=== PATIENT | male | born 1955 | race Caucasian/White ===

== ENCOUNTER 2016-10-30 15:02 | Inpatient (IN) | payer OTHER ==
[~2016-10-30] VITALS: Ht 177.8 cm; Wt 62.4 kg
[~2016-10-30 15:02] MED LIST: ASPI81TA82 PO; EC-N500T7 PO; MEDR4PAK3 PO
[2016-10-30 15:05] VITALS: BP 141/73; PULSE 111; RESP 18; TEMP 98.4; O2SAT 97
--- NOTE | 2016-10-30 15:08 | PD ---
Physical Exam Date Seen by Provider: Oct 30, 2016 Time Seen by Provider: 15:07 Narrative 61 yo male here for wound to his skin. Going on for 3-4 weeks. Oozing. Was told by [facility] who told him might be cancer. Has not seen anybody else for this. Vitals are stable in triage. Awaiting Bed placement. Data Data Last Documented VS Vital Signs Date Time Temp Pulse Resp B/P Pulse Ox O2 Delivery O2 Flow Rate FiO2 10/30/16 15:05 98.4 111 18 141/73 97 Room Air [facility] Medical Record Reviewed: Yes Supervised Visit with JOSE: No Nimesh Graves Oct 30, 2016 15:08
--- NOTE | 2016-10-30 16:15 | PD ---
HPI Chief Complaint: Skin Problem Time Seen by Provider: 16:15 Travel History International Travel<30 days: No Contact w/Intl Traveler<30days: No Traveled to known affect area: No History of Present Illness HPI 61 YO M presents to the ED for evaluation of three-month history of open wound of the left forehead. Patient states that he had a "wart" in the area for the last 5+ years. He endorses 20-30 pound weight loss in the last 3 months, occasional night sweats, occasional left-sided headaches. Complains of localized wound pain on presentation. He denies dizziness, vision changes, neuro deficits, chest pain, palpitations, shortness of breath, abdominal pain, nausea, vomiting, melena, hematochezia, dysuria, back pain, weakness of the extremities. He was seen at [facility] 8 days ago and sent to an outpatient kick press setter. Drier Operator Head told him that this was too extensive to be treated in the office. He's been a 2 pack-a-day smoker for 45 years. [facility] Social History Alcohol Use: No Tobacco Use: Yes Substance Use: No Allergies-Medications (Allergen,Severity, Reaction): Coded Allergies: No Known Allergies (Verified , 02/20/14) Reported Meds & Prescriptions Reported Meds & Active Scripts Active Reported Aspirin 81 Mg Chew 81 Mg CHEW DAILY Review of Systems Except as stated in HPI: all other systems reviewed are Neg Physical Exam Narrative GENERAL: Well-nourished, well-developed thin white male in no acute distress. SKIN: Focused skin assessment warm/dry. There is a 5 x 5 cm open, foul-smelling , purulent wound on the left forehead, lateral to the left eye. HEAD: Normocephalic. EYES: No scleral icterus. No injection or drainage. PERRLA. EOMI. NECK: Supple, trachea midline. No JVD or lymphadenopathy. CARDIOVASCULAR: Regular rate and rhythm without murmurs, gallops, or rubs. RESPIRATORY: Breath sounds and equal bilaterally. No accessory muscle use. GASTROINTESTINAL: Abdomen soft, non-tender, nondistended. Active bowel sounds. MUSCULOSKELETAL: No cyanosis, or edema. NEUROLOGICAL: Awake and alert. Cranial nerves II through XII intact. Motor and sensory grossly within normal limits. 5/5 muscle strength in all muscle groups. Normal speech. BACK: Nontender without obvious deformity. No CVA tenderness. Data Data Last Documented VS Vital Signs Date Time Temp Pulse Resp B/P Pulse Ox O2 Delivery O2 Flow Rate FiO2 10/30/16 18:39 89 121/63 97 10/30/16 17:08 17 Room Air 10/30/16 15:05 98.4 Orders Complete Blood Count With Diff (10/30/16 16:05) Comprehensive Metabolic Panel (10/30/16 16:05) Lactic Acid Sepsis Protocol (10/30/16 16:05) Blood Culture (10/30/16 16:05) Ecg Monitoring (10/30/16 16:05) Iv Access Insert/Monitor (10/30/16 16:05) Oximetry (10/30/16 16:05) Prothrombin Time / Inr (Pt) (10/30/16 16:10) Act Partial Throm Time (Ptt) (10/30/16 16:10) Wound Culture And Gram Stain (10/30/16 16:10) Ct Soft Tiss Neck W Iv Cont (10/30/16 ) Iohexol 350 Inj (Omnipaque 350 Inj) (10/30/16 18:18) Acetamin-Hydrocod 325-5 Mg ([place] 5-325 (10/30/16 18:45) Vancomycin Inj (Vancomycin Inj) (10/30/16 18:45) Clindamycin Inj (Cleocin Inj) (10/30/16 18:45) Admit Order (Ed Use Only) (10/30/16 19:57) Place In Observation (10/30/16 ) Vital Signs (Adult) Q4H (10/30/16 19:59) Activity Oob Ad Madelin (10/30/16 19:59) Chrome Plater / Telemetry .CONTINUOUS (10/30/16 19:59) Diet Heart Healthy (10/31/16 Breakfast) Sodium Chloride 0.9% Flush (Ns Flush) (10/30/16 20:00) Sodium Chloride 0.9% Flush (Ns Flush) (10/30/16 21:00) Basic Metabolic Panel (Bmp) (10/31/16 06:00) Complete Blood Count With Diff (10/31/16 06:00) Case Management Consult (10/30/16 19:59) Naloxone Inj (Narcan Inj) (10/30/16 20:00) Labs Laboratory Tests Test 10/30/16 16:18 White Blood Count 19.1 TH/MM3 Red Blood Count 3.99 MIL/MM3 Hemoglobin 11.6 GM/DL Hematocrit 34.1 % Mean Corpuscular Volume 85.5 FL Mean Corpuscular Hemoglobin 29.2 PG Mean Corpuscular Hemoglobin 34.1 % Concent Red Cell Distribution Width 14.5 % Platelet Count 394 TH/MM3 Mean Platelet Volume 7.6 FL Neutrophils (%) (Auto) 79.7 % Lymphocytes (%) (Auto) 13.2 % Monocytes (%) (Auto) 5.9 % Eosinophils (%) (Auto) 0.5 % Basophils (%) (Auto) 0.7 % Neutrophils # (Auto) 15.2 TH/MM3 Lymphocytes # (Auto) 2.5 TH/MM3 Monocytes # (Auto) 1.1 TH/MM3 Eosinophils # (Auto) 0.1 TH/MM3 Basophils # (Auto) 0.1 TH/MM3 CBC Comment DIFF FINAL Differential Comment Sodium Level 136 MEQ/L Potassium Level 4.1 MEQ/L Chloride Level 100 MEQ/L Carbon Dioxide Level 30.4 MEQ/L Anion Gap 6 MEQ/L Blood Urea Nitrogen 13 MG/DL Creatinine 0.86 MG/DL Estimat Glomerular Filtration 90 ML/MIN Rate Random Glucose 225 MG/DL Lactic Acid Level 1.4 mmol/L Calcium Level 10.7 MG/DL Total Bilirubin 0.3 MG/DL Aspartate Amino Transf 8 U/L (AST/SGOT) Alanine Aminotransferase 8 U/L (ALT/SGPT) Alkaline Phosphatase 75 U/L Total Protein 8.2 GM/DL Albumin 2.8 GM/DL [facility] Medical Decision Making Medical Screen Exam Complete: Yes Emergency Medical Condition: Yes Differential Diagnosis melanoma versus basal cell carcinoma versus squamous cell carcinoma versus metastatic cancer versus secondary infection versus other Narrative Course 61 YO M presents to the ED for evaluation of three-month history of open wound of the left forehead. Patient states that he had a "wart" in the area for the last 5+ years. He endorses 20-30 pound weight loss in the last 3 months, occasional night sweats, occasional left-sided headaches. Complains of localized wound pain on presentation. He's been a 2 pack-a-day smoker for 45 years. Vitals reviewed. Physical exam reveals a nontoxic-appearing white male in no acute distress. There is a 5-7 cm open wound lateral to the left eye. It is purulent and foul-smelling. Remaining exam unremarkable. Lab work reveals a white count of 19.1 with a left shift, hemoglobin 11, calcium 10.7. CT soft tissue reveals a 7.6 cm ulcer that does not include the temporal bone. There is additionally an abnormal consolidation and micro- cavitation at the left lung apex with adenopathy. CT chest with contrast recommended. Patient was administered IV vancomycin and clindamycin. I suspect he has a secondary infection of the wound. I discussed the results the workup with the patient. I recommended admission to the hospital for further evaluation. The patient and his are agreeable to this plan. I spoke with who agrees to accept the patient to the medical service. Please see medicine notes for disposition. Tamika Sanchez Oct 30, 2016 16:15
[2016-10-30 16:19] VITALS: O2SAT 97
[2016-10-30 16:48] LABS: AUTOMATED NEUTROPHIL # 15.2 TH/MM3 (1.8-7.7); BASOPHIL # 0.1 TH/MM3 (0-0.2); BASOPHIL % 0.7 % (0.0-2.0); EOSINOPHIL # 0.1 TH/MM3 (0-0.4); EOSINOPHIL % 0.5 % (0.0-4.0); HEMATOCRIT 34.1 % (39.0-51.0); HEMO FLAGS DIFF FINAL; LYMPH % 13.2 % (9.0-44.0); LYMPHOCYTE # 2.5 TH/MM3 (1.0-4.8); MEAN CELL VOLUME 85.5 FL (80.0-100.0); MEAN CORPUSCULAR HEMOGLOBIN 29.2 PG (27.0-34.0); MEAN CORPUSCULAR HGB CONC 34.1 % (32.0-36.0); MONO % 5.9 % (0.0-8.0); NEUT % 79.7 % (16.0-70.0); PLATELET COUNT 394 TH/MM3 (150-450); RED BLOOD COUNT 3.99 MIL/MM3 (4.50-5.90); RED CELL DISTRIBUTION WIDTH 14.5 % (11.6-17.2); WHITE BLOOD COUNT 19.1 TH/MM3 (4.0-11.0)
[2016-10-30] MEDS ORDERED: ASPI81CH CHEW (16:53)
[2016-10-30 17:06] LABS: ALT (GPT) 8 U/L (12-78); ANION GAP 6 MEQ/L (5-15); AST (GOT) 8 U/L (15-37); BICARBONATE 30.4 MEQ/L (21.0-32.0); BLOOD UREA NITROGEN 13 MG/DL (7-18); CHLORIDE 100 MEQ/L (98-107); GLOMERULAR FILTRATION RATE 90 ML/MIN (>89); POTASSIUM 4.1 MEQ/L (3.5-5.1); SODIUM (NA) 136 MEQ/L (136-145)
[2016-10-30 17:08] VITALS: BP 111/68; PULSE 92; RESP 17; O2SAT 97
[2016-10-30 17:09] LABS: ALKALINE PHOSPHATASE 75 U/L (45-117); TOTAL BILIRUBIN ADULT 0.3 MG/DL (0.2-1.0)
[2016-10-30] MEDS ORDERED: IOHEXOL 350 MG/ML 10 ML VIAL (for RAD DIAG) IV ONE (18:18)
[2016-10-30 18:39] VITALS: BP 121/63; PULSE 89; O2SAT 97
--- NOTE | 2016-10-30 18:41 | RADRPT ---
EXAM DATE/TIME: 10/30/2016 18:07 [facility] COMPARISON: No previous studies available for comparison. INDICATIONS : Facial wound on left temporal area. IV CONTRAST: 75 cc Omnipaque 350 (iohexol) IV RADIATION DOSE: 13.32 CTDIvol (mGy) MEDICAL HISTORY : None SURGICAL HISTORY : None. ENCOUNTER: Initial ACUITY: 3 months PAIN SCALE: 10/10 LOCATION: Left tempral area. TECHNIQUE: Volumetric scanning of the neck was performed. Using automated exposure control and adjustment of th e mA and/or kV according to patient size, radiation dose was kept as low as reasonably achievable to obtain optimal diagnostic quality images. DICOM format image data is available electronically for r eview and comparison. FINDINGS: There is a large ulcerating cutaneous mass in left temporal region which extends up to AP length of a bout 7.6 cm. The solid portion of the lesion extends to the surface of the squamous portion the tempo ral bone without evidence for direct bony invasion. No pathologically enlarged lymph nodes are identi fied in the neck. Orbits are intact. Paranasal sinuses are clear. There is dense consolidation at the left lung apex with air bronchograms and small areas of cavitation. Further evaluation with chest CT recommended. There is upper mediastinal adenopathy up to 1.5 cm. CONCLUSION: 1. Large ulcerating cutaneous mass in left temporal region with abnormal soft tissue extending to the surface of the left temporal bone without evidence for bone invasion. 2. Abnormal consolidation and microcavity formation at left lung apex with adenopathy. Further evalua tion with chest CT recommended with contrast. Jeoy Payan MD on October 30, 2016 at 18:32 Board Certified Radiologist. This report was verified electronically.
[2016-10-30] MEDS ORDERED: ACETAMINOPHEN/HYDROcodone 325 MG/5 MG TAB PO ONE (18:45)
[2016-10-30] MEDS ORDERED: CLINDAMYCIN INJ 900 MG in SODIUM CHLORIDE 0.9% INJ 100 ML IV ONE (18:45)
[2016-10-30] MEDS ORDERED: VANCOMYCIN INJ 1,000 MG in SODIUM CHLOR 0.9% 250 ML INJ 250 ML IV ONE (18:45)
[2016-10-30] MEDS ORDERED: NALOXONE HCL 0.4 MG/ML AMP IV PRN (20:00)
[2016-10-30] MEDS: SODIUM CHLORIDE 0.9% FLUSH 10 ML FLUSH IV FLUSH SCH (21:00)
--- NOTE | 2016-10-30 22:00 | HHI.HP ---
[facility] No Primary Care Physician Admission Diagnosis facial mass, cellulitis, lung nodule Diagnoses: (1) Skin cancer of face (2) Leukocytosis (3) Lung mass (4) Tobacco abuse Chief Complaint: cancerous lesion on face Travel History International Travel<30 Days: No Contact w/Intl Traveler <30 Da: No Traveled to Known Affected Are: No History of Present Illness Written by Estrella Diaz, acting as scribe for Dr. Wallis on 10/30/16 at 22:00. The patient states he was seen at [facility] with cancerous lesion on face He was discharged with dermatology follow up - was unable to be seen due to lack of insurance; lesion has never been biopsied The lesion has been present for 3 months, progressively enlarging, changing contours, painful, not bleeding, no visual changes, no headaches Denies paresthesias, falling down, problems with balance, weakness Denies fevers, reports drainage - yellowish, n/v/d, black or red stool, Over the past month the lesion has gotten "big" Denies excessive sun exposure, "definitely not a sun worshiper" Denies injury to area Reports chronic "smokers cough" - nonproductive Reports weight loss of 20 lbs over the past 2 months Weight loss was related to loss of appetite - skips lunch Denies dysphagia Sometimes has night sweat - symptoms present past 5-6 years . Review of Systems Except as stated in HPI: all other systems reviewed are Neg Past Family Social History Past Medical History CAD s/p CABG - stopped taking Plavix about 4 years ago Hypertension? Denies diabetes mellitus, CHF, atrial fibrillation, COPD/emphysema/asthma, liver problems, kidney problems, DVT, PE, CVA, seizures, thyroid problems, or prostate problems Past Surgical History Left leg surgery at age 34 y/o Reported Medications Reported Meds & Active Scripts Active Reported Aspirin 81 Mg Chew 81 Mg CHEW DAILY . Allergies: Coded Allergies: No Known Allergies (Verified , 02/20/14) Active Ordered Medications Current Medications Iohexol (Omnipaque 350 Inj) 75 ml STK-MED ONCE IV Last administered on t 18:18; Start 8/9/17 at 18:18; Stop 10/30/16 at 18:19; Status DC Acetaminophen/ Hydrocodone Bitart 1 tab 1 tab ONCE ONCE PO Last administered on 10/30/16 19:48; Start 10/30/16 at 18:45; Stop 10/30/16 at 18:46; Status DC Vancomycin HCl 1000 mg/Sodium Chloride 250 ml @ 250 mls/hr ONCE ONCE IV Last administered on 10/30/16 19:47; Start 10/30/16 at 18:45; Stop 10/30/16 at 19:44; Status DC Clindamycin Phosphate/Sodium Chloride (Cleocin Inj/NS Inj) 106 ml @ 212 mls/hr ONCE ONCE IV ; Start 10/30/16 at 18:45; Stop 10/30/16 at 19:14; Status DC Sodium Chloride (NS Flush) 2 ml UNSCH PRN IV FLUSH FLUSH AFTER USING IV ACCESS ; Start 10/30/16 at 20:00 Sodium Chloride (NS Flush) 2 ml BID IV FLUSH ; Start 10/30/16 at 21:00 Naloxone HCl (Narcan Inj) 0.4 mg UNSCH PRN IV SEE LABEL COMMENTS; Start at 20:00 . Family History Mother with CVA, after walking into a ladder on a fire truck Father age 89 from "natural causes" Brother with hypertension and cancer on his head - skin cancer . 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 Physical Exam Vital Signs Vital Signs Date Time Temp Pulse Resp B/P Pulse Ox O2 Delivery O2 Flow Rate FiO2 10/30/16 18:39 89 121/63 97 10/30/16 17:08 92 17 111/68 97 Room Air 10/30/16 16:19 97 Room Air 10/30/16 15:05 98.4 111 18 141/73 97 Room Air Physical Exam GENERAL: This is a thin older male patient, in no apparent distress. SKIN: No rashes. Left temporal area with ulcerated, fungating, foul-smelling ulceration. Diaphoretic on exam; CABG scar noted on thorax. HEAD: Normocephalic. EYES: No scleral icterus. No injection or drainage. ENT: Nose without bleeding, purulent drainage. NECK: Trachea midline. No JVD CARDIOVASCULAR: Regular rate and rhythm without murmurs, gallops, or rubs. RESPIRATORY: Left lung with crepitations, right lung clear. No wheezes, or rhonchi. GASTROINTESTINAL: Abdomen soft, non-tender, nondistended. No guarding. MUSCULOSKELETAL: Extremities without clubbing, cyanosis, or edema. No calf tenderness. NEUROLOGICAL: Awake and alert. Motor and sensory grossly within normal limits. Normal speech. . Laboratory Laboratory Tests Test 10/30/16 16:18 White Blood Count 19.1 Red Blood Count 3.99 Hemoglobin 11.6 Hematocrit 34.1 Mean Corpuscular Volume 85.5 Mean Corpuscular Hemoglobin 29.2 Mean Corpuscular Hemoglobin 34.1 Concent Red Cell Distribution Width 14.5 Platelet Count 394 Mean Platelet Volume 7.6 Neutrophils (%) (Auto) 79.7 Lymphocytes (%) (Auto) 13.2 Monocytes (%) (Auto) 5.9 Eosinophils (%) (Auto) 0.5 Basophils (%) (Auto) 0.7 Neutrophils # (Auto) 15.2 Lymphocytes # (Auto) 2.5 Monocytes # (Auto) 1.1 Eosinophils # (Auto) 0.1 Basophils # (Auto) 0.1 CBC Comment DIFF FINAL Differential Comment Sodium Level 136 Potassium Level 4.1 Chloride Level 100 Carbon Dioxide Level 30.4 Anion Gap 6 Blood Urea Nitrogen 13 Creatinine 0.86 Estimat Glomerular Filtration 90 Rate Random Glucose 225 Lactic Acid Level 1.4 Calcium Level 10.7 Total Bilirubin 0.3 Aspartate Amino Transf 8 (AST/SGOT) Alanine Aminotransferase 8 (ALT/SGPT) Alkaline Phosphatase 75 Total Protein 8.2 Albumin 2.8 Date/Time Procedure Status Source Growth 10/30/16 16:18 Gram Stain Received Wound Scalp Pending 10/30/16 16:18 Wound Culture Received Wound Scalp Pending 10/30/16 16:18 Aerobic Blood Culture Received Blood Peripheral Pending 10/30/16 16:18 Anaerobic Blood Culture Received Blood Peripheral Pending Result Diagram: 10/30/16 1618 10/30/16 1618 Imaging Last Impressions Neck CT 10/30/16 0000 Signed Impressions: Service Date/Time: Sunday, October 30, 2016 18:07 - CONCLUSION: 1. Large ulcerating cutaneous mass in left temporal region with abnormal soft tissue extending to the surface of the left temporal bone without evidence for bone invasion. 2. Abnormal consolidation and microcavity formation at left lung apex with adenopathy. Further evaluation with chest CT recommended with contrast. Joey Payan MD Assessment and Plan Problem List: (1) Skin cancer of face ICD Code: C44.300 Status: Acute (2) Leukocytosis ICD Code: D72.829 Status: Acute (3) Lung mass ICD Code: R91.8 Status: Acute (4) Tobacco abuse ICD Code: Z72.0 Status: Chronic Assessment and Plan Skin Cancer suspected - consult general surgery for possible biopsy and diagnosis - pain medication: Morphine 2 mg IV q3h PRN pain 5 - 10 - consult case management for assistance with discharge planning Leukocytosis with left shift - Antibiotics: Clindamycin 900 mg q6h - wound and blood cultures pending - adjust treatment as indicated - repeat CBC in a.m. and follow results Lung mass suspected - Chest x-ray with findings suspicious for lung mass - contrast CT recommended but have to wait until tomorrow due to contrast study done today Tobacco Abuse - counselled regarding smoking cessation DVT prophylaxis - SCDs/TEDs This note was transcribed by kathy [Estrella Diaz]. I, Dr. Sergey Wallis personally performed the history, physical exam, and medical decision making; and confirmed the accuracy of the information in the transcribed note. Authenticated by Dr. Sergey Wallis on 10/30/16 at 22:00. . Discussed Condition With ER physician Patient . Estrella Diaz Oct 30, 2016 22:00 Sergey Wallis MD Oct 31, 2016 02:14
[2016-10-30] MEDS: SODIUM CHLORIDE 0.9% FLUSH 10 ML FLUSH IV FLUSH PRN (22:10)
[2016-10-30 23:44] VITALS: BP 119/68; PULSE 86; RESP 12; O2SAT 96
[2016-10-31] VITALS (9 sets, daily range): BP systolic 111–131; BP diastolic 61–79; PULSE 76–92; RESP 16–21; TEMP 97.4–98.7; O2SAT 95–98
[2016-10-31] MEDS: MORPHINE SULFATE 4 MG/ML INJ IV PUSH PRN ×3 (01:31→09:30)
[2016-10-31] MEDS: CLINDAMYCIN INJ 900 MG in SODIUM CHLORIDE 0.9% INJ 100 ML IV SCH ×4 (04:00→23:03)
[2016-10-31 07:16] LABS: AUTOMATED NEUTROPHIL # 9.1 TH/MM3 (1.8-7.7); BASOPHIL # 0.1 TH/MM3 (0-0.2); BASOPHIL % 0.7 % (0.0-2.0); EOSINOPHIL # 0.2 TH/MM3 (0-0.4); EOSINOPHIL % 1.3 % (0.0-4.0); HEMATOCRIT 33.9 % (39.0-51.0); HEMO FLAGS DIFF FINAL; LYMPH % 19.2 % (9.0-44.0); LYMPHOCYTE # 2.5 TH/MM3 (1.0-4.8); MEAN CELL VOLUME 86.3 FL (80.0-100.0); MEAN CORPUSCULAR HEMOGLOBIN 28.4 PG (27.0-34.0); MEAN CORPUSCULAR HGB CONC 32.9 % (32.0-36.0); MONO % 8.3 % (0.0-8.0); NEUT % 70.5 % (16.0-70.0); PLATELET COUNT 387 TH/MM3 (150-450); RED BLOOD COUNT 3.93 MIL/MM3 (4.50-5.90); RED CELL DISTRIBUTION WIDTH 14.7 % (11.6-17.2); WHITE BLOOD COUNT 12.9 TH/MM3 (4.0-11.0)
[2016-10-31 07:29] LABS: APTT (PATIENT) 29.5 SEC (24.3-30.1); PROTHROMBIN TIME - PATIENT 10.8 SEC (9.8-11.6)
[2016-10-31 07:38] LABS: POTASSIUM 3.7 MEQ/L (3.5-5.1)
--- NOTE | 2016-10-31 09:28 | HHI.PR ---
Subjective Remarks Follow up for suspected skin cancer, cellulitis, lung mass. The patient reports continued pain, swelling, purulent drainage and foul odor from left facial lesion/cellulitis. Denies any headache other than pain at the site of the lesion. Denies any visual changes, blurred vision, or pain upon eye movements. He reports chills and sweats, but no documented fevers. Denies lightheadedness or dizziness. He reports an occasional dry hacking smoker's cough, but no worsening recently. Denies any chest pain or shortness of breath. He states he did go to [facility], seen in the ER, then referred to Dr. Cho's office however was told that he can't treat him, and was also told that he doesn 't take Medicaid. The patient states he was trying to obtain Medicaid however was denied, now applying for SSI and has an upcoming appt for this. He states Dr. Cho's office did tell him to go to [facility] but he thought he had to obtain insurance first so he hasn't gone yet. Objective Vitals Vital Signs Date Time Temp Pulse Resp B/P Pulse Ox O2 Delivery O2 Flow Rate FiO2 10/31/16 07:40 98.7 77 18 111/62 96 10/31/16 03:53 98.3 84 16 112/61 96 10/31/16 00:57 98.2 92 17 130/73 98 10/30/16 23:44 86 12 119/68 96 Room Air 10/30/16 18:39 89 121/63 97 10/30/16 17:08 92 17 111/68 97 Room Air 10/30/16 16:19 97 Room Air 10/30/16 15:05 98.4 111 18 141/73 97 Room Air Result Diagram: 10/31/16 0615 10/31/16 0615 Imaging Last Impressions Neck CT 10/30/16 0000 Signed Impressions: Service Date/Time: Sunday, October 30, 2016 18:07 - CONCLUSION: 1. Large ulcerating cutaneous mass in left temporal region with abnormal soft tissue extending to the surface of the left temporal bone without evidence for bone invasion. 2. Abnormal consolidation and microcavity formation at left lung apex with adenopathy. Further evaluation with chest CT recommended with contrast. Joey Payan MD Objective Remarks GENERAL: Well-nourished, well-developed very pleasant middle aged male patient in [facility]. SKIN: Warm and dry. Left temporal region with large 5x5cm ulcerated, foul- smelling lesion with purulent drainage. HEAD: Normocephalic. Atraumatic. EYES: Pupils equal and round. EOMI. No injection or drainage. CARDIOVASCULAR: Regular rate and rhythm. S1, S2 noted. No murmur appreciated. RESPIRATORY: No accessory muscle use. Clear to auscultation. Breath sounds equal bilaterally. GASTROINTESTINAL: Abdomen soft, non-tender, nondistended. Normoactive bowel sounds x4. MUSCULOSKELETAL: No obvious deformities. Extremities without clubbing, cyanosis , or edema. NEUROLOGICAL: Awake and alert. No obvious cranial nerve deficits. Motor grossly within normal limits. Normal speech. PSYCHIATRIC: Appropriate mood and affect; insight and judgment normal. Medications and IVs Current Medications Medications (Trade) Dose Ordered Sig/Luis Route Start Time Stop Time Status Last Admin (NS Flush) 2 ml UNSCH PRN IV FLUSH 10/30/16 20:00 10/30/16 22:10 (NS Flush) 2 ml BID IV FLUSH 10/30/16 21:00 10/31/16 09:30 Naloxone HCl 0.4 mg 0.4 mg UNSCH PRN IV 10/30/16 20:00 (Cleocin Inj/NS Inj) 106 ml @ 212 mls/hr Q6H IV 10/31/16 04:00 10/31/16 10:01 (Morphine Inj) 2 mg Q3H PRN IV PUSH 10/30/16 22:15 10/31/16 09:30 A/P Problem List: (1) Skin cancer of face ICD Code: C44.300 Status: Acute (2) Leukocytosis ICD Code: D72.829 Status: Acute (3) Lung mass ICD Code: R91.8 Status: Acute (4) Tobacco abuse ICD Code: Z72.0 Status: Chronic Assessment and Plan 61-year-old male with history of CAD s/p CABG, presents with left facial skin cancer Skin Cancer suspected - neck CT images reviewed, shows large ulcerating cutaneous mass in left temporal region with abnormal soft tissue extending to the surface of the left temporal bone without bone invasion - consult general surgery for possible biopsy and diagnosis; GS recommended maxillofacial, however Dr. Brandon then recommended head/neck surgeon and oncology consult - discussed extensively with the patient, likely needs to go to [facility] - adjust pain meds, control pain with percocet prn pain scale, and increased IV morphine to 4mg prn breakthrough pain - consult case management for assistance with discharge planning Sepsis with Cellulitis: Meets sepsis criteria with leukocytosis WBC 19K, tachycardia HR 111, and source-cellulitis. Lactic acid 1.4. - Continue Antibiotics with IV Clindamycin 900 mg q6h - wound and blood cultures pending - adjust treatment as indicated - monitor CBC, improving, WBC 12.9K Lung mass suspected - CXR images reviewed, findings suspicious for lung mass - contrast chest CT recommended but have to wait until tomorrow due to contrast study done today - consult oncology Tobacco Abuse - counselled on smoking cessation - provide nicotine patch DVT prophylaxis - SCDs/TEDs Discharge Planning Discharge pending further clinical improvement and work up. Await oncology evaluation. Malena Low PA-C Oct 31, 2016 09:28
[2016-10-31] MEDS: SODIUM CHLORIDE 0.9% FLUSH 10 ML FLUSH IV FLUSH SCH ×2 (09:30→23:02)
[2016-10-31] MEDS ORDERED: oxyCODONE/ACETAMINOPHEN 5 MG/325 MG TAB PO PRN (10:30)
[2016-10-31] MEDS: NICOTINE 21 MG/24 HR PATCH T-DERMAL SCH (11:50)
[2016-10-31] MEDS: oxyCODONE/ACETAMINOPHEN 10 MG/325 MG TAB PO PRN ×3 (11:51→23:03)
[2016-10-31] MEDS: MORPHINE SULFATE 4 MG/ML INJ IV PRN ×2 (13:03→18:35)
[2016-10-31] MEDS ORDERED: IOHEXOL 350 MG/ML 10 ML VIAL (for RAD DIAG) IV ONE (16:45)
--- NOTE | 2016-10-31 17:00 | RADRPT ---
EXAM DATE/TIME: 10/31/2016 16:34 [facility] COMPARISON: No previous studies available for comparison. INDICATIONS : Left upper lobe mass. IV CONTRAST: 80 cc Omnipaque 350 (iohexol) IV RADIATION DOSE: 3.46 CTDIvol (mGy) MEDICAL HISTORY : Cardiovascular disease. SURGICAL HISTORY : CABG ENCOUNTER: Initial ACUITY: 2 days PAIN SCALE: 0/10 LOCATION: chest TECHNIQUE: Volumetric scanning of the chest was performed. Using automated exposure control and adjustment of t he mA and/or kV according to patient size, radiation dose was kept as low as reasonably achievable to obtain optimal diagnostic quality images. DICOM format image data is available electronically for review and comparison. Follow-up recommendations for incidentally detected pulmonary nodules are based at a minimum on nodul e size and patient risk factors according to Fleischner Society Guidelines. FINDINGS: LUNGS: There is some central lobar emphysema involving the lung thompson. There is collapse of the left upper lung with some residual air bronchograms. There are some nonspecific interstitial infiltrates in the posterior lung bases bilaterally. There is a 6 mm pulmonary nodule in the right midlung. PLEURA: There is no pleural thickening or pleural effusion. MEDIASTINUM: The heart and great vessels demonstrate no acute abnormality. There is no definite mediastinal lymp hadenopathy. A few nonspecific lymph nodes are demonstrated in the mediastinum adjacent to the arch o f the aorta.. There is increased soft tissue around the left hilar area. There is evidence of previou s cardiothoracic surgery. AXILLAE: Within normal limits. No lymphadenopathy. SKELETAL: Within normal limits for patient age. There are primary degenerative changes involving the thoracic s pine. MISCELLANEOUS: The visualized upper abdominal organs demonstrate no acute abnormality. CONCLUSION: 1. There is collapse involving the left upper lung with air bronchograms. The findings suggests a mason tral obstructing lesion near the left hilar area. Neoplastic disease is not excluded. Recommend [facility] hoscopy if that has not already been performed. 2. Nonspecific interstitial infiltrates in the posterior lung bases bilaterally. 3. 6 mm nonspecific pulmonary nodule in the right midlung. This can be followed up in 6 months with n oncontrast CT thorax. 4. Central lobar emphysema. 5. There are some nonspecific mildly prominent lymph nodes in the mediastinum. Jaxon Chavez MD on October 31, 2016 at 16:51 Board Certified Radiologist. This report was verified electronically.
--- NOTE | 2016-10-31 19:40 | MB ---
cc: VERA VAUGHN MD DATE OF CONSULTATION 10/30/2016 DATE OF 1955 HEMATOLOGY/ONCOLOGY CONSULT Consultation requested by the hospitalist service. REASON FOR CONSULTATION 1. Large ulcerated mass along the left temporal area. 2. Collapsed left upper lobe of the lung secondary to a suspected endobronchial lesion. CHIEF COMPLAINT 1. Rapidly enlarging ulcerated mass involving the left temporal area. Severe pain associated with this. 2. Unexplained 20-pound weight loss. 3. Chronic cough. HISTORY OF PRESENT ILLNESS Mr. Zapata is a 61-year-old man who is originally from [place], he moved to [place] many years ago to take care of his father who has since . 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 He has no children of his own and has never been . He presently lives at home with his girlfriend who is [id number] and is herself chronically ill with a history of a stroke. Mr. Zapata reports being in his usual fair state of health up until about a year ago when he began to notice a nodule involving the left hinduism, he reports the nodule slowly grew underneath the skin and about 3 months ago it enlarged to the point "broke through the skin" and became ulcerated. He describes the lesion as crusty on the inside and raised on the outside, he tells me the margins expanded to involve a larger portion of the skin of the temporal area. He tells me the lesion grew to the point where his left eyelid began to droop and the pain increased. About a week ago he noticed purulent and foul-smelling discharge seeping from the ulcer and decided to go into [facility]. He was seen in the emergency department and recommended plastic surgery evaluation. The following day he went in to see Dr. Cho of plastic surgery. He was informed that his insurance was not accepted at [place] and he was recommended evaluation at the [facility] in [place] or some other tertiary referral center. Unfortunately, the patient's pain progressed and he decided to come into [place] for further evaluation. He came in last night with the above symptoms. He was seen by the emergency department staff and underwent a CT scan of the neck and facial tissues which revealed a large ulcerating cutaneous mass involving the left hinduism with abnormal soft tissue extending to the surface of the left temporal bone, there was no definite evidence of bony invasion. In addition to the CT scan of the thorax indicated abnormal consolidation involving the left upper lobe of the lung. This scan was followed up with a CT scan of the thorax with IV contrast performed on 10/31/2016. Findings revealed a collapse of the left upper lung with air bronchograms. There was an abrupt cutoff of the left upper lobe, subsegmental bronchus leading to this lesion suggesting a possible endobronchial lesion. Nonspecific interstitial infiltrates were identified. The 6 mm, nonspecific pulmonary nodule in the right midlung was also identified. There were additionally noted to be nonspecific enlarged lymph nodes within the mediastinum. The oncology service has been asked to see the patient for further workup and evaluation. PAST MEDICAL HISTORY 1. Coronary artery disease. 2. Tobaccoism. PAST SURGICAL HISTORY 1. Coronary artery bypass graft surgery in 2009. 2. ORIF of the left leg at the age of 35. FAMILY HISTORY Parents are both , mother of an intracranial aneurysm. Father at the age of 89 of advanced age. The patient has two sisters who are breast cancer survivors. SOCIAL HISTORY Lives at home with his 80-year-old girlfriend. 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 He has no children of his own. ALLERGIES NO KNOWN DRUG ALLERGIES. MEDICATIONS Current inpatient medications: 1. Clindamycin 900 milligrams IV daily q.6 hours. 2. Vancomycin x1. 3. Morphine 4 milligrams IV q.3 hours as needed for severe pain. 4. Nicotine patch 21 milligrams patch transdermal daily. 5. Oxycodone/acetaminophen 5/325 q. 6 hours as needed for pain. REVIEW OF SYSTEMS The following aer the pertinent positives and negatives; a 13-point review of systems is obtained. CONSTITUTIONAL: Fatigue, weakness, unintended 20-pound weight loss. He denies fevers or chills. HEENT: Reports a large ulcerated mass involving the left hinduism area, this is painful. He denies changes in vision, difficulty hearing, difficulty swallowing, soreness in the throat. RESPIRATORY: Denies difficulty breathing, denies pleuritic chest pain, denies hemoptysis. He does report a chronic cough. CARDIOVASCULAR: Denies angina-like chest pain, PND, orthopnea GI: Denies nausea, vomiting, diarrhea, hematochezia, melena. UG: No complaints. MUSCULOSKELETAL: Denies any focal aches or pains other than chronic lower back pain and pain in his left leg. 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 SKIN: As outlined above in HEENT:. PHYSICAL EXAMINATION VITAL SIGNS: Temperature 97.4 degrees Fahrenheit, heart rate 76 beats minute, respiratory rate 20, blood pressure 131/71, O2 sats 98% on room air. GENERAL APPEARANCE: Mr. Zapata is a middle-aged man, he is sitting up in bed, appears to be in no acute distress. He has a 4x4 gauze overlying the ulcerated mass on his left temporal area. HEENT: Head atraumatic, normocephalic, he has an approximately 4.5 to 5-cm mass which is ulcerated involving the left temporal area. The mass arose quite deep, there is somewhat of a purulent discharge noted on the gauze dressing. Oral exam no pharyngeal erythema. Neck exam no palpable cervical or supraclavicular lymphadenopathy. Eye, EOMI, PERRLA. RESPIRATORY EXAM: Good air movement bilaterally. No added breath sounds. CARDIOVASCULAR: Regular rate and rhythm, S1-S2. No obvious murmurs, rubs or gallops. ABDOMINAL EXAM: Thin, soft and nontender, nondistended. No palpable organ enlargement. LOWER EXTREMITIES: No pretibial edema, calf tenderness. 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 LABORATORY FINDINGS Blood work dated 10/31/2016: WBC count 12.9, hemoglobin 11.2 gm/dl, hematocrit 34%, platelet count 387, absolute neutrophil count is 9.1. Chemistries: Sodium 138, potassium 3.7, chloride 99, bicarbonate 30, BUN 12, creatinine 0.74, EGFR 108, random glucose 86, calcium 10.1. Coags PT 10.8, INR 1, PTT 29.5. IMAGING STUDIES CT scan of the neck dated 10/30/2016 with IV contrast indicates a large ulcerated cutaneous mass along the left temporal region with abnormal soft tissue extending to the surface of the left temporal bone without evidence of direct bone invasion. Abnormal consolidative and micro cavitary formation in the left apex of the lung. Neck CT scan of the thorax with IV contrast dated 10/31/2016 indicates collapsed left upper lobe of the lung, air bronchograms noted. Findings suggestive of central obstructing lesion near the left hilar area. Neoplastic disease is not excluded. Nonspecific interstitial infiltrates in the posterior left lung base bilaterally. 6 mm, nonspecific pulmonary nodule in the right midlung. ASSESSMENT Mr. Zapata is a 61-year-old man with a 40+ pack-year history of smoking, history of coronary artery disease and a 1-year history of an enlarging mass involving the left temporal area of the scalp. The lesion involving the left temporal lobe of the scalp has enlarged to become an ulcerated mass with clinical findings consistent with a high-grade cutaneous malignancy. I suspect this is a primary basal cell or an aggressive form of squamous cell carcinoma of the skin. Additionally, he has been found to have a collapsed left upper lobe of the lung with CT imaging findings concerning for a central airway lesion with resultant airway obstruction and secondary collapse. He is uninsured and has not been able to meet with plastic surgery or a commercial diver as an outpatient. He therefore presented to [facility] for further evaluation. RECOMMENDATIONS 1. I will request one of the surgical specialty services, either ENT surgery, plastic surgery or general surgery to help get us at least a biopsy. This would help establish a tissue diagnosis. Following that he will likely need a multidisciplinary evaluation to determine how best to resect his disease with negative margins. He may require radiation oncology evaluation as well to help to reduce the tumor in size so an R0 resection would be possible. 2. Collapsed left upper lobe of the lung: I suspect he has an endobronchial lesion. I will request a pulmonology evaluation for possible bronchoscopy and direct visualization of the airways. Oncology will follow along with you. MD WAYNE Toure/JASMIN /6:28 PM /6:57 PM ZORAIDA
[2016-11-01] VITALS (9 sets, daily range): BP systolic 124–132; BP diastolic 63–72; PULSE 74–94; RESP 17–20; TEMP 96–98.1; O2SAT 95–99
[2016-11-01] MEDS: MORPHINE SULFATE 4 MG/ML INJ IV PRN ×4 (02:15→15:57)
[2016-11-01] MEDS: CLINDAMYCIN INJ 900 MG in SODIUM CHLORIDE 0.9% INJ 100 ML IV SCH (04:11)
[2016-11-01] MEDS: oxyCODONE/ACETAMINOPHEN 10 MG/325 MG TAB PO PRN ×3 (05:06→21:30)
[2016-11-01] MEDS: REMOVE OLD PATCH T-DERMAL SCH (09:00)
[2016-11-01] MEDS ORDERED: SODIUM CHLOR 0.9% 1000 ML INJ 1,000 ML IV SCH (10:00)
[2016-11-01] MEDS: NICOTINE 21 MG/24 HR PATCH T-DERMAL SCH (10:02)
[2016-11-01] MEDS: LEVOFLOXACIN 750 MG PREMIX INJ 150 ML IV SCH (10:02)
[2016-11-01] MEDS: SODIUM CHLORIDE 0.9% FLUSH 10 ML FLUSH IV FLUSH SCH ×2 (10:03→21:31)
[2016-11-01] MEDS: DOCUSATE SODIUM 50 MG/SENNA 8.6 MG TAB PO SCH ×2 (10:03→21:30)
--- NOTE | 2016-11-01 10:12 | HHI.PR ---
Subjective Remarks Follow up for suspected skin cancer, cellulitis, lung mass. The patient continues to have forehead lesion pain, however states the pain is tolerable with pain medication. Less drainage from the lesion today. He states the lesion started out small several years ago, and eventually got larger and opened up 3 months ago. He denies any shortness of breath. 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 Agreeable to biopsy and bronchoscopy if needed. Objective Vitals Vital Signs Date Time Temp Pulse Resp B/P Pulse Ox O2 Delivery O2 Flow Rate FiO2 11/01/16 08:01 74 11/01/16 03:53 78 11/01/16 03:46 98.1 75 17 125/72 95 11/01/16 00:00 78 10/31/16 23:18 98.2 82 18 121/69 95 10/31/16 20:49 98.6 84 18 126/79 97 10/31/16 20:00 90 10/31/16 16:13 97.4 76 20 131/71 98 10/31/16 11:29 98.3 77 21 114/65 97 Result Diagram: 10/31/16 0615 10/31/16 0615 Imaging Last Impressions Chest CT 10/31/16 0000 Signed Impressions: Service Date/Time: October 16:34 - CONCLUSION: 1. There is collapse involving the left upper lung with air bronchograms. The findings suggests a central obstructing lesion near the left hilar area. Neoplastic disease is not excluded. Recommend bronchoscopy if that has not already been performed. 2. Nonspecific interstitial infiltrates in the posterior lung bases bilaterally. 3. 6 mm nonspecific pulmonary nodule in the right midlung. This can be followed up in [address] thorax. 4. Central lobar emphysema. 5. There are some nonspecific mildly prominent lymph nodes in the mediastinum. Jaxon Chavez MD Neck CT 10/30/16 0000 Signed Impressions: Service Date/Time: Sunday, October 30, 2016 18:07 - CONCLUSION: 1. Large ulcerating cutaneous mass in left temporal region with abnormal soft tissue extending to the surface of the left temporal bone without evidence for bone invasion. 2. Abnormal consolidation and microcavity formation at left lung apex with adenopathy. Further evaluation with chest CT recommended with contrast. Joey Payan MD Objective Remarks GENERAL: Well-developed well-nourished. In no acute distress. SKIN: Warm and dry. Left temporal region with large 5x5cm ulcerated, with no surrounding erythema or drainage. HEENT: Normocephalic. Pupils equal and round. Mucous membranes pink and moist. CARDIOVASCULAR: Regular rate and rhythm. No murmur appreciated. RESPIRATORY: No accessory muscle use. Clear to auscultation. Breath sounds equal bilaterally. GASTROINTESTINAL: Abdomen soft, non-tender, nondistended. Bowel sounds x4. MUSCULOSKELETAL: No obvious deformities. No clubbing or cyanosis. No edema. NEUROLOGICAL: Awake and alert. No focal neurological deficits. Moves upper and lower extremities spontaneously. Normal speech. PSYCHIATRIC: Pleasant mood and affect; insight and judgment normal. A/P Problem List: (1) Skin cancer of face ICD Code: C44.300 Status: Acute (2) Leukocytosis ICD Code: D72.829 Status: Acute (3) Lung mass ICD Code: R91.8 Status: Acute (4) Tobacco abuse ICD Code: Z72.0 Status: Chronic Assessment and Plan 61-year-old male with history of CAD s/p CABG, presents with left facial skin cancer Skin Cancer suspected Reviewed: Personally reviewed head and neck CT, shows large ulcerating cutaneous mass in left temporal region with abnormal soft tissue extending to the surface of the left temporal bone without bone invasion - General surgery recommended head and neck surgeon consult, maxillofacial surgery recommended head and neck surgeon consult. Consult ENT. - Oncology consulted, appreciate input - discussed extensively with the patient, likely needs to go to tertiary care - Continue oral Percocet as needed for pain and IV morphine 4mg prn breakthrough pain. Bowel regimen. - consult case management for assistance with discharge planning Sepsis: Possibly secondary to infected wound as above or postobstructive pneumonia as below. Meets sepsis criteria with leukocytosis WBC 19K, tachycardia HR 111, and source-cellulitis. Lactic acid 1.4. Wound culture growing pansensitive staph aureus and Klebsiella. - Change Antibiotics from IV clindamycin to IV Levaquin based on sensitivities. - monitor CBC, improving, WBC 12.9K Lung mass: No respiratory complaints. Reviewed: Chest CT showed collapse involving the left upper lung with air bronchograms; findings suggestive of central obstructing lesion near the left hilar area; nonspecific interstitial infiltrates in the posterior lung bases bilaterally; 6 mm nodule in the right midlung; central lobar emphysema; nonspecific mildly prominent lymph nodes in the mediastinum. - Oncology consulted pulmonology Hyperglycemia: Fasting glucose was 186. - Check hemoglobin A1c - Monitor Accu-Cheks. Cover with SSI if needed. Tobacco Abuse - counselled on smoking cessation - nicotine patch DVT prophylaxis - SCDs/Yogesh Wilburn Nov 01, 2016 10:11
[2016-11-01] MEDS ORDERED: DEXTROSE 50% IN WATER 50 ML VIAL(D50) IV PRN (10:15)
[2016-11-01] MEDS ORDERED: GLUCAGON 1 MG/ML VIAL OTHER PRN (10:15)
[2016-11-01] MEDS: INSULIN ASPART SUPPLEMENTAL SCALE SQ SCH ×3 (13:06→21:43)
[2016-11-01 16:53] LABS: HEMOGLOBIN A1a 1.5 %; HEMOGLOBIN A1b 0.9 %; HEMOGLOBIN Ao 81.4 %; HEMOGLOBIN F 1.5 %; HEMOGLOBIN LA1C 1.6 %; HEMOGLOBIN P3 4.2 %
--- NOTE | 2016-11-01 19:32 | MB ---
cc: MITZY ESPINO DATE OF CONSULTATION 11/01/[address] Dionisio Dotson REASON FOR CONSULTATION Evaluation for left upper lobe density. HISTORY OF PRESENT ILLNESS Mr. Zapata is a 61-year-old male who moved from [place] about three years ago to take care of his father because the mother has recently. His father also now and he is living alone. 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 He noticed that he had a bump on the left side of the temporal area. Initially, it was a small bump two years ago, but five to six months ago it started growing and started oozing. Because of these symptoms, he was initially seen at [facility] and needed to see a plastic surgeon. He did not have insurance. He came to this hospital because of the pain in the left side of the buddhist. He had a workup done. He had a CT scan of the chest done which shows collapse involving the left upper lobe with air bronchogram suggestive of possible central obstructing lesion, non-thoracic interstitial infiltrate. He has a 6-mm pulmonary nodule in the right mid lung. His CBC showed a WBC count 12.9, hemoglobin 11.2, hematocrit 33.9, MCV 86, platelet count 387, INR 1.0. Sodium 130, potassium 3.759, CO2 30, BUN 12, creatinine 0.74. PAST MEDICAL HISTORY Significant for: 1. Coronary artery disease status post CABG time four. 2. Hypertension MEDICATIONS He is currently takin. Levaquin 750 mg a day 2. Oxycodone for pain 3. Nicotine patch 4. He took a dose of Clindamycin. ALLERGIES NO KNOWN DRUG ALLERGIES. SOCIAL HISTORY He has a long history of smoking one pack a day and continues to smoke. No alcohol use. No drug use. 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 FAMILY HISTORY Single, never , has no children. He has three sister. REVIEW OF SYSTEMS He has lost some weight, has occasional chills. No loss of consciousness. No seizure, stroke or epilepsy. PHYSICAL EXAM This is a thinly-built male not in acute distress. VITAL SIGNS; Blood pressure 124/63, heart 79, respirations 18, temperature 96.4. HEENT: Examination pupils are equal and reactive. He has a large lesion on the left side of the buddhist with some oozing from it. He has an indurated margin. NECK: JVP not raised. CHEST: No rhonchi. S1 AND s2 Normal. ABDOMEN: Benign. EXTREMITIES: No edema. IMPRESSION 1. Left upper lobe collapse with air bronchogram possible endobronchial lesion, or mucous plugging. 2. Nicotine use 3. Emphysema and COPD 4. Large lesion on the left side buddhist likely squamous or basal cell carcinoma. 5. Coronary artery disease status post CABG. PLAN We will continue antibiotic Levaquin. I will start him on Clindamycin IV. He will need bronchoscopy. I explained the procedure and complications including complication of anesthesia, pneumothorax requiring chest tube, bleeding complication , injury to blood vessels , lung, and nerves . He understands and wants to proceed with it. I will schedule him for bronchoscopy for tomorrow. Further treatment will depend upon his course in the hospital. Thank you, Dr. Dotson, for this consult. MD HECTOR Weiss/LARISSA /6:34 PM /7:06 PM ZORAIDA
[2016-11-01] MEDS: CLINDAMYCIN 150 MG CAP PO SCH (21:33)
[2016-11-02] VITALS (11 sets, daily range): BP systolic 110–129; BP diastolic 55–73; PULSE 65–89; RESP 18–20; TEMP 96.8–98.8; O2SAT 94–100
[2016-11-02] MEDS: CLINDAMYCIN 150 MG CAP PO SCH ×5 (00:03→23:01)
[2016-11-02] MEDS: MORPHINE SULFATE 4 MG/ML INJ IV PRN ×5 (00:05→17:20)
[2016-11-02] MEDS: oxyCODONE/ACETAMINOPHEN 10 MG/325 MG TAB PO PRN ×4 (03:32→23:01)
[2016-11-02 05:47] LABS: AUTOMATED NEUTROPHIL # 6.7 TH/MM3 (1.8-7.7); BASOPHIL # 0.1 TH/MM3 (0-0.2); BASOPHIL % 0.9 % (0.0-2.0); EOSINOPHIL # 0.3 TH/MM3 (0-0.4); EOSINOPHIL % 2.6 % (0.0-4.0); HEMATOCRIT 31.7 % (39.0-51.0); HEMO FLAGS DIFF FINAL; LYMPH % 24.9 % (9.0-44.0); LYMPHOCYTE # 2.7 TH/MM3 (1.0-4.8); MEAN CELL VOLUME 85.3 FL (80.0-100.0); MONO % 9.1 % (0.0-8.0); NEUT % 62.5 % (16.0-70.0); PLATELET COUNT 321 TH/MM3 (150-450); RED BLOOD COUNT 3.72 MIL/MM3 (4.50-5.90); RED CELL DISTRIBUTION WIDTH 14.4 % (11.6-17.2); WHITE BLOOD COUNT 10.7 TH/MM3 (4.0-11.0)
[2016-11-02] MEDS: SODIUM CHLORIDE 0.9% FLUSH 10 ML FLUSH IV FLUSH PRN (05:51)
[2016-11-02 06:06] LABS: BICARBONATE 28.9 MEQ/L (21.0-32.0); POTASSIUM 3.7 MEQ/L (3.5-5.1)
[2016-11-02] MEDS: INSULIN ASPART SUPPLEMENTAL SCALE SQ SCH ×4 (06:26→23:13)
[2016-11-02] MEDS: DOCUSATE SODIUM 50 MG/SENNA 8.6 MG TAB PO SCH ×2 (09:00→23:01)
[2016-11-02] MEDS: REMOVE OLD PATCH T-DERMAL SCH (09:07)
[2016-11-02] MEDS: NICOTINE 21 MG/24 HR PATCH T-DERMAL SCH (09:07)
[2016-11-02] MEDS: SODIUM CHLORIDE 0.9% FLUSH 10 ML FLUSH IV FLUSH SCH ×2 (09:11→23:01)
[2016-11-02] MEDS ORDERED: LIDOCAINE HCL 2% 50 ML VIAL ONE (10:08)
[2016-11-02] MEDS ORDERED: SODIUM CHLORIDE 0.9% 20 ML VIAL ONE (10:08)
[2016-11-02] MEDS ORDERED: EPINEPHrine HCL (1:1000) 1 MG/ML VIAL ONE (10:08)
[2016-11-02] MEDS: LEVOFLOXACIN 750 MG PREMIX INJ 150 ML IV SCH ×2 (10:24→12:01)
--- NOTE | 2016-11-02 11:00 | HHI.PR ---
Subjective Remarks 61 YOWm with GRACIELA collapse, left adventism mass, COPD Had Bronch done GRACIELA obstucting lesion GRACIELA BX,BAL,Brushing done Objective Vital Signs Vital Signs Date Time Temp Pulse Resp B/P Pulse Ox O2 Delivery O2 Flow Rate FiO2 11/02/16 07:47 70 11/02/16 07:30 97.6 65 20 120/55 100 11/02/16 04:00 97.5 83 18 110/66 94 11/02/16 00:00 97.9 82 18 123/62 98 11/01/16 23:00 90 11/01/16 20:00 96.0 88 18 132/72 99 11/01/16 16:10 96.4 79 18 124/63 98 11/01/16 12:35 97.9 80 20 125/69 96 11/01/16 12:26 94 I/O 11/01/16 11/01/16 11/01/16 11/02/16 11/02/16 11/02/16 07:00 15:00 23:00 07:00 15:00 23:00 Intake Total 240 ml 0 ml Output Total 400 ml 400 ml Balance -400 ml 240 ml -400 ml Intake Oral 240 ml 0 ml Output Urine Total 400 ml 400 ml # Voids 2 Result Diagram: 11/02/16 0510 11/02/16 0510 Objective Remarks GENERAL: MBMN WM, NAD SKIN: Warm and dry. HEAD: Normocephalic. Large mass left adventism. EYES: No scleral icterus. No injection or drainage. NECK: Supple, trachea midline. No JVD or lymphadenopathy. CARDIOVASCULAR: Regular rate and rhythm without murmurs, gallops, or rubs. RESPIRATORY: Breath sounds equal bilaterally. No accessory muscle use. GASTROINTESTINAL: Abdomen soft, non-tender, nondistended. MUSCULOSKELETAL: No cyanosis, or edema. BACK: Nontender without obvious deformity. No CVA tenderness. A/P Assessment and Plan GRACIELA Collapse GRACIELA endobronchial lesion COPD Nicotine use Left adventism mass PLAN: Cont Abx Aerosol nebs Check bronch results Post bronch cxr Roger Pina MD Nov 02, 2016 11:00
[2016-11-02] MEDS ORDERED: DO NOT ADM ANY ANTICOAGULANT DRUGS PRN (11:07)
[2016-11-02] MEDS ORDERED: MIDAZOLAM HCL 2 MG/2 ML VIAL ONE (11:11)
--- NOTE | 2016-11-02 11:14 | MR ---
cc: MITZY ESPINO DATE: 11/02/2016. PROCEDURE PERFORMED: Bronchoscopy. PREOPERATIVE DIAGNOSIS: Left upper lobe collapse. POSTOPERATIVE DIAGNOSIS: Left upper lobe collapse with endobronchial lesion. DESCRIPTION OF THE PROCEDURE IN DETAIL: Informed consent was obtained from the patient. The procedure and the complications including complication of anesthesia, pneumothorax requiring chest tube, bleeding complication, injury to blood vessels, lungs, nerves, arrhythmia, hypoxia explained and he consented for the procedure. The patient was brought to the operating room and under general anesthesia endotracheal tube was placed by the anesthesiologist. Bronchoscopy done through the endotracheal tube. Main ashley is sharp. Bronchoscope advanced to the right lung, right upper, middle and lower lobes were visualized. Small amount of mucus was suctioned. No endobronchial mucosal lesion was seen. Then the bronchoscope was pulled back and advanced to the left lung left upper lobe, lingula and lower lobe were visualized. There was an obstructing lesion seen in the left upper lobe which bled easily. There was some mucus along with that and mucous was suctioned. After that, bronchial washings were done and brushings and biopsies were done. He had a small amount of bleeding, which was controlled with saline and epinephrine lavage. Biopsy was sent for pathology. Brushings were sent for cytology. Washings were sent for cytology, routine culture, AFB fungal culture. He tolerated the procedure well. Post procedure chest x-ray was ordered for rule out pneumothorax. MD HECTOR Weiss/JESSICA /10:54 AM /10:59 AM
--- NOTE | 2016-11-02 11:27 | RADRPT ---
EXAM DATE/TIME: 11/02/2016 11:15 [place] COMPARISON: CT THORAX W CONTRAST, October 31, 2016, 16:34. INDICATIONS : Status post bronchoscopy. Left upper lobe abnormality.. MEDICAL HISTORY : None. SURGICAL HISTORY : CABG. ENCOUNTER: Initial ACUITY: 1 day PAIN SCORE: 0/10 LOCATION: chest FINDINGS: A single AP semierect portable expiratory view of the chest was obtained again demonstrates dense opa cification in the left upper lobe. The right lung appears clear. The patient is status post median st ernotomy and the heart size is within normal limits. The bony thorax is intact. There are multiple ov erlying electrocardiogram leads. There is no evidence of an effusion. CONCLUSION: No significant change when compared to the recent chest CT. Dense opacification remai ns in the left upper lobe which was shown to represent dense infiltrate with air bronchograms. There is no pneumothorax. Julio César Johnson MD on November 02, 2016 at 11:23 Board Certified Radiologist. This report was verified electronically.
[2016-11-02] MEDS ORDERED: LACTATED RINGER'S 1000 ML INJ 1,000 ML IV ONE (12:00)
[2016-11-02] MEDS ORDERED: PROPOFOL 200 MG/20 ML AMP IV ONE (12:00)
--- NOTE | 2016-11-02 15:15 | HHI.PR ---
Subjective Remarks Follow-up for suspected skin cancer, cellulitis, lung mass. The patient is seen status post bronchoscopy today. He states he has a mild sore throat, but denies any problems breathing. He denies any fevers or chills. Drainage from the forehead lesion has stopped. Pain is well controlled. Objective Vitals Vital Signs Date Time Temp Pulse Resp B/P Pulse Ox O2 Delivery O2 Flow Rate FiO2 11/02/16 14:38 16 11/02/16 12:55 78 11/02/16 11:30 96.8 76 20 121/73 100 11/02/16 11:25 98.4 81 16 129/81 100 Nasal Cannula 2 11/02/16 11:15 81 16 139/70 100 Nasal Cannula 2 11/02/16 11:07 97.8 86 16 149/74 100 Nasal Cannula 2 11/02/16 07:47 70 11/02/16 07:30 97.6 65 20 120/55 100 11/02/16 04:00 97.5 83 18 110/66 94 11/02/16 00:00 97.9 82 18 123/62 98 11/01/16 23:00 90 11/01/16 20:00 96.0 88 18 132/72 99 11/01/16 16:10 96.4 79 18 124/63 98 I/O 11/01/16 11/01/16 11/01/16 11/02/16 11/02/16 11/02/16 07:00 15:00 23:00 07:00 15:00 23:00 Intake Total 240 ml 0 ml 275 ml Output Total 400 ml 400 ml 5 ml Balance -400 ml 240 ml -400 ml 270 ml Intake Oral 240 ml 0 ml 0 ml IV Total 75 ml Other 200 ml Output Urine Total 400 ml 400 ml Estimated Blood Loss 5 ml # Voids 2 3 # Bowel Movements 0 Result Diagram: 11/02/16 0510 11/02/16 0510 Imaging Last Impressions Chest X-Ray 11/02/16 0000 Signed Impressions: Service Date/Time: Wednesday, November 02, 2016 11:15 - CONCLUSION: No significant change when compared to the recent chest CT. Dense opacification remains in the left upper lobe which was shown to represent dense infiltrate with air bronchograms. There is no pneumothorax. Julio César Johnson MD Chest CT 10/31/16 0000 Signed Impressions: Service Date/Time: October 16:34 - CONCLUSION: 1. There is collapse involving the left upper lung with air bronchograms. The findings suggests a central obstructing lesion near the left hilar area. Neoplastic disease is not excluded. Recommend bronchoscopy if that has not already been performed. 2. Nonspecific interstitial infiltrates in the posterior lung bases bilaterally. 3. 6 mm nonspecific pulmonary nodule in the right midlung. This can be followed up in [address] thorax. 4. Central lobar emphysema. 5. There are some nonspecific mildly prominent lymph nodes in the mediastinum. Jaxon Chavez MD Neck CT 10/30/16 0000 Signed Impressions: Service Date/Time: Sunday, October 30, 2016 18:07 - CONCLUSION: 1. Large ulcerating cutaneous mass in left temporal region with abnormal soft tissue extending to the surface of the left temporal bone without evidence for bone invasion. 2. Abnormal consolidation and microcavity formation at left lung apex with adenopathy. Further evaluation with chest CT recommended with contrast. Joey Payan MD Objective Remarks GENERAL: Well-developed well-nourished. In no acute distress. SKIN: Warm and dry. Left temporal region with large 5x5cm ulcerated, with no surrounding erythema or drainage. HEENT: Normocephalic. Pupils equal and round. Mucous membranes pink and moist. CARDIOVASCULAR: Regular rate and rhythm. No murmur appreciated. RESPIRATORY: No accessory muscle use. Clear to auscultation. Breath sounds equal bilaterally. GASTROINTESTINAL: Abdomen soft, non-tender, nondistended. Bowel sounds x4. MUSCULOSKELETAL: No obvious deformities. No clubbing or cyanosis. No edema. NEUROLOGICAL: Awake and alert. No focal neurological deficits. Moves upper and lower extremities spontaneously. Normal speech. PSYCHIATRIC: Pleasant mood and affect; insight and judgment normal. A/P Problem List: (1) Skin cancer of face ICD Code: C44.300 Status: Acute (2) Leukocytosis ICD Code: D72.829 Status: Resolved (3) Lung mass ICD Code: R91.8 Status: Acute (4) Tobacco abuse ICD Code: Z72.0 Status: Chronic Assessment and Plan 61-year-old male with history of CAD s/p CABG, presents with left facial skin cancer Skin Cancer suspected Personally reviewed head and neck CT, showed large ulcerating cutaneous mass in left temporal region with abnormal soft tissue extending to the surface of the left temporal bone without bone invasion - General surgery recommended head and neck surgeon consult, maxillofacial surgery recommended head and neck surgeon consult. Consulted ENT, no input yet. - Oncology consulted, appreciate input - discussed extensively with the patient, likely needs to go to tertiary care - Increase oral Percocet as needed for pain and IV morphine 4mg prn breakthrough pain. Bowel regimen. - consult case management for assistance with discharge planning Sepsis: Possibly secondary to infected wound as above or postobstructive pneumonia as below. Meets sepsis criteria with leukocytosis WBC 19K, tachycardia HR 111, and source-cellulitis. Lactic acid 1.4. Wound culture growing Pseudomonas stutzeri, staph aureus, and Klebsiella sensitive to Levaquin. - Continue IV Levaquin based on sensitivities. - Leukocytosis resolved on repeat CBC Lung mass: No respiratory complaints. Reviewed: Chest CT showed collapse involving the left upper lung with air bronchograms; findings suggestive of central obstructing lesion near the left hilar area; nonspecific interstitial infiltrates in the posterior lung bases bilaterally; 6 mm nodule in the right midlung; central lobar emphysema; nonspecific mildly prominent lymph nodes in the mediastinum. - Pulmonology consulted, performed bronchoscopy - Follow up cultures and cytology from bronchoscopy Diabetes mellitus, new onset: Fasting glucoses elevated. Hemoglobin A1c 8.4. - Monitor Accu-Cheks. Cover with SSI if needed. - Start metformin - Consult museum educator and dietitian Tobacco Abuse - counselled on smoking cessation - nicotine patch DVT prophylaxis - SCDs/TEDs Discharge Planning Follow-up specialists recommendations. Yogesh Naylor Nov 02, 2016 15:15
[2016-11-02] MEDS: metFORMIN HCL 500 MG TAB PO SCH (18:44)
[2016-11-03] VITALS (11 sets, daily range): BP systolic 113–136; BP diastolic 55–82; PULSE 78–94; RESP 17–20; TEMP 97.1–99; O2SAT 95–97
[2016-11-03] MEDS: MORPHINE SULFATE 4 MG/ML INJ IV PRN ×5 (01:25→22:50)
[2016-11-03] MEDS: CLINDAMYCIN 150 MG CAP PO SCH ×3 (06:26→17:30)
[2016-11-03] MEDS: INSULIN ASPART SUPPLEMENTAL SCALE SQ SCH ×4 (06:31→21:36)
--- NOTE | 2016-11-03 08:16 | HHI.PR ---
Subjective Remarks This is a pleasant 61 y/o Male who was seen initially at [facility] with a Malignant facial lesion, discharge with Dermatology follow up unable to be seen due to lack of insurance, never biopsied, the lesion has been present for one year, he is Tobacco dependent weight loss of 20 pounds in the past two months. he has CAD status post CABG, Followed in this facility by cost control specialist Doctor Timi Staton with diagnosis of large ulcerated mass along the left temporal area , collapsed left upper lobe of the lung secondary to suspected endobronchial lesion. Status post Bronchoscopy has left upper lobe obstructing lesion. Seen in his bedroom no nausea, vomit or diarrhea, complaint of some constipation , has expiratory wheezing. all questions answered. seen in the presence at all times of female nurse Miss Sanchez Objective Vital Signs Date Time Temp Pulse Resp B/P Pulse Ox O2 Delivery O2 Flow Rate FiO2 11/03/16 04:00 97.6 83 18 136/82 96 11/03/16 01:30 16 11/03/16 00:01 16 11/03/16 00:00 97.9 90 18 127/55 97 11/02/16 23:19 78 11/02/16 23:18 80 11/02/16 20:00 98.8 66 18 129/71 98 11/02/16 16:46 89 11/02/16 15:30 98.4 88 20 118/73 97 11/02/16 12:55 78 11/02/16 11:30 96.8 76 20 121/73 100 11/02/16 11:25 98.4 81 16 129/81 100 Nasal Cannula 2 11/02/16 11:15 81 16 139/70 100 Nasal Cannula 2 11/02/16 11:07 97.8 86 16 149/74 100 Nasal Cannula 2 I/O 11/02/16 11/02/16 11/02/16 11/03/16 11/03/16 11/03/16 06:59 14:59 22:59 06:59 14:59 22:59 Intake Total 0 ml 275 ml 240 ml 480 ml Output Total 400 ml 5 ml Balance -400 ml 270 ml 240 ml 480 ml Intake Oral 0 ml 0 ml 240 ml 480 ml IV Total 75 ml Other 200 ml Output Urine Total 400 ml Estimated Blood Loss 5 ml # Voids 3 2 4 # Bowel Movements 0 0 0 Result Diagram: 11/02/16 0510 11/02/16 0510 Imaging Last Impressions Chest X-Ray 11/02/16 0000 Signed Impressions: Service Date/Time: Wednesday, November 02, 2016 11:15 - CONCLUSION: No significant change when compared to the recent chest CT. Dense opacification remains in the left upper lobe which was shown to represent dense infiltrate with air bronchograms. There is no pneumothorax. Julio César Johnson MD Chest CT 10/31/16 0000 Signed Impressions: Service Date/Time: October 16:34 - CONCLUSION: 1. There is collapse involving the left upper lung with air bronchograms. The findings suggests a central obstructing lesion near the left hilar area. Neoplastic disease is not excluded. Recommend bronchoscopy if that has not already been performed. 2. Nonspecific interstitial infiltrates in the posterior lung bases bilaterally. 3. 6 mm nonspecific pulmonary nodule in the right midlung. This can be followed up in [address] thorax. 4. Central lobar emphysema. 5. There are some nonspecific mildly prominent lymph nodes in the mediastinum. Jaxon Chavez MD Neck CT 10/30/16 0000 Signed Impressions: Service Date/Time: Sunday, October 30, 2016 18:07 - CONCLUSION: 1. Large ulcerating cutaneous mass in left temporal region with abnormal soft tissue extending to the surface of the left temporal bone without evidence for bone invasion. 2. Abnormal consolidation and microcavity formation at left lung apex with adenopathy. Further evaluation with chest CT recommended with contrast. Joey Payan MD Procedures Bronchoscopy Other Results Laboratory Tests Test 10/30/16 10/31/16 11/02/16 16:18 06:15 05:10 Lactic Acid Level 1.4 mmol/L Total Bilirubin 0.3 MG/DL Aspartate Amino Transf 8 U/L (AST/SGOT) Alanine Aminotransferase 8 U/L (ALT/SGPT) Alkaline Phosphatase 75 U/L Total Protein 8.2 GM/DL Albumin 2.8 GM/DL Prothrombin Time 10.8 SEC Prothromb Time International 1.0 RATIO Ratio Activated Partial 29.5 SEC Thromboplast Time Hemoglobin A1c 8.4 % White Blood Count 10.7 TH/MM3 Red Blood Count 3.72 MIL/MM3 Hemoglobin 10.8 GM/DL Hematocrit 31.7 % Mean Corpuscular Volume 85.3 FL Mean Corpuscular Hemoglobin 29.0 PG Mean Corpuscular Hemoglobin 34.0 % Concent Red Cell Distribution Width 14.4 % Platelet Count 321 TH/MM3 Mean Platelet Volume 7.6 FL Neutrophils (%) (Auto) 62.5 % Lymphocytes (%) (Auto) 24.9 % Monocytes (%) (Auto) 9.1 % Eosinophils (%) (Auto) 2.6 % Basophils (%) (Auto) 0.9 % Neutrophils # (Auto) 6.7 TH/MM3 Lymphocytes # (Auto) 2.7 TH/MM3 Monocytes # (Auto) 1.0 TH/MM3 Eosinophils # (Auto) 0.3 TH/MM3 Basophils # (Auto) 0.1 TH/MM3 CBC Comment DIFF FINAL Differential Comment Sodium Level 137 MEQ/L Potassium Level 3.7 MEQ/L Chloride Level 99 MEQ/L Carbon Dioxide Level 28.9 MEQ/L Anion Gap 9 MEQ/L Blood Urea Nitrogen 14 MG/DL Creatinine 0.79 MG/DL Estimat Glomerular Filtration 100 ML/MIN Rate Random Glucose 178 MG/DL Calcium Level 9.6 MG/DL Objective Remarks GENERAL: Well-developed well-nourished. In no acute distress. SKIN: Warm and dry. Left temporal region with large 5x5cm ulcerated, with no surrounding erythema or drainage. HEENT: Normocephalic. Pupils equal and round. Mucous membranes pink and moist. CARDIOVASCULAR: Regular rate and rhythm. No murmur appreciated. RESPIRATORY: Decreased breath sounds, expiratory wheezing and no crackles. GASTROINTESTINAL: Abdomen soft, non-tender, nondistended. Bowel sounds x4. MUSCULOSKELETAL: No obvious deformities. No clubbing or cyanosis. No edema. NEUROLOGICAL: Awake and alert. No focal neurological deficits. PSYCHIATRIC: Pleasant mood and affect; insight and judgment normal. Medications and IVs Current Medications Medications (Trade) Dose Ordered Sig/Luis Route Start Time Stop Time Status Last Admin (NS Flush) 2 ml UNSCH PRN IV FLUSH 10/30/16 20:00 11/02/16 05:51 (NS Flush) 2 ml BID IV FLUSH 10/30/16 21:00 11/02/16 23:01 (Narcan Inj) 0.4 mg UNSCH PRN IV 10/30/16 20:00 (Percocet 5-325 Mg) 1 tab Q6H PRN PO 10/31/16 10:30 (Morphine Inj) 4 mg Q3H PRN IV 10/31/16 10:30 11/03/16 01:25 (Habitrol 21 Mg Patch.24 Hr) 1 patch DAILY T-DERMAL 10/31/16 10:30 11/02/16 09:07 Miscellaneous Information 1 DAILY T-DERMAL 11/01/16 09:00 11/02/16 09:07 Senna/Docusate Sodium 1 tab 1 tab BID PO 11/01/16 09:00 11/02/16 23:01 (Levaquin 750 Mg Premix Inj) 150 ml @ 100 mls/hr Q24H IV 11/01/16 10:00 11/02/16 12:01 (D50w (Vial) Inj) 50 ml UNSCH PRN IV 11/01/16 10:15 (Glucagon Inj) 1 mg UNSCH PRN OTHER 11/01/16 10:15 (Cleocin) 450 mg Q6HR PO 11/01/16 19:15 11/03/16 06:26 Miscellaneous Information ALL NURSING DEPARTME... UNSCH PRN .XX 11/02/16 11:07 11/03/16 11:06 (Glucophage) 500 mg BIDPC PO 11/02/16 18:00 11/02/16 18:44 (Percocet 10-325 Mg) 1 tab Q4H PRN PO 11/02/16 15:14 11/02/16 23:01 A/P Problem List: (1) Tobacco abuse ICD Code: Z72.0 (2) Lung mass ICD Code: R91.8 (3) Skin cancer of face ICD Code: C44.300 (4) Leukocytosis ICD Code: D72.829 Assessment and Plan 61-year-old male with history of CAD s/p CABG, 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 Consulted ENT, no input yet. - Oncology consulted, appreciate input - Likely needs to go to tertiary care - consult case management for assistance with discharge planning Sepsis: Possibly secondary to infected wound as above or postobstructive pneumonia as below. Meets sepsis criteria with leukocytosis WBC 19K, tachycardia HR 111, and source-cellulitis. Lactic acid 1.4. Wound culture growing Pseudomonas stutzeri, staph aureus, and Klebsiella sensitive to Levaquin. - Continue IV Levaquin based on sensitivities. - Leukocytosis resolved on repeat CBC Lung mass: No respiratory complaints. Reviewed: Chest CT showed collapse involving the left upper lung with air bronchograms; findings suggestive of central obstructing lesion near the left hilar area; nonspecific interstitial infiltrates in the posterior lung bases bilaterally; 6 mm nodule in the right midlung; central lobar emphysema; nonspecific mildly prominent lymph nodes in the mediastinum. - Pulmonology consulted, performed bronchoscopy found left upper lobe obstructing lesion. - Follow up cultures and cytology from bronchoscopy Diabetes mellitus, new onset: Fasting glucoses elevated. Hemoglobin A1c 8.4. - Monitor Accu-Cheks. Cover with SSI if needed. added Levemir 10 units at this time due to uncontrolled blood sugars. - Consult staff educator and dietitian Tobacco Abuse - counselled on smoking cessation - nicotine patch Constipation given lactulose. DVT prophylaxis - SCDs/TEDs Discharge Planning Once cleared by specialists. Edgardo Jerome MD Nov 03, 2016 08:16 Edgardo Jerome MD Nov 03, 2016 08:16
[2016-11-03] MEDS: metFORMIN HCL 500 MG TAB PO SCH ×2 (08:48→17:30)
[2016-11-03] MEDS: DOCUSATE SODIUM 50 MG/SENNA 8.6 MG TAB PO SCH ×2 (08:48→21:24)
[2016-11-03] MEDS: SODIUM CHLORIDE 0.9% FLUSH 10 ML FLUSH IV FLUSH SCH ×2 (08:48→21:25)
[2016-11-03] MEDS: oxyCODONE/ACETAMINOPHEN 10 MG/325 MG TAB PO PRN ×4 (08:49→21:25)
[2016-11-03] MEDS: NICOTINE 21 MG/24 HR PATCH T-DERMAL SCH (08:49)
[2016-11-03] MEDS: REMOVE OLD PATCH T-DERMAL SCH (08:49)
[2016-11-03] MEDS ORDERED: LACTULOSE SYRUP 20 GM/30 ML CUP PO ONE (09:30)
[2016-11-03] MEDS: ENOXAPARIN SODIUM 40 MG/0.4 ML SYRINGE SQ SCH (11:40)
[2016-11-03] MEDS: guaiFENesin E.R. 600 MG TAB PO SCH ×2 (11:41→21:24)
[2016-11-03] MEDS: LEVOFLOXACIN 750 MG PREMIX INJ 150 ML IV SCH (11:41)
[2016-11-03] MEDS: INSULIN DETEMIR 100 UNITS/ML VIAL SQ SCH (11:42)
[2016-11-03] MEDS: RESP: ALBUTEROL 2.5 MG/IPRATROPIUM 0.5 MG NEB (SCH) NEB ×2 (12:52→21:22)
--- NOTE | 2016-11-03 13:49 | HHI.PR ---
Subjective Remarks 61 YOWm with GRACIELA collapse, left orthodox mass, COPD Had Bronch done GRACIELA obstucting lesion GRACIELA BX,BAL,Brushing done Breathing good Has pain at wound site Objective Vital Signs Vital Signs Date Time Temp Pulse Resp B/P Pulse Ox O2 Delivery O2 Flow Rate FiO2 11/03/16 11:30 97.6 83 20 131/79 97 11/03/16 10:43 93 11/03/16 07:50 97.1 78 20 114/71 95 11/03/16 04:00 97.6 83 18 136/82 96 11/03/16 01:30 16 11/03/16 00:01 16 11/03/16 00:00 97.9 90 18 127/55 97 11/02/16 23:19 78 11/02/16 23:18 80 11/02/16 20:00 98.8 66 18 129/71 98 11/02/16 16:46 89 11/02/16 15:30 98.4 88 20 118/73 97 I/O 11/02/16 11/02/16 11/02/16 11/03/16 11/03/16 11/03/16 07:00 15:00 23:00 07:00 15:00 23:00 Intake Total 0 ml 275 ml 240 ml 480 ml Output Total 400 ml 5 ml Balance -400 ml 270 ml 240 ml 480 ml Intake Oral 0 ml 0 ml 240 ml 480 ml IV Total 75 ml Other 200 ml Output Urine Total 400 ml Estimated Blood Loss 5 ml # Voids 3 2 4 # Bowel Movements 0 0 0 Result Diagram: 11/02/16 0510 11/02/1610 Objective Remarks GENERAL: MBMN WM, NAD SKIN: Warm and dry. HEAD: Normocephalic. Large mass left orthodox. EYES: No scleral icterus. No injection or drainage. NECK: Supple, trachea midline. No JVD or lymphadenopathy. CARDIOVASCULAR: Regular rate and rhythm without murmurs, gallops, or rubs. RESPIRATORY: Breath sounds equal bilaterally. No accessory muscle use. GASTROINTESTINAL: Abdomen soft, non-tender, nondistended. MUSCULOSKELETAL: No cyanosis, or edema. BACK: Nontender without obvious deformity. No CVA tenderness. A/P Assessment and Plan GRACIELA Collapse GRACIELA endobronchial lesion COPD Nicotine use Left orthodox mass PLAN: Cont Abx Aerosol nebs Check bronch results Wean 02 Aneja,Roger Dev MD Nov 03, 2016 13:49
[2016-11-03 20:58] LABS: HDL CHOLESTEROL 36.1 MG/DL (40.0-60.0); LDL CHOLESTEROL 87 MG/DL (0-99)
[2016-11-04] VITALS (7 sets, daily range): BP systolic 108–135; BP diastolic 63–80; PULSE 82–95; RESP 16–20; TEMP 97.2–98.9; O2SAT 96–98
[2016-11-04] MEDS: CLINDAMYCIN 150 MG CAP PO SCH ×4 (01:39→17:42)
[2016-11-04] MEDS: oxyCODONE/ACETAMINOPHEN 10 MG/325 MG TAB PO PRN ×5 (01:41→20:27)
[2016-11-04] MEDS: MORPHINE SULFATE 4 MG/ML INJ IV PRN ×3 (03:40→15:55)
[2016-11-04] MEDS: RESP: ALBUTEROL 2.5 MG/IPRATROPIUM 0.5 MG NEB (SCH) NEB ×5 (04:01→15:40)
[2016-11-04] MEDS: INSULIN ASPART SUPPLEMENTAL SCALE SQ SCH ×4 (05:49→20:27)
[2016-11-04] MEDS: REMOVE OLD PATCH T-DERMAL SCH (09:00)
[2016-11-04] MEDS: DOCUSATE SODIUM 50 MG/SENNA 8.6 MG TAB PO SCH ×2 (09:00→20:26)
[2016-11-04] MEDS: ENOXAPARIN SODIUM 40 MG/0.4 ML SYRINGE SQ SCH (10:42)
[2016-11-04] MEDS: NICOTINE 21 MG/24 HR PATCH T-DERMAL SCH (10:43)
[2016-11-04] MEDS: guaiFENesin E.R. 600 MG TAB PO SCH ×2 (10:44→20:26)
[2016-11-04] MEDS: SODIUM CHLORIDE 0.9% FLUSH 10 ML FLUSH IV FLUSH SCH ×2 (10:44→20:27)
[2016-11-04] MEDS: metFORMIN HCL 500 MG TAB PO SCH ×2 (10:44→17:42)
[2016-11-04] MEDS: LEVOFLOXACIN 750 MG PREMIX INJ 150 ML IV SCH (10:45)
[2016-11-04] MEDS: INSULIN DETEMIR 100 UNITS/ML VIAL SQ SCH (10:50)
--- NOTE | 2016-11-04 11:28 | HHI.PR ---
Subjective Remarks This is a pleasant 61 y/o Male who was seen initially at [facility] with a Malignant facial lesion, discharge with Dermatology follow up unable to be seen due to lack of insurance, never biopsied, the lesion has been present for one year, he is Tobacco dependent weight loss of 20 pounds in the past two months. he has CAD status post CABG, Followed in this facility by product distribution specialist Doctor Timi Staton with diagnosis of large ulcerated mass along the left temporal area , collapsed left upper lobe of the lung secondary to suspected endobronchial lesion. Status post Bronchoscopy has left upper lobe obstructing lesion. 11/04: Seen in his bedroom and no new issues, no nausea, vomit or diarrhea, awaiting pathology report by product distribution specialist and pulmonary Objective Vital Signs Date Time Temp Pulse Resp B/P Pulse Ox O2 Delivery O2 Flow Rate FiO2 11/04/16 08:49 98.2 85 20 108/69 97 11/04/16 06:41 18 11/04/16 04:00 97.6 86 17 135/63 98 11/04/16 03:45 17 11/04/16 00:16 82 11/04/16 00:00 98.9 94 17 120/69 96 11/03/16 20:20 90 11/03/16 20:00 99.0 94 17 133/72 96 11/03/16 16:00 88 11/03/16 15:50 97.3 93 20 113/73 97 11/03/16 12:00 84 11/03/16 11:30 97.6 83 20 131/79 97 I/O 11/03/16 11/03/16 11/03/16 11/04/16 11/04/16 11/04/16 07:00 15:00 23:00 07:00 15:00 23:00 Intake Total 480 ml 360 ml 440 ml 480 ml Balance 480 ml 360 ml 440 ml 480 ml Intake Oral 480 ml 360 ml 240 ml 480 ml IV Total 200 ml # Voids 4 3 2 2 # Bowel Movements 0 0 0 1 Result Diagram: 11/02/16 0510 11/02/16 0510 Imaging Last Impressions Chest X-Ray 11/02/16 0000 Signed Impressions: Service Date/Time: Wednesday, November 02, 2016 11:15 - CONCLUSION: No significant change when compared to the recent chest CT. Dense opacification remains in the left upper lobe which was shown to represent dense infiltrate with air bronchograms. There is no pneumothorax. Julio César Johnson MD Chest CT 10/31/16 0000 Signed Impressions: Service Date/Time: October 16:34 - CONCLUSION: 1. There is collapse involving the left upper lung with air bronchograms. The findings suggests a central obstructing lesion near the left hilar area. Neoplastic disease is not excluded. Recommend bronchoscopy if that has not already been performed. 2. Nonspecific interstitial infiltrates in the posterior lung bases bilaterally. 3. 6 mm nonspecific pulmonary nodule in the right midlung. This can be followed up in [address] thorax. 4. Central lobar emphysema. 5. There are some nonspecific mildly prominent lymph nodes in the mediastinum. Jaxon Chavez MD Neck CT 10/30/16 0000 Signed Impressions: Service Date/Time: Sunday, October 30, 2016 18:07 - CONCLUSION: 1. Large ulcerating cutaneous mass in left temporal region with abnormal soft tissue extending to the surface of the left temporal bone without evidence for bone invasion. 2. Abnormal consolidation and microcavity formation at left lung apex with adenopathy. Further evaluation with chest CT recommended with contrast. Joey Payan MD Procedures Bronchoscopy Other Results Laboratory Tests Test 10/31/16 11/02/16 11/03/16 06:15 05:10 19:30 Prothrombin Time 10.8 SEC Prothromb Time International 1.0 RATIO Ratio Activated Partial 29.5 SEC Thromboplast Time Hemoglobin A1c 8.4 % White Blood Count 10.7 TH/MM3 Red Blood Count 3.72 MIL/MM3 Hemoglobin 10.8 GM/DL Hematocrit 31.7 % Mean Corpuscular Volume 85.3 FL Mean Corpuscular Hemoglobin 29.0 PG Mean Corpuscular Hemoglobin 34.0 % Concent Red Cell Distribution Width 14.4 % Platelet Count 321 TH/MM3 Mean Platelet Volume 7.6 FL Neutrophils (%) (Auto) 62.5 % Lymphocytes (%) (Auto) 24.9 % Monocytes (%) (Auto) 9.1 % Eosinophils (%) (Auto) 2.6 % Basophils (%) (Auto) 0.9 % Neutrophils # (Auto) 6.7 TH/MM3 Lymphocytes # (Auto) 2.7 TH/MM3 Monocytes # (Auto) 1.0 TH/MM3 Eosinophils # (Auto) 0.3 TH/MM3 Basophils # (Auto) 0.1 TH/MM3 CBC Comment DIFF FINAL Differential Comment Sodium Level 137 MEQ/L Potassium Level 3.7 MEQ/L Chloride Level 99 MEQ/L Carbon Dioxide Level 28.9 MEQ/L Anion Gap 9 MEQ/L Blood Urea Nitrogen 14 MG/DL Creatinine 0.79 MG/DL Estimat Glomerular Filtration 100 ML/MIN Rate Random Glucose 178 MG/DL Calcium Level 9.6 MG/DL Triglycerides Level 124 MG/DL Cholesterol Level 148 MG/DL LDL Cholesterol 87 MG/DL HDL Cholesterol 36.1 MG/DL Cholesterol/HDL Ratio 4.09 RATIO Vitamin B12 Level 644 PG/ML 25-Hydroxy Vitamin D Total 28.9 ng/ML Folate 13.5 NG/ML Thyroid Stimulating Hormone 0.996 uIU/ML 3rd Gen Objective Remarks GENERAL: Well-developed well-nourished. In no acute distress. SKIN: Warm and dry. Left temporal region with large 5x5cm ulcerated, with no surrounding erythema or drainage. HEENT: Normocephalic. Pupils equal and round. Mucous membranes pink and moist. CARDIOVASCULAR: Regular rate and rhythm. No murmur appreciated. RESPIRATORY: Decreased breath sounds, expiratory wheezing and no crackles. GASTROINTESTINAL: Abdomen soft, non-tender, nondistended. Bowel sounds x4. MUSCULOSKELETAL: No obvious deformities. No clubbing or cyanosis. No edema. NEUROLOGICAL: Awake and alert. No focal neurological deficits. PSYCHIATRIC: Pleasant mood and affect; insight and judgment normal. Medications and IVs Current Medications Medications (Trade) Dose Ordered Sig/Luis Route Start Time Stop Time Status Last Admin (NS Flush) 2 ml UNSCH PRN IV FLUSH 10/30/16 20:00 11/02/16 05:51 (NS Flush) 2 ml BID IV FLUSH 10/30/16 21:00 11/04/16 10:44 (Narcan Inj) 0.4 mg UNSCH PRN IV 10/30/16 20:00 (Percocet 5-325 Mg) 1 tab Q6H PRN PO 10/31/16 10:30 (Morphine Inj) 4 mg Q3H PRN IV 10/31/16 10:30 11/04/16 03:40 (Habitrol 21 Mg Patch.24 Hr) 1 patch DAILY T-DERMAL 10/31/16 10:30 11/04/16 10:43 Miscellaneous Information 1 DAILY T-DERMAL 11/01/16 09:00 11/04/16 09:00 Senna/Docusate Sodium 1 tab 1 tab BID PO 11/01/16 09:00 11/03/16 21:24 (Levaquin 750 Mg Premix Inj) 150 ml @ 100 mls/hr Q24H IV 11/01/16 10:00 11/04/16 10:45 (D50w (Vial) Inj) 50 ml UNSCH PRN IV 11/01/16 10:15 (Glucagon Inj) 1 mg UNSCH PRN OTHER 11/01/16 10:15 (Cleocin) 450 mg Q6HR PO 11/01/16 19:15 11/04/16 05:41 (Glucophage) 500 mg BIDPC PO 11/02/16 18:00 11/04/16 10:44 (Percocet 10-325 Mg) 1 tab Q4H PRN PO 11/02/16 15:14 11/04/16 10:43 (Lovenox Inj) 40 mg Q24H SQ 11/03/16 08:30 11/04/16 10:42 (Levemir Inj) 10 units DAILY SQ 11/03/16 10:00 11/04/16 10:50 (Mucinex Er) 600 mg BID PO 11/03/16 10:00 11/04/16 10:44 A/P Problem List: (1) Tobacco abuse ICD Code: Z72.0 (2) Lung mass ICD Code: R91.8 (3) Skin cancer of face ICD Code: C44.300 (4) Leukocytosis ICD Code: D72.829 Assessment and Plan 61-year-old male with history of CAD s/p CABG, 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 Consulted ENT, no input yet. - Oncology consulted, appreciate input - Likely needs to go to tertiary care - consult case management for assistance with discharge planning Sepsis: Possibly secondary to infected wound as above or postobstructive pneumonia as below. Meets sepsis criteria with leukocytosis WBC 19K, tachycardia HR 111, and source-cellulitis. Lactic acid 1.4. Wound culture growing Pseudomonas stutzeri, staph aureus, and Klebsiella sensitive to Levaquin. - Continue IV Levaquin based on sensitivities. - Leukocytosis resolved on repeat CBC Lung mass: No respiratory complaints. Reviewed: Chest CT showed collapse involving the left upper lung with air bronchograms; findings suggestive of central obstructing lesion near the left hilar area; nonspecific interstitial infiltrates in the posterior lung bases bilaterally; 6 mm nodule in the right midlung; central lobar emphysema; nonspecific mildly prominent lymph nodes in the mediastinum. - Pulmonology consulted, performed bronchoscopy found left upper lobe obstructing lesion. - Follow up cultures and cytology from bronchoscopy Diabetes mellitus, new onset: Fasting glucoses elevated. Hemoglobin A1c 8.4. - Monitor Accu-Cheks. Cover with SSI if needed. added Levemir 10 units at this time due to uncontrolled blood sugars. - Consult art educator and dietitian Tobacco Abuse - counselled on smoking cessation - nicotine patch Constipation given lactulose. No change to anterior assessment awaiting for Pathology report not yet in EMR DVT prophylaxis - SCDs/TEDs Discharge Planning Once cleared by specialists. Edgardo Jerome MD Nov 04, 2016 11:28
[2016-11-04 17:55] LABS: HEMOGLOBIN A1a 2.1 %; HEMOGLOBIN Ao 80.7 %; HEMOGLOBIN F 1.5 %; HEMOGLOBIN LA1C 1.7 %
--- NOTE | 2016-11-04 19:00 | HHI.PR ---
Subjective Remarks 61 YOWm with GRACIELA collapse, left yazdanism mass, COPD Had Bronch done GRACIELA obstucting lesion GRACIELA BX,BAL,Brushing done Breathing good Objective Vital Signs Vital Signs Date Time Temp Pulse Resp B/P Pulse Ox O2 Delivery O2 Flow Rate FiO2 11/04/16 16:34 97.8 95 20 120/80 98 11/04/16 12:37 97.7 88 20 108/67 97 11/04/16 08:49 98.2 85 20 108/69 97 11/04/16 06:41 18 11/04/16 04:00 97.6 86 17 135/63 98 11/04/16 03:45 17 11/04/16 00:16 82 11/04/16 00:00 98.9 94 17 120/69 96 11/03/16 20:20 90 11/03/16 20:00 99.0 94 17 133/72 96 I/O 11/03/16 11/03/16 11/03/16 11/04/16 11/04/16 11/04/16 07:00 15:00 23:00 07:00 15:00 23:00 Intake Total 480 ml 360 ml 440 ml 480 ml 360 ml Output Total 100 ml Balance 480 ml 360 ml 440 ml 480 ml 260 ml Intake Oral 480 ml 360 ml 240 ml 480 ml 360 ml IV Total 200 ml Output Urine Total 100 ml # Voids 4 3 2 2 # Bowel Movements 0 0 0 1 2 Result Diagram: 11/02/16 0510 11/02/16509 Objective Remarks GENERAL: MBMN WM, NAD SKIN: Warm and dry. HEAD: Normocephalic. Large mass left yazdanism. EYES: No scleral icterus. No injection or drainage. NECK: Supple, trachea midline. No JVD or lymphadenopathy. CARDIOVASCULAR: Regular rate and rhythm without murmurs, gallops, or rubs. RESPIRATORY: Breath sounds equal bilaterally. No accessory muscle use. GASTROINTESTINAL: Abdomen soft, non-tender, nondistended. MUSCULOSKELETAL: No cyanosis, or edema. BACK: Nontender without obvious deformity. No CVA tenderness. A/P Assessment and Plan GRACIELA Collapse GRACIELA endobronchial lesion COPD Nicotine use Left yazdanism mass PLAN: Cont Abx Aerosol nebs Check bronch results Wean 02 Cytology, bx pending Roger Pina MD Nov 04, 2016 19:00
[2016-11-05] VITALS (7 sets, daily range): BP systolic 104–137; BP diastolic 63–83; PULSE 81–89; RESP 17–18; TEMP 96.2–98; O2SAT 95–98
[2016-11-05] MEDS: oxyCODONE/ACETAMINOPHEN 10 MG/325 MG TAB PO PRN ×5 (00:12→20:39)
[2016-11-05] MEDS: CLINDAMYCIN 150 MG CAP PO SCH ×5 (00:12→23:46)
[2016-11-05] MEDS: RESP: ALBUTEROL 2.5 MG/IPRATROPIUM 0.5 MG NEB (SCH) NEB ×5 (00:21→20:57)
[2016-11-05] MEDS: MORPHINE SULFATE 4 MG/ML INJ IV PRN ×5 (01:26→22:28)
[2016-11-05] MEDS: INSULIN ASPART SUPPLEMENTAL SCALE SQ SCH ×4 (06:06→20:39)
[2016-11-05] MEDS: REMOVE OLD PATCH T-DERMAL SCH (09:00)
[2016-11-05] MEDS: INSULIN DETEMIR 100 UNITS/ML VIAL SQ SCH (09:00)
[2016-11-05] MEDS: guaiFENesin E.R. 600 MG TAB PO SCH ×2 (09:24→20:38)
[2016-11-05] MEDS: DOCUSATE SODIUM 50 MG/SENNA 8.6 MG TAB PO SCH ×2 (09:24→20:39)
[2016-11-05] MEDS: ENOXAPARIN SODIUM 40 MG/0.4 ML SYRINGE SQ SCH (09:24)
[2016-11-05] MEDS: metFORMIN HCL 500 MG TAB PO SCH ×2 (09:25→17:34)
[2016-11-05] MEDS: NICOTINE 21 MG/24 HR PATCH T-DERMAL SCH (09:27)
[2016-11-05] MEDS: LEVOFLOXACIN 750 MG PREMIX INJ 150 ML IV SCH (09:28)
[2016-11-05] MEDS: SODIUM CHLORIDE 0.9% FLUSH 10 ML FLUSH IV FLUSH SCH ×2 (09:28→20:39)
--- NOTE | 2016-11-05 10:16 | HHI.PR ---
Subjective Remarks This is a pleasant 61 y/o Male who was seen initially at [place] with a Malignant facial lesion, discharge with Dermatology follow up unable to be seen due to lack of insurance, never biopsied, the lesion has been present for one year, he is Tobacco dependent weight loss of 20 pounds in the past two months. he has CAD status post CABG, Followed in this facility by eligibility specialist Doctor Timi Staton with diagnosis of large ulcerated mass along the left temporal area , collapsed left upper lobe of the lung secondary to suspected endobronchial lesion. Status post Bronchoscopy has left upper lobe obstructing lesion. 11/05; Seen in his bedroom, no complaint, awaiting for pathology report, no nausea, vomit or diarrhea, if needed radiation therapy was recommended to be outpatient for this procedures. Objective Vital Signs Date Time Temp Pulse Resp B/P Pulse Ox O2 Delivery O2 Flow Rate FiO2 11/05/16 08:09 96.4 81 18 113/63 95 11/05/16 04:00 97.6 88 18 113/67 98 11/05/16 00:00 98.0 89 17 115/65 96 11/04/16 21:30 97.2 91 16 113/69 97 11/04/16 16:34 97.8 95 20 120/80 98 11/04/16 12:37 97.7 88 20 108/67 97 I/O 11/04/16 11/04/16 11/04/16 11/05/16 11/05/16 11/05/16 07:00 15:00 23:00 07:00 15:00 23:00 Intake Total 480 ml 360 ml 900 ml 1004 ml Output Total 100 ml Balance 480 ml 260 ml 900 ml 1004 ml Intake Oral 480 ml 360 ml 900 ml 500 ml IV Total 504 ml Output Urine Total 100 ml # Voids 2 1 5 # Bowel Movements 1 2 0 0 Result Diagram: 11/02/16 0510 11/02/16 0510 Imaging Last Impressions Chest X-Ray 11/02/16 0000 Signed Impressions: Service Date/Time: Wednesday, November 02, 2016 11:15 - CONCLUSION: No significant change when compared to the recent chest CT. Dense opacification remains in the left upper lobe which was shown to represent dense infiltrate with air bronchograms. There is no pneumothorax. Julio César Johnson MD Chest CT 10/31/16 0000 Signed Impressions: Service Date/Time: October 16:34 - CONCLUSION: 1. There is collapse involving the left upper lung with air bronchograms. The findings suggests a central obstructing lesion near the left hilar area. Neoplastic disease is not excluded. Recommend bronchoscopy if that has not already been performed. 2. Nonspecific interstitial infiltrates in the posterior lung bases bilaterally. 3. 6 mm nonspecific pulmonary nodule in the right midlung. This can be followed up in [address] thorax. 4. Central lobar emphysema. 5. There are some nonspecific mildly prominent lymph nodes in the mediastinum. Jaxon Chavez MD Neck CT 10/30/16 0000 Signed Impressions: Service Date/Time: Sunday, October 30, 2016 18:07 - CONCLUSION: 1. Large ulcerating cutaneous mass in left temporal region with abnormal soft tissue extending to the surface of the left temporal bone without evidence for bone invasion. 2. Abnormal consolidation and microcavity formation at left lung apex with adenopathy. Further evaluation with chest CT recommended with contrast. Joey Payan MD Procedures Bronchoscopy Other Results Laboratory Tests Test 11/02/16 11/03/16 05:10 19:30 White Blood Count 10.7 TH/MM3 Red Blood Count 3.72 MIL/MM3 Hemoglobin 10.8 GM/DL Hematocrit 31.7 % Mean Corpuscular Volume 85.3 FL Mean Corpuscular Hemoglobin 29.0 PG Mean Corpuscular Hemoglobin 34.0 % Concent Red Cell Distribution Width 14.4 % Platelet Count 321 TH/MM3 Mean Platelet Volume 7.6 FL Neutrophils (%) (Auto) 62.5 % Lymphocytes (%) (Auto) 24.9 % Monocytes (%) (Auto) 9.1 % Eosinophils (%) (Auto) 2.6 % Basophils (%) (Auto) 0.9 % Neutrophils # (Auto) 6.7 TH/MM3 Lymphocytes # (Auto) 2.7 TH/MM3 Monocytes # (Auto) 1.0 TH/MM3 Eosinophils # (Auto) 0.3 TH/MM3 Basophils # (Auto) 0.1 TH/MM3 CBC Comment DIFF FINAL Differential Comment Sodium Level 137 MEQ/L Potassium Level 3.7 MEQ/L Chloride Level 99 MEQ/L Carbon Dioxide Level 28.9 MEQ/L Anion Gap 9 MEQ/L Blood Urea Nitrogen 14 MG/DL Creatinine 0.79 MG/DL Estimat Glomerular Filtration 100 ML/MIN Rate Random Glucose 178 MG/DL Calcium Level 9.6 MG/DL Hemoglobin A1c 8.6 % Triglycerides Level 124 MG/DL Cholesterol Level 148 MG/DL LDL Cholesterol 87 MG/DL HDL Cholesterol 36.1 MG/DL Cholesterol/HDL Ratio 4.09 RATIO Vitamin B12 Level 644 PG/ML 25-Hydroxy Vitamin D Total 28.9 ng/ML Folate 13.5 NG/ML Thyroid Stimulating Hormone 0.996 uIU/ML 3rd Gen Objective Remarks GENERAL: Well-developed well-nourished. In no acute distress. SKIN: Warm and dry. Left temporal region with large 5x5cm ulcerated, with no surrounding erythema or drainage. HEENT: Normocephalic. Pupils equal and round. Mucous membranes pink and moist. CARDIOVASCULAR: Regular rate and rhythm. No murmur appreciated. RESPIRATORY: Decreased breath sounds, expiratory wheezing and no crackles. GASTROINTESTINAL: Abdomen soft, non-tender, nondistended. Bowel sounds x4. MUSCULOSKELETAL: No obvious deformities. No clubbing or cyanosis. No edema. NEUROLOGICAL: Awake and alert. No focal neurological deficits. PSYCHIATRIC: Pleasant mood and affect; insight and judgment normal. Medications and IVs Current Medications Medications (Trade) Dose Ordered Sig/Luis Route Start Time Stop Time Status Last Admin (NS Flush) 2 ml UNSCH PRN IV FLUSH 10/30/16 20:00 11/02/16 05:51 (NS Flush) 2 ml BID IV FLUSH 10/30/16 21:00 11/05/16 09:28 (Narcan Inj) 0.4 mg UNSCH PRN IV 10/30/16 20:00 (Percocet 5-325 Mg) 1 tab Q6H PRN PO 10/31/16 10:30 (Morphine Inj) 4 mg Q3H PRN IV 10/31/16 10:30 11/05/16 01:26 (Habitrol 21 Mg Patch.24 Hr) 1 patch DAILY T-DERMAL 10/31/16 10:30 11/05/16 09:27 Miscellaneous Information 1 DAILY T-DERMAL 11/01/16 09:00 11/05/16 09:00 Senna/Docusate Sodium 1 tab 1 tab BID PO 11/01/16 09:00 11/05/16 09:24 (Levaquin 750 Mg Premix Inj) 150 ml @ 100 mls/hr Q24H IV 11/01/16 10:00 11/05/16 09:28 (D50w (Vial) Inj) 50 ml UNSCH PRN IV 11/01/16 10:15 (Glucagon Inj) 1 mg UNSCH PRN OTHER 11/01/16 10:15 (Cleocin) 450 mg Q6HR PO 11/01/16 19:15 11/05/16 06:06 (Glucophage) 500 mg BIDPC PO 11/02/16 18:00 11/05/16 09:25 (Percocet 10-325 Mg) 1 tab Q4H PRN PO 11/02/16 15:14 11/05/16 09:25 (Lovenox Inj) 40 mg Q24H SQ 11/03/16 08:30 11/05/16 09:24 (Levemir Inj) 10 units DAILY SQ 11/03/16 10:00 11/05/16 09:00 (Mucinex Er) 600 mg BID PO 11/03/16 10:00 11/05/16 09:24 A/P Problem List: (1) Tobacco abuse ICD Code: Z72.0 (2) Lung mass ICD Code: R91.8 (3) Skin cancer of face ICD Code: C44.300 (4) Leukocytosis ICD Code: D72.829 Assessment and Plan 61-year-old male with history of CAD s/p CABG, 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 Consulted ENT, no input yet. - Oncology consulted, appreciate input - consult case management for assistance with discharge planning Sepsis: Possibly secondary to infected wound as above or postobstructive pneumonia as below. Meets sepsis criteria with leukocytosis WBC 19K, tachycardia HR 111, and source-cellulitis. Lactic acid 1.4. Wound culture growing Pseudomonas stutzeri, staph aureus, and Klebsiella sensitive to Levaquin. - Continue IV Levaquin based on sensitivities. - Leukocytosis resolved on repeat CBC Lung mass: No respiratory complaints. Reviewed: Chest CT showed collapse involving the left upper lung with air bronchograms; findings suggestive of central obstructing lesion near the left hilar area; nonspecific interstitial infiltrates in the posterior lung bases bilaterally; 6 mm nodule in the right midlung; central lobar emphysema; nonspecific mildly prominent lymph nodes in the mediastinum. - Pulmonology consulted, performed bronchoscopy found left upper lobe obstructing lesion. - Follow up cultures and cytology from bronchoscopy Diabetes mellitus, new onset: Fasting glucoses elevated. Hemoglobin A1c 8.4. - Monitor Accu-Cheks. Cover with SSI if needed. added Levemir 10 units at this time due to uncontrolled blood sugars. - Consult upper caser and dietitian Tobacco Abuse - counselled on smoking cessation - nicotine patch Constipation given lactulose. No change to anterior assessment awaiting for Pathology report not yet in EMR DVT prophylaxis - SCDs/TEDs Discharge Planning Once cleared by specialists. Edgardo Jerome MD Nov 05, 2016 10:15
[2016-11-05] MEDS: CHOLECALCIFEROL (VIT D3) 400 UNIT TAB PO SCH (11:30)
--- NOTE | 2016-11-05 19:24 | HHI.PR ---
Subjective Remarks 61 YOWm with GRACIELA collapse, left jain mass, COPD Had Bronch done GRACIELA obstucting lesion GRACIELA BX,BAL,Brushing done Breathing good has pain in Zoroastrian Lung bx Sq cell ca Objective Vital Signs Vital Signs Date Time Temp Pulse Resp B/P Pulse Ox O2 Delivery O2 Flow Rate FiO2 11/05/16 15:53 96.4 88 18 137/83 98 11/05/16 11:58 96.2 89 18 104/73 97 11/05/16 11:03 83 11/05/16 08:09 96.4 81 18 113/63 95 11/05/16 04:00 97.6 88 18 113/67 98 11/05/16 00:00 98.0 89 17 115/65 96 11/04/16 21:30 97.2 91 16 113/69 97 I/O 11/04/16 11/04/16 11/04/16 11/05/16 11/05/16 11/05/16 07:00 15:00 23:00 07:00 15:00 23:00 Intake Total 480 ml 360 ml 900 ml 1004 ml 510 ml Output Total 100 ml Balance 480 ml 260 ml 900 ml 1004 ml 510 ml Intake Oral 480 ml 360 ml 900 ml 500 ml 360 ml IV Total 504 ml 150 ml Output Urine Total 100 ml # Voids 2 1 5 2 # Bowel Movements 1 2 0 0 1 Result Diagram: 11/02/16 0510 11/02/16 0510 Objective Remarks GENERAL: MBMN WM, NAD SKIN: Warm and dry. HEAD: Normocephalic. Large mass left jain. EYES: No scleral icterus. No injection or drainage. NECK: Supple, trachea midline. No JVD or lymphadenopathy. CARDIOVASCULAR: Regular rate and rhythm without murmurs, gallops, or rubs. RESPIRATORY: Breath sounds equal bilaterally. No accessory muscle use. GASTROINTESTINAL: Abdomen soft, non-tender, nondistended. MUSCULOSKELETAL: No cyanosis, or edema. BACK: Nontender without obvious deformity. No CVA tenderness. A/P Assessment and Plan GRACIELA Collapse GRACIELA endobronchial lesion COPD Nicotine use Left jain mass Sq cell ca lung PLAN: Cont Abx Aerosol nebs Check bronch results Wean 02 Oncology folowing Roger Pina MD Nov 05, 2016 19:24
[2016-11-06] VITALS (8 sets, daily range): BP systolic 109–154; BP diastolic 62–75; PULSE 73–92; RESP 16–20; TEMP 96.2–97.6; O2SAT 95–99
[2016-11-06] MEDS: oxyCODONE/ACETAMINOPHEN 10 MG/325 MG TAB PO PRN ×6 (00:31→22:40)
[2016-11-06] MEDS: MORPHINE SULFATE 4 MG/ML INJ IV PRN ×5 (01:19→20:05)
[2016-11-06] MEDS: RESP: ALBUTEROL 2.5 MG/IPRATROPIUM 0.5 MG NEB (SCH) NEB ×6 (03:56→19:40)
[2016-11-06] MEDS: CLINDAMYCIN 150 MG CAP PO SCH ×3 (04:47→17:01)
[2016-11-06] MEDS: INSULIN ASPART SUPPLEMENTAL SCALE SQ SCH ×4 (06:22→20:12)
[2016-11-06] MEDS: INSULIN DETEMIR 100 UNITS/ML VIAL SQ SCH (09:00)
[2016-11-06] MEDS: REMOVE OLD PATCH T-DERMAL SCH (09:00)
[2016-11-06] MEDS: NICOTINE 21 MG/24 HR PATCH T-DERMAL SCH (09:19)
[2016-11-06] MEDS: guaiFENesin E.R. 600 MG TAB PO SCH ×2 (09:20→20:02)
[2016-11-06] MEDS: SODIUM CHLORIDE 0.9% FLUSH 10 ML FLUSH IV FLUSH SCH ×2 (09:20→20:03)
[2016-11-06] MEDS: CHOLECALCIFEROL (VIT D3) 400 UNIT TAB PO SCH (09:20)
[2016-11-06] MEDS: LEVOFLOXACIN 750 MG PREMIX INJ 150 ML IV SCH (09:20)
[2016-11-06] MEDS: DOCUSATE SODIUM 50 MG/SENNA 8.6 MG TAB PO SCH ×2 (09:20→20:03)
[2016-11-06] MEDS: metFORMIN HCL 500 MG TAB PO SCH ×2 (09:20→17:03)
[2016-11-06] MEDS: ENOXAPARIN SODIUM 40 MG/0.4 ML SYRINGE SQ SCH (09:21)
[2016-11-06 09:49] LABS: AUTOMATED NEUTROPHIL # 5.3 TH/MM3 (1.8-7.7); BASOPHIL # 0.2 TH/MM3 (0-0.2); BASOPHIL % 2.4 % (0.0-2.0); EOSINOPHIL # 0.3 TH/MM3 (0-0.4); HEMO FLAGS DIFF FINAL; LYMPH % 28.4 % (9.0-44.0); LYMPHOCYTE # 2.6 TH/MM3 (1.0-4.8); MEAN CELL VOLUME 84.7 FL (80.0-100.0); MEAN CORPUSCULAR HEMOGLOBIN 28.6 PG (27.0-34.0); MEAN CORPUSCULAR HGB CONC 33.8 % (32.0-36.0); MONO % 7.1 % (0.0-8.0); NEUT % 59.1 % (16.0-70.0); PLATELET COUNT 321 TH/MM3 (150-450); RED BLOOD COUNT 3.89 MIL/MM3 (4.50-5.90); RED CELL DISTRIBUTION WIDTH 14.3 % (11.6-17.2)
[2016-11-06 10:11] LABS: MAGNESIUM 1.8 MG/DL (1.5-2.5); POTASSIUM 3.5 MEQ/L (3.5-5.1)
--- NOTE | 2016-11-06 11:19 | MB ---
cc: COLTON HOOPER M.D., ANTHONY T. 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 Stage for the skin lesion is T2,N0,M0. Stage for the lung locally advanced, perhaps T3,NX,M0. CHIEF COMPLAINT Left anabaptism mass, ulcerated. REASON FOR CONSULTATION The patient is being evaluated for radiotherapy treatment options for a skin lesion as well as a lung lesion if needed. HISTORY OF PRESENT ILLNESS This is a 61-year-old white male who apparently was initially seen and admitted at [facility]. It appears that per the records that due to the lack of insurance the patient was discharge and never followed up due to lack of insurance. The patient when asked states that the mass has been growing quickly for the last three months. When I asked him when he thought it started he said probably about a year ago. He denies any hemoptysis. No chest pain. No bone pain. He says that the mass has increased to the point where his eyelid has begun to droop and he has increased pain. He is also having active discharge. On work-up the patient was also noted to have a lung lesion with collapsed left lung. The patient underwent bronchoscopy and biopsy. Biopsies are pending for the lung. I discussed this case today with Dr. Staton. He has requested for me to see the patient in consultation for possible radiotherapy treatment options to the skin lesion as well as the lung lesion. PAST MEDICAL/SURGICAL HISTORY 1. As above. 2. History of coronary artery disease, heart bypass in 2009. 3. Hyperlipidemia. 4. Leg surgery at age 35. MEDICATIONS 1. Albuterol. 2. Insulin. 3. Guaifenesin. 4. Lovenox. 5. Glucophage. 6. Percocet. 7. Cleocin. 8. Morphine. 9. Narcan. ALLERGIES No known drug allergies. FAMILY HISTORY Breast carcinoma in two sisters. SOCIAL HISTORY The patient smoked a pack of cigarette per day for 40 years. He says he stopped smoking a few months ago. ETOH intake socially. REVIEW OF SYSTEMS CONSTITUTIONAL: The patient admits to losing weight but not a lot, perhaps 10 pounds in the last 10 months. ALLERGIES: Has not had an allergic reaction recently. HEAD: A lesion of the left temporal area. EYES: Droop of the left eyelid. Denies any double vision. ENT: No difficulty in swallowing. NECK: No masses. INTEGUMENTARY: Unremarkable. CARDIOVASCULAR: No chest pain. RESPIRATORY: No hemoptysis or cough. GASTROINTESTINAL: Unremarkable. GENITOURINARY: Unremarkable. MUSCULOSKELETAL: No major bone pain. NEUROLOGIC: No clinical symptoms of stroke. PSYCHIATRIC: No hallucinations. No depression or suicidal thoughts. ENDOCRINE: Diabetes. HEMATOLOGIC: Unremarkable. DERMATOLOGIC: Skin lesion in the left temporal area. PHYSICAL EXAMINATION GENERAL: The patient is seen in no acute distress or discomfort at the present time. VITAL SIGNS: Temperature 96.4, pulse 81, respiratory rate 18, blood pressure 113/63. Pulse ox 95% on room air. BACK: To deep palpation and percussion of the posterior back no pain was elicited. LUNGS: The bilateral lungs are clear to auscultation with decreased ventilatory respiratory effort, more so in the left lung. HEART: Regular rate and rhythm without murmurs. NECK: Palpation of the neck and bilateral supraclavicular areas are free. SKIN: Visual examination of the facial area reveals a large ulcerated lesion measuring 10.5 x 14.5 cm in diameter on the left temporal area, very suspicious for malignancy. Palpation of the area reveals induration and pain. ABDOMEN: Palpation of the abdominal cavity reveals no hepatosplenomegaly. No pain is elicited. EXTREMITIES: No lower extremity edema is detected. NEUROLOGIC: No neurological deficit is detected. Motor functions are preserved. Cognitive function is preserved. No other positive findings. PATHOLOGY Surgical pathology, cytology and lung biopsy pending. RADIOLOGY Neck CT 10/30/2016, Impression: Large ulcerating cutaneous mass in the left temporal region with abnormal soft tissue extending to the surface of the left temporal bone without evidence for bone invasion. Abnormal consolation of micro cavity formation at the left lung apex with adenopathy. Further evaluation with CT of the chest is recommended with contrast. CT of the chest 10/31/2016, Impression: There is collapse involving the left upper lung with air bronchograms. The findings suggest a central obstructing lesion near the left hilar area; neoplastic disease is not excluded. Nonspecific interstitial infiltrates in the posterior lung bases bilaterally. A 6 mm nonspecific pulmonary nodule in the right mid lung. Central lobar emphysema. There are some nonspecific mildly prominent lymph nodes in the mediastinum. ASSESSMENT A 61-year-old white male with diagnosis of locally advanced lung carcinoma as well as left anabaptism skin carcinoma. The patient is being evaluated for possible radiotherapy treatment options. PLAN I had an extensive discussion with the patient in regards to his presenting condition. I have discussed this case with Dr. Staton. I left a message for Dr. Mantilla to call me back. I discussed with Dr. Staton I would like to have a biopsy of the skin proven malignancy so that I can move forward with radiation therapy. Depending on the need for the radiation and whether surgery will be done depends on the dose that will be delivered. I discussed with the patient the merits of the radiation therapy to the skin. We discussed possible radiation therapy down the road to the lung. I discussed the side effects and complications of radiation to the skin to include but not be limited to weakness and fatigue, decreased blood counts, edema of the skin, necrosis of the skin, which may require a graft since the area may not heal, bone damage and fracture, brain damage, brain swelling and edema, headaches, nausea, vomiting, damage to the lacrimal gland that over time could lead to loss of vision in the left eye and nerve damage. If the patient has nerve involvement the radiation therapy will not repair that and nerve function will not recover. We discussed loss of hair in the area which could be permanent as well as decreased and loss of hearing. After the discussion he understood everything that was explained. He agreed to move forward accordingly with recommendations. He was advised if I could be of any further assistance to please let me, otherwise will proceed as above. Dr. Staton, thank you very much for the referral of this patient and allowing me to participate in his care. Should you have any questions or concerns, please do not hesitate to contact me. ADDENDUM: 11/12/16, Case discussed at the tumor board and path reviewed. At this point will move forward with xrt to facial lesion. Will follow lung for possible adjuvant xrt if need be. Case discussed with Dr. Acosta today. MD JOHN Bueno/ESTEBAN /8:54 AM /10:33 AM MTDColleen
--- NOTE | 2016-11-06 13:17 | HHI.PR ---
Subjective Remarks This is a pleasant 61 y/o Male who was seen initially at [facility] with a Malignant facial lesion, discharge with Dermatology follow up unable to be seen due to lack of insurance, never biopsied, the lesion has been present for one year, he is Tobacco dependent weight loss of 20 pounds in the past two months. he has CAD status post CABG, Followed in this facility by veterinary milk specialist Doctor Timi Staton with diagnosis of large ulcerated mass along the left temporal area , collapsed left upper lobe of the lung secondary to suspected endobronchial lesion. Status post Bronchoscopy has left upper lobe obstructing lesion. 11/06: seen in his bedroom has Squamous Cell lung cancer as per Biopsy, recommended for Left sided facial lesion in need of Punch biopsy for tissue diagnosis recommended for tomorrow by General Surgery, already veterinary milk specialist gave him the news about his Pathology report from, his present. Objective Vital Signs Date Time Temp Pulse Resp B/P Pulse Ox O2 Delivery O2 Flow Rate FiO2 11/06/16 12:03 96.4 83 20 126/72 99 11/06/16 09:59 74 11/06/16 08:01 96.2 73 18 110/62 95 11/06/16 04:30 97.6 74 16 154/75 97 11/06/16 00:00 97.5 83 17 131/67 98 11/05/16 20:00 97.0 85 17 118/66 96 11/05/16 15:53 96.4 88 18 137/83 98 I/O 11/05/16 11/05/16 11/05/16 11/06/16 11/06/16 11/06/16 07:00 15:00 23:00 07:00 15:00 23:00 Intake Total 1004 ml 510 ml 480 ml 150 ml Balance 1004 ml 510 ml 480 ml 150 ml Intake Oral 500 ml 360 ml 480 ml IV Total 504 ml 150 ml 150 ml # Voids 5 2 6 # Bowel Movements 0 1 2 Result Diagram: 11/06/1690411/06/16904 Imaging Last Impressions Chest X-Ray 11/02/16 0000 Signed Impressions: Service Date/Time: Wednesday, November 02, 2016 11:15 - CONCLUSION: No significant change when compared to the recent chest CT. Dense opacification remains in the left upper lobe which was shown to represent dense infiltrate with air bronchograms. There is no pneumothorax. Julio César Johnson MD Chest CT 10/31/16 0000 Signed Impressions: Service Date/Time: October 16:34 - CONCLUSION: 1. There is collapse involving the left upper lung with air bronchograms. The findings suggests a central obstructing lesion near the left hilar area. Neoplastic disease is not excluded. Recommend bronchoscopy if that has not already been performed. 2. Nonspecific interstitial infiltrates in the posterior lung bases bilaterally. 3. 6 mm nonspecific pulmonary nodule in the right midlung. This can be followed up in [address] thorax. 4. Central lobar emphysema. 5. There are some nonspecific mildly prominent lymph nodes in the mediastinum. Jaxon Chavez MD Neck CT 10/30/16 0000 Signed Impressions: Service Date/Time: Sunday, October 30, 2016 18:07 - CONCLUSION: 1. Large ulcerating cutaneous mass in left temporal region with abnormal soft tissue extending to the surface of the left temporal bone without evidence for bone invasion. 2. Abnormal consolidation and microcavity formation at left lung apex with adenopathy. Further evaluation with chest CT recommended with contrast. Joey Payan MD Procedures Bronchoscopy Other Results Laboratory Tests Test 11/03/16 11/06/16 19:30 09:05 Hemoglobin A1c 8.6 % Triglycerides Level 124 MG/DL Cholesterol Level 148 MG/DL LDL Cholesterol 87 MG/DL HDL Cholesterol 36.1 MG/DL Cholesterol/HDL Ratio 4.09 RATIO Vitamin B12 Level 644 PG/ML 25-Hydroxy Vitamin D Total 28.9 ng/ML Folate 13.5 NG/ML Thyroid Stimulating Hormone 0.996 uIU/ML 3rd Gen White Blood Count 9.0 TH/MM3 Red Blood Count 3.89 MIL/MM3 Hemoglobin 11.1 GM/DL Hematocrit 33.0 % Mean Corpuscular Volume 84.7 FL Mean Corpuscular Hemoglobin 28.6 PG Mean Corpuscular Hemoglobin 33.8 % Concent Red Cell Distribution Width 14.3 % Platelet Count 321 TH/MM3 Mean Platelet Volume 7.7 FL Neutrophils (%) (Auto) 59.1 % Lymphocytes (%) (Auto) 28.4 % Monocytes (%) (Auto) 7.1 % Eosinophils (%) (Auto) 3.0 % Basophils (%) (Auto) 2.4 % Neutrophils # (Auto) 5.3 TH/MM3 Lymphocytes # (Auto) 2.6 TH/MM3 Monocytes # (Auto) 0.6 TH/MM3 Eosinophils # (Auto) 0.3 TH/MM3 Basophils # (Auto) 0.2 TH/MM3 CBC Comment DIFF FINAL Differential Comment Sodium Level 134 MEQ/L Potassium Level 3.5 MEQ/L Chloride Level 99 MEQ/L Carbon Dioxide Level 28.0 MEQ/L Anion Gap 7 MEQ/L Blood Urea Nitrogen 17 MG/DL Creatinine 0.77 MG/DL Estimat Glomerular Filtration 103 ML/MIN Rate Random Glucose 138 MG/DL Calcium Level 9.6 MG/DL Magnesium Level 1.8 MG/DL Objective Remarks GENERAL: Well-developed well-nourished. In no acute distress. SKIN: Warm and dry. Left temporal region with large 5x5cm ulcerated, with no surrounding erythema or drainage. HEENT: Normocephalic. Pupils equal and round. Mucous membranes pink and moist. CARDIOVASCULAR: Regular rate and rhythm. No murmur appreciated. RESPIRATORY: Decreased breath sounds, expiratory wheezing and no crackles. GASTROINTESTINAL: Abdomen soft, non-tender, nondistended. Bowel sounds x4. MUSCULOSKELETAL: No obvious deformities. No clubbing or cyanosis. No edema. NEUROLOGICAL: Awake and alert. No focal neurological deficits. PSYCHIATRIC: Pleasant mood and affect; insight and judgment normal. Medications and IVs Current Medications Medications (Trade) Dose Ordered Sig/Luis Route Start Time Stop Time Status Last Admin (NS Flush) 2 ml UNSCH PRN IV FLUSH 10/30/16 20:00 11/02/16 05:51 (NS Flush) 2 ml BID IV FLUSH 10/30/16 21:00 11/06/16 09:20 (Narcan Inj) 0.4 mg UNSCH PRN IV 10/30/16 20:00 (Percocet 5-325 Mg) 1 tab Q6H PRN PO 10/31/16 10:30 (Morphine Inj) 4 mg Q3H PRN IV 10/31/16 10:30 11/06/16 11:23 (Habitrol 21 Mg Patch.24 Hr) 1 patch DAILY T-DERMAL 10/31/16 10:30 11/06/16 09:19 Miscellaneous Information 1 DAILY T-DERMAL 11/01/16 09:00 11/06/16 09:00 Senna/Docusate Sodium 1 tab 1 tab BID PO 11/01/16 09:00 11/06/16 09:20 (Levaquin 750 Mg Premix Inj) 150 ml @ 100 mls/hr Q24H IV 11/01/16 10:00 11/06/16 09:20 (D50w (Vial) Inj) 50 ml UNSCH PRN IV 11/01/16 10:15 (Glucagon Inj) 1 mg UNSCH PRN OTHER 11/01/16 10:15 (Cleocin) 450 mg Q6HR PO 11/01/16 19:15 11/06/16 11:22 (Glucophage) 500 mg BIDPC PO 11/02/16 18:00 11/06/16 09:20 (Percocet 10-325 Mg) 1 tab Q4H PRN PO 11/02/16 15:14 11/06/16 13:06 (Lovenox Inj) 40 mg Q24H SQ 11/03/16 08:30 11/06/16 09:21 (Levemir Inj) 10 units DAILY SQ 11/03/16 10:00 11/06/16 09:00 (Mucinex Er) 600 mg BID PO 11/03/16 10:00 11/06/16 09:20 (Vitamin D3) 800 units DAILY PO 11/05/16 10:30 11/06/16 09:20 A/P Problem List: (1) Tobacco abuse ICD Code: Z72.0 (2) Lung mass ICD Code: R91.8 (3) Skin cancer of face ICD Code: C44.300 (4) Leukocytosis ICD Code: D72.829 Assessment and Plan 61-year-old male with history of CAD s/p CABG, presents with left facial skin cancer Skin Cancer suspected will have Punch biopsy tomorrow. Head and Neck CT, showed large ulcerating cutaneous mass in left temporal region with abnormal soft tissue extending to the surface of the left temporal bone without bone invasion - General surgery recommended head and neck surgeon consult, maxillofacial surgery recommended head and neck surgeon consult. Consulted ENT, no input yet. - new Lung biopsy positive for Squamous Cell Lung cancer. Sepsis: Possibly secondary to infected wound as above or postobstructive pneumonia as below. Meets sepsis criteria with leukocytosis WBC 19K, tachycardia HR 111, and source-cellulitis. Lactic acid 1.4. Wound culture growing Pseudomonas stutzeri, staph aureus, and Klebsiella sensitive to Levaquin. - Continue IV Levaquin based on sensitivities. - Leukocytosis resolved on repeat CBC Lung mass: No respiratory complaints. Reviewed: Chest CT showed collapse involving the left upper lung with air bronchograms; findings suggestive of central obstructing lesion near the left hilar area; nonspecific interstitial infiltrates in the posterior lung bases bilaterally; 6 mm nodule in the right midlung; central lobar emphysema; nonspecific mildly prominent lymph nodes in the mediastinum. - Pulmonology consulted, performed bronchoscopy found left upper lobe obstructing lesion. positive for Squamous Cell Cancer. Diabetes mellitus, new onset: Fasting glucoses elevated. Hemoglobin A1c 8.4. Stable. - Monitor Accu-Cheks. Cover with SSI if needed. added Levemir 10 units at this time due to uncontrolled blood sugars. 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 Discussed in the room with Patient and His all questions answered to the best of my abilities. DVT prophylaxis - SCDs/TEDs Discharge Planning Once cleared by specialists. Edgardo Jerome MD Nov 06, 2016 13:17
--- NOTE | 2016-11-06 13:37 | PD.ONC.PN ---
Subjective Subjective Remarks Afebrile overnight Pt sitting up in bed win no distress with visitor present Complains of anxiety Asking when he will have biopsy of scalp Objective Data Date Time Temp Pulse Resp B/P Pulse Ox O2 Delivery O2 Flow Rate FiO2 11/06/16 12:03 96.4 83 20 126/72 99 11/06/16 09:59 74 11/06/16 08:01 96.2 73 18 110/62 95 11/06/16 04:30 97.6 74 16 154/75 97 11/06/16 00:00 97.5 83 17 131/67 98 11/05/16 20:00 97.0 85 17 118/66 96 11/05/16 15:53 96.4 88 18 137/83 98 11/06/16 11/06/16 11/06/16 07:00 15:00 23:00 Intake Total 480 ml 150 ml Balance 480 ml 150 ml Result Diagram: 11/06/1690411/06/1605 Laboratory Results Laboratory Tests Test 11/06/16 09:05 White Blood Count 9.0 TH/MM3 Red Blood Count 3.89 MIL/MM3 Hemoglobin 11.1 GM/DL Hematocrit 33.0 % Mean Corpuscular Volume 84.7 FL Mean Corpuscular Hemoglobin 28.6 PG Mean Corpuscular Hemoglobin 33.8 % Concent Red Cell Distribution Width 14.3 % Platelet Count 321 TH/MM3 Mean Platelet Volume 7.7 FL Neutrophils (%) (Auto) 59.1 % Lymphocytes (%) (Auto) 28.4 % Monocytes (%) (Auto) 7.1 % Eosinophils (%) (Auto) 3.0 % Basophils (%) (Auto) 2.4 % Neutrophils # (Auto) 5.3 TH/MM3 Lymphocytes # (Auto) 2.6 TH/MM3 Monocytes # (Auto) 0.6 TH/MM3 Eosinophils # (Auto) 0.3 TH/MM3 Basophils # (Auto) 0.2 TH/MM3 CBC Comment DIFF FINAL Differential Comment Sodium Level 134 MEQ/L Potassium Level 3.5 MEQ/L Chloride Level 99 MEQ/L Carbon Dioxide Level 28.0 MEQ/L Anion Gap 7 MEQ/L Blood Urea Nitrogen 17 MG/DL Creatinine 0.77 MG/DL Estimat Glomerular Filtration 103 ML/MIN Rate Random Glucose 138 MG/DL Calcium Level 9.6 MG/DL Magnesium Level 1.8 MG/DL Administered Medications Medications (Trade) Dose Ordered Sig/Luis Route PRN Reason Start Time Stop Time Status Last Admin Dose Admin Sodium Chloride (NS Flush) 2 ml UNSCH PRN IV FLUSH FLUSH AFTER USING IV ACCESS 10/30/16 20:00 11/02/16 05:51 Sodium Chloride (NS Flush) 2 ml BID IV FLUSH 10/30/16 21:00 11/06/16 09:20 Morphine Sulfate (Morphine Inj) 4 mg Q3H PRN IV BREAKTHROUGH PAIN 10/31/16 10:30 11/06/16 11:23 Nicotine (Habitrol 21 Mg Patch.24 Hr) 1 patch DAILY T-DERMAL 10/31/16 10:30 11/06/16 09:19 Miscellaneous Information 1 DAILY T-DERMAL 11/01/16 09:00 11/06/16 09:00 Senna/Docusate Sodium 1 tab 1 tab BID PO 11/01/16 09:00 11/06/16 09:20 Levofloxacin/ Dextrose (Levaquin 750 Mg Premix Inj) 150 ml @ 100 mls/hr Q24H IV 11/01/16 10:00 11/06/16 09:20 Clindamycin HCl (Cleocin) 450 mg Q6HR PO 11/01/16 19:15 11/06/16 11:22 Metformin HCl (Glucophage) 500 mg BIDPC PO 11/02/16 18:00 11/06/16 09:20 Oxycodone/ Acetaminophen (Percocet 10-325 Mg) 1 tab Q4H PRN PO PAIN SCALE 6 TO 10 11/02/16 15:14 11/06/16 13:06 Enoxaparin Sodium (Lovenox Inj) 40 mg Q24H SQ 11/03/16 08:30 11/06/16 09:21 Insulin Detemir (Levemir Inj) 10 units DAILY SQ 11/03/16 10:00 11/06/16 09:00 Guaifenesin (Mucinex Er) 600 mg BID PO 11/03/16 10:00 11/06/16 09:20 Cholecalciferol (Vitamin D3) 800 units DAILY PO 11/05/16 10:30 11/06/16 09:20 Objective Remarks GENERAL: Older male, resting in bed in no distress. SKIN: Warm and dry. HEAD: Normocephalic. Bandage to L side of head. Clean, dry and intact. EYES: No injection or drainage. Mild ptosis to L eye. NECK: Supple, trachea midline. CARDIOVASCULAR: +S1/S2. Regular rhythm. RESPIRATORY: Clear anteriorly. Breathing unlabored. GASTROINTESTINAL: Abdomen soft, non-tender, nondistended. EXTREMITIES: No cyanosis, or edema. MUSCULOSKELETAL: Adequate muscle tone. NEUROLOGICAL: No obvious focal deficit. Awake, alert, and oriented x3. Assessment/Plan Problem List: (1) Skin cancer of face Status: Acute Plan: -- Increased in size over the past year -- Will attempt to get cytology -- General surgery consulted for biopsy (2) Lung mass Status: Acute Plan: -- Pathology shows squamous cell carcinoma -- Cardiothoracics consulted to evaluate for resection Assessment 61 y/o male with enlarging mass to the L side of his face admitted with pain Plan 1. Discussed with patient results of lung pathology; found to be squamous cell lung cancer 2. Consult general surgery for tissue biopsy of scalp; will also get swab sample for cytology. 3. The pt will need outpatient XRT prior to resection of scalp lesion. 4. Discuss with case mgmt to assess for help with insurance/financial. Discussed with GABRIELA Sultana. Plan for punch biopsy tomorrow. Deborah Mora Nov 06, 2016 13:37
--- NOTE | 2016-11-06 18:13 | HHI.PR ---
Subjective Remarks 61 YOWm with GRACIELA collapse, left yazidism mass, COPD Had Bronch done GRACIELA obstucting lesion Breathing good has pain in Congregational Lung bx Sq cell ca Objective Vital Signs Vital Signs Date Time Temp Pulse Resp B/P Pulse Ox O2 Delivery O2 Flow Rate FiO2 11/06/16 15:50 96.3 92 18 138/72 99 11/06/16 12:03 96.4 83 20 126/72 99 11/06/16 09:59 74 11/06/16 08:01 96.2 73 18 110/62 95 11/06/16 04:30 97.6 74 16 154/75 97 11/06/16 00:00 97.5 83 17 131/67 98 11/05/16 20:00 97.0 85 17 118/66 96 I/O 11/05/16 11/05/16 11/05/16 11/06/16 11/06/16 11/06/16 07:00 15:00 23:00 07:00 15:00 23:00 Intake Total 1004 ml 510 ml 480 ml 390 ml Balance 1004 ml 510 ml 480 ml 390 ml Intake Oral 500 ml 360 ml 480 ml 240 ml IV Total 504 ml 150 ml 150 ml # Voids 5 2 6 4 # Bowel Movements 0 1 2 Result Diagram: 11/06/16 0911/06/16 09 Objective Remarks GENERAL: MBMN WM, NAD SKIN: Warm and dry. HEAD: Normocephalic. Large mass left yazidism. EYES: No scleral icterus. No injection or drainage. NECK: Supple, trachea midline. No JVD or lymphadenopathy. CARDIOVASCULAR: Regular rate and rhythm without murmurs, gallops, or rubs. RESPIRATORY: Breath sounds equal bilaterally. No accessory muscle use. GASTROINTESTINAL: Abdomen soft, non-tender, nondistended. MUSCULOSKELETAL: No cyanosis, or edema. BACK: Nontender without obvious deformity. No CVA tenderness. A/P Assessment and Plan GRACIELA Collapse GRACIELA endobronchial lesion COPD Nicotine use Left yazidism mass Sq cell ca lung PLAN: Cont Abx Aerosol nebs Check bronch results Wean 02 Rad Onc and CTS consulted Roger Pina MD Nov 06, 2016 18:13
--- NOTE | 2016-11-06 18:32 | PD.CONS ---
cc: Wojciech Rivas MD [facility] Service General surgery Consult Requested By Deborah OCHOA Reason for Consult Punch biopsy of left facial lesion Primary Care Physician No Primary Care Physician History of Present Illness This is a 61 year old male with a LEFT facial lesion that was seen at [facility]. He was given DC instructions to follow up with a In Home Nanny for evaluation but because of no insurance he was not able to do this. He comes to [facility] due to increased size of facial lesions. A CT scan was obtained to evaluation the facial mass. A suspicious lesion was visualized in the lungs and a CT chest was obtained. He was found to have a collapse involving the left upper lung suggestive of a central obstructing lesion. A bronchoscopy was completed and biopsies obtained. 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 Medical oncology has been counseled. A General Surgery consultation has been requested for a punch biopsy of the LEFT facial lesion. Review of Systems Constitutional: COMPLAINS OF: Fatigue, Weight loss, DENIES: Chills Endocrine: DENIES: Polydipsia, Polyuria, Polyphagia Eyes: DENIES: Diplopia Ears, nose, mouth, throat: DENIES: Tinnitus Respiratory: COMPLAINS OF: Shortness of breath, DENIES: Apneas Cardiovascular: DENIES: Chest pain Gastrointestinal: DENIES: Abdominal pain, Diarrhea, Nausea, Difficulty Swallowing Genitourinary: DENIES: Urinary frequency Musculoskeletal: DENIES: Joint pain Integumentary: DENIES: Abnormal pigmentation Hematologic/lymphatic: DENIES: Bruising Immunologic/allergic: DENIES: Eczema Neurologic: DENIES: Abnormal gait, Headache Psychiatric: DENIES: Confusion, Mood changes, Depression Past Family Social History Past Medical History Coronary artery disease Past Surgical History CABG Reported Medications 81 mg aspirin daily Allergies: Coded Allergies: *MDRO Multi-Drug Resistant Organism (Verified Adverse Reaction, Unknown, ) MRSA (bronch W) 11/02/16 Active Ordered Medications Current Medications Medications (Trade) Dose Ordered Sig/Luis Route Start Time Stop Time Status Last Admin (NS Flush) 2 ml UNSCH PRN IV FLUSH 10/30/16 20:00 11/02/16 05:51 (NS Flush) 2 ml BID IV FLUSH 10/30/16 21:00 11/06/16 09:20 (Narcan Inj) 0.4 mg UNSCH PRN IV 10/30/16 20:00 (Percocet 5-325 Mg) 1 tab Q6H PRN PO 10/31/16 10:30 (Morphine Inj) 4 mg Q3H PRN IV 10/31/16 10:30 11/06/16 14:31 (Habitrol 21 Mg Patch.24 Hr) 1 patch DAILY T-DERMAL 10/31/16 10:30 11/06/16 09:19 Miscellaneous Information 1 DAILY T-DERMAL 11/01/16 09:00 11/06/16 09:00 Senna/Docusate Sodium 1 tab 1 tab BID PO 11/01/16 09:00 11/06/16 09:20 (Levaquin 750 Mg Premix Inj) 150 ml @ 100 mls/hr Q24H IV 11/01/16 10:00 11/06/16 09:20 (D50w (Vial) Inj) 50 ml UNSCH PRN IV 11/01/16 10:15 (Glucagon Inj) 1 mg UNSCH PRN OTHER 11/01/16 10:15 (Cleocin) 450 mg Q6HR PO 11/01/16 19:15 11/06/16 17:01 (Glucophage) 500 mg BIDPC PO 11/02/16 18:00 11/06/16 17:03 (Percocet 10-325 Mg) 1 tab Q4H PRN PO 11/02/16 15:14 11/06/16 17:03 (Lovenox Inj) 40 mg Q24H SQ 11/03/16 08:30 11/06/16 09:21 (Levemir Inj) 10 units DAILY SQ 11/03/16 10:00 11/06/16 09:00 (Mucinex Er) 600 mg BID PO 11/03/16 10:00 11/06/16 09:20 (Vitamin D3) 800 units DAILY PO 11/05/16 10:30 11/06/16 09:20 Family History Noncontributory Social History Positive tobacco use-approximately one half a pack a day Denies EtOH use Denies illicit drug use Physical Exam Vital Signs Vital Signs Date Time Temp Pulse Resp B/P Pulse Ox O2 Delivery O2 Flow Rate FiO2 11/06/16 15:50 96.3 92 18 138/72 99 11/06/16 12:03 96.4 83 20 126/72 99 11/06/16 09:59 74 11/06/16 08:01 96.2 73 18 110/62 95 11/06/16 04:30 97.6 74 16 154/75 97 11/06/16 00:00 97.5 83 17 131/67 98 11/05/16 20:00 97.0 85 17 118/66 96 Physical Exam GENERAL: Thin 61 year old male resting in bed with large facial bandage in place. SKIN: LEFT facial lesion: bandage removed---large area lesion on LEFT mormon. HEAD: Atraumatic. Normocephalic. EYES: Pupils equal and round. No scleral icterus. No injection or drainage. ENT: No nasal bleeding or discharge. Mucous membranes pink and moist. NECK: Trachea midline. CARDIOVASCULAR: Regular rate and rhythm. RESPIRATORY: No accessory muscle use. Clear to auscultation. Breath sounds equal bilaterally. GASTROINTESTINAL: Abdomen soft, non-tender, nondistended. MUSCULOSKELETAL: Extremities without clubbing, cyanosis, or edema. No obvious deformities. NEUROLOGICAL: Awake and alert. No obvious cranial nerve deficits. Motor grossly within normal limits. Five out of 5 muscle strength in the arms and legs. Normal speech. PSYCHIATRIC: Appropriate mood and affect; insight and judgment normal. Laboratory Laboratory Tests Test 11/06/16 09:05 White Blood Count 9.0 Red Blood Count 3.89 Hemoglobin 11.1 Hematocrit 33.0 Mean Corpuscular Volume 84.7 Mean Corpuscular Hemoglobin 28.6 Mean Corpuscular Hemoglobin 33.8 Concent Red Cell Distribution Width 14.3 Platelet Count 321 Mean Platelet Volume 7.7 Neutrophils (%) (Auto) 59.1 Lymphocytes (%) (Auto) 28.4 Monocytes (%) (Auto) 7.1 Eosinophils (%) (Auto) 3.0 Basophils (%) (Auto) 2.4 Neutrophils # (Auto) 5.3 Lymphocytes # (Auto) 2.6 Monocytes # (Auto) 0.6 Eosinophils # (Auto) 0.3 Basophils # (Auto) 0.2 CBC Comment DIFF FINAL Differential Comment Sodium Level 134 Potassium Level 3.5 Chloride Level 99 Carbon Dioxide Level 28.0 Anion Gap 7 Blood Urea Nitrogen 17 Creatinine 0.77 Estimat Glomerular Filtration 103 Rate Random Glucose 138 Calcium Level 9.6 Magnesium Level 1.8 Date/Time Procedure Status Source Growth 11/02/16 10:49 Gram Stain - Final Complete Bronchial Washings Left Upper Lobe 11/02/16 10:49 Bronchial Culture - Final Complete S. Aureus Mrsa 11/02/16 10:49 Fungal Smear - Final Resulted Bronchial Washings Left Upper Lobe NO FUNGAL ELEMENTS SEEN. 11/02/16 10:49 Fungal Culture Resulted Bronchial Washings Left Upper Lobe Pending 11/02/16 10:49 Acid Fast Stain - Final Resulted Bronchial Washings Left Upper Lobe NO ACID FAST BACILLI SEEN 11/02/16 10:49 Mycobacterial Culture Resulted Bronchial Washings Left Upper Lobe Pending Assessment and Plan Assessment and Plan 61 year old male with large LEFT sided facial lesion in need of punch biopsy for tissue diagnosis -Plan for punch biopsy at bedside tomorrow -Obtain consents -Hold Lovenox -Please obtain supplies and have at bedside -Diet as tolerated -Thank you for this consult; we will continue to follow Discussed Condition With Dr. Rob Zapata Attending Statement patient seen at bedside large facial lesion will plan for punch bx Attestation The exam, history, and the medical decision-making described in the above note were completed with the assistance of the mid-level provider. I reviewed and agree with the findings presented. I attest that I had a [id number] encounter with the patient on the same day, and personally performed and documented my assessment and findings in the medical record. Loren Anderson Nov 06, 2016 18:32 Wojciech Riavs MD Nov 26, 2016 22:03
[2016-11-06] MEDS ORDERED: IOHEXOL 350 MG/ML 10 ML VIAL (for RAD DIAG) IV ONE (18:53)
--- NOTE | 2016-11-06 19:23 | RADRPT ---
EXAM DATE/TIME: 11/06/2016 18:31 [place] COMPARISON: No previous studies available for comparison. INDICATIONS : Lung cancer, metastatic disease. IV CONTRAST: 67 cc Omnipaque 350 (iohexol) IV RADIATION DOSE: 35.01 CTDIvol (mGy) MEDICAL HISTORY : Myocardial infarction. Hypertension. Deep venous thrombosis.Lupus, Lung cancer. SURGICAL HISTORY : Parathyroid sx. ENCOUNTER: Initial ACUITY: 1 day PAIN SCALE: 1/10 LOCATION: Left cranial TECHNIQUE: Multiple contiguous axial images were obtained of the head. Using automated exposure control and adj ustment of the mA and/or kV according to patient size, radiation dose was kept as low as reasonably a chievable to obtain optimal diagnostic quality images. DICOM format image data is available electro nically for review and comparison. FINDINGS: CEREBRUM: The ventricles are normal for age. No evidence of midline shift, cerebral edema or blood products. No extra-axial fluid collections are seen. POSTERIOR FOSSA: The cerebellum and brainstem are intact. The 4th ventricle is midline. The cerebellar pontine angle is unremarkable. EXTRACRANIAL: The visualized portion of the orbits is intact. There is an enhancing skin lesion at the left frontal scalp and extending into the left side of the face measuring at least 8 cm in AP dimension. The cent ral superficial area appears eroded. The underlying bony structures are intact. SKULL: The calvaria is intact. No evidence of skull fracture. POST CONTRAST: No abnormal areas of parenchymal or dural enhancement. No evidence of blood-brain barrier breakdown. CONCLUSION: 1. No intracranial abnormality is seen. 2. Large skin base lesion at the left side of the face and left frontal scalp region. Rolando Loera MD on November 06, 2016 at 19:19 Board Certified Radiologist. This report was verified electronically.
[2016-11-07] VITALS (7 sets, daily range): BP systolic 107–133; BP diastolic 60–73; PULSE 79–97; RESP 18–20; TEMP 96–96.8; O2SAT 96–98
[2016-11-07] MEDS: CLINDAMYCIN 150 MG CAP PO SCH ×4 (00:19→17:00)
[2016-11-07] MEDS: MORPHINE SULFATE 4 MG/ML INJ IV PRN ×6 (00:21→21:24)
[2016-11-07] MEDS: oxyCODONE/ACETAMINOPHEN 10 MG/325 MG TAB PO PRN ×5 (03:01→21:22)
[2016-11-07] MEDS: RESP: ALBUTEROL 2.5 MG/IPRATROPIUM 0.5 MG NEB (SCH) NEB ×4 (04:00→11:09)
[2016-11-07] MEDS: INSULIN ASPART SUPPLEMENTAL SCALE SQ SCH ×4 (06:08→21:00)
[2016-11-07] MEDS: metFORMIN HCL 500 MG TAB PO SCH ×2 (08:22→17:00)
[2016-11-07] MEDS: DOCUSATE SODIUM 50 MG/SENNA 8.6 MG TAB PO SCH ×2 (08:22→21:22)
[2016-11-07] MEDS: guaiFENesin E.R. 600 MG TAB PO SCH ×2 (08:22→21:22)
[2016-11-07] MEDS: CHOLECALCIFEROL (VIT D3) 400 UNIT TAB PO SCH (08:22)
[2016-11-07] MEDS: SODIUM CHLORIDE 0.9% FLUSH 10 ML FLUSH IV FLUSH SCH ×2 (08:23→21:00)
[2016-11-07] MEDS: NICOTINE 21 MG/24 HR PATCH T-DERMAL SCH (08:24)
[2016-11-07] MEDS: REMOVE OLD PATCH T-DERMAL SCH (08:24)
[2016-11-07] MEDS: LEVOFLOXACIN 750 MG PREMIX INJ 150 ML IV SCH (08:25)
[2016-11-07] MEDS: INSULIN DETEMIR 100 UNITS/ML VIAL SQ SCH (08:31)
--- NOTE | 2016-11-07 08:31 | MB ---
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 Apparently was fairly healthy up until about a year ago when he began noticing like he says a pimple like nodule on his left rastafarian. He noticed that the nodule grew underneath the skin about 3-months ago and it enlarged to the point where it broke through the skin and became ulcerated. Noticed it has a crusty on the inside __ on the outside. Apparently the lesion became larger and then his left eyelid began to droop and he had increased pain. Then he noticed some purulent foul-smelling discharge seeping from the ulcer, decided to go to [facility], was seen in the emergency room and they recommended plastic surgery evaluation. Today he was seen at Dr. Cho's. He was informed his insurance was not accepted at [facility] and was recommended evaluation at the [facility] or some other tertiary center. The patient's pain progressed so he decided to come to [place] for further evaluation. The patient underwent CT scan of the neck and facial tissues which revealed a large ulcerating cutaneous mass involving the left rastafarian with abnormal soft tissue extending into the surface of the temporal bone. There was no evidence of bony invasion. The patient has undergone additional testing including a CT thorax which revealed collapse of the left upper lung with air bronchograms leading to possible endobronchial lesion. Also, a 6 mm, nonspecific pulmonary nodule on the right midlung was identified. The patient underwent bronchial bronchoscopy and the pathology showed squamous cell carcinoma, malignant cells suspicious for [id number] lung CA. The cultures were obtained from the bronchial washing which did show staph aureus MRSA. They also did a C&S of the scalp wound which showed Staphylococcus aureus, Klebsiella pneumonia and Pseudomonas. The patient is currently on full isolation droplet and universal precautions. We were consulted to evaluate for possible left upper lobectomy. PAST MEDICAL HISTORY The patient's past medical history significant for coronary artery disease, hypertension, diabetes mellitus. PAST SURGICAL HISTORY Surgeries include coronary artery bypass graft 2009 at [facility]. Open reduction, internal fixation of the left leg at age 35. ALLERGIES The patient has no known allergies. MEDICATIONS 1. Takes aspirin at home. FAMILY HISTORY Both parents . Mother of an intracranial aneurysm. Father at 89 of advanced age. She has two sisters who are breast cancer survivors. SOCIAL HISTORY The patient lives at home with his 80-year-old girlfriend. Reported 40-year pack history of smoking. 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 Has no children of his own. No alcohol. REVIEW OF SYSTEMS GENERAL: In general. positive for weakness, fatigue, unintended 20 pounds weight loss. Denies fever, chills. HEENT: Reports large ulcerated mass left temporal area. RESPIRATORY: No shortness of breath. No pleuritic pain. No hemoptysis, chronic cough. CARDIOVASCULAR: He denies any chest pain. No paroxysmal nocturnal dyspnea, orthopnea. GASTROINTESTINAL: No diarrhea, vomiting. GENITOURINARY: No burning, frequency, urgency. 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 ENDOCRINOLOGY: Apparently positive for undiagnosed diabetes mellitus with hemoglobin A1c of 8.4. PHYSICAL EXAMINATION GENERAL: On exam this is a 61-year-old male stated age appears somewhat older. VITAL SIGNS: Blood pressure 138/70, heart rate of 92, afebrile, 99% O2. He is awake, alert in no acute distress. DIRECTED EXAMINATION: He has got a large 4.5 to 5 cm mass involving the left temporal area, fungating, some purulent drainage noted. Oral mucosa pink, moist. NECK: Supple. HEART: Heart sounds S1-S2. Regular rate and rhythm. No rubs, murmurs, gallops. LUNGS: Diminished at the left upper lobe, otherwise, clear to auscultation. ABDOMEN: Abdomen is thin, concave. No masses or organomegaly. EXTREMITIES: Reveal no cyanosis, clubbing or edema. LABORATORY FINDINGS Shows hemoglobin of 11, hematocrit 33, white cell count 9, platelet count 321, sodium 134, potassium 3.5, BUN 17, creatinine 0.77, TSH 0.9, mag level 1.8, INR 1.0. Micro as above. IMAGING STUDIES CT chest collapse involving the left upper lung with air bronchograms suggesting of a central obstructing lesion near the left hilar area. Neoplastic disease not excluded. At this time the patient requires further complete workup for metastatic disease. Will order CT brain with contrast, whole body bone scan, also PFTs to evaluate the patient's candidacy for any further surgical procedure including a left upper lobectomy. Will follow accordingly. Dictated by GABRIELA Ayon MD LEONIDES Bunch/JASMIN /5:23 PM /8:26 AM
[2016-11-07 09:05] LABS: AUTOMATED NEUTROPHIL # 10.7 TH/MM3 (1.8-7.7); BASOPHIL % 0.3 % (0.0-2.0); EOSINOPHIL # 0.5 TH/MM3 (0-0.4); EOSINOPHIL % 3.2 % (0.0-4.0); HEMATOCRIT 28.4 % (39.0-51.0); HEMO FLAGS DIFF FINAL; LYMPH % 23.5 % (9.0-44.0); LYMPHOCYTE # 3.8 TH/MM3 (1.0-4.8); MEAN CELL VOLUME 85.2 FL (80.0-100.0); MEAN CORPUSCULAR HEMOGLOBIN 30.1 PG (27.0-34.0); MEAN CORPUSCULAR HGB CONC 35.3 % (32.0-36.0); MONO % 6.3 % (0.0-8.0); NEUT % 66.7 % (16.0-70.0); PLATELET COUNT 420 TH/MM3 (150-450); RED BLOOD COUNT 3.33 MIL/MM3 (4.50-5.90); RED CELL DISTRIBUTION WIDTH 14.5 % (11.6-17.2); WHITE BLOOD COUNT 16.1 TH/MM3 (4.0-11.0)
[2016-11-07 09:15] LABS: PROTHROMBIN TIME - PATIENT 11.1 SEC (9.8-11.6)
--- NOTE | 2016-11-07 09:30 | HHI.PR ---
Subjective Remarks This is a pleasant 61 y/o Male who was seen initially at [facility] with a Malignant facial lesion, discharge with Dermatology follow up unable to be seen due to lack of insurance, never biopsied, the lesion has been present for one year, he is Tobacco dependent weight loss of 20 pounds in the past two months. he has CAD status post CABG, Followed in this facility by pensions retirement plan specialist Doctor Timi Staton with diagnosis of large ulcerated mass along the left temporal area , collapsed left upper lobe of the lung secondary to suspected endobronchial lesion. Status post Bronchoscopy has left upper lobe obstructing lesion. 11/06: seen in his bedroom has Squamous Cell lung cancer as per Biopsy, recommended for Left sided facial lesion in need of Punch biopsy for tissue diagnosis recommended for tomorrow by General Surgery, already pensions retirement plan specialist gave him the news about his Pathology report from, his present. 11/07: today status post Punch biopsy of facial lesion performed by General client renewal specialist Doctor Rob, no complaint by patient status post Bone scan, following specialist recommendations. No nausea, vomit or diarrhea. Objective Vital Signs Date Time Temp Pulse Resp B/P Pulse Ox O2 Delivery O2 Flow Rate FiO2 11/07/16 08:32 96.5 89 18 113/60 96 11/07/16 07:32 97 21 11/07/16 04:31 96.8 85 20 107/64 96 11/07/16 00:13 96.4 93 20 133/73 98 11/06/16 23:30 88 11/06/16 20:25 97.6 91 20 109/64 97 11/06/16 15:50 96.3 92 18 138/72 99 11/06/16 12:03 96.4 83 20 126/72 99 11/06/16 09:59 74 I/O 11/06/16 11/06/16 11/06/16 11/07/16 11/07/16 11/07/16 06:59 14:59 22:59 06:59 14:59 22:59 Intake Total 480 ml 390 ml 150 ml Balance 480 ml 390 ml 150 ml Intake Oral 480 ml 240 ml IV Total 150 ml 150 ml # Voids 6 4 2 1 # Bowel Movements 2 0 Result Diagram: 11/07/16 0811 11/06/16 0905 Imaging Last Impressions Head CT 11/06/16 0000 Signed Impressions: Service Date/Time: Sunday, November 06, 2016 18:31 - CONCLUSION: 1. No intracranial abnormality is seen. 2. Large skin base lesion at the left side of the face and left frontal scalp region. Rolando Loera MD Chest X-Ray 11/02/16 0000 Signed Impressions: Service Date/Time: Wednesday, November 02, 2016 11:15 - CONCLUSION: No significant change when compared to the recent chest CT. Dense opacification remains in the left upper lobe which was shown to represent dense infiltrate with air bronchograms. There is no pneumothorax. Julio César Johnson MD Chest CT 10/31/16 0000 Signed Impressions: Service Date/Time: October 16:34 - CONCLUSION: 1. There is collapse involving the left upper lung with air bronchograms. The findings suggests a central obstructing lesion near the left hilar area. Neoplastic disease is not excluded. Recommend bronchoscopy if that has not already been performed. 2. Nonspecific interstitial infiltrates in the posterior lung bases bilaterally. 3. 6 mm nonspecific pulmonary nodule in the right midlung. This can be followed up in [address] thorax. 4. Central lobar emphysema. 5. There are some nonspecific mildly prominent lymph nodes in the mediastinum. Jaxon Chavez MD Neck CT 10/30/16 0000 Signed Impressions: Service Date/Time: Sunday, October 30, 2016 18:07 - CONCLUSION: 1. Large ulcerating cutaneous mass in left temporal region with abnormal soft tissue extending to the surface of the left temporal bone without evidence for bone invasion. 2. Abnormal consolidation and microcavity formation at left lung apex with adenopathy. Further evaluation with chest CT recommended with contrast. Joey Payan MD Procedures Bronchoscopy Other Results Laboratory Tests Test 11/03/16 11/06/16 11/07/16 19:30 09:05 08:11 Hemoglobin A1c 8.6 % Triglycerides Level 124 MG/DL Cholesterol Level 148 MG/DL LDL Cholesterol 87 MG/DL HDL Cholesterol 36.1 MG/DL Cholesterol/HDL Ratio 4.09 RATIO Vitamin B12 Level 644 PG/ML 25-Hydroxy Vitamin D Total 28.9 ng/ML Folate 13.5 NG/ML Thyroid Stimulating Hormone 0.996 uIU/ML 3rd Gen Sodium Level 134 MEQ/L Potassium Level 3.5 MEQ/L Chloride Level 99 MEQ/L Carbon Dioxide Level 28.0 MEQ/L Anion Gap 7 MEQ/L Blood Urea Nitrogen 17 MG/DL Creatinine 0.77 MG/DL Estimat Glomerular Filtration 103 ML/MIN Rate Random Glucose 138 MG/DL Calcium Level 9.6 MG/DL Magnesium Level 1.8 MG/DL White Blood Count 16.1 TH/MM3 Red Blood Count 3.33 MIL/MM3 Hemoglobin 10.0 GM/DL Hematocrit 28.4 % Mean Corpuscular Volume 85.2 FL Mean Corpuscular Hemoglobin 30.1 PG Mean Corpuscular Hemoglobin 35.3 % Concent Red Cell Distribution Width 14.5 % Platelet Count 420 TH/MM3 Mean Platelet Volume 8.1 FL Neutrophils (%) (Auto) 66.7 % Lymphocytes (%) (Auto) 23.5 % Monocytes (%) (Auto) 6.3 % Eosinophils (%) (Auto) 3.2 % Basophils (%) (Auto) 0.3 % Neutrophils # (Auto) 10.7 TH/MM3 Lymphocytes # (Auto) 3.8 TH/MM3 Monocytes # (Auto) 1.0 TH/MM3 Eosinophils # (Auto) 0.5 TH/MM3 Basophils # (Auto) 0.0 TH/MM3 CBC Comment DIFF FINAL Differential Comment Prothrombin Time 11.1 SEC Prothromb Time International 1.0 RATIO Ratio Objective Remarks GENERAL: Well-developed well-nourished. In no acute distress. SKIN: Warm and dry. Left temporal region dressed post biopsy. HEENT: Normocephalic. Pupils equal and round. Mucous membranes pink and moist. CARDIOVASCULAR: Regular rate and rhythm. No murmur appreciated. RESPIRATORY: Decreased breath sounds, expiratory wheezing and no crackles. GASTROINTESTINAL: Abdomen soft, non-tender, nondistended. Bowel sounds x4. MUSCULOSKELETAL: No obvious deformities. No clubbing or cyanosis. No edema. NEUROLOGICAL: Awake and alert. No focal neurological deficits. PSYCHIATRIC: Pleasant mood and affect; insight and judgment normal. Medications and IVs Current Medications Medications (Trade) Dose Ordered Sig/Luis Route Start Time Stop Time Status Last Admin (NS Flush) 2 ml UNSCH PRN IV FLUSH 10/30/16 20:00 11/02/16 05:51 (NS Flush) 2 ml BID IV FLUSH 10/30/16 21:00 11/07/16 08:23 (Narcan Inj) 0.4 mg UNSCH PRN IV 8/9/17 20:00 (Percocet 5-325 Mg) 1 tab Q6H PRN PO 10/31/16 10:30 (Morphine Inj) 4 mg Q3H PRN IV 10/31/16 10:30 11/07/16 09:20 (Habitrol 21 Mg Patch.24 Hr) 1 patch DAILY T-DERMAL 10/31/16 10:30 11/07/16 08:24 Miscellaneous Information 1 DAILY T-DERMAL 11/01/16 09:00 11/07/16 08:24 Senna/Docusate Sodium 1 tab 1 tab BID PO 11/01/16 09:00 11/07/16 08:22 (Levaquin 750 Mg Premix Inj) 150 ml @ 100 mls/hr Q24H IV 11/01/16 10:00 11/07/16 08:25 (D50w (Vial) Inj) 50 ml UNSCH PRN IV 11/01/16 10:15 (Glucagon Inj) 1 mg UNSCH PRN OTHER 11/01/16 10:15 (Cleocin) 450 mg Q6HR PO 11/01/16 19:15 11/07/16 06:03 (Glucophage) 500 mg BIDPC PO 11/02/16 18:00 11/07/16 08:22 (Percocet 10-325 Mg) 1 tab Q4H PRN PO 11/02/16 15:14 11/07/16 08:23 (Lovenox Inj) 40 mg Q24H SQ 11/03/16 08:30 Hold 11/06/16 09:21 (Levemir Inj) 10 units DAILY SQ 11/03/16 10:00 11/07/16 08:31 (Mucinex Er) 600 mg BID PO 11/03/16 10:00 11/07/16 08:22 (Vitamin D3) 800 units DAILY PO 11/05/16 10:30 11/07/16 08:22 A/P Problem List: (1) Tobacco abuse ICD Code: Z72.0 (2) Lung mass ICD Code: R91.8 (3) Skin cancer of face ICD Code: C44.300 (4) Leukocytosis ICD Code: D72.829 Assessment and Plan 61-year-old male with history of CAD s/p CABG, presents with left facial skin cancer Skin Cancer suspected status post Punch biopsy performed today by doctor Rob. Head and Neck CT, showed large ulcerating cutaneous mass in left temporal region with abnormal soft tissue extending to the surface of the left temporal bone without bone invasion - General surgery recommended head and neck surgeon consult, maxillofacial surgery recommended head and neck surgeon consult. - new Lung biopsy positive for Squamous Cell Lung cancer. seen by Cardiothoracic surgery, asked for CT brain with contrast, PFTs, whole body bone scan thinking in Left Upper Lobectomy. Sepsis: Possibly secondary to infected wound as above or postobstructive pneumonia as below. Meets sepsis criteria with leukocytosis WBC 19K, tachycardia HR 111, and source-cellulitis. Lactic acid 1.4. Wound culture growing Pseudomonas stutzeri, staph aureus, and Klebsiella sensitive to Levaquin. - Continue IV Levaquin based on sensitivities. - Leukocytosis resolved on repeat CBC Lung mass: No respiratory complaints. Reviewed: Chest CT showed collapse involving the left upper lung with air bronchograms; findings suggestive of central obstructing lesion near the left hilar area; nonspecific interstitial infiltrates in the posterior lung bases bilaterally; 6 mm nodule in the right midlung; central lobar emphysema; nonspecific mildly prominent lymph nodes in the mediastinum. - Pulmonology consulted, performed bronchoscopy found left upper lobe obstructing lesion. positive for Squamous Cell Cancer. Seen by Cardiothoracic surgery, asked for CT brain with contrast, PFTs, whole body bone scan thinking in Left Upper Lobectomy. Diabetes mellitus, new onset: Fasting glucoses elevated. Hemoglobin A1c 8.4. Stable. - Monitor Accu-Cheks. Cover with SSI if needed. added Levemir 10 units at this time due to uncontrolled blood sugars. 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 Discussed in the room with Patient. all questions answered to the best of my abilities. DVT prophylaxis - SCDs/TEDs Discharge Planning Once cleared by specialists. Edgardo Jerome MD Nov 07, 2016 09:30
[2016-11-07 09:34] LABS: ALT (GPT) 13 U/L (12-78); ANION GAP 9 MEQ/L (5-15); AST (GOT) 15 U/L (15-37); BICARBONATE 27.4 MEQ/L (21.0-32.0); BLOOD UREA NITROGEN 16 MG/DL (7-18); CHLORIDE 97 MEQ/L (98-107); GLOMERULAR FILTRATION RATE 87 ML/MIN (>89); POTASSIUM 3.9 MEQ/L (3.5-5.1); SODIUM (NA) 133 MEQ/L (136-145)
[2016-11-07 09:37] LABS: ALKALINE PHOSPHATASE 76 U/L (45-117); TOTAL BILIRUBIN ADULT 0.4 MG/DL (0.2-1.0)
[2016-11-07] MEDS ORDERED: LIDOCAINE 1%/EPINEPHrine 1:100,000 SOLN 20 ML VIAL INFIL ONE (09:45)
[2016-11-07] MEDS ORDERED: LIDOCAINE 1%/EPINEPHrine 1:200,000 PF SOLN 30 ML VIAL INFIL ONE (09:45)
--- NOTE | 2016-11-07 10:07 | HHI.PR ---
Immediate Post Op Note Procedure Date: Nov 07, 2016 Pre Op Diagnosis: (1) Skin cancer of face Post Op Diagnosis: Facial skin lesion Surgeon: Dr. Rivas Linen Attendant(s): Loren OCHOA Procedure: punch biopsy of facial lesion Findings: 2 4 mm punch biopsies obtained and placed in specimen cup Complications: None Specimen(s) removed: 2 4mm punch biopsies Estimated blood loss: < 5 cc Anesthesia: Local Drains: None Patient Condition: Good Loren Anderson Nov 07, 2016 10:07
--- NOTE | 2016-11-07 17:02 | RADRPT ---
EXAM DATE/TIME: 11/07/2016 11:58 CORRECTION Corrected on: November 08, 2016; add the RADIATION DOSE: 3.72 CTDIvol (mGy) [facility] COMPARISON: CT BRAIN W & W/O CONTRAST, November 06, 2016, 18:31. PRIOR BONE SCANS: No correlative bone scan available for comparison. INDICATIONS : Large ulcerated cutaneous mass along the left anglican. Right lung nodule. DOSE: 28.7 mCi Tc99m MDP IV IMAGING: SPECT/CT imaging with fusion was performed. RADIATION DOSE: 3.72 CTDIvol (mGy) MEDICAL HISTORY : Diabetes mellitus type 2. Hypertension. Carcinoma, squamous cell. Smoker. SURGICAL HISTORY : CABG Left leg. ENCOUNTER: Initial ACUITY: 1 yr PAIN SCALE: 0/10 LOCATION: Left anglican. TECHNIQUE: Three hours post intravenous administration of radiotracer, whole body bone scan imaging was performe d. FINDINGS: Images demonstrate a homogeneous pattern of uptake in the soft tissue. No hyperemic areas are identi fied. Whole body bone scan demonstrates a normal pattern of uptake throughout the axial and appendic ular skeleton. No focal areas of increased or decreased uptake are seen. To further evaluate the left facial mass, SPECT imaging was performed in sagittal, axial and coronal planes. Attenuation correction was performed with computed tomography and both the attenuation corre ction and non-attenuation corrected data sets were reviewed. There are 2 small focal areas of mildly increased uptake along the left supraorbital region in the region of mass. CT windows demonstrate no definite sclerotic or lytic change. There is no destructive change. The large ulcerative skin mass is again noted extending along the frontal and parietal bone region. CONCLUSION: 1. Large ulcerative skin mass again noted with no visualized destructive or lytic change in the adjac ent bone. 2. Small subtle areas of mildly increased uptake which likely are reactive. Julio César Johnson MD on November 07, 2016 at 16:54 Board Certified Radiologist. This report was verified electronically.
--- NOTE | 2016-11-07 17:57 | HHI.PR ---
Subjective Remarks 61 YOWm with GRACIELA collapse, left baptist mass, COPD Had Bronch done GRACIELA obstucting lesion Breathing good has pain in Yazdanism Lung bx Sq cell ca Seen by Francisco Nieves, CT Head and Bone scan ordered Objective Vital Signs Vital Signs Date Time Temp Pulse Resp B/P Pulse Ox O2 Delivery O2 Flow Rate FiO2 11/07/16 12:28 96.0 97 18 109/66 96 11/07/16 09:47 79 11/07/16 08:32 96.5 89 18 113/60 96 11/07/16 07:32 97 21 11/07/16 04:31 96.8 85 20 107/64 96 11/07/16 00:13 96.4 93 20 133/73 98 11/06/16 23:30 88 11/06/16 20:25 97.6 91 20 109/64 97 I/O 11/06/16 11/06/16 11/06/16 11/07/16 11/07/16 11/07/16 07:00 15:00 23:00 07:00 15:00 23:00 Intake Total 480 ml 390 ml 150 ml Balance 480 ml 390 ml 150 ml Intake Oral 480 ml 240 ml IV Total 150 ml 150 ml # Voids 6 4 2 1 # Bowel Movements 2 0 Result Diagram: 11/07/16 0811 11/07/16 0811 Objective Remarks GENERAL: MBMN WM, NAD SKIN: Warm and dry. HEAD: Normocephalic. Large mass left baptist. EYES: No scleral icterus. No injection or drainage. NECK: Supple, trachea midline. No JVD or lymphadenopathy. CARDIOVASCULAR: Regular rate and rhythm without murmurs, gallops, or rubs. RESPIRATORY: Breath sounds equal bilaterally. No accessory muscle use. GASTROINTESTINAL: Abdomen soft, non-tender, nondistended. MUSCULOSKELETAL: No cyanosis, or edema. BACK: Nontender without obvious deformity. No CVA tenderness. A/P Assessment and Plan GRACIELA Collapse GRACIELA endobronchial lesion COPD Nicotine use Left baptist mass Sq cell ca lung PLAN: Cont Abx Aerosol nebs Check bronch results Wean 02 Will Check PFT Roger Pina MD Nov 07, 2016 17:57
[2016-11-07] MEDS: LORazepam 0.5 MG TAB PO SCH (21:22)
[2016-11-08] VITALS (7 sets, daily range): BP systolic 107–120; BP diastolic 61–74; PULSE 72–88; RESP 18; TEMP 96.4–97.3; O2SAT 95–100
[2016-11-08] MEDS: CLINDAMYCIN 150 MG CAP PO SCH ×4 (00:57→17:40)
[2016-11-08] MEDS: MORPHINE SULFATE 4 MG/ML INJ IV PRN ×6 (00:57→22:26)
[2016-11-08] MEDS: oxyCODONE/ACETAMINOPHEN 10 MG/325 MG TAB PO PRN ×4 (03:39→22:18)
[2016-11-08] MEDS: INSULIN ASPART SUPPLEMENTAL SCALE SQ SCH ×4 (06:28→20:52)
[2016-11-08] MEDS ORDERED: DIATRIZOATE MEGLUM/DIATRIZOATE SOD 9 ML CUP PO ONE (07:30)
--- NOTE | 2016-11-08 07:56 | MP ---
cc: KYRA RIVAS MD DATE OF SURGERY: 11/07/2016 PREOPERATIVE DIAGNOSIS Left scalp lesion. POSTOPERATIVE DIAGNOSIS Left scalp lesion. PROCEDURE PERFORMED Bedside left scalp punch biopsy. SURGEON Dr. Kyra Rivas ALUMINUM CONTAINER TESTER GABRIELA Barboza ANESTHESIA Local anesthetic, 6 cc injected. COMPLICATIONS None. WOUND CLASSIFICATION Clean. SPECIMEN 4 mm punch biopsy sent x2. INDICATION The patient is a 61-year-old male who presents with a chronic onset of left scalp lesion. He stated that the lesion site was relatively small and continued to progress in size. Concern was for a cancerous pathology therefore in need of tissue diagnosis including punch biopsy. Surgery was consulted for this. FINDINGS Friable necrotic tissue. DETAILS OF PROCEDURE The patient was prepped and draped in the usual sterile fashion. A timeout was done stating correct patient, procedure and surgical site, and all were in agreement with this. Attention was directed to the left scalp. Placement of the biopsy was noted. Betadine was used for prep. Local anesthetic including lidocaine with epinephrine was injected. Sterile towels were placed. The site of biopsy was done with a 4 mm punch. Two specimens were placed in the specimen cup and sent to pathology. Hemostasis was obtained with Surgicel and pressure dressing. There was no complication. The patient tolerated the procedure. MD ANTONI HendersonN/ESTEBAN /1:59 PM /7:42 AM
--- NOTE | 2016-11-08 08:52 | HHI.PR ---
Subjective Remarks 61 YOWm with GRACIELA collapse, left mormon mass, COPD Had Bronch done GRACIELA obstucting lesion Breathing good has pain in Mormonism Lung bx Sq cell ca Had Punch skin bx Objective Vital Signs Vital Signs Date Time Temp Pulse Resp B/P Pulse Ox O2 Delivery O2 Flow Rate FiO2 11/08/16 04:00 97.3 73 18 107/68 96 11/08/16 00:00 96.4 80 18 108/61 97 11/07/16 19:00 86 11/07/16 12:28 96.0 97 18 109/66 96 11/07/16 09:47 79 I/O 11/07/16 11/07/16 11/07/16 11/08/16 11/08/16 11/08/16 06:59 14:59 22:59 06:59 14:59 22:59 Intake Total 710 ml Balance 710 ml Intake Oral 560 ml IV Total 150 ml # Voids 1 4 4 # Bowel Movements 1 Result Diagram: 11/07/16 0811 11/07/16 0811 Objective Remarks GENERAL: MBMN WM, NAD SKIN: Warm and dry. HEAD: Normocephalic. Large mass left mormon. EYES: No scleral icterus. No injection or drainage. NECK: Supple, trachea midline. No JVD or lymphadenopathy. CARDIOVASCULAR: Regular rate and rhythm without murmurs, gallops, or rubs. RESPIRATORY: Breath sounds equal bilaterally. No accessory muscle use. GASTROINTESTINAL: Abdomen soft, non-tender, nondistended. MUSCULOSKELETAL: No cyanosis, or edema. BACK: Nontender without obvious deformity. No CVA tenderness. A/P Assessment and Plan GRACIELA Collapse GRACIELA endobronchial lesion COPD Nicotine use Left mormon mass Sq cell ca lung PLAN: Cont Abx Aerosol nebs Check bronch results Wean 02 Will Check PFT Stable Pulm Available prn over weekend. Roger Pina MD Nov 08, 2016 08:52
[2016-11-08] MEDS: REMOVE OLD PATCH T-DERMAL SCH (09:50)
[2016-11-08] MEDS: LORazepam 0.5 MG TAB PO SCH ×2 (09:50→20:49)
[2016-11-08] MEDS: NICOTINE 21 MG/24 HR PATCH T-DERMAL SCH (09:50)
[2016-11-08] MEDS: DOCUSATE SODIUM 50 MG/SENNA 8.6 MG TAB PO SCH ×2 (09:50→20:49)
[2016-11-08] MEDS: guaiFENesin E.R. 600 MG TAB PO SCH ×2 (09:50→20:49)
[2016-11-08] MEDS: metFORMIN HCL 500 MG TAB PO SCH ×2 (09:50→17:40)
[2016-11-08] MEDS: CHOLECALCIFEROL (VIT D3) 400 UNIT TAB PO SCH (09:50)
[2016-11-08] MEDS: SODIUM CHLORIDE 0.9% FLUSH 10 ML FLUSH IV FLUSH SCH ×2 (09:51→20:50)
[2016-11-08] MEDS: LEVOFLOXACIN 750 MG PREMIX INJ 150 ML IV SCH (09:52)
[2016-11-08] MEDS: INSULIN DETEMIR 100 UNITS/ML VIAL SQ SCH (10:01)
--- NOTE | 2016-11-08 10:22 | HHI.PR ---
Subjective Remarks This is a pleasant 61 y/o Male who was seen initially at [facility] with a Malignant facial lesion, discharge with Dermatology follow up unable to be seen due to lack of insurance, never biopsied, the lesion has been present for one year, he is Tobacco dependent weight loss of 20 pounds in the past two months. he has CAD status post CABG, Followed in this facility by invoicing specialist Doctor Timi Staton with diagnosis of large ulcerated mass along the left temporal area , collapsed left upper lobe of the lung secondary to suspected endobronchial lesion. Status post Bronchoscopy has left upper lobe obstructing lesion. 11/06: seen in his bedroom has Squamous Cell lung cancer as per Biopsy, recommended for Left sided facial lesion in need of Punch biopsy for tissue diagnosis recommended for tomorrow by General Surgery, already invoicing specialist gave him the news about his Pathology report from, his present. 11/07: today status post Punch biopsy of facial lesion performed by General quality improvement specialist Doctor Rob, no complaint by patient status post Bone scan, following specialist recommendations. 11/08: No nausea, vomit or diarrhea. Objective Vital Signs Date Time Temp Pulse Resp B/P Pulse Ox O2 Delivery O2 Flow Rate FiO2 11/08/16 08:00 96.6 72 18 117/65 95 11/08/16 04:00 97.3 73 18 107/68 96 11/08/16 00:00 96.4 80 18 108/61 97 11/07/16 19:00 86 11/07/16 12:28 96.0 97 18 109/66 96 I/O 11/07/16 11/07/16 11/07/16 11/08/16 11/08/16 11/08/16 07:00 15:00 23:00 07:00 15:00 23:00 Intake Total 710 ml Balance 710 ml Intake Oral 560 ml IV Total 150 ml # Voids 1 4 4 # Bowel Movements 1 Result Diagram: 11/07/16 0811 11/07/16 0811 Imaging Last Impressions SPECT Scan-Bone Nuclear Medicine 11/07/16 0000 Signed Impressions: Service Date/Time: October 11:58 - CONCLUSION: 1. Large ulcerative skin mass again noted with no visualized destructive or lytic change in the adjacent bone. 2. Small subtle areas of mildly increased uptake which likely are reactive. Julio César Johnson MD Head CT 11/06/16 0000 Signed Impressions: Service Date/Time: Sunday, November 06, 2016 18:31 - CONCLUSION: 1. No intracranial abnormality is seen. 2. Large skin base lesion at the left side of the face and left frontal scalp region. Rolando Loera MD Chest X-Ray 11/02/16 0000 Signed Impressions: Service Date/Time: Wednesday, November 02, 2016 11:15 - CONCLUSION: No significant change when compared to the recent chest CT. Dense opacification remains in the left upper lobe which was shown to represent dense infiltrate with air bronchograms. There is no pneumothorax. Julio César Johnson MD Chest CT 10/31/16 0000 Signed Impressions: Service Date/Time: October 16:34 - CONCLUSION: 1. There is collapse involving the left upper lung with air bronchograms. The findings suggests a central obstructing lesion near the left hilar area. Neoplastic disease is not excluded. Recommend bronchoscopy if that has not already been performed. 2. Nonspecific interstitial infiltrates in the posterior lung bases bilaterally. 3. 6 mm nonspecific pulmonary nodule in the right midlung. This can be followed up in [address] thorax. 4. Central lobar emphysema. 5. There are some nonspecific mildly prominent lymph nodes in the mediastinum. Jaxon Chavez MD Neck CT 10/30/16 0000 Signed Impressions: Service Date/Time: Sunday, October 30, 2016 18:07 - CONCLUSION: 1. Large ulcerating cutaneous mass in left temporal region with abnormal soft tissue extending to the surface of the left temporal bone without evidence for bone invasion. 2. Abnormal consolidation and microcavity formation at left lung apex with adenopathy. Further evaluation with chest CT recommended with contrast. Joey Payan MD Procedures Bronchoscopy Punch Biopsy left temporal area. Other Results Laboratory Tests Test 11/03/16 11/06/16 11/07/16 19:30 09:05 08:11 Hemoglobin A1c 8.6 % Triglycerides Level 124 MG/DL Cholesterol Level 148 MG/DL LDL Cholesterol 87 MG/DL HDL Cholesterol 36.1 MG/DL Cholesterol/HDL Ratio 4.09 RATIO Vitamin B12 Level 644 PG/ML 25-Hydroxy Vitamin D Total 28.9 ng/ML Folate 13.5 NG/ML Thyroid Stimulating Hormone 0.996 uIU/ML 3rd Gen Magnesium Level 1.8 MG/DL White Blood Count 16.1 TH/MM3 Red Blood Count 3.33 MIL/MM3 Hemoglobin 10.0 GM/DL Hematocrit 28.4 % Mean Corpuscular Volume 85.2 FL Mean Corpuscular Hemoglobin 30.1 PG Mean Corpuscular Hemoglobin 35.3 % Concent Red Cell Distribution Width 14.5 % Platelet Count 420 TH/MM3 Mean Platelet Volume 8.1 FL Neutrophils (%) (Auto) 66.7 % Lymphocytes (%) (Auto) 23.5 % Monocytes (%) (Auto) 6.3 % Eosinophils (%) (Auto) 3.2 % Basophils (%) (Auto) 0.3 % Neutrophils # (Auto) 10.7 TH/MM3 Lymphocytes # (Auto) 3.8 TH/MM3 Monocytes # (Auto) 1.0 TH/MM3 Eosinophils # (Auto) 0.5 TH/MM3 Basophils # (Auto) 0.0 TH/MM3 CBC Comment DIFF FINAL Differential Comment Prothrombin Time 11.1 SEC Prothromb Time International 1.0 RATIO Ratio Sodium Level 133 MEQ/L Potassium Level 3.9 MEQ/L Chloride Level 97 MEQ/L Carbon Dioxide Level 27.4 MEQ/L Anion Gap 9 MEQ/L Blood Urea Nitrogen 16 MG/DL Creatinine 0.89 MG/DL Estimat Glomerular Filtration 87 ML/MIN Rate Random Glucose 135 MG/DL Calcium Level 10.1 MG/DL Total Bilirubin 0.4 MG/DL Aspartate Amino Transf 15 U/L (AST/SGOT) Alanine Aminotransferase 13 U/L (ALT/SGPT) Alkaline Phosphatase 76 U/L Total Protein 8.7 GM/DL Albumin 3.4 GM/DL Objective Remarks GENERAL: Well-developed well-nourished. In no acute distress. SKIN: Warm and dry. Left temporal region dressed post biopsy. HEENT: Normocephalic. Pupils equal and round. Mucous membranes pink and moist. CARDIOVASCULAR: Regular rate and rhythm. No murmur appreciated. RESPIRATORY: Decreased breath sounds, expiratory wheezing and no crackles. GASTROINTESTINAL: Abdomen soft, non-tender, nondistended. Bowel sounds x4. MUSCULOSKELETAL: No obvious deformities. No clubbing or cyanosis. No edema. NEUROLOGICAL: Awake and alert. No focal neurological deficits. PSYCHIATRIC: Pleasant mood and affect; insight and judgment normal. Medications and IVs Current Medications Medications (Trade) Dose Ordered Sig/Luis Route Start Time Stop Time Status Last Admin (NS Flush) 2 ml UNSCH PRN IV FLUSH 10/30/16 20:00 11/02/16 05:51 (NS Flush) 2 ml BID IV FLUSH 10/30/16 21:00 11/08/16 09:51 (Narcan Inj) 0.4 mg UNSCH PRN IV 10/30/16 20:00 (Percocet 5-325 Mg) 1 tab Q6H PRN PO 10/31/16 10:30 (Morphine Inj) 4 mg Q3H PRN IV 10/31/16 10:30 11/08/16 09:53 (Habitrol 21 Mg Patch.24 Hr) 1 patch DAILY T-DERMAL 10/31/16 10:30 11/08/16 09:50 Miscellaneous Information 1 DAILY T-DERMAL 11/01/16 09:00 11/08/16 09:50 Senna/Docusate Sodium 1 tab 1 tab BID PO 11/01/16 09:00 11/08/16 09:50 (Levaquin 750 Mg Premix Inj) 150 ml @ 100 mls/hr Q24H IV 11/01/16 10:00 11/08/16 09:52 (D50w (Vial) Inj) 50 ml UNSCH PRN IV 11/01/16 10:15 (Glucagon Inj) 1 mg UNSCH PRN OTHER 11/01/16 10:15 (Cleocin) 450 mg Q6HR PO 11/01/16 19:15 11/08/16 06:24 (Glucophage) 500 mg BIDPC PO 11/02/16 18:00 11/08/16 09:50 (Percocet 10-325 Mg) 1 tab Q4H PRN PO 11/02/16 15:14 11/08/16 03:39 (Lovenox Inj) 40 mg Q24H SQ 11/03/16 08:30 Hold 11/06/16 09:21 (Levemir Inj) 10 units DAILY SQ 11/03/16 10:00 11/08/16 10:01 (Mucinex Er) 600 mg BID PO 11/03/16 10:00 11/08/16 09:50 (Vitamin D3) 800 units DAILY PO 11/05/16 10:30 11/08/16 09:50 (Ativan) 0.5 mg Q12HR PO 11/07/16 21:00 11/08/16 09:50 A/P Problem List: (1) Tobacco abuse ICD Code: Z72.0 (2) Lung mass ICD Code: R91.8 (3) Skin cancer of face ICD Code: C44.300 (4) Leukocytosis ICD Code: D72.829 Assessment and Plan 61-year-old male with history of CAD s/p CABG, presents with left facial skin cancer Skin Cancer suspected status post Punch biopsy performed today by doctor Rob. Head and Neck CT, showed large ulcerating cutaneous mass in left temporal region with abnormal soft tissue extending to the surface of the left temporal bone without bone invasion - General surgery recommended head and neck surgeon consult, maxillofacial surgery recommended head and neck surgeon consult. - new Lung biopsy positive for Squamous Cell Lung cancer. seen by Cardiothoracic surgery, asked for CT brain with contrast, PFTs, whole body bone scan thinking in Left Upper Lobectomy. Sepsis: Possibly secondary to infected wound as above or postobstructive pneumonia as below. Meets sepsis criteria with leukocytosis WBC 19K, tachycardia HR 111, and source-cellulitis. Lactic acid 1.4. Wound culture growing Pseudomonas stutzeri, staph aureus, and Klebsiella sensitive to Levaquin. - Continue IV Levaquin based on sensitivities. - Leukocytosis resolved on repeat CBC Lung mass: No respiratory complaints. Reviewed: Chest CT showed collapse involving the left upper lung with air bronchograms; findings suggestive of central obstructing lesion near the left hilar area; nonspecific interstitial infiltrates in the posterior lung bases bilaterally; 6 mm nodule in the right midlung; central lobar emphysema; nonspecific mildly prominent lymph nodes in the mediastinum. - Pulmonology consulted, performed bronchoscopy found left upper lobe obstructing lesion. positive for Squamous Cell Cancer. Seen by Cardiothoracic surgery, asked for CT brain with contrast, PFTs, whole body bone scan thinking in Left Upper Lobectomy. Diabetes mellitus, new onset: Fasting glucoses elevated. Hemoglobin A1c 8.4. Stable. - Monitor Accu-Cheks. Cover with SSI if needed. added Levemir 10 units at this time due to uncontrolled blood sugars. - Consult clinical trial educator and dietitian Tobacco Abuse - counselled on smoking cessation - nicotine patch Constipation given lactulose. Discussed in the room with Patient. all questions answered to the best of my abilities. DVT prophylaxis - SCDs/TEDs No changes to anterior assessment. Discharge Planning Once cleared by specialists. Edgardo Jerome MD Nov 08, 2016 10:22
--- NOTE | 2016-11-08 16:07 | HHI.PR ---
Subjective Subjective Notes Resting in bed No issues overnight Objective Vitals/I&O Vital Signs Date Time Temp Pulse Resp B/P Pulse Ox O2 Delivery O2 Flow Rate FiO2 11/08/16 12:00 96.4 87 18 114/66 98 11/07/16 07:32 21 Labs Date/Time Procedure Status Source Growth 11/06/16 14:37 Gram Stain - Final Resulted Wound Head 11/06/16 14:37 Wound Culture - Preliminary Resulted Wound Head Cardiovascular: Regular Lungs: Clear Abdomen: Non-distended, Non-tender Extremities: No edema Narrative Exam Large LEFT sided facial lesion: punch biopsy site is c/d/i without any bleeding A/P Assessment and Plan 61 year old male POD1 punch biopsy of LEFT facial lesion -No bleeding overnight -Await pathology results -Continue wound care with dressing changes -Oncology to follow results -GS will sign off; please call with questions Attending Statement no bleeding from bx patient seen at bedside will s/o await path Attestation The exam, history, and the medical decision-making described in the above note were completed with the assistance of the mid-level provider. I reviewed and agree with the findings presented. I attest that I had a [id number] encounter with the patient on the same day, and personally performed and documented my assessment and findings in the medical record. Loren Anderson Nov 08, 2016 16:07 Wojciech Rivas MD Nov 13, 2016 05:19
[2016-11-08] MEDS ORDERED: IOHEXOL 350 MG/ML 10 ML VIAL (for RAD DIAG) IV ONE (16:09)
--- NOTE | 2016-11-08 16:32 | RADRPT ---
EXAM DATE/TIME: 11/08/2016 16:06 [facility] COMPARISON: No previous studies available for comparison. INDICATIONS : New diagnosis of lung cancer, facial mass, cellulititis. IV CONTRAST: 100 cc Omnipaque 350 (iohexol) IV ORAL CONTRAST: Partial prescribed oral contrast ingested. RADIATION DOSE: 5.35 CTDIvol (mGy) MEDICAL HISTORY : Cardiovascular disease. SURGICAL HISTORY : CABG Coronary bypass. ENCOUNTER: Initial ACUITY: 3 days PAIN SCALE: 0/10 LOCATION: abdominal TECHNIQUE: Volumetric scanning of the abdomen and pelvis was performed. Using automated exposure control and ad justment of the mA and/or kV according to patient size, radiation dose was kept as low as reasonably achievable to obtain optimal diagnostic quality images. DICOM format image data is available electro nically for review and comparison. FINDINGS: LOWER LUNGS: The visualized lower lungs are clear. LIVER: Homogeneous density without lesion. There is no dilation of the biliary tree. No calcified gallston es. SPLEEN: Normal size without lesion. PANCREAS: Within normal limits. KIDNEYS: Normal in size and shape. There is no mass, stone or hydronephrosis. ADRENAL GLANDS: Within normal limits. VASCULAR: There is no aortic aneurysm. BOWEL/MESENTERY: The stomach, small bowel, and colon demonstrate no acute abnormality. There is no free intraperitone al air or fluid. ABDOMINAL WALL: Within normal limits. RETROPERITONEUM: There is no lymphadenopathy. BLADDER: No wall thickening or mass. REPRODUCTIVE: Within normal limits. INGUINAL: There is no lymphadenopathy or hernia. MUSCULOSKELETAL: Within normal limits for patient age. Status post median sternotomy. Epicardial pacer wires in place. There is a mild scoliosis. CONCLUSION: 1. No evidence of metastatic disease. 2. Status post median sternotomy with epicardial pacer wires noted. Julio César Johnson MD on November 08, 2016 at 16:28 Board Certified Radiologist. This report was verified electronically.
--- NOTE | 2016-11-08 16:49 | PD.CAR.PN ---
CVT Progress Note Subjective/Hospital Course: CT Brain reviewed whole body bone scan reviewed : demonstrated a normal pattern of uptake throughout the axial and appendicular skeleton, no focal areas of increased or decreased uptake seen Dr Serrano discussed surgery options with the pt to include Left Thoracotomy pulmonary resection pt at this time has opted for no surgery, and wants to go home and be evaluated for chemo and radiation therapy as an outpt please re-consult if pt has a change in his decision Objective: Vital Signs Date Time Temp Pulse Resp B/P Pulse Ox O2 Delivery O2 Flow Rate FiO2 11/08/16 16:28 96.9 88 18 114/74 97 11/08/16 12:00 96.4 87 18 114/66 98 11/08/16 08:00 96.6 72 18 117/65 95 11/08/16 04:00 97.3 73 18 107/68 96 11/08/16 00:00 96.4 80 18 108/61 97 11/07/16 19:00 86 Result Diagram: 11/07/16 0811 11/07/1611 Alison Johnson Nov 08, 2016 16:49
[2016-11-09] VITALS (7 sets, daily range): BP systolic 99–125; BP diastolic 60–70; PULSE 72–93; RESP 17–18; TEMP 96.1–98.1; O2SAT 94–100
[2016-11-09] MEDS: CLINDAMYCIN 150 MG CAP PO SCH ×4 (00:35→17:13)
[2016-11-09] MEDS: MORPHINE SULFATE 4 MG/ML INJ IV PRN ×5 (01:40→21:27)
[2016-11-09] MEDS: oxyCODONE/ACETAMINOPHEN 10 MG/325 MG TAB PO PRN ×5 (03:05→23:34)
[2016-11-09] MEDS: INSULIN ASPART SUPPLEMENTAL SCALE SQ SCH ×4 (06:13→21:44)
[2016-11-09] MEDS: INSULIN DETEMIR 100 UNITS/ML VIAL SQ SCH (08:29)
[2016-11-09] MEDS: SODIUM CHLORIDE 0.9% FLUSH 10 ML FLUSH IV FLUSH SCH ×2 (09:00→21:00)
[2016-11-09] MEDS: REMOVE OLD PATCH T-DERMAL SCH (09:00)
[2016-11-09] MEDS: NICOTINE 21 MG/24 HR PATCH T-DERMAL SCH (09:43)
[2016-11-09] MEDS: CHOLECALCIFEROL (VIT D3) 400 UNIT TAB PO SCH (09:44)
[2016-11-09] MEDS: guaiFENesin E.R. 600 MG TAB PO SCH ×2 (09:44→21:26)
[2016-11-09] MEDS: metFORMIN HCL 500 MG TAB PO SCH ×2 (09:45→17:14)
[2016-11-09] MEDS: DOCUSATE SODIUM 50 MG/SENNA 8.6 MG TAB PO SCH ×2 (09:45→21:26)
[2016-11-09] MEDS: LORazepam 0.5 MG TAB PO SCH ×2 (09:45→21:26)
[2016-11-09] MEDS: LEVOFLOXACIN 750 MG PREMIX INJ 150 ML IV SCH (09:46)
--- NOTE | 2016-11-09 10:58 | HHI.PR ---
Subjective Remarks This is a pleasant 61 y/o Male who was seen initially at [facility] with a Malignant facial lesion, discharge with Dermatology follow up unable to be seen due to lack of insurance, never biopsied, the lesion has been present for one year, he is Tobacco dependent weight loss of 20 pounds in the past two months. he has CAD status post CABG, Followed in this facility by home specialist Doctor Timi Staton with diagnosis of large ulcerated mass along the left temporal area , collapsed left upper lobe of the lung secondary to suspected endobronchial lesion. Status post Bronchoscopy has left upper lobe obstructing lesion. 11/06: seen in his bedroom has Squamous Cell lung cancer as per Biopsy, recommended for Left sided facial lesion in need of Punch biopsy for tissue diagnosis recommended for tomorrow by General Surgery, already home specialist gave him the news about his Pathology report from, his present. 11/07: today status post Punch biopsy of facial lesion performed by General animal care specialist Doctor Rob, no complaint by patient status post Bone scan, following specialist recommendations. 11/08: No nausea, vomit or diarrhea. 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 no complaint today. Objective Vital Signs Date Time Temp Pulse Resp B/P Pulse Ox O2 Delivery O2 Flow Rate FiO2 11/09/16 08:00 98.0 91 17 117/70 97 11/09/16 04:45 96.1 85 18 125/62 100 11/09/16 01:05 96.8 84 18 116/61 100 11/08/16 20:12 96.9 86 18 120/63 100 11/08/16 20:00 85 11/08/16 16:28 96.9 88 18 114/74 97 11/08/16 12:00 96.4 87 18 114/66 98 I/O 11/08/16 11/08/16 11/08/16 11/09/16 11/09/16 11/09/16 07:00 15:00 23:00 07:00 15:00 23:00 Intake Total 480 ml Balance 480 ml Intake Oral 480 ml # Voids 7 6 Result Diagram: 11/07/16 0811 11/07/16 0811 Imaging Last Impressions SPECT Scan-Bone Nuclear Medicine 11/07/16 0000 Signed Impressions: Service Date/Time: October 11:58 - CONCLUSION: 1. Large ulcerative skin mass again noted with no visualized destructive or lytic change in the adjacent bone. 2. Small subtle areas of mildly increased uptake which likely are reactive. Julio César Johnson MD Abdomen/Pelvis CT 11/07/16 0000 Signed Impressions: Service Date/Time: Tuesday, November 08, 2016 16:06 - CONCLUSION: 1. No evidence of metastatic disease. 2. Status post median sternotomy with epicardial pacer wires noted. Julio César Johnson MD Head CT 11/06/16 0000 Signed Impressions: Service Date/Time: Sunday, November 06, 2016 18:31 - CONCLUSION: 1. No intracranial abnormality is seen. 2. Large skin base lesion at the left side of the face and left frontal scalp region. Rolando Loera MD Chest X-Ray 11/02/16 0000 Signed Impressions: Service Date/Time: Wednesday, November 02, 2016 11:15 - CONCLUSION: No significant change when compared to the recent chest CT. Dense opacification remains in the left upper lobe which was shown to represent dense infiltrate with air bronchograms. There is no pneumothorax. Julio César Johnson MD Chest CT 10/31/16 0000 Signed Impressions: Service Date/Time: October 16:34 - CONCLUSION: 1. There is collapse involving the left upper lung with air bronchograms. The findings suggests a central obstructing lesion near the left hilar area. Neoplastic disease is not excluded. Recommend bronchoscopy if that has not already been performed. 2. Nonspecific interstitial infiltrates in the posterior lung bases bilaterally. 3. 6 mm nonspecific pulmonary nodule in the right midlung. This can be followed up in [address] thorax. 4. Central lobar emphysema. 5. There are some nonspecific mildly prominent lymph nodes in the mediastinum. Jaxon Chavez MD Neck CT 10/30/16 0000 Signed Impressions: Service Date/Time: Sunday, October 30, 2016 18:07 - CONCLUSION: 1. Large ulcerating cutaneous mass in left temporal region with abnormal soft tissue extending to the surface of the left temporal bone without evidence for bone invasion. 2. Abnormal consolidation and microcavity formation at left lung apex with adenopathy. Further evaluation with chest CT recommended with contrast. Joey Payan MD Procedures Bronchoscopy Punch Biopsy left temporal area. Other Results Laboratory Tests Test 11/06/16 11/07/16 09:05 08:11 Magnesium Level 1.8 MG/DL White Blood Count 16.1 TH/MM3 Red Blood Count 3.33 MIL/MM3 Hemoglobin 10.0 GM/DL Hematocrit 28.4 % Mean Corpuscular Volume 85.2 FL Mean Corpuscular Hemoglobin 30.1 PG Mean Corpuscular Hemoglobin 35.3 % Concent Red Cell Distribution Width 14.5 % Platelet Count 420 TH/MM3 Mean Platelet Volume 8.1 FL Neutrophils (%) (Auto) 66.7 % Lymphocytes (%) (Auto) 23.5 % Monocytes (%) (Auto) 6.3 % Eosinophils (%) (Auto) 3.2 % Basophils (%) (Auto) 0.3 % Neutrophils # (Auto) 10.7 TH/MM3 Lymphocytes # (Auto) 3.8 TH/MM3 Monocytes # (Auto) 1.0 TH/MM3 Eosinophils # (Auto) 0.5 TH/MM3 Basophils # (Auto) 0.0 TH/MM3 CBC Comment DIFF FINAL Differential Comment Prothrombin Time 11.1 SEC Prothromb Time International 1.0 RATIO Ratio Sodium Level 133 MEQ/L Potassium Level 3.9 MEQ/L Chloride Level 97 MEQ/L Carbon Dioxide Level 27.4 MEQ/L Anion Gap 9 MEQ/L Blood Urea Nitrogen 16 MG/DL Creatinine 0.89 MG/DL Estimat Glomerular Filtration 87 ML/MIN Rate Random Glucose 135 MG/DL Calcium Level 10.1 MG/DL Total Bilirubin 0.4 MG/DL Aspartate Amino Transf 15 U/L (AST/SGOT) Alanine Aminotransferase 13 U/L (ALT/SGPT) Alkaline Phosphatase 76 U/L Total Protein 8.7 GM/DL Albumin 3.4 GM/DL Objective Remarks GENERAL: Well-developed well-nourished. In no acute distress. SKIN: Warm and dry. Left temporal region dressed post biopsy. HEENT: Normocephalic. Pupils equal and round. Mucous membranes pink and moist. CARDIOVASCULAR: Regular rate and rhythm. No murmur appreciated. RESPIRATORY: Decreased breath sounds, expiratory wheezing and no crackles. GASTROINTESTINAL: Abdomen soft, non-tender, nondistended. Bowel sounds x4. MUSCULOSKELETAL: No obvious deformities. No clubbing or cyanosis. No edema. NEUROLOGICAL: Awake and alert. No focal neurological deficits. PSYCHIATRIC: Pleasant mood and affect; insight and judgment normal. Medications and IVs Current Medications Medications (Trade) Dose Ordered Sig/Luis Route Start Time Stop Time Status Last Admin (NS Flush) 2 ml UNSCH PRN IV FLUSH 10/30/16 20:00 11/02/16 05:51 (NS Flush) 2 ml BID IV FLUSH 10/30/16 21:00 11/09/16 09:00 (Narcan Inj) 0.4 mg UNSCH PRN IV 10/30/16 20:00 (Percocet 5-325 Mg) 1 tab Q6H PRN PO 10/31/16 10:30 (Morphine Inj) 4 mg Q3H PRN IV 10/31/16 10:30 11/09/16 05:21 (Habitrol 21 Mg Patch.24 Hr) 1 patch DAILY T-DERMAL 10/31/16 10:30 11/09/16 09:43 Miscellaneous Information 1 DAILY T-DERMAL 11/01/16 09:00 11/09/16 09:00 Senna/Docusate Sodium 1 tab 1 tab BID PO 11/01/16 09:00 11/09/16 09:45 (Levaquin 750 Mg Premix Inj) 150 ml @ 100 mls/hr Q24H IV 11/01/16 10:00 11/09/16 09:46 (D50w (Vial) Inj) 50 ml UNSCH PRN IV 11/01/16 10:15 (Glucagon Inj) 1 mg UNSCH PRN OTHER 11/01/16 10:15 (Cleocin) 450 mg Q6HR PO 11/01/16 19:15 11/09/16 05:21 (Glucophage) 500 mg BIDPC PO 11/02/16 18:00 11/09/16 09:45 (Percocet 10-325 Mg) 1 tab Q4H PRN PO 11/02/16 15:14 11/09/16 09:42 (Lovenox Inj) 40 mg Q24H SQ 11/03/16 08:30 Hold 11/06/16 09:21 (Levemir Inj) 10 units DAILY SQ 11/03/16 10:00 11/09/16 08:29 (Mucinex Er) 600 mg BID PO 11/03/16 10:00 11/09/16 09:44 (Vitamin D3) 800 units DAILY PO 11/05/16 10:30 11/09/16 09:44 (Ativan) 0.5 mg Q12HR PO 11/07/16 21:00 11/09/16 09:45 A/P Problem List: (1) Tobacco abuse ICD Code: Z72.0 (2) Lung mass ICD Code: R91.8 (3) Skin cancer of face ICD Code: C44.300 (4) Leukocytosis ICD Code: D72.829 Assessment and Plan 61-year-old male with history of CAD s/p CABG, presents with left facial skin cancer Skin Cancer suspected status post Punch biopsy performed today by doctor Rivas. Diagnosis of Invasive Well differentiated Squamous Cell Carcinoma. Head and Neck CT, showed large ulcerating cutaneous mass in left temporal region with abnormal soft tissue extending to the surface of the left temporal bone without bone invasion - General surgery recommended head and neck surgeon consult, maxillofacial surgery recommended head and neck surgeon consult. - new Lung biopsy positive for Squamous Cell Lung cancer. seen by Cardiothoracic surgery, asked for CT brain with contrast, PFTs, whole body bone scan thinking in Left Upper Lobectomy. Sepsis: Possibly secondary to infected wound as above or postobstructive pneumonia as below. Meets sepsis criteria with leukocytosis WBC 19K, tachycardia HR 111, and source-cellulitis. Lactic acid 1.4. Wound culture growing Pseudomonas stutzeri, staph aureus, and Klebsiella sensitive to Levaquin. - Continue IV Levaquin based on sensitivities. - Leukocytosis resolved on repeat CBC Lung mass: No respiratory complaints. Reviewed: Chest CT showed collapse involving the left upper lung with air bronchograms; findings suggestive of central obstructing lesion near the left hilar area; nonspecific interstitial infiltrates in the posterior lung bases bilaterally; 6 mm nodule in the right midlung; central lobar emphysema; nonspecific mildly prominent lymph nodes in the mediastinum. - Pulmonology consulted, performed bronchoscopy found left upper lobe obstructing lesion. positive for Squamous Cell Cancer. Seen by Cardiothoracic surgery, asked for CT brain with contrast, PFTs, whole body bone scan thinking in Left Upper Lobectomy. Diabetes mellitus, new onset: Fasting glucoses elevated. Hemoglobin A1c 8.4. Stable. - Monitor Accu-Cheks. Cover with SSI if needed. added Levemir 10 units at this time due to uncontrolled blood sugars. - Consult estimator printing plate making and dietitian Tobacco Abuse - counselled on smoking cessation - nicotine patch Constipation given lactulose. Discussed in the room with Patient. all questions answered to the best of my abilities. DVT prophylaxis - SCDs/TEDs Awaiting final recommendations by Oncology, Radiation Oncology. Discharge Planning Once cleared by specialists. Edgardo Jerome MD Nov 09, 2016 10:58
[2016-11-09] MEDS: FAMOTIDINE 20 MG TAB PO SCH ×2 (13:50→21:26)
[2016-11-09] MEDS: SUCRALFATE 1 GM TAB PO SCH ×2 (16:29→21:27)
[2016-11-10 00:47] VITALS: BP 138/69; PULSE 92; RESP 18; TEMP 96.9; O2SAT 100
[2016-11-10] MEDS: MORPHINE SULFATE 4 MG/ML INJ IV PRN ×4 (01:50→21:05)
[2016-11-10] MEDS: oxyCODONE/ACETAMINOPHEN 10 MG/325 MG TAB PO PRN ×4 (04:11→23:10)
[2016-11-10 04:21] VITALS: BP 107/63; PULSE 77; RESP 18; TEMP 96.9; O2SAT 100
[2016-11-10] MEDS: INSULIN ASPART SUPPLEMENTAL SCALE SQ SCH ×4 (06:02→21:05)
[2016-11-10] MEDS: SUCRALFATE 1 GM TAB PO SCH ×4 (06:06→21:08)
[2016-11-10] MEDS: CLINDAMYCIN 150 MG CAP PO SCH ×5 (06:07→23:10)
--- NOTE | 2016-11-10 06:17 | HHI.PR ---
Subjective Remarks This is a pleasant 61 y/o Male who was seen initially at [facility] with a Malignant facial lesion, discharge with Dermatology follow up unable to be seen due to lack of insurance, never biopsied, the lesion has been present for one year, he is Tobacco dependent weight loss of 20 pounds in the past two months. he has CAD status post CABG, Followed in this facility by industry segment specialist Doctor Timi Staton with diagnosis of large ulcerated mass along the left temporal area , collapsed left upper lobe of the lung secondary to suspected endobronchial lesion. Status post Bronchoscopy has left upper lobe obstructing lesion. 11/06: seen in his bedroom has Squamous Cell lung cancer as per Biopsy, recommended for Left sided facial lesion in need of Punch biopsy for tissue diagnosis recommended for tomorrow by General Surgery, already industry segment specialist gave him the news about his Pathology report from, his present. 11/07: today status post Punch biopsy of facial lesion performed by General heat plant specialist Doctor Rob, no complaint by patient status post Bone scan, following specialist recommendations. 11/08: No nausea, vomit or diarrhea. 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 no complaint today. 11/10: Seen in his bedroom no nausea, vomit or diarrhea, awaiting final recommendations by Radiation oncology Objective Vital Signs Date Time Temp Pulse Resp B/P Pulse Ox O2 Delivery O2 Flow Rate FiO2 11/10/16 04:21 96.9 77 18 107/63 100 11/10/16 00:47 96.9 92 18 138/69 100 11/09/16 21:45 18 11/09/16 20:00 96.8 93 18 118/65 100 11/09/16 19:48 18 11/09/16 15:55 97.9 84 18 109/60 94 11/09/16 12:00 98.1 82 18 99/60 94 11/09/16 11:11 72 11/09/16 08:00 98.0 91 17 117/70 97 I/O 11/09/16 11/09/16 11/09/16 11/10/16 11/10/16 11/10/16 06:59 14:59 22:59 06:59 14:59 22:59 Intake Total 480 ml Balance 480 ml Intake Oral 480 ml # Voids 6 3 5 # Bowel Movements 2 Result Diagram: 11/07/16 0811 11/07/16 0811 Imaging Last Impressions SPECT Scan-Bone Nuclear Medicine 11/07/16 0000 Signed Impressions: Service Date/Time: October 11:58 - CONCLUSION: 1. Large ulcerative skin mass again noted with no visualized destructive or lytic change in the adjacent bone. 2. Small subtle areas of mildly increased uptake which likely are reactive. Julio César Johnson MD Abdomen/Pelvis CT 11/07/16 0000 Signed Impressions: Service Date/Time: Tuesday, November 08, 2016 16:06 - CONCLUSION: 1. No evidence of metastatic disease. 2. Status post median sternotomy with epicardial pacer wires noted. Julio César Johnson MD Head CT 11/06/16 0000 Signed Impressions: Service Date/Time: Sunday, November 06, 2016 18:31 - CONCLUSION: 1. No intracranial abnormality is seen. 2. Large skin base lesion at the left side of the face and left frontal scalp region. Rolando Loera MD Chest X-Ray 11/02/16 0000 Signed Impressions: Service Date/Time: Wednesday, November 02, 2016 11:15 - CONCLUSION: No significant change when compared to the recent chest CT. Dense opacification remains in the left upper lobe which was shown to represent dense infiltrate with air bronchograms. There is no pneumothorax. Julio César Johnson MD Chest CT 10/31/16 0000 Signed Impressions: Service Date/Time: October 16:34 - CONCLUSION: 1. There is collapse involving the left upper lung with air bronchograms. The findings suggests a central obstructing lesion near the left hilar area. Neoplastic disease is not excluded. Recommend bronchoscopy if that has not already been performed. 2. Nonspecific interstitial infiltrates in the posterior lung bases bilaterally. 3. 6 mm nonspecific pulmonary nodule in the right midlung. This can be followed up in [address] thorax. 4. Central lobar emphysema. 5. There are some nonspecific mildly prominent lymph nodes in the mediastinum. Jaxon Chavez MD Neck CT 10/30/16 0000 Signed Impressions: Service Date/Time: Sunday, October 30, 2016 18:07 - CONCLUSION: 1. Large ulcerating cutaneous mass in left temporal region with abnormal soft tissue extending to the surface of the left temporal bone without evidence for bone invasion. 2. Abnormal consolidation and microcavity formation at left lung apex with adenopathy. Further evaluation with chest CT recommended with contrast. Joey Payan MD Procedures Bronchoscopy Punch Biopsy left temporal area. Other Results Laboratory Tests Test 11/06/16 11/07/16 09:05 08:11 Magnesium Level 1.8 MG/DL White Blood Count 16.1 TH/MM3 Red Blood Count 3.33 MIL/MM3 Hemoglobin 10.0 GM/DL Hematocrit 28.4 % Mean Corpuscular Volume 85.2 FL Mean Corpuscular Hemoglobin 30.1 PG Mean Corpuscular Hemoglobin 35.3 % Concent Red Cell Distribution Width 14.5 % Platelet Count 420 TH/MM3 Mean Platelet Volume 8.1 FL Neutrophils (%) (Auto) 66.7 % Lymphocytes (%) (Auto) 23.5 % Monocytes (%) (Auto) 6.3 % Eosinophils (%) (Auto) 3.2 % Basophils (%) (Auto) 0.3 % Neutrophils # (Auto) 10.7 TH/MM3 Lymphocytes # (Auto) 3.8 TH/MM3 Monocytes # (Auto) 1.0 TH/MM3 Eosinophils # (Auto) 0.5 TH/MM3 Basophils # (Auto) 0.0 TH/MM3 CBC Comment DIFF FINAL Differential Comment Prothrombin Time 11.1 SEC Prothromb Time International 1.0 RATIO Ratio Sodium Level 133 MEQ/L Potassium Level 3.9 MEQ/L Chloride Level 97 MEQ/L Carbon Dioxide Level 27.4 MEQ/L Anion Gap 9 MEQ/L Blood Urea Nitrogen 16 MG/DL Creatinine 0.89 MG/DL Estimat Glomerular Filtration 87 ML/MIN Rate Random Glucose 135 MG/DL Calcium Level 10.1 MG/DL Total Bilirubin 0.4 MG/DL Aspartate Amino Transf 15 U/L (AST/SGOT) Alanine Aminotransferase 13 U/L (ALT/SGPT) Alkaline Phosphatase 76 U/L Total Protein 8.7 GM/DL Albumin 3.4 GM/DL Objective Remarks GENERAL: Well-developed well-nourished. In no acute distress. SKIN: Warm and dry. Left temporal region dressed post biopsy. HEENT: Normocephalic. Pupils equal and round. Mucous membranes pink and moist. CARDIOVASCULAR: Regular rate and rhythm. No murmur appreciated. RESPIRATORY: Decreased breath sounds, expiratory wheezing and no crackles. GASTROINTESTINAL: Abdomen soft, non-tender, nondistended. Bowel sounds x4. MUSCULOSKELETAL: No obvious deformities. No clubbing or cyanosis. No edema. NEUROLOGICAL: Awake and alert. No focal neurological deficits. PSYCHIATRIC: Pleasant mood and affect; insight and judgment normal. Medications and IVs Current Medications Medications (Trade) Dose Ordered Sig/Luis Route Start Time Stop Time Status Last Admin (NS Flush) 2 ml UNSCH PRN IV FLUSH 10/30/16 20:00 11/02/16 05:51 (NS Flush) 2 ml BID IV FLUSH 10/30/16 21:00 11/09/16 21:00 (Narcan Inj) 0.4 mg UNSCH PRN IV 10/30/16 20:00 (Percocet 5-325 Mg) 1 tab Q6H PRN PO 10/31/16 10:30 (Morphine Inj) 4 mg Q3H PRN IV 10/31/16 10:30 11/10/16 06:14 (Habitrol 21 Mg Patch.24 Hr) 1 patch DAILY T-DERMAL 10/31/16 10:30 11/09/16 09:43 Miscellaneous Information 1 DAILY T-DERMAL 11/01/16 09:00 11/09/16 09:00 Senna/Docusate Sodium 1 tab 1 tab BID PO 11/01/16 09:00 11/09/16 21:26 (Levaquin 750 Mg Premix Inj) 150 ml @ 100 mls/hr Q24H IV 11/01/16 10:00 11/09/16 09:46 (D50w (Vial) Inj) 50 ml UNSCH PRN IV 11/01/16 10:15 (Glucagon Inj) 1 mg UNSCH PRN OTHER 11/01/16 10:15 (Cleocin) 450 mg Q6HR PO 11/01/16 19:15 11/10/16 06:07 (Glucophage) 500 mg BIDPC PO 11/02/16 18:00 11/09/16 17:14 (Percocet 10-325 Mg) 1 tab Q4H PRN PO 11/02/16 15:14 11/10/16 04:11 (Lovenox Inj) 40 mg Q24H SQ 11/03/16 08:30 Hold 11/06/16 09:21 (Levemir Inj) 10 units DAILY SQ 11/03/16 10:00 11/09/16 08:29 (Mucinex Er) 600 mg BID PO 11/03/16 10:00 11/09/16 21:26 (Vitamin D3) 800 units DAILY PO 11/05/16 10:30 11/09/16 09:44 (Ativan) 0.5 mg Q12HR PO 11/07/16 21:00 11/09/16 21:26 (Carafate) 1 gm ACHS PO 11/09/16 16:00 11/10/16 06:06 (Pepcid) 20 mg BID PO 11/09/16 13:15 11/09/16 21:26 A/P Problem List: (1) Tobacco abuse ICD Code: Z72.0 - Tobacco use (2) Lung mass ICD Code: R91.8 - Other nonspecific abnormal finding of lung field (3) Skin cancer of face ICD Code: C44.300 - Unspecified malignant neoplasm of skin of unspecified part of face (4) Leukocytosis ICD Code: D72.829 - Elevated white blood cell count, unspecified Assessment and Plan 61-year-old male with history of CAD s/p CABG, presents with left facial skin cancer Skin Cancer suspected status post Punch biopsy performed today by doctor Rob. Diagnosis of Invasive Well differentiated Squamous Cell Carcinoma. Head and Neck CT, showed large ulcerating cutaneous mass in left temporal region with abnormal soft tissue extending to the surface of the left temporal bone without bone invasion - General surgery recommended head and neck surgeon consult, maxillofacial surgery recommended head and neck surgeon consult. - new Lung biopsy positive for Squamous Cell Lung cancer. seen by Cardiothoracic surgery, asked for CT brain with contrast, PFTs, whole body bone scan thinking in Left Upper Lobectomy. Sepsis: Possibly secondary to infected wound as above or postobstructive pneumonia as below. Meets sepsis criteria with leukocytosis WBC 19K, tachycardia HR 111, and source-cellulitis. Lactic acid 1.4. Wound culture growing Pseudomonas stutzeri, staph aureus, and Klebsiella sensitive to Levaquin. - Continue IV Levaquin based on sensitivities. - Leukocytosis resolved on repeat CBC Lung mass: No respiratory complaints. Reviewed: Chest CT showed collapse involving the left upper lung with air bronchograms; findings suggestive of central obstructing lesion near the left hilar area; nonspecific interstitial infiltrates in the posterior lung bases bilaterally; 6 mm nodule in the right midlung; central lobar emphysema; nonspecific mildly prominent lymph nodes in the mediastinum. - Pulmonology consulted, performed bronchoscopy found left upper lobe obstructing lesion. positive for Squamous Cell Cancer. Seen by Cardiothoracic surgery, asked for CT brain with contrast, PFTs, whole body bone scan thinking in Left Upper Lobectomy. Diabetes mellitus, new onset: Fasting glucoses elevated. Hemoglobin A1c 8.4. Stable. - Monitor Accu-Cheks. Cover with SSI if needed. added Levemir 10 units at this time due to uncontrolled blood sugars. - Consult nurse educator and dietitian Tobacco Abuse - counselled on smoking cessation - nicotine patch Constipation given lactulose. Discussed in the room with Patient. all questions answered to the best of my abilities. DVT prophylaxis - SCDs/TEDs Awaiting final recommendations by Oncology, Radiation Oncology. Discharge Planning Awaiting final recommendations by Radiation Oncology for discharge. Edgardo Jerome MD Nov 10, 2016 06:17
[2016-11-10 08:00] VITALS: BP 113/64; PULSE 86; RESP 19; TEMP 98.5; O2SAT 95
[2016-11-10] MEDS: REMOVE OLD PATCH T-DERMAL SCH (09:00)
[2016-11-10] MEDS: INSULIN DETEMIR 100 UNITS/ML VIAL SQ SCH (09:00)
[2016-11-10] MEDS: CHOLECALCIFEROL (VIT D3) 400 UNIT TAB PO SCH (09:00)
[2016-11-10] MEDS: metFORMIN HCL 500 MG TAB PO SCH ×2 (09:00→16:56)
[2016-11-10] MEDS: guaiFENesin E.R. 600 MG TAB PO SCH ×2 (09:00→21:08)
[2016-11-10] MEDS: SODIUM CHLORIDE 0.9% FLUSH 10 ML FLUSH IV FLUSH SCH ×2 (09:00→21:08)
[2016-11-10] MEDS: DOCUSATE SODIUM 50 MG/SENNA 8.6 MG TAB PO SCH ×2 (09:00→21:08)
[2016-11-10] MEDS: FAMOTIDINE 20 MG TAB PO SCH ×2 (09:00→21:08)
[2016-11-10] MEDS: NICOTINE 21 MG/24 HR PATCH T-DERMAL SCH (09:00)
[2016-11-10] MEDS: LORazepam 0.5 MG TAB PO SCH ×2 (09:00→21:08)
[2016-11-10] MEDS: LEVOFLOXACIN 750 MG PREMIX INJ 150 ML IV SCH (10:00)
[2016-11-10 12:00] VITALS: BP 119/63; PULSE 74; RESP 17; TEMP 97.5; O2SAT 98
[2016-11-10 16:00] VITALS: BP 108/68; PULSE 88; RESP 18; TEMP 98.5; O2SAT 96
[2016-11-11] VITALS (7 sets, daily range): BP systolic 106–150; BP diastolic 59–75; PULSE 72–85; RESP 17–20; TEMP 96.5–98.8; O2SAT 96–98
[2016-11-11] MEDS: MORPHINE SULFATE 4 MG/ML INJ IV PRN ×5 (01:23→21:17)
[2016-11-11] MEDS: oxyCODONE/ACETAMINOPHEN 10 MG/325 MG TAB PO PRN ×5 (04:08→23:41)
[2016-11-11] MEDS: INSULIN ASPART SUPPLEMENTAL SCALE SQ SCH ×4 (06:00→21:25)
[2016-11-11] MEDS: CLINDAMYCIN 150 MG CAP PO SCH (06:24)
[2016-11-11] MEDS: SUCRALFATE 1 GM TAB PO SCH ×4 (06:24→21:16)
[2016-11-11] MEDS: REMOVE OLD PATCH T-DERMAL SCH (09:00)
[2016-11-11] MEDS: INSULIN DETEMIR 100 UNITS/ML VIAL SQ SCH (09:00)
[2016-11-11] MEDS: NICOTINE 21 MG/24 HR PATCH T-DERMAL SCH (09:11)
[2016-11-11] MEDS: DOCUSATE SODIUM 50 MG/SENNA 8.6 MG TAB PO SCH ×2 (09:12→21:16)
[2016-11-11] MEDS: metFORMIN HCL 500 MG TAB PO SCH ×2 (09:12→19:27)
[2016-11-11] MEDS: LORazepam 0.5 MG TAB PO SCH ×2 (09:12→21:17)
[2016-11-11] MEDS: CHOLECALCIFEROL (VIT D3) 400 UNIT TAB PO SCH (09:12)
[2016-11-11] MEDS: FAMOTIDINE 20 MG TAB PO SCH ×2 (09:12→21:17)
[2016-11-11] MEDS: guaiFENesin E.R. 600 MG TAB PO SCH ×2 (09:12→21:16)
[2016-11-11] MEDS: SODIUM CHLORIDE 0.9% FLUSH 10 ML FLUSH IV FLUSH SCH ×2 (09:13→21:17)
--- NOTE | 2016-11-11 09:27 | PD.ONC.PN ---
Subjective Subjective Remarks Afebrile overnight. Patient reports he talked to a few friends and after further contemplation, would like to pursue lung resection. Called and spoke with Isabell from [facility] and she and Dr. Moser will see patient today. Objective Data Date Time Temp Pulse Resp B/P (MAP) Pulse Ox O2 Delivery O2 Flow Rate FiO2 11/11/16 08:00 96.9 83 17 113/64 (80) 96 11/11/16 06:37 18 11/11/16 05:37 97.4 76 20 115/64 (81) 96 11/11/16 05:12 18 11/11/16 02:30 75 11/11/16 00:50 96.5 72 20 125/68 (87) 98 11/10/16 16:00 98.5 88 18 108/68 (81) 96 11/10/16 12:00 97.5 74 17 119/63 (81) 98 11/11/16 11/11/16 11/11/16 06:59 14:59 22:59 Intake Total 480 ml Balance 480 ml Result Diagram: 11/07/16 0811 11/07/16 0811 Administered Medications Medications (Trade) Dose Ordered Sig/Luis Route PRN Reason Start Time Stop Time Status Last Admin Dose Admin Sodium Chloride (NS Flush) 2 ml UNSCH PRN IV FLUSH FLUSH AFTER USING IV ACCESS 10/30/16 20:00 11/02/16 05:51 Sodium Chloride (NS Flush) 2 ml BID IV FLUSH 10/30/16 21:00 11/11/16 09:13 Morphine Sulfate (Morphine Inj) 4 mg Q3H PRN IV BREAKTHROUGH PAIN 10/31/16 10:30 11/11/16 06:25 Nicotine (Habitrol 21 Mg Patch.24 Hr) 1 patch DAILY T-DERMAL 10/31/16 10:30 11/11/16 09:11 Miscellaneous Information 1 DAILY T-DERMAL 11/01/16 09:00 11/11/16 09:00 Senna/Docusate Sodium (Dior-Colace) 1 tab BID PO 11/01/16 09:00 11/11/16 09:12 Levofloxacin/ Dextrose 150 ml @ 100 mls/hr Q24H IV 11/01/16 10:00 11/10/16 10:00 Insulin Aspart (NovoLOG SUPPLEMENTAL SCALE) 1 ACHS SLIDING SCALE SQ 11/01/16 11:00 11/10/16 21:00 Clindamycin HCl (Cleocin) 450 mg Q6HR PO 11/01/16 19:15 11/11/16 06:24 Metformin HCl (Glucophage) 500 mg BIDPC PO 11/02/16 18:00 11/11/16 09:12 Oxycodone/ Acetaminophen (Percocet 10-325 Mg) 1 tab Q4H PRN PO PAIN SCALE 6 TO 10 11/02/16 15:14 11/11/16 09:05 Enoxaparin Sodium (Lovenox Inj) 40 mg Q24H SQ 11/03/16 08:30 Future Hold 11/06/16 09:21 Insulin Detemir (Levemir Inj) 10 units DAILY SQ 11/03/16 10:00 11/11/16 09:00 Guaifenesin (Mucinex Er) 600 mg BID PO 11/03/16 10:00 11/11/16 09:12 Cholecalciferol (Vitamin D3) 800 units DAILY PO 11/05/16 10:30 11/11/16 09:12 Lorazepam (Ativan) 0.5 mg Q12HR PO 11/07/16 21:00 11/11/16 09:12 Sucralfate (Carafate) 1 gm ACHS PO 11/09/16 16:00 11/11/16 06:24 Famotidine (Pepcid) 20 mg BID PO 11/09/16 13:15 11/11/16 09:12 Objective Remarks GENERAL: Middle aged male upright in bed in [facility] SKIN: Warm and dry. HEAD: Normocephalic. bandage along left scalp. EYES: No injection or drainage. NECK: Supple, trachea midline. CARDIOVASCULAR: Regular rate and rhythm RESPIRATORY: diminished at bases, occasional wheeze GASTROINTESTINAL: Abdomen soft, non-tender, nondistended. EXTREMITIES: No cyanosis NEUROLOGICAL: No obvious focal deficit. Awake, alert, and oriented x3. Assessment/Plan Problem List: (1) Skin cancer of face ICD Codes: C44.300 - Unspecified malignant neoplasm of skin of unspecified part of face Status: Acute Plan: -- Increased in size over the past year -- pathology showed squamous cell carcinoma (2) Lung mass ICD Codes: R91.8 - Other nonspecific abnormal finding of lung field Status: Acute Plan: -- Pathology shows squamous cell carcinoma -- Cardiothoracics saw patient to discuss left thoracotomy, pulmonary resection and patient refused surgery Assessment 61 y/o male with enlarging mass to the L side of his face admitted with pain Plan 1. patient would like to pursue resection of lung lesion. 2. reconsult cardio-thoracic surgery (discussed with GABRIELA Philip who will d/w Dr. Moser) 3. once discharged follow up with Dr. Staton in clinic. June Muniz Nov 11, 2016 09:27
[2016-11-11] MEDS: LEVOFLOXACIN 750 MG PREMIX INJ 150 ML IV SCH (09:30)
--- NOTE | 2016-11-11 10:19 | HHI.PR ---
Subjective Remarks This is a pleasant 61 y/o Male who was seen initially at [facility] with a Malignant facial lesion, discharge with Dermatology follow up unable to be seen due to lack of insurance, never biopsied, the lesion has been present for one year, he is Tobacco dependent weight loss of 20 pounds in the past two months. he has CAD status post CABG, Followed in this facility by applications specialist Doctor Timi Staton with diagnosis of large ulcerated mass along the left temporal area , collapsed left upper lobe of the lung secondary to suspected endobronchial lesion. Status post Bronchoscopy has left upper lobe obstructing lesion. 11/06: Has Squamous Cell lung cancer as per Biopsy, recommended for Left sided facial lesion in need of Punch biopsy for tissue diagnosis. 11/07: Status post Punch biopsy of facial lesion performed by General product support specialist Doctor Rob, Status post Bone scan 11/08: No new issues. 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 11/10: Awaiting final recommendations by Radiation oncology 11/11: Seen in his bedroom in the presence of His also Mr. Christian present, he decided today to continue with surgery as recommended by me yesterday and by Oncology today, no nausea, vomit or diarrhea continue present care and following recommendations, Objective Vital Signs Date Time Temp Pulse Resp B/P (MAP) Pulse Ox O2 Delivery O2 Flow Rate FiO2 11/11/16 08:00 96.9 83 17 113/64 (80) 96 11/11/16 06:37 18 11/11/16 05:37 97.4 76 20 115/64 (81) 96 11/11/16 05:12 18 11/11/16 02:30 75 11/11/16 00:50 96.5 72 20 125/68 (87) 98 11/10/16 16:00 98.5 88 18 108/68 (81) 96 11/10/16 12:00 97.5 74 17 119/63 (81) 98 I/O 11/10/16 11/10/16 11/10/16 11/11/16 11/11/16 11/11/16 06:59 14:59 22:59 06:59 14:59 22:59 Intake Total 480 ml 480 ml Balance 480 ml 480 ml Intake Oral 480 ml 480 ml # Voids 5 2 3 # Bowel Movements 1 1 Result Diagram: 11/07/16 0811 11/07/16 0811 Imaging Last Impressions SPECT Scan-Bone Nuclear Medicine 11/07/16 0000 Signed Impressions: Service Date/Time: October 11:58 - CONCLUSION: 1. Large ulcerative skin mass again noted with no visualized destructive or lytic change in the adjacent bone. 2. Small subtle areas of mildly increased uptake which likely are reactive. Julio César Johnson MD Abdomen/Pelvis CT 11/07/16 0000 Signed Impressions: Service Date/Time: Tuesday, November 08, 2016 16:06 - CONCLUSION: 1. No evidence of metastatic disease. 2. Status post median sternotomy with epicardial pacer wires noted. Julio César Johnson MD Head CT 11/06/16 0000 Signed Impressions: Service Date/Time: Sunday, November 06, 2016 18:31 - CONCLUSION: 1. No intracranial abnormality is seen. 2. Large skin base lesion at the left side of the face and left frontal scalp region. Rolando Loera MD Chest X-Ray 11/02/16 0000 Signed Impressions: Service Date/Time: Wednesday, November 02, 2016 11:15 - CONCLUSION: No significant change when compared to the recent chest CT. Dense opacification remains in the left upper lobe which was shown to represent dense infiltrate with air bronchograms. There is no pneumothorax. Julio César Johnson MD Chest CT 10/31/16 0000 Signed Impressions: Service Date/Time: October 16:34 - CONCLUSION: 1. There is collapse involving the left upper lung with air bronchograms. The findings suggests a central obstructing lesion near the left hilar area. Neoplastic disease is not excluded. Recommend bronchoscopy if that has not already been performed. 2. Nonspecific interstitial infiltrates in the posterior lung bases bilaterally. 3. 6 mm nonspecific pulmonary nodule in the right midlung. This can be followed up in [address] thorax. 4. Central lobar emphysema. 5. There are some nonspecific mildly prominent lymph nodes in the mediastinum. Jaxon Chavez MD Neck CT 10/30/16 0000 Signed Impressions: Service Date/Time: Sunday, October 30, 2016 18:07 - CONCLUSION: 1. Large ulcerating cutaneous mass in left temporal region with abnormal soft tissue extending to the surface of the left temporal bone without evidence for bone invasion. 2. Abnormal consolidation and microcavity formation at left lung apex with adenopathy. Further evaluation with chest CT recommended with contrast. Joey Payan MD Procedures Bronchoscopy Punch Biopsy left temporal area. Other Results Laboratory Tests Test 10/30/16 16:18 10/31/16 06:15 11/03/16 19:30 11/06/16 09:05 Lactic Acid Level 1.4 mmol/L Activated Partial Thromboplast Time 29.5 SEC Hemoglobin A1c 8.6 % Triglycerides Level 124 MG/DL Cholesterol Level 148 MG/DL LDL Cholesterol 87 MG/DL HDL Cholesterol 36.1 MG/DL Cholesterol/HDL Ratio 4.09 RATIO Vitamin B12 Level 644 PG/ML 25-Hydroxy Vitamin D Total 28.9 ng/ML Folate 13.5 NG/ML Thyroid Stimulating Hormone 3rd Gen 0.996 uIU/ML Blood Urea Nitrogen 17 MG/DL Creatinine 0.77 MG/DL Random Glucose 138 MG/DL Calcium Level 9.6 MG/DL Magnesium Level 1.8 MG/DL Sodium Level 134 MEQ/L Potassium Level 3.5 MEQ/L Chloride Level 99 MEQ/L Carbon Dioxide Level 28.0 MEQ/L Test 11/07/16 08:11 White Blood Count 16.1 TH/MM3 Red Blood Count 3.33 MIL/MM3 Hemoglobin 10.0 GM/DL Hematocrit 28.4 % Mean Corpuscular Volume 85.2 FL Mean Corpuscular Hemoglobin 30.1 PG Mean Corpuscular Hemoglobin Concent 35.3 % Red Cell Distribution Width 14.5 % Platelet Count 420 TH/MM3 Mean Platelet Volume 8.1 FL Neutrophils (%) (Auto) 66.7 % Lymphocytes (%) (Auto) 23.5 % Monocytes (%) (Auto) 6.3 % Eosinophils (%) (Auto) 3.2 % Basophils (%) (Auto) 0.3 % Neutrophils # (Auto) 10.7 TH/MM3 Lymphocytes # (Auto) 3.8 TH/MM3 Monocytes # (Auto) 1.0 TH/MM3 Eosinophils # (Auto) 0.5 TH/MM3 Basophils # (Auto) 0.0 TH/MM3 CBC Comment DIFF FINAL Differential Comment Prothrombin Time 11.1 SEC Prothromb Time International Ratio 1.0 RATIO Blood Urea Nitrogen 16 MG/DL Creatinine 0.89 MG/DL Random Glucose 135 MG/DL Total Protein 8.7 GM/DL Albumin 3.4 GM/DL Calcium Level 10.1 MG/DL Alkaline Phosphatase 76 U/L Aspartate Amino Transf (AST/SGOT) 15 U/L Alanine Aminotransferase (ALT/SGPT) 13 U/L Total Bilirubin 0.4 MG/DL Sodium Level 133 MEQ/L Potassium Level 3.9 MEQ/L Chloride Level 97 MEQ/L Carbon Dioxide Level 27.4 MEQ/L Anion Gap 9 MEQ/L Estimat Glomerular Filtration Rate 87 ML/MIN Objective Remarks GENERAL: Well-developed well-nourished. In no acute distress. SKIN: Warm and dry. Left temporal region dressed post biopsy. HEENT: Normocephalic. Pupils equal and round. Mucous membranes pink and moist. CARDIOVASCULAR: Regular rate and rhythm. No murmur appreciated. RESPIRATORY: Decreased breath sounds, no wheezing or crackles. GASTROINTESTINAL: Abdomen soft, non-tender, nondistended. Bowel sounds x4. MUSCULOSKELETAL: No obvious deformities. No clubbing or cyanosis. No edema. NEUROLOGICAL: Awake and alert. No focal neurological deficits. PSYCHIATRIC: Pleasant mood and affect; insight and judgment normal. Medications and IVs Current Medications Medications (Trade) Dose Ordered Sig/Luis Route Start Time Stop Time Status Last Admin (NS Flush) 2 ml UNSCH PRN IV FLUSH 10/30/16 20:00 11/02/16 05:51 (NS Flush) 2 ml BID IV FLUSH 10/30/16 21:00 11/11/16 09:13 (Narcan Inj) 0.4 mg UNSCH PRN IV 10/30/16 20:00 (Percocet 5-325 Mg) 1 tab Q6H PRN PO 10/31/16 10:30 (Morphine Inj) 4 mg Q3H PRN IV 10/31/16 10:30 11/11/16 06:25 (Habitrol 21 Mg Patch.24 Hr) 1 patch DAILY T-DERMAL 10/31/16 10:30 11/11/16 09:11 Miscellaneous Information 1 DAILY T-DERMAL 11/01/16 09:00 11/11/16 09:00 (Dior-Colace) 1 tab BID PO 11/01/16 09:00 11/11/16 09:12 Levofloxacin/ Dextrose 150 ml @ 100 mls/hr Q24H IV 11/01/16 10:00 11/11/16 09:30 (D50w (Vial) Inj) 50 ml UNSCH PRN IV 11/01/16 10:15 (Glucagon Inj) 1 mg UNSCH PRN OTHER 11/01/16 10:15 (NovoLOG SUPPLEMENTAL SCALE) 1 ACHS SLIDING SCALE SQ 11/01/16 11:00 11/10/16 21:00 (Cleocin) 450 mg Q6HR PO 11/01/16 19:15 11/11/16 06:24 (Glucophage) 500 mg BIDPC PO 11/02/16 18:00 11/11/16 09:12 (Percocet 10-325 Mg) 1 tab Q4H PRN PO 11/02/16 15:14 11/11/16 09:05 (Lovenox Inj) 40 mg Q24H SQ 11/03/16 08:30 Future Hold 11/06/16 09:21 (Levemir Inj) 10 units DAILY SQ 11/03/16 10:00 11/11/16 09:00 (Mucinex Er) 600 mg BID PO 11/03/16 10:00 11/11/16 09:12 (Vitamin D3) 800 units DAILY PO 11/05/16 10:30 11/11/16 09:12 (Ativan) 0.5 mg Q12HR PO 11/07/16 21:00 11/11/16 09:12 (Carafate) 1 gm ACHS PO 11/09/16 16:00 11/11/16 06:24 (Pepcid) 20 mg BID PO 11/09/16 13:15 11/11/16 09:12 A/P Problem List: (1) Tobacco abuse ICD Code: Z72.0 - Tobacco use Status: Chronic (2) Lung mass ICD Code: R91.8 - Other nonspecific abnormal finding of lung field Status: Acute (3) Skin cancer of face ICD Code: C44.300 - Unspecified malignant neoplasm of skin of unspecified part of face Status: Acute (4) Leukocytosis ICD Code: D72.829 - Elevated white blood cell count, unspecified Status: Resolved Assessment and Plan 61-year-old male with history of CAD s/p CABG, presents with left facial skin cancer Skin Cancer suspected status post Punch biopsy performed today by doctor Rivas. Diagnosis of Invasive Well differentiated Squamous Cell Carcinoma. Head and Neck CT, showed large ulcerating cutaneous mass in left temporal region with abnormal soft tissue extending to the surface of the left temporal bone without bone invasion - General surgery recommended head and neck surgeon consult, maxillofacial surgery recommended head and neck surgeon consult. - new Lung biopsy positive for Squamous Cell Lung cancer. seen by Cardiothoracic surgery, asked for CT brain with contrast, PFTs, whole body bone scan thinking in Left Upper Lobectomy. the patient today decided to continue with Surgery awaiting final recommendations by Oncology. Sepsis: Possibly secondary to infected wound as above or postobstructive pneumonia as below. Meets sepsis criteria with leukocytosis WBC 19K, tachycardia HR 111, and source-cellulitis. Lactic acid 1.4. Wound culture growing Pseudomonas stutzeri, staph aureus, and Klebsiella sensitive to Levaquin. - Discontinue antibiotics today is been on them for 10 days. NO leukocytosis. Lung mass: No respiratory complaints. Reviewed: Chest CT showed collapse involving the left upper lung with air bronchograms; findings suggestive of central obstructing lesion near the left hilar area; nonspecific interstitial infiltrates in the posterior lung bases bilaterally; 6 mm nodule in the right midlung; central lobar emphysema; nonspecific mildly prominent lymph nodes in the mediastinum. - Pulmonology consulted, performed bronchoscopy found left upper lobe obstructing lesion. positive for Squamous Cell Cancer. Seen by Cardiothoracic surgery, asked for CT brain with contrast, PFTs, whole body bone scan thinking in Left Upper Lobectomy. Diabetes mellitus, new onset: Fasting glucoses elevated. Hemoglobin A1c 8.4. Stable. - Monitor Accu-Cheks. Cover with SSI if needed. added Levemir 10 units, better control. - Consult breastfeeding educator and dietitian Tobacco Abuse - counselled on smoking cessation - nicotine patch Constipation given lactulose. Discussed in the room with Patient and His . all questions answered to the best of my abilities. DVT prophylaxis - SCDs/TEDs Awaiting final recommendations by Oncology Discharge Planning Awaiting final recommendations by Specialists. Edgardo Jerome MD Nov 11, 2016 10:19
--- NOTE | 2016-11-11 18:06 | HHI.PR ---
Subjective Remarks 61 YOWm with GRACIELA collapse, left zoroastrian mass, COPD Had Bronch done GRACIELA obstucting lesion Breathing good has pain in Denominational Lung bx Sq cell ca Pt seen by , advised thoracotomy Pt initially wanted to wait, now wants to proceed PFT good Functions Objective Vital Signs Vital Signs Date Time Temp Pulse Resp B/P (MAP) Pulse Ox O2 Delivery O2 Flow Rate FiO2 11/11/16 16:00 96.8 78 18 112/67 (82) 98 11/11/16 12:00 97.0 80 17 118/75 (89) 98 11/11/16 08:00 96.9 83 17 113/64 (80) 96 11/11/16 06:37 18 11/11/16 05:37 97.4 76 20 115/64 (81) 96 11/11/16 05:12 18 11/11/16 02:30 75 11/11/16 00:50 96.5 72 20 125/68 (87) 98 I/O 11/10/16 11/10/16 11/10/16 11/11/16 11/11/16 11/11/16 06:59 14:59 22:59 06:59 14:59 22:59 Intake Total 480 ml 480 ml 480 ml Balance 480 ml 480 ml 480 ml Intake Oral 480 ml 480 ml 480 ml # Voids 5 2 3 2 # Bowel Movements 1 1 Result Diagram: 11/07/16 0811 11/07/16 0811 Objective Remarks GENERAL: MBMN WM, NAD SKIN: Warm and dry. HEAD: Normocephalic. Large mass left zoroastrian. EYES: No scleral icterus. No injection or drainage. NECK: Supple, trachea midline. No JVD or lymphadenopathy. CARDIOVASCULAR: Regular rate and rhythm without murmurs, gallops, or rubs. RESPIRATORY: Breath sounds equal bilaterally. No accessory muscle use. GASTROINTESTINAL: Abdomen soft, non-tender, nondistended. MUSCULOSKELETAL: No cyanosis, or edema. BACK: Nontender without obvious deformity. No CVA tenderness. A/P Assessment and Plan GRACIELA Collapse GRACIELA endobronchial lesion COPD Nicotine use Left zoroastrian mass Sq cell ca lung PLAN: Cont Abx Aerosol nebs Check bronch results Wean 02 Thoracotomy per . Roger Pina MD Nov 11, 2016 18:06
[2016-11-12] VITALS (9 sets, daily range): BP systolic 106–120; BP diastolic 57–75; PULSE 63–80; RESP 16–18; TEMP 96.6–98.4; O2SAT 96–100
[2016-11-12] MEDS: MORPHINE SULFATE 4 MG/ML INJ IV PRN ×6 (02:18→22:42)
[2016-11-12] MEDS: oxyCODONE/ACETAMINOPHEN 10 MG/325 MG TAB PO PRN ×5 (03:55→20:14)
[2016-11-12] MEDS: INSULIN ASPART SUPPLEMENTAL SCALE SQ SCH ×4 (07:10→21:23)
[2016-11-12] MEDS: SUCRALFATE 1 GM TAB PO SCH ×4 (07:13→20:15)
[2016-11-12] MEDS: LORazepam 0.5 MG TAB PO SCH ×2 (07:54→20:14)
[2016-11-12] MEDS: FAMOTIDINE 20 MG TAB PO SCH ×2 (07:54→20:15)
[2016-11-12] MEDS: metFORMIN HCL 500 MG TAB PO SCH ×2 (07:54→17:50)
[2016-11-12] MEDS: guaiFENesin E.R. 600 MG TAB PO SCH ×2 (07:54→20:15)
[2016-11-12] MEDS: CHOLECALCIFEROL (VIT D3) 400 UNIT TAB PO SCH (07:54)
[2016-11-12] MEDS: DOCUSATE SODIUM 50 MG/SENNA 8.6 MG TAB PO SCH ×2 (07:55→20:15)
[2016-11-12] MEDS: NICOTINE 21 MG/24 HR PATCH T-DERMAL SCH (07:56)
[2016-11-12] MEDS: INSULIN DETEMIR 100 UNITS/ML VIAL SQ SCH (08:00)
[2016-11-12] MEDS: SODIUM CHLORIDE 0.9% FLUSH 10 ML FLUSH IV FLUSH SCH ×2 (08:00→20:14)
[2016-11-12] MEDS: REMOVE OLD PATCH T-DERMAL SCH (08:00)
--- NOTE | 2016-11-12 11:16 | RSPPFT ---
DATE OF PROCEDURE: 11/07/16 COMMENTS: Spirometry shows FVC of 3.9 at 84% of predicted, FEV1 of 2.8 at 82%, FEV1/FVC ratio is normal. Flow is normal at FEF 25-75. IMPRESSION: 1. Normal spirometry. 2. Post-bronchodilator study was not done.
--- NOTE | 2016-11-12 11:30 | HHI.PR ---
Subjective Remarks resting comfortably with no distress. has mild pain to the left face. otherwise no other complaints. Objective Vitals Vital Signs Date Time Temp Pulse Resp B/P (MAP) Pulse Ox O2 Delivery O2 Flow Rate FiO2 11/12/16 08:45 63 11/12/16 08:00 96.6 74 16 110/64 (79) 98 11/12/16 04:00 98.3 74 18 110/63 (79) 96 11/12/16 00:00 98.2 78 18 108/60 (76) 96 11/11/16 20:00 85 11/11/16 20:00 98.8 81 18 106/59 (75) 96 11/11/16 16:00 96.8 78 18 112/67 (82) 98 11/11/16 12:00 97.0 80 17 118/75 (89) 98 I/O 11/11/16 11/11/16 11/11/16 11/12/16 11/12/16 11/12/16 07:00 15:00 23:00 07:00 15:00 23:00 Intake Total 480 ml 480 ml Balance 480 ml 480 ml Intake Oral 480 ml 480 ml # Voids 3 2 # Bowel Movements 1 Imaging Last Impressions SPECT Scan-Bone Nuclear Medicine 11/07/16 0000 Signed Impressions: Service Date/Time: October 11:58 - CONCLUSION: 1. Large ulcerative skin mass again noted with no visualized destructive or lytic change in the adjacent bone. 2. Small subtle areas of mildly increased uptake which likely are reactive. Julio César Johnson MD Abdomen/Pelvis CT 11/07/16 0000 Signed Impressions: Service Date/Time: Tuesday, November 08, 2016 16:06 - CONCLUSION: 1. No evidence of metastatic disease. 2. Status post median sternotomy with epicardial pacer wires noted. Julio César Johnson MD Head CT 11/06/16 0000 Signed Impressions: Service Date/Time: Sunday, November 06, 2016 18:31 - CONCLUSION: 1. No intracranial abnormality is seen. 2. Large skin base lesion at the left side of the face and left frontal scalp region. Rolando Loera MD Chest X-Ray 11/02/16 0000 Signed Impressions: Service Date/Time: Wednesday, November 02, 2016 11:15 - CONCLUSION: No significant change when compared to the recent chest CT. Dense opacification remains in the left upper lobe which was shown to represent dense infiltrate with air bronchograms. There is no pneumothorax. Julio César Johnson MD Chest CT 10/31/16 0000 Signed Impressions: Service Date/Time: October 16:34 - CONCLUSION: 1. There is collapse involving the left upper lung with air bronchograms. The findings suggests a central obstructing lesion near the left hilar area. Neoplastic disease is not excluded. Recommend bronchoscopy if that has not already been performed. 2. Nonspecific interstitial infiltrates in the posterior lung bases bilaterally. 3. 6 mm nonspecific pulmonary nodule in the right midlung. This can be followed up in [address] thorax. 4. Central lobar emphysema. 5. There are some nonspecific mildly prominent lymph nodes in the mediastinum. Jaxon Chavez MD Neck CT 10/30/16 0000 Signed Impressions: Service Date/Time: Sunday, October 30, 2016 18:07 - CONCLUSION: 1. Large ulcerating cutaneous mass in left temporal region with abnormal soft tissue extending to the surface of the left temporal bone without evidence for bone invasion. 2. Abnormal consolidation and microcavity formation at left lung apex with adenopathy. Further evaluation with chest CT recommended with contrast. Joey Payan MD Objective Remarks GENERAL: This is a well-nourished, well-developed patient, in no apparent distress. HEENT; left face covered with clean dressing. CARDIOVASCULAR: Regular rate and regular rhythm without murmurs, gallops, or rubs. RESPIRATORY: Clear to auscultation. Breath sounds equal bilaterally. No wheezes , rales, or rhonchi. GASTROINTESTINAL: Abdomen soft, non-tender, nondistended. Normal, active bowel sounds MUSCULOSKELETAL: Extremities without clubbing, cyanosis, or edema. NEURO: Alert & Oriented x4 to person, place, time, situation. Moves all ext x4 Procedures skin biopsy bronchoscopy Medications and IVs Current Medications Iohexol (Omnipaque 350 Inj) 75 ml STK-MED ONCE IV Last administered on t 18:18; Start 10/30/16 at 18:18; Stop 10/30/16 at 18:19; Status DC Acetaminophen/ Hydrocodone Bitart ([place] 5-325 Mg) 1 tab ONCE ONCE PO Last administered on 10/30/16 19:48; Start 10/30/16 at 18:45; Stop 10/30/16 at 18:46; Status DC Vancomycin HCl 1000 mg/Sodium Chloride 250 ml @ 250 mls/hr ONCE ONCE IV Last administered on 10/30/16 19:47; Start 10/30/16 at 18:45; Stop 10/30/16 at 19:44; Status DC Clindamycin Phosphate 900 mg/ Sodium Chloride 106 ml @ 212 mls/hr ONCE ONCE IV Last administered on 10/30/16 22:10; Start 10/30/16 at 18:45; Stop 10/30/16 at 19:14; Status DC Sodium Chloride (NS Flush) 2 ml UNSCH PRN IV FLUSH FLUSH AFTER USING IV ACCESS Last administered on 11/02/16 05:51; Start 10/30/16 at 20:00 Sodium Chloride (NS Flush) 2 ml BID IV FLUSH Last administered on 11/12/16 08: 00; Start 10/30/16 at 21:00 Naloxone HCl (Narcan Inj) 0.4 mg UNSCH PRN IV SEE LABEL COMMENTS; Start at 20:00 Clindamycin Phosphate 900 mg/ Sodium Chloride 106 ml @ 212 mls/hr Q6H IV Last administered on 11/01/16 04:11; Start 10/31/16 at 04:00; Stop 11/01/16 at 09:50 ; Status DC Morphine Sulfate (Morphine Inj) 2 mg Q3H PRN IV PUSH PAIN SCALE 5 TO 10 Last administered on 10/31/16 09:30; Start 10/30/16 at 22:15; Stop 10/31/16 at 10:22 ; Status DC Oxycodone/ Acetaminophen (Percocet 5-325 Mg) 1 tab Q6H PRN PO PAIN SCALE 3 TO 5; Start 10/31/16 at 10:30 Oxycodone/ Acetaminophen (Percocet 10-325 Mg) 1 tab Q6H PRN PO PAIN SCALE 6 TO 10 Last administered on 11/02/16 14:32; Start 10/31/16 at 10:30; Stop 11/02/16 at 15:15; Status DC Morphine Sulfate (Morphine Inj) 4 mg Q3H PRN IV BREAKTHROUGH PAIN Last administered on 11/12/16 10:13; Start 10/31/16 at 10:30 Nicotine (Habitrol 21 Mg Patch.24 Hr) 1 patch DAILY T-DERMAL Last administered on 11/12/16 07:56; Start 10/31/16 at 10:30 Miscellaneous Information 1 DAILY T-DERMAL Last administered on 11/12/16 08:00 ; Start 11/01/16 at 09:00 Iohexol (Omnipaque 350 Inj) 80 ml STK-MED ONCE IV Last administered on 16:45; Start 10/31/16 at 16:45; Stop 10/31/16 at 16:46; Status DC Senna/Docusate Sodium (Dior-Colace) 1 tab BID PO Last administered on 07:55; Start 11/01/16 at 09:00 Levofloxacin/ Dextrose 150 ml @ 100 mls/hr Q24H IV Last administered on 09:30; Start 11/01/16 at 10:00; Stop 11/11/16 at 10:55; Status DC Sodium Chloride 1,000 ml @ 100 mls/hr Q10H IV Last administered on 11/01/16 10:02; Start 11/01/16 at 10:00; Stop 11/01/16 at 19:59; Status DC Dextrose (D50w (Vial) Inj) 50 ml UNSCH PRN IV HYPOGLYCEMIA-SEE COMMENTS; Start 11/01/16 at 10:15 Glucagon (Glucagon Inj) 1 mg UNSCH PRN OTHER HYPOGLYCEMIA-SEE COMMENTS; Start 11/01/16 at 10:15 Insulin Aspart (NovoLOG SUPPLEMENTAL SCALE) 1 ACHS SLIDING SCALE SQ Last administered on 11/11/16 11:00; Start 11/01/16 at 11:00 Clindamycin HCl (Cleocin) 450 mg Q6HR PO Last administered on 11/11/16 06:24; Start 11/01/16 at 19:15; Stop 11/11/16 at 10:55; Status DC Sodium Chloride (Sodium Chloride 0.9% Inj) 20 ml STK-MED ONCE .ROUTE ; Start 03/09 at 10:08; Stop 11/02/16 at 10:09; Status DC Lidocaine HCl (Xylocaine 2% Inj) 50 ml STK-MED ONCE .ROUTE Last administered on 11/02/16 10:31; Start 11/02/16 at 10:08; Stop 11/02/16 at 10:09; Status DC Epinephrine HCl (Adrenalin (1:1000) Inj) 1 mg STK-MED ONCE .ROUTE Last administered on 11/02/16 10:31; Start 11/02/16 at 10:08; Stop 11/02/16 at 10:09 ; Status DC Midazolam HCl (Versed Inj) 2 mg STK-MED ONCE .ROUTE ; Start 11/02/16 at 11:11; Stop 11/02/16 at 11:12; Status DC Fentanyl Citrate (fentaNYL INJ) 100 mcg STK-MED ONCE .ROUTE ; Start 11/02/16 at 11:11; Stop 11/02/16 at 11:12; Status DC Miscellaneous Information ALL NURSING DEPARTME... UNSCH PRN .XX SEE LABEL COMMENTS; Start 11/02/16 at 11:07; Stop 11/03/16 at 11:06; Status DC Metformin HCl (Glucophage) 500 mg BIDPC PO Last administered on 11/12/16 07:54 ; Start 11/02/16 at 18:00 Oxycodone/ Acetaminophen (Percocet 10-325 Mg) 1 tab Q4H PRN PO PAIN SCALE 6 TO 10 Last administered on 11/12/16 07:55; Start 11/02/16 at 15:14 Enoxaparin Sodium (Lovenox Inj) 40 mg Q24H SQ Last administered on 11/06/16 09 :21; Start 11/03/16 at 08:30; Status Future Hold Insulin Detemir (Levemir Inj) 10 units DAILY SQ Last administered on 11/12/16 08:00; Start 11/03/16 at 10:00 Lactulose (Lactulose Liq) 30 ml ONCE ONCE PO Last administered on 11/03/16 11 :40; Start 11/03/16 at 09:30; Stop 11/03/16 at 09:31; Status DC Albuterol/ Ipratropium (Duoneb Neb) 1 ampule Q4HR NEB NEB Last administered on 11/07/16 11:09; Start 11/03/16 at 12:00; Stop 11/07/16 at 12:00; Status DC Guaifenesin (Mucinex Er) 600 mg BID PO Last administered on 11/12/16 07:54; Start 11/03/16 at 10:00 Cholecalciferol (Vitamin D3) 800 units DAILY PO Last administered on 11/12/16 07:54; Start 11/05/16 at 10:30 Iohexol (Omnipaque 350 Inj) 67 ml STK-MED ONCE IV Last administered on 18:53; Start 11/06/16 at 18:53; Stop 11/06/16 at 18:54; Status DC Lidocaine/ Epinephrine (Xylocaine-Epi 1%-1:100,000 Inj) 20 ml ONCE ONCE INFIL ; Start 11/07/16 at 09:45; Stop 11/07/16 at 09:46; Status Cancel Lidocaine/ Epinephrine (Xylocaine-Epi Mpf 1%-1:200,000 Inj) 20 ml ONCE ONCE INFIL ; Start 11/07/16 at 09:45; Stop 11/07/16 at 09:46; Status DC Lorazepam (Ativan) 0.5 mg Q12HR PO Last administered on 11/12/16 07:54; Start 11/07/16 at 21:00 Diatrizoate Meglum/ Diatrizoate Sod ( Gastrolizzie Liq) 18 ml ONCE ONCE PO Last administered on 11/08/16 09:51; Start 11/08/16 at 07:30; Stop 11/08/16 at 07:31; Status DC Iohexol (Omnipaque 350 Inj) 100 ml STK-MED ONCE IV ; Start 11/08/16 at 16:09; Stop 11/08/16 at 16:10; Status DC Sucralfate (Carafate) 1 gm ACHS PO Last administered on 11/12/16 10:12; Start 11/09/16 at 16:00 Famotidine (Pepcid) 20 mg BID PO Last administered on 11/12/16 07:54; Start at 13:15 A/P Assessment and Plan A/P Skin Cancer suspected status post Punch biopsy . Diagnosis of Invasive Well differentiated Squamous Cell Carcinoma. Head and Neck CT, showed large ulcerating cutaneous mass in left temporal region with abnormal soft tissue extending to the surface of the left temporal bone without bone invasion Lung cancer- s/p bronchoscopy- pathology with squamous cell carcinoma- CT surgery reconsulted for lung mass resection. ( patient initially refused the surgery but then changed his mind). oncology and pulmonary following. Sepsis: Possibly secondary to infected wound as above or postobstructive pneumonia as below. - Discontinued antibiotics today is been on them for 10 days. Diabetes mellitus, new onset: Fasting glucoses elevated. Hemoglobin A1c 8.4. Stable. - Monitor Accu-Cheks. Cover with SSI if needed. added Levemir 10 units, better control. - Consulted beater operator and dietitian Tobacco Abuse - counselled on smoking cessation - nicotine patch DVT prophylaxis - SCDs/TEDs Cristian Benedict MD Nov 12, 2016 11:29
--- NOTE | 2016-11-12 19:26 | HHI.PR ---
Subjective Remarks 61 YOWm with GRACIELA collapse, left protestant mass, COPD Had Bronch done GRACIELA obstucting lesion Breathing good has pain in [place] Lung bx Sq cell ca Pt seen by , advised thoracotomy Pt initially wanted to wait, now wants to proceed PFT normal Objective Vital Signs Vital Signs Date Time Temp Pulse Resp B/P (MAP) Pulse Ox O2 Delivery O2 Flow Rate FiO2 11/12/16 16:00 98.0 79 16 106/57 (73) 99 11/12/16 12:00 98.4 65 18 115/64 (81) 98 11/12/16 08:45 63 11/12/16 08:00 96.6 74 16 110/64 (79) 98 11/12/16 04:00 98.3 74 18 110/63 (79) 96 11/12/16 00:00 98.2 78 18 108/60 (76) 96 11/11/16 20:00 85 11/11/16 20:00 98.8 81 18 106/59 (75) 96 I/O 11/11/16 11/11/16 11/11/16 11/12/16 11/12/16 11/12/16 07:00 15:00 23:00 07:00 15:00 23:00 Intake Total 480 ml 480 ml Balance 480 ml 480 ml Intake Oral 480 ml 480 ml # Voids 3 2 # Bowel Movements 1 Objective Remarks GENERAL: MBMN WM, NAD SKIN: Warm and dry. HEAD: Normocephalic. Large mass left protestant. EYES: No scleral icterus. No injection or drainage. NECK: Supple, trachea midline. No JVD or lymphadenopathy. CARDIOVASCULAR: Regular rate and rhythm without murmurs, gallops, or rubs. RESPIRATORY: Breath sounds equal bilaterally. No accessory muscle use. GASTROINTESTINAL: Abdomen soft, non-tender, nondistended. MUSCULOSKELETAL: No cyanosis, or edema. BACK: Nontender without obvious deformity. No CVA tenderness. A/P Assessment and Plan GRACIELA Collapse GRACIELA endobronchial lesion COPD Nicotine use Left protestant mass Sq cell ca lung PLAN: Aerosol nebs Check bronch results Wean 02 Thoracotomy per . Roger Pina MD Nov 12, 2016 19:26
[2016-11-13] VITALS (7 sets, daily range): BP systolic 107–137; BP diastolic 60–65; PULSE 63–79; RESP 16–20; TEMP 96.5–98.5; O2SAT 96–99
[2016-11-13] MEDS: oxyCODONE/ACETAMINOPHEN 10 MG/325 MG TAB PO PRN ×5 (00:15→20:22)
[2016-11-13] MEDS: INSULIN ASPART SUPPLEMENTAL SCALE SQ SCH ×4 (06:43→20:49)
[2016-11-13] MEDS: SUCRALFATE 1 GM TAB PO SCH ×4 (06:43→20:22)
[2016-11-13] MEDS: metFORMIN HCL 500 MG TAB PO SCH ×2 (07:41→16:50)
[2016-11-13] MEDS: DOCUSATE SODIUM 50 MG/SENNA 8.6 MG TAB PO SCH ×2 (07:41→20:23)
[2016-11-13] MEDS: guaiFENesin E.R. 600 MG TAB PO SCH ×2 (07:41→20:22)
[2016-11-13] MEDS: SODIUM CHLORIDE 0.9% FLUSH 10 ML FLUSH IV FLUSH SCH ×2 (07:42→20:23)
[2016-11-13] MEDS: CHOLECALCIFEROL (VIT D3) 400 UNIT TAB PO SCH (07:42)
[2016-11-13] MEDS: LORazepam 0.5 MG TAB PO SCH ×2 (07:42→20:22)
[2016-11-13] MEDS: FAMOTIDINE 20 MG TAB PO SCH ×2 (07:42→20:22)
[2016-11-13] MEDS: NICOTINE 21 MG/24 HR PATCH T-DERMAL SCH (07:45)
[2016-11-13] MEDS: REMOVE OLD PATCH T-DERMAL SCH (07:45)
[2016-11-13] MEDS: MORPHINE SULFATE 4 MG/ML INJ IV PRN ×5 (07:46→22:39)
[2016-11-13] MEDS: INSULIN DETEMIR 100 UNITS/ML VIAL SQ SCH (07:50)
--- NOTE | 2016-11-13 10:59 | HHI.PR ---
Subjective Remarks resting comfortably with no distress. overall doing fine. d/w the RN and no acute issues over night. Objective Vitals Vital Signs Date Time Temp Pulse Resp B/P (MAP) Pulse Ox O2 Delivery O2 Flow Rate FiO2 11/13/16 08:15 70 11/13/16 08:00 96.5 63 18 107/60 (76) 96 11/13/16 04:00 96.5 79 18 137/65 (89) 97 11/12/16 23:00 80 11/12/16 21:00 97.5 78 18 120/75 (90) 100 11/12/16 20:00 97.1 77 18 118/66 (83) 100 11/12/16 16:00 98.0 79 16 106/57 (73) 99 11/12/16 12:00 98.4 65 18 115/64 (81) 98 I/O 11/12/16 11/12/16 11/12/16 11/13/16 11/13/16 11/13/16 07:00 15:00 23:00 07:00 15:00 23:00 # Voids 5 2 Imaging Last Impressions SPECT Scan-Bone Nuclear Medicine 11/07/16 0000 Signed Impressions: Service Date/Time: October 11:58 - CONCLUSION: 1. Large ulcerative skin mass again noted with no visualized destructive or lytic change in the adjacent bone. 2. Small subtle areas of mildly increased uptake which likely are reactive. Julio César Johnson MD Abdomen/Pelvis CT 11/07/16 0000 Signed Impressions: Service Date/Time: Tuesday, November 08, 2016 16:06 - CONCLUSION: 1. No evidence of metastatic disease. 2. Status post median sternotomy with epicardial pacer wires noted. Julio César Johnson MD Head CT 11/06/16 0000 Signed Impressions: Service Date/Time: Sunday, November 06, 2016 18:31 - CONCLUSION: 1. No intracranial abnormality is seen. 2. Large skin base lesion at the left side of the face and left frontal scalp region. Rolando Loera MD Chest X-Ray 11/02/16 0000 Signed Impressions: Service Date/Time: Wednesday, November 02, 2016 11:15 - CONCLUSION: No significant change when compared to the recent chest CT. Dense opacification remains in the left upper lobe which was shown to represent dense infiltrate with air bronchograms. There is no pneumothorax. Julio César Johnson MD Chest CT 10/31/16 0000 Signed Impressions: Service Date/Time: October 16:34 - CONCLUSION: 1. There is collapse involving the left upper lung with air bronchograms. The findings suggests a central obstructing lesion near the left hilar area. Neoplastic disease is not excluded. Recommend bronchoscopy if that has not already been performed. 2. Nonspecific interstitial infiltrates in the posterior lung bases bilaterally. 3. 6 mm nonspecific pulmonary nodule in the right midlung. This can be followed up in [address] thorax. 4. Central lobar emphysema. 5. There are some nonspecific mildly prominent lymph nodes in the mediastinum. Jaxon Chavez MD Neck CT 10/30/16 0000 Signed Impressions: Service Date/Time: Sunday, October 30, 2016 18:07 - CONCLUSION: 1. Large ulcerating cutaneous mass in left temporal region with abnormal soft tissue extending to the surface of the left temporal bone without evidence for bone invasion. 2. Abnormal consolidation and microcavity formation at left lung apex with adenopathy. Further evaluation with chest CT recommended with contrast. Joey Payan MD Objective Remarks GENERAL: This is a well-nourished, well-developed patient, in no apparent distress. HEENT; left face covered with clean dressing. CARDIOVASCULAR: Regular rate and regular rhythm without murmurs, gallops, or rubs. RESPIRATORY: Clear to auscultation. Breath sounds equal bilaterally. No wheezes , rales, or rhonchi. GASTROINTESTINAL: Abdomen soft, non-tender, nondistended. Normal, active bowel sounds MUSCULOSKELETAL: Extremities without clubbing, cyanosis, or edema. NEURO: Alert & Oriented x4 to person, place, time, situation. Moves all ext x4 Procedures skin biopsy bronchoscopy Medications and IVs Current Medications Iohexol (Omnipaque 350 Inj) 75 ml STK-MED ONCE IV Last administered on 18:18; Start 10/30/16 at 18:18; Stop 10/30/16 at 18:19; Status DC Acetaminophen/ Hydrocodone Bitart ([place] 5-325 Mg) 1 tab ONCE ONCE PO Last administered on 10/30/16 19:48; Start 10/30/16 at 18:45; Stop 10/30/16 at 18:46; Status DC Vancomycin HCl 1000 mg/Sodium Chloride 250 ml @ 250 mls/hr ONCE ONCE IV Last administered on 10/30/16 19:47; Start 10/30/16 at 18:45; Stop 10/30/16 at 19:44; Status DC Clindamycin Phosphate 900 mg/ Sodium Chloride 106 ml @ 212 mls/hr ONCE ONCE IV Last administered on 10/30/16 22:10; Start 10/30/16 at 18:45; Stop 10/30/16 at 19:14; Status DC Sodium Chloride (NS Flush) 2 ml UNSCH PRN IV FLUSH FLUSH AFTER USING IV ACCESS Last administered on 11/02/16 05:51; Start 10/30/16 at 20:00 Sodium Chloride (NS Flush) 2 ml BID IV FLUSH Last administered on 11/13/16 07: 42; Start 10/30/16 at 21:00 Naloxone HCl (Narcan Inj) 0.4 mg UNSCH PRN IV SEE LABEL COMMENTS; Start at 20:00 Clindamycin Phosphate 900 mg/ Sodium Chloride 106 ml @ 212 mls/hr Q6H IV Last administered on 11/01/16 04:11; Start 10/31/16 at 04:00; Stop 11/01/16 at 09:50 ; Status DC Morphine Sulfate (Morphine Inj) 2 mg Q3H PRN IV PUSH PAIN SCALE 5 TO 10 Last administered on 10/31/16 09:30; Start 10/30/16 at 22:15; Stop 10/31/16 at 10:22 ; Status DC Oxycodone/ Acetaminophen (Percocet 5-325 Mg) 1 tab Q6H PRN PO PAIN SCALE 3 TO 5; Start 10/31/16 at 10:30 Oxycodone/ Acetaminophen (Percocet 10-325 Mg) 1 tab Q6H PRN PO PAIN SCALE 6 TO 10 Last administered on 11/02/16 14:32; Start 10/31/16 at 10:30; Stop 11/02/16 at 15:15; Status DC Morphine Sulfate (Morphine Inj) 4 mg Q3H PRN IV BREAKTHROUGH PAIN Last administered on 11/13/16 10:51; Start 10/31/16 at 10:30 Nicotine (Habitrol 21 Mg Patch.24 Hr) 1 patch DAILY T-DERMAL Last administered on 11/13/16 07:45; Start 10/31/16 at 10:30 Miscellaneous Information 1 DAILY T-DERMAL Last administered on 11/13/16 07:45 ; Start 11/01/16 at 09:00 Iohexol (Omnipaque 350 Inj) 80 ml STK-MED ONCE IV Last administered on 16:45; Start 10/31/16 at 16:45; Stop 10/31/16 at 16:46; Status DC Senna/Docusate Sodium (Dior-Colace) 1 tab BID PO Last administered on 07:41; Start 11/01/16 at 09:00 Levofloxacin/ Dextrose 150 ml @ 100 mls/hr Q24H IV Last administered on 09:30; Start 11/01/16 at 10:00; Stop 11/11/16 at 10:55; Status DC Sodium Chloride 1,000 ml @ 100 mls/hr Q10H IV Last administered on 11/01/16 10:02; Start 11/01/16 at 10:00; Stop 11/01/16 at 19:59; Status DC Dextrose (D50w (Vial) Inj) 50 ml UNSCH PRN IV HYPOGLYCEMIA-SEE COMMENTS; Start 11/01/16 at 10:15 Glucagon (Glucagon Inj) 1 mg UNSCH PRN OTHER HYPOGLYCEMIA-SEE COMMENTS; Start 11/01/16 at 10:15 Insulin Aspart (NovoLOG SUPPLEMENTAL SCALE) 1 ACHS SLIDING SCALE SQ Last administered on 11/12/16 16:40; Start 11/01/16 at 11:00 Clindamycin HCl (Cleocin) 450 mg Q6HR PO Last administered on 11/11/16 06:24; Start 11/01/16 at 19:15; Stop 11/11/16 at 10:55; Status DC Sodium Chloride (Sodium Chloride 0.9% Inj) 20 ml STK-MED ONCE .ROUTE ; Start 03/09 at 10:08; Stop 11/02/16 at 10:09; Status DC Lidocaine HCl (Xylocaine 2% Inj) 50 ml STK-MED ONCE .ROUTE Last administered on 11/02/16 10:31; Start 11/02/16 at 10:08; Stop 11/02/16 at 10:09; Status DC Epinephrine HCl (Adrenalin (1:1000) Inj) 1 mg STK-MED ONCE .ROUTE Last administered on 11/02/16 10:31; Start 11/02/16 at 10:08; Stop 11/02/16 at 10:09 ; Status DC Midazolam HCl (Versed Inj) 2 mg STK-MED ONCE .ROUTE ; Start 11/02/16 at 11:11; Stop 11/02/16 at 11:12; Status DC Fentanyl Citrate (fentaNYL INJ) 100 mcg STK-MED ONCE .ROUTE ; Start 11/02/16 at 11:11; Stop 11/02/16 at 11:12; Status DC Miscellaneous Information ALL NURSING DEPARTME... UNSCH PRN .XX SEE LABEL COMMENTS; Start 11/02/16 at 11:07; Stop 11/03/16 at 11:06; Status DC Metformin HCl (Glucophage) 500 mg BIDPC PO Last administered on 11/13/16 07:41 ; Start 11/02/16 at 18:00 Oxycodone/ Acetaminophen (Percocet 10-325 Mg) 1 tab Q4H PRN PO PAIN SCALE 6 TO 10 Last administered on 11/13/16 10:15; Start 11/02/16 at 15:14 Enoxaparin Sodium (Lovenox Inj) 40 mg Q24H SQ Last administered on 11/06/16 09 :21; Start 11/03/16 at 08:30; Status Future Hold Insulin Detemir (Levemir Inj) 10 units DAILY SQ Last administered on 11/13/16 07:50; Start 11/03/16 at 10:00 Lactulose (Lactulose Liq) 30 ml ONCE ONCE PO Last administered on 11/03/16 11 :40; Start 11/03/16 at 09:30; Stop 11/03/16 at 09:31; Status DC Albuterol/ Ipratropium (Duoneb Neb) 1 ampule Q4HR NEB NEB Last administered on 11/07/16 11:09; Start 11/03/16 at 12:00; Stop 11/07/16 at 12:00; Status DC Guaifenesin (Mucinex Er) 600 mg BID PO Last administered on 11/13/16 07:41; Start 11/03/16 at 10:00 Cholecalciferol (Vitamin D3) 800 units DAILY PO Last administered on 11/13/16 07:42; Start 11/05/16 at 10:30 Iohexol (Omnipaque 350 Inj) 67 ml STK-MED ONCE IV Last administered on 18:53; Start 11/06/16 at 18:53; Stop 11/06/16 at 18:54; Status DC Lidocaine/ Epinephrine (Xylocaine-Epi 1%-1:100,000 Inj) 20 ml ONCE ONCE INFIL ; Start 11/07/16 at 09:45; Stop 11/07/16 at 09:46; Status Cancel Lidocaine/ Epinephrine (Xylocaine-Epi Mpf 1%-1:200,000 Inj) 20 ml ONCE ONCE INFIL ; Start 11/07/16 at 09:45; Stop 11/07/16 at 09:46; Status DC Lorazepam (Ativan) 0.5 mg Q12HR PO Last administered on 11/13/16 07:42; Start 11/07/16 at 21:00 Diatrizoate Meglum/ Diatrizoate Sod ( Gastroview Liq) 18 ml ONCE ONCE PO Last administered on 11/08/16 09:51; Start 11/08/16 at 07:30; Stop 11/08/16 at 07:31; Status DC Iohexol (Omnipaque 350 Inj) 100 ml STK-MED ONCE IV ; Start 11/08/16 at 16:09; Stop 11/08/16 at 16:10; Status DC Sucralfate (Carafate) 1 gm ACHS PO Last administered on 11/13/16 10:14; Start 11/09/16 at 16:00 Famotidine (Pepcid) 20 mg BID PO Last administered on 11/13/16 07:42; Start at 13:15 A/P Assessment and Plan A/P Skin Cancer suspected status post Punch biopsy . Diagnosis of Invasive Well differentiated Squamous Cell Carcinoma. Head and Neck CT, showed large ulcerating cutaneous mass in left temporal region with abnormal soft tissue extending to the surface of the left temporal bone without bone invasion Lung cancer- s/p bronchoscopy- pathology with squamous cell carcinoma- CT surgery reconsulted for lung mass resection. ( patient initially refused the surgery but then changed his mind). oncology and pulmonary following. Sepsis: Possibly secondary to infected wound as above or postobstructive pneumonia - resolved- stopped antibiotics. Diabetes mellitus, new onset: Fasting glucoses elevated. Hemoglobin A1c 8.4. Stable. - Monitor Accu-Cheks. Cover with SSI if needed. added Levemir 10 units, better control. - Consulted critical care educator and dietitian Tobacco Abuse - counselled on smoking cessation - nicotine patch DVT prophylaxis - SCDs/TEDs Cristian Benedict MD Nov 13, 2016 10:59
[2016-11-13] MEDS ORDERED: CHLORHEXIDINE GLUCONATE 4% SOLN 120 ML BTL TOPICAL SCH (14:15)
[2016-11-13] MEDS ORDERED: CEFAZOLIN INJ 500 MG in SODIUM CHLORIDE 0.9% IRR BTL 500 ML IRRIGATION SCH (14:15)
--- NOTE | 2016-11-13 14:15 | PD.CAR.PN ---
CVT Progress Note Subjective/Hospital Course: CT Brain reviewed whole body bone scan reviewed : demonstrated a normal pattern of uptake throughout the axial and appendicular skeleton, no focal areas of increased or decreased uptake seen Dr Serrano discussed surgery options with the pt to include Left Thoracotomy pulmonary resection pt at this time has opted for no surgery, and wants to go home and be evaluated for chemo and radiation therapy as an outpt please re-consult if pt has a change in his decision 11/13 pt now agreeable for surgery will schedule for Friday left thoracotomy, pulmonary resection/ bronchoscopy Objective: GENERAL: SKIN: Warm and dry./ large mass left temporal area HEAD: Normocephalic. EYES: No scleral icterus. No injection or drainage. NECK: Supple, trachea midline. No JVD or lymphadenopathy. CARDIOVASCULAR: Regular rate and rhythm without murmurs, gallops, or rubs. RESPIRATORY: diminished right upper lobe sounds equal bilaterally. No accessory muscle use. GASTROINTESTINAL: Abdomen soft, non-tender, nondistended. MUSCULOSKELETAL: No cyanosis, or edema. BACK: Nontender without obvious deformity. No CVA tenderness. Vital Signs Date Time Temp Pulse Resp B/P (MAP) Pulse Ox O2 Delivery O2 Flow Rate FiO2 11/13/16 12:41 98.2 73 20 111/64 (80) 97 11/13/16 08:15 70 11/13/16 08:00 96.5 63 18 107/60 (76) 96 11/13/16 04:00 96.5 79 18 137/65 (89) 97 11/12/16 23:00 80 11/12/16 21:00 97.5 78 18 120/75 (90) 100 11/12/16 20:00 97.1 77 18 118/66 (83) 100 11/12/16 16:00 98.0 79 16 106/57 (73) 99 (1) Skin cancer of face (2) Lung mass Plan: for surgery on friday Alison Johnson Nov 13, 2016 14:15
--- NOTE | 2016-11-13 17:17 | PD.WCN.NOT ---
Wound Consult Description: Open wound to L side of forehead Communicated with: KATIANA Pickett and Call placed to Doctor Jak Recommendation: Please cleanse wound to L side of forehead with normal saline and apply Xeroform in single layer just over opened wound. Cover with 4x4 gauze and ABD pad. Apply skin prep to periwound before securing dressing with paper tape. [place] dressing every other day or PRN if saturated or dislodged. Additional Information: Patient seen on for evaluation of wound management of Left face. Patient has invasive squamous cell carcinoma lesion to L forehead that is now an opened wound.Removed ABD pad, and petroleum gauze dressing in place to reveal opened lesion. Wound measures 5 cm x 6 cm x 0.7 cm. Tissue in wound bed is ~50% red granulated and ~50% yellow/ brown. Cleansed wound with normal saline and applied Xeroform in single layer just over open wound bed and covered with dry 4 x4 gauze pads. Covered with ABD pad. Applied skin prep to periwound before applying paper tape. Marleny Felipe [facility] Nov 13, 2016 17:17
[2016-11-13 18:36] LABS: BLOOD, URINE NEG (NEG); CALCIUM OXALATE CRYSTALS,URINE OCC /hpf; COMMENT (UR) CULT NOT INDICATED; CULTURE IF INDICATED CULT NOT INDICATED; GLUCOSE,URINE NEG (NEG); KETONE, URINE NEG (NEG); MUCUS URINE FEW /lpf (OCC); NITRITE,URINE NEG (NEG); PH, URINE 5.5 (5.0-8.5); SQUAMOUS EPITHELIAL CELL URINE <1 /hpf (0-5); URIC ACID CRYSTALS, URINE RARE /hpf; URINE COLOR YELLOW (YELLW/STRAW)
--- NOTE | 2016-11-13 20:20 | HHI.PR ---
Subjective Remarks 61 YOWm with GRACIELA collapse, left bahai mass, COPD Had Bronch done GRACIELA obstucting lesion Breathing good has pain in [facility] Lung bx Sq cell ca Pt seen by , advised thoracotomy Objective Vital Signs Vital Signs Date Time Temp Pulse Resp B/P (MAP) Pulse Ox O2 Delivery O2 Flow Rate FiO2 11/13/16 16:00 98.5 74 16 113/65 (81) 97 11/13/16 12:41 98.2 73 20 111/64 (80) 97 11/13/16 08:15 70 11/13/16 08:00 96.5 63 18 107/60 (76) 96 11/13/16 04:00 96.5 79 18 137/65 (89) 97 11/12/16 23:00 80 11/12/16 21:00 97.5 78 18 120/75 (90) 100 I/O 11/12/16 11/12/16 11/12/16 11/13/16 11/13/16 11/13/16 06:59 14:59 22:59 06:59 14:59 22:59 # Voids 5 2 2 # Bowel Movements 1 Objective Remarks GENERAL: MBMN WM, NAD SKIN: Warm and dry. HEAD: Normocephalic. Large mass left bahai. EYES: No scleral icterus. No injection or drainage. NECK: Supple, trachea midline. No JVD or lymphadenopathy. CARDIOVASCULAR: Regular rate and rhythm without murmurs, gallops, or rubs. RESPIRATORY: Breath sounds equal bilaterally. No accessory muscle use. GASTROINTESTINAL: Abdomen soft, non-tender, nondistended. MUSCULOSKELETAL: No cyanosis, or edema. BACK: Nontender without obvious deformity. No CVA tenderness. A/P Assessment and Plan GRACIELA Collapse GRACIELA endobronchial lesion COPD Nicotine use Left bahai mass Sq cell ca lung PLAN: Aerosol nebs Check bronch results Wean 02 Thoracotomy [facility] for Friday Roger Pina MD Nov 13, 2016 20:20
[2016-11-14] VITALS (7 sets, daily range): BP systolic 102–123; BP diastolic 59–70; PULSE 66–83; RESP 20; TEMP 96.4–98.8; O2SAT 96–98
[2016-11-14] MEDS: oxyCODONE/ACETAMINOPHEN 10 MG/325 MG TAB PO PRN ×6 (00:34→23:40)
[2016-11-14] MEDS: SUCRALFATE 1 GM TAB PO SCH ×4 (06:16→20:42)
[2016-11-14] MEDS: INSULIN ASPART SUPPLEMENTAL SCALE SQ SCH ×4 (06:16→21:00)
[2016-11-14 07:13] LABS: PROTHROMBIN TIME - PATIENT 10.7 SEC (9.8-11.6)
[2016-11-14 07:24] LABS: AUTOMATED NEUTROPHIL # 5.7 TH/MM3 (1.8-7.7); BASOPHIL # 0.1 TH/MM3 (0-0.2); BASOPHIL % 1.4 % (0.0-2.0); EOSINOPHIL # 0.3 TH/MM3 (0-0.4); EOSINOPHIL % 3.8 % (0.0-4.0); HEMATOCRIT 34.8 % (39.0-51.0); HEMO FLAGS DIFF FINAL; LYMPH % 16.9 % (9.0-44.0); LYMPHOCYTE # 1.5 TH/MM3 (1.0-4.8); MEAN CELL VOLUME 85.7 FL (80.0-100.0); MEAN CORPUSCULAR HEMOGLOBIN 28.6 PG (27.0-34.0); MEAN CORPUSCULAR HGB CONC 33.4 % (32.0-36.0); MONO % 11.9 % (0.0-8.0); PLATELET COUNT 272 TH/MM3 (150-450); RED BLOOD COUNT 4.06 MIL/MM3 (4.50-5.90); RED CELL DISTRIBUTION WIDTH 14.7 % (11.6-17.2); WHITE BLOOD COUNT 8.7 TH/MM3 (4.0-11.0)
[2016-11-14 07:31] LABS: BICARBONATE 31.1 MEQ/L (21.0-32.0)
[2016-11-14] MEDS: MORPHINE SULFATE 4 MG/ML INJ IV PRN ×4 (08:12→22:34)
[2016-11-14] MEDS: SODIUM CHLORIDE 0.9% FLUSH 10 ML FLUSH IV FLUSH SCH ×2 (08:13→20:43)
[2016-11-14] MEDS: LORazepam 0.5 MG TAB PO SCH ×2 (08:16→20:42)
[2016-11-14] MEDS: guaiFENesin E.R. 600 MG TAB PO SCH ×2 (08:16→20:42)
[2016-11-14] MEDS: NICOTINE 21 MG/24 HR PATCH T-DERMAL SCH (08:16)
[2016-11-14] MEDS: REMOVE OLD PATCH T-DERMAL SCH (08:16)
[2016-11-14] MEDS: CHOLECALCIFEROL (VIT D3) 400 UNIT TAB PO SCH (08:16)
[2016-11-14] MEDS: DOCUSATE SODIUM 50 MG/SENNA 8.6 MG TAB PO SCH ×2 (08:17→20:42)
[2016-11-14] MEDS: FAMOTIDINE 20 MG TAB PO SCH ×2 (08:17→20:42)
[2016-11-14] MEDS: metFORMIN HCL 500 MG TAB PO SCH ×2 (08:17→17:14)
[2016-11-14] MEDS: INSULIN DETEMIR 100 UNITS/ML VIAL SQ SCH (10:04)
--- NOTE | 2016-11-14 13:47 | HHI.PR ---
Subjective Remarks resting comfortably with no distress. denies sob or pain. no new complaints. Objective Vitals Vital Signs Date Time Temp Pulse Resp B/P (MAP) Pulse Ox O2 Delivery O2 Flow Rate FiO2 11/14/16 12:28 96.4 83 20 115/70 (85) 97 11/14/16 12:06 20 11/14/16 11:07 20 11/14/16 08:15 96.7 66 20 123/64 (83) 96 11/14/16 04:00 97.8 76 20 107/59 (75) 97 11/14/16 00:00 97.9 76 20 107/62 (77) 98 11/13/16 23:16 72 11/13/16 20:00 97.7 74 17 128/63 (84) 99 11/13/16 16:00 98.5 74 16 113/65 (81) 97 I/O 11/13/16 11/13/16 11/13/16 11/14/16 11/14/16 11/14/16 06:59 14:59 22:59 06:59 14:59 22:59 Intake Total 200 ml Output Total 300 ml Balance -100 ml Intake Oral 200 ml Output Urine Total 300 ml # Voids 2 2 # Bowel Movements 1 0 Result Diagram: 11/14/16 0554 11/14/16 0554 Imaging Last Impressions SPECT Scan-Bone Nuclear Medicine 11/07/16 0000 Signed Impressions: Service Date/Time: October 11:58 - CONCLUSION: 1. Large ulcerative skin mass again noted with no visualized destructive or lytic change in the adjacent bone. 2. Small subtle areas of mildly increased uptake which likely are reactive. Julio César Johnson MD Abdomen/Pelvis CT 11/07/16 0000 Signed Impressions: Service Date/Time: Tuesday, November 08, 2016 16:06 - CONCLUSION: 1. No evidence of metastatic disease. 2. Status post median sternotomy with epicardial pacer wires noted. Julio César Johnson MD Head CT 11/06/16 0000 Signed Impressions: Service Date/Time: Sunday, November 06, 2016 18:31 - CONCLUSION: 1. No intracranial abnormality is seen. 2. Large skin base lesion at the left side of the face and left frontal scalp region. Rolando Loera MD Chest X-Ray 11/02/16 0000 Signed Impressions: Service Date/Time: Wednesday, November 02, 2016 11:15 - CONCLUSION: No significant change when compared to the recent chest CT. Dense opacification remains in the left upper lobe which was shown to represent dense infiltrate with air bronchograms. There is no pneumothorax. Julio César Johnson MD Chest CT 10/31/16 0000 Signed Impressions: Service Date/Time: October 16:34 - CONCLUSION: 1. There is collapse involving the left upper lung with air bronchograms. The findings suggests a central obstructing lesion near the left hilar area. Neoplastic disease is not excluded. Recommend bronchoscopy if that has not already been performed. 2. Nonspecific interstitial infiltrates in the posterior lung bases bilaterally. 3. 6 mm nonspecific pulmonary nodule in the right midlung. This can be followed up in [address] thorax. 4. Central lobar emphysema. 5. There are some nonspecific mildly prominent lymph nodes in the mediastinum. Jaxon Chavez MD Neck CT 10/30/16 0000 Signed Impressions: Service Date/Time: Sunday, October 30, 2016 18:07 - CONCLUSION: 1. Large ulcerating cutaneous mass in left temporal region with abnormal soft tissue extending to the surface of the left temporal bone without evidence for bone invasion. 2. Abnormal consolidation and microcavity formation at left lung apex with adenopathy. Further evaluation with chest CT recommended with contrast. Joey Payan MD Objective Remarks GENERAL: This is a well-nourished, well-developed patient, in no apparent distress. HEENT; left face covered with clean dressing. CARDIOVASCULAR: Regular rate and regular rhythm without murmurs, gallops, or rubs. RESPIRATORY: Clear to auscultation. Breath sounds equal bilaterally. No wheezes , rales, or rhonchi. GASTROINTESTINAL: Abdomen soft, non-tender, nondistended. Normal, active bowel sounds MUSCULOSKELETAL: Extremities without clubbing, cyanosis, or edema. NEURO: Alert & Oriented x4 to person, place, time, situation. Moves all ext x4 Procedures skin biopsy bronchoscopy Medications and IVs Current Medications Iohexol (Omnipaque 350 Inj) 75 ml STK-MED ONCE IV Last administered on t 18:18; Start 10/30/16 at 18:18; Stop 10/30/16 at 18:19; Status DC Acetaminophen/ Hydrocodone Bitart ([place] 5-325 Mg) 1 tab ONCE ONCE PO Last administered on 10/30/16 19:48; Start 10/30/16 at 18:45; Stop 10/30/16 at 18:46; Status DC Vancomycin HCl 1000 mg/Sodium Chloride 250 ml @ 250 mls/hr ONCE ONCE IV Last administered on 10/30/16 19:47; Start 10/30/16 at 18:45; Stop 10/30/16 at 19:44; Status DC Clindamycin Phosphate 900 mg/ Sodium Chloride 106 ml @ 212 mls/hr ONCE ONCE IV Last administered on 10/30/16 22:10; Start 10/30/16 at 18:45; Stop 10/30/16 at 19:14; Status DC Sodium Chloride (NS Flush) 2 ml UNSCH PRN IV FLUSH FLUSH AFTER USING IV ACCESS Last administered on 11/02/16 05:51; Start 10/30/16 at 20:00 Sodium Chloride (NS Flush) 2 ml BID IV FLUSH Last administered on 11/14/16 08: 13; Start 10/30/16 at 21:00 Naloxone HCl (Narcan Inj) 0.4 mg UNSCH PRN IV SEE LABEL COMMENTS; Start at 20:00 Clindamycin Phosphate 900 mg/ Sodium Chloride 106 ml @ 212 mls/hr Q6H IV Last administered on 11/01/16 04:11; Start 10/31/16 at 04:00; Stop 11/01/16 at 09:50 ; Status DC Morphine Sulfate (Morphine Inj) 2 mg Q3H PRN IV PUSH PAIN SCALE 5 TO 10 Last administered on 10/31/16 09:30; Start 10/30/16 at 22:15; Stop 10/31/16 at 10:22 ; Status DC Oxycodone/ Acetaminophen (Percocet 5-325 Mg) 1 tab Q6H PRN PO PAIN SCALE 3 TO 5; Start 10/31/16 at 10:30 Oxycodone/ Acetaminophen (Percocet 10-325 Mg) 1 tab Q6H PRN PO PAIN SCALE 6 TO 10 Last administered on 11/02/16 14:32; Start 10/31/16 at 10:30; Stop 11/02/16 at 15:15; Status DC Morphine Sulfate (Morphine Inj) 4 mg Q3H PRN IV BREAKTHROUGH PAIN Last administered on 11/14/16 11:56; Start 10/31/16 at 10:30 Nicotine (Habitrol 21 Mg Patch.24 Hr) 1 patch DAILY T-DERMAL Last administered on 11/14/16 08:16; Start 10/31/16 at 10:30 Miscellaneous Information 1 DAILY T-DERMAL Last administered on 11/14/16 08:16 ; Start 11/01/16 at 09:00 Iohexol (Omnipaque 350 Inj) 80 ml STK-MED ONCE IV Last administered on 16:45; Start 10/31/16 at 16:45; Stop 10/31/16 at 16:46; Status DC Senna/Docusate Sodium (Dior-Colace) 1 tab BID PO Last administered on 08:17; Start 11/01/16 at 09:00 Levofloxacin/ Dextrose 150 ml @ 100 mls/hr Q24H IV Last administered on 09:30; Start 11/01/16 at 10:00; Stop 11/11/16 at 10:55; Status DC Sodium Chloride 1,000 ml @ 100 mls/hr Q10H IV Last administered on 11/01/16 10:02; Start 11/01/16 at 10:00; Stop 11/01/16 at 19:59; Status DC Dextrose (D50w (Vial) Inj) 50 ml UNSCH PRN IV HYPOGLYCEMIA-SEE COMMENTS; Start 11/01/16 at 10:15 Glucagon (Glucagon Inj) 1 mg UNSCH PRN OTHER HYPOGLYCEMIA-SEE COMMENTS; Start 11/01/16 at 10:15 Insulin Aspart (NovoLOG SUPPLEMENTAL SCALE) 1 ACHS SLIDING SCALE SQ Last administered on 11/14/16 11:53; Start 11/01/16 at 11:00 Clindamycin HCl (Cleocin) 450 mg Q6HR PO Last administered on 11/11/16 06:24; Start 11/01/16 at 19:15; Stop 11/11/16 at 10:55; Status DC Sodium Chloride (Sodium Chloride 0.9% Inj) 20 ml STK-MED ONCE .ROUTE ; Start 03/09 at 10:08; Stop 11/02/16 at 10:09; Status DC Lidocaine HCl (Xylocaine 2% Inj) 50 ml STK-MED ONCE .ROUTE Last administered on 11/02/16 10:31; Start 11/02/16 at 10:08; Stop 11/02/16 at 10:09; Status DC Epinephrine HCl (Adrenalin (1:1000) Inj) 1 mg STK-MED ONCE .ROUTE Last administered on 11/02/16 10:31; Start 11/02/16 at 10:08; Stop 11/02/16 at 10:09 ; Status DC Midazolam HCl (Versed Inj) 2 mg STK-MED ONCE .ROUTE ; Start 11/02/16 at 11:11; Stop 11/02/16 at 11:12; Status DC Fentanyl Citrate (fentaNYL INJ) 100 mcg STK-MED ONCE .ROUTE ; Start 11/02/16 at 11:11; Stop 11/02/16 at 11:12; Status DC Miscellaneous Information ALL NURSING DEPARTME... UNSCH PRN .XX SEE LABEL COMMENTS; Start 11/02/16 at 11:07; Stop 11/03/16 at 11:06; Status DC Metformin HCl (Glucophage) 500 mg BIDPC PO Last administered on 11/14/16 08:17 ; Start 11/02/16 at 18:00 Oxycodone/ Acetaminophen (Percocet 10-325 Mg) 1 tab Q4H PRN PO PAIN SCALE 6 TO 10 Last administered on 11/14/16 10:07; Start 11/02/16 at 15:14 Enoxaparin Sodium (Lovenox Inj) 40 mg Q24H SQ Last administered on 11/06/16 09 :21; Start 11/03/16 at 08:30; Status Future Hold Insulin Detemir (Levemir Inj) 10 units DAILY SQ Last administered on 11/14/16 10:04; Start 11/03/16 at 10:00 Lactulose (Lactulose Liq) 30 ml ONCE ONCE PO Last administered on 11/03/16 11 :40; Start 11/03/16 at 09:30; Stop 11/03/16 at 09:31; Status DC Albuterol/ Ipratropium (Duoneb Neb) 1 ampule Q4HR NEB NEB Last administered on 11/07/16 11:09; Start 11/03/16 at 12:00; Stop 11/07/16 at 12:00; Status DC Guaifenesin (Mucinex Er) 600 mg BID PO Last administered on 11/14/16 08:16; Start 11/03/16 at 10:00 Cholecalciferol (Vitamin D3) 800 units DAILY PO Last administered on 11/14/16 08:16; Start 11/05/16 at 10:30 Iohexol (Omnipaque 350 Inj) 67 ml STK-MED ONCE IV Last administered on 18:53; Start 11/06/16 at 18:53; Stop 11/06/16 at 18:54; Status DC Lidocaine/ Epinephrine (Xylocaine-Epi 1%-1:100,000 Inj) 20 ml ONCE ONCE INFIL ; Start 11/07/16 at 09:45; Stop 11/07/16 at 09:46; Status Cancel Lidocaine/ Epinephrine (Xylocaine-Epi Mpf 1%-1:200,000 Inj) 20 ml ONCE ONCE INFIL ; Start 11/07/16 at 09:45; Stop 11/07/16 at 09:46; Status DC Lorazepam (Ativan) 0.5 mg Q12HR PO Last administered on 11/14/16 08:16; Start 11/07/16 at 21:00 Diatrizoate Meglum/ Diatrizoate Sod ( Gastrolizzie Liq) 18 ml ONCE ONCE PO Last administered on 11/08/16 09:51; Start 11/08/16 at 07:30; Stop 11/08/16 at 07:31; Status DC Iohexol (Omnipaque 350 Inj) 100 ml STK-MED ONCE IV ; Start 11/08/16 at 16:09; Stop 11/08/16 at 16:10; Status DC Sucralfate (Carafate) 1 gm ACHS PO Last administered on 11/14/16 11:55; Start 11/09/16 at 16:00 Famotidine (Pepcid) 20 mg BID PO Last administered on 11/14/16 08:17; Start at 13:15 Cefazolin Sodium 500 mg/Sodium Chloride 505 ml @ 0 mls/hr [employer] IRRIGATION ; Start 11/13/16 at 14:15; Stop 11/20/16 at 14:14 Cefazolin Sodium/ Dextrose 50 ml @ 150 mls/hr [employer] IV ; Start 11/13/16 at 14:15; Stop 11/20/16 at 14:14 Chlorhexidine Gluconate (Hibiclens 4% Top Soln) 1 applic [employer] TOPICAL ; Start 11/13/16 at 14:15; Stop 11/20/16 at 14:14 A/P Assessment and Plan A/P Skin Cancer suspected status post Punch biopsy . Diagnosis of Invasive Well differentiated Squamous Cell Carcinoma. Head and Neck CT, showed large ulcerating cutaneous mass in left temporal region with abnormal soft tissue extending to the surface of the left temporal bone without bone invasion Lung cancer- s/p bronchoscopy- pathology with squamous cell carcinoma- CT surgery reconsulted for lung mass resection. ( patient initially refused the surgery but then changed his mind). plan for thoracotomy tomorrow. oncology and pulmonary following. Sepsis: Possibly secondary to infected wound as above or postobstructive pneumonia - resolved- stopped antibiotics. Diabetes mellitus, new onset: Fasting glucoses elevated. Hemoglobin A1c 8.4. Stable. - Monitor Accu-Cheks. Cover with SSI if needed. continue Levemir . - Consulted telephone sex worker and dietitian Tobacco Abuse - counselled on smoking cessation - nicotine patch DVT prophylaxis - SCDs/TEDs Cristian Benedict MD Nov 14, 2016 13:47
--- NOTE | 2016-11-14 16:58 | PD.CAR.PN ---
CVT Progress Note Subjective/Hospital Course: CT Brain reviewed whole body bone scan reviewed : demonstrated a normal pattern of uptake throughout the axial and appendicular skeleton, no focal areas of increased or decreased uptake seen Dr Serrano discussed surgery options with the pt to include Left Thoracotomy pulmonary resection pt at this time has opted for no surgery, and wants to go home and be evaluated for chemo and radiation therapy as an outpt please re-consult if pt has a change in his decision 11/13 pt now agreeable for surgery will schedule for Friday left thoracotomy, pulmonary resection/ bronchoscopy 11/14 no new complaints, for surgery in am Objective: GENERAL: SKIN: Warm and dry. large mass left temporal area, foul smelling HEAD: Normocephalic. EYES: No scleral icterus. No injection or drainage. NECK: Supple, trachea midline. No JVD or lymphadenopathy. CARDIOVASCULAR: Regular rate and rhythm without murmurs, gallops, or rubs. RESPIRATORY: diminished left upper lobe No accessory muscle use. GASTROINTESTINAL: Abdomen soft, non-tender, nondistended. MUSCULOSKELETAL: No cyanosis, or edema. BACK: Nontender without obvious deformity. No CVA tenderness. Vital Signs Date Time Temp Pulse Resp B/P (MAP) Pulse Ox O2 Delivery O2 Flow Rate FiO2 11/14/16 15:56 96.5 73 20 111/62 (78) 97 11/14/16 15:04 18 11/14/16 12:28 96.4 83 20 115/70 (85) 97 11/14/16 12:06 20 11/14/16 08:15 96.7 66 20 123/64 (83) 96 11/14/16 04:00 97.8 76 20 107/59 (75) 97 11/14/16 00:00 97.9 76 20 107/62 (77) 98 11/13/16 23:16 72 11/13/16 20:00 97.7 74 17 128/63 (84) 99 Labs: Laboratory Tests Test 11/14/16 05:54 White Blood Count 8.7 TH/MM3 (4.0-11.0) Red Blood Count 4.06 MIL/MM3 (4.50-5.90) Hemoglobin 11.6 GM/DL (13.0-17.0) Hematocrit 34.8 % (39.0-51.0) Mean Corpuscular Volume 85.7 FL (80.0-100.0) Mean Corpuscular Hemoglobin 28.6 PG (27.0-34.0) Mean Corpuscular Hemoglobin Concent 33.4 % (32.0-36.0) Red Cell Distribution Width 14.7 % (11.6-17.2) Platelet Count 272 TH/MM3 (150-450) Mean Platelet Volume 7.8 FL (7.0-11.0) Neutrophils (%) (Auto) 66.0 % (16.0-70.0) Lymphocytes (%) (Auto) 16.9 % (9.0-44.0) Monocytes (%) (Auto) 11.9 % (0.0-8.0) Eosinophils (%) (Auto) 3.8 % (0.0-4.0) Basophils (%) (Auto) 1.4 % (0.0-2.0) Neutrophils # (Auto) 5.7 TH/MM3 (1.8-7.7) Lymphocytes # (Auto) 1.5 TH/MM3 (1.0-4.8) Monocytes # (Auto) 1.0 TH/MM3 (0-0.9) Eosinophils # (Auto) 0.3 TH/MM3 (0-0.4) Basophils # (Auto) 0.1 TH/MM3 (0-0.2) CBC Comment DIFF FINAL Differential Comment Prothrombin Time 10.7 SEC (9.8-11.6) Prothromb Time International Ratio 1.0 RATIO Blood Urea Nitrogen 13 MG/DL (7-18) Creatinine 0.78 MG/DL (0.60-1.30) Random Glucose 124 MG/DL (74-106) Calcium Level 9.6 MG/DL (8.5-10.1) Sodium Level 136 MEQ/L (136-145) Potassium Level 4.0 MEQ/L (3.5-5.1) Chloride Level 98 MEQ/L (98-107) Carbon Dioxide Level 31.1 MEQ/L (21.0-32.0) Anion Gap 7 MEQ/L (5-15) Estimat Glomerular Filtration Rate 101 ML/MIN (>89) Result Diagram: 11/14/16 0554 11/14/16 0554 (1) Skin cancer of face (2) Lung mass Plan: for surgery on friday Alison Johnson Nov 14, 2016 16:58
--- NOTE | 2016-11-14 19:19 | HHI.PR ---
Subjective Remarks 61 YOWm with GRACIELA collapse, left buddhism mass, COPD Had Bronch done GRACIELA obstucting lesion Breathing good has pain in [employer] Lung bx Sq cell ca Anxious to have surgery Objective Vital Signs Vital Signs Date Time Temp Pulse Resp B/P (MAP) Pulse Ox O2 Delivery O2 Flow Rate FiO2 11/14/16 18:15 20 11/14/16 15:56 96.5 73 20 111/62 (78) 97 11/14/16 15:04 18 11/14/16 12:28 96.4 83 20 115/70 (85) 97 11/14/16 08:15 96.7 66 20 123/64 (83) 96 11/14/16 04:00 97.8 76 20 107/59 (75) 97 11/14/16 00:00 97.9 76 20 107/62 (77) 98 11/13/16 23:16 72 11/13/16 20:00 97.7 74 17 128/63 (84) 99 I/O 11/13/16 11/13/16 11/13/16 11/14/16 11/14/16 11/14/16 07:00 15:00 23:00 07:00 15:00 23:00 Intake Total 200 ml 720 ml Output Total 300 ml Balance -100 ml 720 ml Intake Oral 200 ml 720 ml Output Urine Total 300 ml # Voids 2 2 3 # Bowel Movements 1 0 1 Result Diagram: 11/14/16 0554 11/14/16 0554 Objective Remarks GENERAL: MBMN WM, NAD SKIN: Warm and dry. HEAD: Normocephalic. Large mass left buddhism. EYES: No scleral icterus. No injection or drainage. NECK: Supple, trachea midline. No JVD or lymphadenopathy. CARDIOVASCULAR: Regular rate and rhythm without murmurs, gallops, or rubs. RESPIRATORY: Breath sounds equal bilaterally. No accessory muscle use. GASTROINTESTINAL: Abdomen soft, non-tender, nondistended. MUSCULOSKELETAL: No cyanosis, or edema. BACK: Nontender without obvious deformity. No CVA tenderness. A/P Assessment and Plan GRACIELA Collapse GRACIELA endobronchial lesion COPD Nicotine use Left buddhism mass Sq cell ca lung PLAN: Aerosol nebs Wean 02 Thoracotomy [facility] for Roger Pritchett MD Nov 14, 2016 19:19
[2016-11-15] VITALS (7 sets, daily range): BP systolic 103–127; BP diastolic 54–63; PULSE 74–88; RESP 18–20; TEMP 96–99.6; O2SAT 96–98
[2016-11-15] MEDS: MORPHINE SULFATE 4 MG/ML INJ IV PRN ×6 (01:55→21:44)
[2016-11-15] MEDS: oxyCODONE/ACETAMINOPHEN 10 MG/325 MG TAB PO PRN ×4 (03:50→20:19)
[2016-11-15] MEDS: INSULIN ASPART SUPPLEMENTAL SCALE SQ SCH ×4 (06:06→21:00)
[2016-11-15] MEDS: SUCRALFATE 1 GM TAB PO SCH ×4 (06:07→20:20)
--- NOTE | 2016-11-15 07:54 | HHI.PR ---
Subjective Remarks resting comfortably with no distress. no new complaints. awaiting surgery today. Objective Vitals Vital Signs Date Time Temp Pulse Resp B/P (MAP) Pulse Ox O2 Delivery O2 Flow Rate FiO2 11/15/16 04:00 99.6 80 20 113/54 (73) 96 11/15/16 00:00 99.4 87 20 112/58 (76) 96 11/14/16 20:00 98.8 73 20 102/60 (74) 98 11/14/16 18:15 20 11/14/16 15:56 96.5 73 20 111/62 (78) 97 11/14/16 15:04 18 11/14/16 12:28 96.4 83 20 115/70 (85) 97 11/14/16 08:15 96.7 66 20 123/64 (83) 96 I/O 11/14/16 11/14/16 11/14/16 11/15/16 11/15/16 11/15/16 06:59 14:59 22:59 06:59 14:59 22:59 Intake Total 200 ml 720 ml Output Total 300 ml Balance -100 ml 720 ml Intake Oral 200 ml 720 ml Output Urine Total 300 ml # Voids 4 1 # Bowel Movements 0 1 Result Diagram: 11/14/16 0554 11/14/16 0554 Imaging Last Impressions SPECT Scan-Bone Nuclear Medicine 11/07/16 0000 Signed Impressions: Service Date/Time: October 11:58 - CONCLUSION: 1. Large ulcerative skin mass again noted with no visualized destructive or lytic change in the adjacent bone. 2. Small subtle areas of mildly increased uptake which likely are reactive. Julio César Johnson MD Abdomen/Pelvis CT 11/07/16 0000 Signed Impressions: Service Date/Time: Tuesday, November 08, 2016 16:06 - CONCLUSION: 1. No evidence of metastatic disease. 2. Status post median sternotomy with epicardial pacer wires noted. Julio César Johnson MD Head CT 11/06/16 0000 Signed Impressions: Service Date/Time: Sunday, November 06, 2016 18:31 - CONCLUSION: 1. No intracranial abnormality is seen. 2. Large skin base lesion at the left side of the face and left frontal scalp region. Rolando Loera MD Chest X-Ray 11/02/16 0000 Signed Impressions: Service Date/Time: Wednesday, November 02, 2016 11:15 - CONCLUSION: No significant change when compared to the recent chest CT. Dense opacification remains in the left upper lobe which was shown to represent dense infiltrate with air bronchograms. There is no pneumothorax. Julio César Johnson MD Chest CT 10/31/16 0000 Signed Impressions: Service Date/Time: October 16:34 - CONCLUSION: 1. There is collapse involving the left upper lung with air bronchograms. The findings suggests a central obstructing lesion near the left hilar area. Neoplastic disease is not excluded. Recommend bronchoscopy if that has not already been performed. 2. Nonspecific interstitial infiltrates in the posterior lung bases bilaterally. 3. 6 mm nonspecific pulmonary nodule in the right midlung. This can be followed up in [address] thorax. 4. Central lobar emphysema. 5. There are some nonspecific mildly prominent lymph nodes in the mediastinum. Jaxon Chavez MD Neck CT 10/30/16 0000 Signed Impressions: Service Date/Time: Sunday, October 30, 2016 18:07 - CONCLUSION: 1. Large ulcerating cutaneous mass in left temporal region with abnormal soft tissue extending to the surface of the left temporal bone without evidence for bone invasion. 2. Abnormal consolidation and microcavity formation at left lung apex with adenopathy. Further evaluation with chest CT recommended with contrast. Joey Payan MD Objective Remarks GENERAL: This is a well-nourished, well-developed patient, in no apparent distress. HEENT; left face covered with clean dressing. CARDIOVASCULAR: Regular rate and regular rhythm without murmurs, gallops, or rubs. RESPIRATORY: Clear to auscultation. Breath sounds equal bilaterally. No wheezes , rales, or rhonchi. GASTROINTESTINAL: Abdomen soft, non-tender, nondistended. Normal, active bowel sounds MUSCULOSKELETAL: Extremities without clubbing, cyanosis, or edema. NEURO: Alert & Oriented x4 to person, place, time, situation. Moves all ext x4 Procedures skin biopsy bronchoscopy Medications and IVs Current Medications Iohexol (Omnipaque 350 Inj) 75 ml STK-MED ONCE IV Last administered on t 18:18; Start 10/30/16 at 18:18; Stop 10/30/16 at 18:19; Status DC Acetaminophen/ Hydrocodone Bitart ([place] 5-325 Mg) 1 tab ONCE ONCE PO Last administered on 10/30/16 19:48; Start 10/30/16 at 18:45; Stop 10/30/16 at 18:46; Status DC Vancomycin HCl 1000 mg/Sodium Chloride 250 ml @ 250 mls/hr ONCE ONCE IV Last administered on 10/30/16 19:47; Start 10/30/16 at 18:45; Stop 10/30/16 at 19:44; Status DC Clindamycin Phosphate 900 mg/ Sodium Chloride 106 ml @ 212 mls/hr ONCE ONCE IV Last administered on 10/30/16 22:10; Start 10/30/16 at 18:45; Stop 10/30/16 at 19:14; Status DC Sodium Chloride (NS Flush) 2 ml UNSCH PRN IV FLUSH FLUSH AFTER USING IV ACCESS Last administered on 11/02/16 05:51; Start 10/30/16 at 20:00 Sodium Chloride (NS Flush) 2 ml BID IV FLUSH Last administered on 11/14/16 20: 43; Start 10/30/16 at 21:00 Naloxone HCl (Narcan Inj) 0.4 mg UNSCH PRN IV SEE LABEL COMMENTS; Start at 20:00 Clindamycin Phosphate 900 mg/ Sodium Chloride 106 ml @ 212 mls/hr Q6H IV Last administered on 11/01/16 04:11; Start 10/31/16 at 04:00; Stop 11/01/16 at 09:50 ; Status DC Morphine Sulfate (Morphine Inj) 2 mg Q3H PRN IV PUSH PAIN SCALE 5 TO 10 Last administered on 10/31/16 09:30; Start 10/30/16 at 22:15; Stop 10/31/16 at 10:22 ; Status DC Oxycodone/ Acetaminophen (Percocet 5-325 Mg) 1 tab Q6H PRN PO PAIN SCALE 3 TO 5; Start 10/31/16 at 10:30 Oxycodone/ Acetaminophen (Percocet 10-325 Mg) 1 tab Q6H PRN PO PAIN SCALE 6 TO 10 Last administered on 11/02/16 14:32; Start 10/31/16 at 10:30; Stop 11/02/16 at 15:15; Status DC Morphine Sulfate (Morphine Inj) 4 mg Q3H PRN IV BREAKTHROUGH PAIN Last administered on 11/15/16 06:07; Start 10/31/16 at 10:30 Nicotine (Habitrol 21 Mg Patch.24 Hr) 1 patch DAILY T-DERMAL Last administered on 11/14/16 08:16; Start 10/31/16 at 10:30 Miscellaneous Information 1 DAILY T-DERMAL Last administered on 11/14/16 08:16 ; Start 11/01/16 at 09:00 Iohexol (Omnipaque 350 Inj) 80 ml STK-MED ONCE IV Last administered on 16:45; Start 10/31/16 at 16:45; Stop 10/31/16 at 16:46; Status DC Senna/Docusate Sodium (Dior-Colace) 1 tab BID PO Last administered on 20:42; Start 11/01/16 at 09:00 Levofloxacin/ Dextrose 150 ml @ 100 mls/hr Q24H IV Last administered on 09:30; Start 11/01/16 at 10:00; Stop 11/11/16 at 10:55; Status DC Sodium Chloride 1,000 ml @ 100 mls/hr Q10H IV Last administered on 11/01/16 10:02; Start 11/01/16 at 10:00; Stop 11/01/16 at 19:59; Status DC Dextrose (D50w (Vial) Inj) 50 ml UNSCH PRN IV HYPOGLYCEMIA-SEE COMMENTS; Start 11/01/16 at 10:15 Glucagon (Glucagon Inj) 1 mg UNSCH PRN OTHER HYPOGLYCEMIA-SEE COMMENTS; Start 11/01/16 at 10:15 Insulin Aspart (NovoLOG SUPPLEMENTAL SCALE) 1 ACHS SLIDING SCALE SQ Last administered on 11/14/16 21:00; Start 11/01/16 at 11:00 Clindamycin HCl (Cleocin) 450 mg Q6HR PO Last administered on 11/11/16 06:24; Start 11/01/16 at 19:15; Stop 11/11/16 at 10:55; Status DC Sodium Chloride (Sodium Chloride 0.9% Inj) 20 ml STK-MED ONCE .ROUTE ; Start 03/09 at 10:08; Stop 11/02/16 at 10:09; Status DC Lidocaine HCl (Xylocaine 2% Inj) 50 ml STK-MED ONCE .ROUTE Last administered on 11/02/16 10:31; Start 11/02/16 at 10:08; Stop 11/02/16 at 10:09; Status DC Epinephrine HCl (Adrenalin (1:1000) Inj) 1 mg STK-MED ONCE .ROUTE Last administered on 11/02/16 10:31; Start 11/02/16 at 10:08; Stop 11/02/16 at 10:09 ; Status DC Midazolam HCl (Versed Inj) 2 mg STK-MED ONCE .ROUTE ; Start 11/02/16 at 11:11; Stop 11/02/16 at 11:12; Status DC Fentanyl Citrate (fentaNYL INJ) 100 mcg STK-MED ONCE .ROUTE ; Start 11/02/16 at 11:11; Stop 11/02/16 at 11:12; Status DC Miscellaneous Information ALL NURSING DEPARTME... UNSCH PRN .XX SEE LABEL COMMENTS; Start 11/02/16 at 11:07; Stop 11/03/16 at 11:06; Status DC Metformin HCl (Glucophage) 500 mg BIDPC PO Last administered on 11/14/16 17:14 ; Start 11/02/16 at 18:00 Oxycodone/ Acetaminophen (Percocet 10-325 Mg) 1 tab Q4H PRN PO PAIN SCALE 6 TO 10 Last administered on 11/15/16 03:50; Start 11/02/16 at 15:14 Enoxaparin Sodium (Lovenox Inj) 40 mg Q24H SQ Last administered on 11/06/16 09 :21; Start 11/03/16 at 08:30; Status Future Hold Insulin Detemir (Levemir Inj) 10 units DAILY SQ Last administered on 11/14/16 10:04; Start 11/03/16 at 10:00 Lactulose (Lactulose Liq) 30 ml ONCE ONCE PO Last administered on 11/03/16 11 :40; Start 11/03/16 at 09:30; Stop 11/03/16 at 09:31; Status DC Albuterol/ Ipratropium (Duoneb Neb) 1 ampule Q4HR NEB NEB Last administered on 11/07/16 11:09; Start 11/03/16 at 12:00; Stop 11/07/16 at 12:00; Status DC Guaifenesin (Mucinex Er) 600 mg BID PO Last administered on 11/14/16 20:42; Start 11/03/16 at 10:00 Cholecalciferol (Vitamin D3) 800 units DAILY PO Last administered on 11/14/16 08:16; Start 11/05/16 at 10:30 Iohexol (Omnipaque 350 Inj) 67 ml STK-MED ONCE IV Last administered on 18:53; Start 11/06/16 at 18:53; Stop 11/06/16 at 18:54; Status DC Lidocaine/ Epinephrine (Xylocaine-Epi 1%-1:100,000 Inj) 20 ml ONCE ONCE INFIL ; Start 11/07/16 at 09:45; Stop 11/07/16 at 09:46; Status Cancel Lidocaine/ Epinephrine (Xylocaine-Epi Mpf 1%-1:200,000 Inj) 20 ml ONCE ONCE INFIL ; Start 11/07/16 at 09:45; Stop 11/07/16 at 09:46; Status DC Lorazepam (Ativan) 0.5 mg Q12HR PO Last administered on 11/14/16 20:42; Start 11/07/16 at 21:00 Diatrizoate Meglum/ Diatrizoate Sod ( Gastroview Liq) 18 ml ONCE ONCE PO Last administered on 11/08/16 09:51; Start 11/08/16 at 07:30; Stop 11/08/16 at 07:31; Status DC Iohexol (Omnipaque 350 Inj) 100 ml STK-MED ONCE IV ; Start 11/08/16 at 16:09; Stop 11/08/16 at 16:10; Status DC Sucralfate (Carafate) 1 gm ACHS PO Last administered on 11/15/16 06:07; Start 11/09/16 at 16:00 Famotidine (Pepcid) 20 mg BID PO Last administered on 11/14/16 20:42; Start at 13:15 Cefazolin Sodium 500 mg/Sodium Chloride 505 ml @ 0 mls/hr BACK MAKER IRRIGATION ; Start 11/13/16 at 14:15; Stop 11/20/16 at 14:14 Cefazolin Sodium/ Dextrose 50 ml @ 150 mls/hr BACK MAKER IV ; Start 11/13/16 at 14:15; Stop 11/20/16 at 14:14 Chlorhexidine Gluconate (Hibiclens 4% Top Soln) 1 applic BACK MAKER TOPICAL ; Start 11/13/16 at 14:15; Stop 11/20/16 at 14:14 A/P Assessment and Plan A/P Skin Cancer suspected status post Punch biopsy . Diagnosis of Invasive Well differentiated Squamous Cell Carcinoma. Head and Neck CT, showed large ulcerating cutaneous mass in left temporal region with abnormal soft tissue extending to the surface of the left temporal bone without bone invasion Lung cancer- s/p bronchoscopy- pathology with squamous cell carcinoma- CT surgery reconsulted for lung mass resection. plan for thoracotomy today. oncology and pulmonary following. Sepsis: Possibly secondary to infected wound as above or postobstructive pneumonia - resolved- stopped antibiotics. Diabetes mellitus, new onset: Hemoglobin A1c 8.4. - Monitor Accu-Cheks. Cover with SSI if needed. continue Levemir . - Consulted cosmetology educator and dietitian Tobacco Abuse - counselled on smoking cessation - nicotine patch DVT prophylaxis - SCDs/Cristian Murguia MD Nov 15, 2016 07:54
[2016-11-15] MEDS: REMOVE OLD PATCH T-DERMAL SCH (08:08)
[2016-11-15] MEDS: NICOTINE 21 MG/24 HR PATCH T-DERMAL SCH (08:08)
[2016-11-15] MEDS: LORazepam 0.5 MG TAB PO SCH ×2 (08:09→20:20)
[2016-11-15] MEDS: guaiFENesin E.R. 600 MG TAB PO SCH ×2 (08:09→20:20)
[2016-11-15] MEDS: FAMOTIDINE 20 MG TAB PO SCH ×2 (08:09→20:19)
[2016-11-15] MEDS: CHOLECALCIFEROL (VIT D3) 400 UNIT TAB PO SCH (08:09)
[2016-11-15] MEDS: DOCUSATE SODIUM 50 MG/SENNA 8.6 MG TAB PO SCH ×2 (08:09→20:20)
[2016-11-15] MEDS: SODIUM CHLORIDE 0.9% FLUSH 10 ML FLUSH IV FLUSH SCH ×2 (08:10→20:20)
[2016-11-15] MEDS: INSULIN DETEMIR 100 UNITS/ML VIAL SQ SCH (09:00)
[2016-11-15] MEDS ORDERED: LACTATED RINGER'S 1000 ML IV PRN (10:15)
[2016-11-15] MEDS ORDERED: CHLORHEXIDINE GLUCONATE 2 % 1 PACK (2 CLOTHS) TOPICAL PRN (10:15)
[2016-11-15] MEDS ORDERED: INSULIN HUMAN REGULAR 1,000 UNITS/10 ML VIAL SQ PRN (10:15)
[2016-11-15] MEDS ORDERED: METOPROLOL TARTRATE 25 MG TAB PO PRN (10:15)
[2016-11-15] MEDS ORDERED: SODIUM CHLORID 0.9% 500 ML IV PRN (10:15)
[2016-11-15] MEDS ORDERED: POVIDONE IODINE 5% (ANTISEPSIS KIT) 4 APPLICATIONS EACH NARE PRN (10:15)
[2016-11-15] MEDS ORDERED: BUPIVACAINE HCL PF 0.5% 30 ML VIAL ONE (11:33)
[2016-11-15] MEDS ORDERED: PROPOFOL 200 MG/20 ML AMP IV ONE (12:00)
[2016-11-15] MEDS ORDERED: SODIUM CHLOR 0.9% 1000 ML INJ 1,000 ML IV ONE (12:00)
[2016-11-15] MEDS ORDERED: SUGAMMADEX SODIUM 200 MG/2 ML VIAL IV PUSH ONE ×2 (12:00)
[2016-11-15] MEDS ORDERED: ceFAZolin 2 GM PREMIX 50 ML ONE (12:02)
[2016-11-15] MEDS ORDERED: DO NOT ADM ANY ANTICOAGULANT DRUGS PRN (12:54)
[2016-11-15] MEDS ORDERED: MIDAZOLAM HCL 2 MG/2 ML VIAL ONE (13:05)
[2016-11-15] MEDS ORDERED: fentaNYL CITRATE 250 MCG/5 ML AMP ONE (13:05)
--- NOTE | 2016-11-15 13:19 | PD.OP ---
cc: Timi Staton MD; Tereza Serrano MD Operative Report Date of Surgery: Nov 15, 2016 Preoperative Diagnosis: (1) Tobacco abuse (2) Lung mass Postoperative Diagnosis: same Procedure: Fiberoptic bronchoscopy Anesthesia: Dr. Olivera Surgeon: Tereza Serrano Power System Engineer(s): Haris Operation and Findings: After adequate anesthesia, the patient underwent fiberoptic bronchoscopy through the endotracheal tube. Examination was remarkable for an endobronchial mass occluding the left upper lobe bronchus. The remainder of the exam was unremarkable. This finding was discussed with Dr. Staton and no further resection was attempted due to the likelihood of not being able to get a bronchial margin in this patient. Resection would not likely offer him any survival advantage and would delay further chemo or radiation tx. Tereza Serrano MD Nov 15, 2016 13:19
--- NOTE | 2016-11-15 18:54 | HHI.PR ---
Subjective Remarks 61 YOWm with GRACIELA collapse, left adventism mass, COPD Had Bronch done GRACIELA obstucting lesion Breathing good has pain in Advent Lung bx Sq cell ca Surgery could't be done as tumour at the entrance of Left bronchus Objective Vital Signs Vital Signs Date Time Temp Pulse Resp B/P (MAP) Pulse Ox O2 Delivery O2 Flow Rate FiO2 11/15/16 17:42 20 11/15/16 17:03 20 11/15/16 16:44 97.4 88 20 114/59 (77) 97 11/15/16 13:30 76 24 111/62 (78) 93 Room Air 11/15/16 13:00 76 19 107/59 (75) 96 Room Air 11/15/16 12:56 98.8 80 19 145/75 (98) 93 Room Air 11/15/16 11:39 96.0 77 20 110/58 (75) 96 11/15/16 08:57 74 11/15/16 08:06 96.9 78 20 127/63 (84) 98 11/15/16 04:00 99.6 80 20 113/54 (73) 96 11/15/16 00:00 99.4 87 20 112/58 (76) 96 11/14/16 20:00 98.8 73 20 102/60 (74) 98 11/14/16 19:32 81 I/O 11/14/16 11/14/16 11/14/16 11/15/16 11/15/16 11/15/16 07:00 15:00 23:00 07:00 15:00 23:00 Intake Total 200 ml 720 ml 250 ml Output Total 300 ml 300 ml Balance -100 ml 720 ml -50 ml Intake Oral 200 ml 720 ml Other 250 ml Output Urine Total 300 ml 300 ml # Voids 4 1 # Bowel Movements 0 1 1 Result Diagram: 11/14/16 0554 11/14/16 0554 Objective Remarks GENERAL: MBMN WM, NAD SKIN: Warm and dry. HEAD: Normocephalic. Large mass left adventism. EYES: No scleral icterus. No injection or drainage. NECK: Supple, trachea midline. No JVD or lymphadenopathy. CARDIOVASCULAR: Regular rate and rhythm without murmurs, gallops, or rubs. RESPIRATORY: Breath sounds equal bilaterally. No accessory muscle use. GASTROINTESTINAL: Abdomen soft, non-tender, nondistended. MUSCULOSKELETAL: No cyanosis, or edema. BACK: Nontender without obvious deformity. No CVA tenderness. A/P Assessment and Plan GRACIELA Collapse GRACIELA endobronchial lesion COPD Nicotine use Left adventism mass Sq cell ca lung PLAN: Aerosol nebs Wean 02 Chemo/ XRT as he is not a surgical candidate. oRger Pina MD Nov 15, 2016 18:54
[2016-11-16] VITALS (9 sets, daily range): BP systolic 90–112; BP diastolic 54–57; PULSE 68–115; RESP 16–18; TEMP 97.6–99.1; O2SAT 94–98
[2016-11-16] MEDS: oxyCODONE/ACETAMINOPHEN 10 MG/325 MG TAB PO PRN ×5 (00:55→21:05)
[2016-11-16] MEDS: SUCRALFATE 1 GM TAB PO SCH ×4 (05:31→21:04)
[2016-11-16] MEDS: MORPHINE SULFATE 4 MG/ML INJ IV PRN ×5 (05:32→22:18)
[2016-11-16] MEDS: INSULIN ASPART SUPPLEMENTAL SCALE SQ SCH ×4 (05:38→21:06)
[2016-11-16] MEDS: INSULIN DETEMIR 100 UNITS/ML VIAL SQ SCH (08:14)
[2016-11-16] MEDS: CHOLECALCIFEROL (VIT D3) 400 UNIT TAB PO SCH (08:18)
[2016-11-16] MEDS: guaiFENesin E.R. 600 MG TAB PO SCH ×2 (08:18→21:04)
[2016-11-16] MEDS: FAMOTIDINE 20 MG TAB PO SCH ×2 (08:18→21:04)
[2016-11-16] MEDS: LORazepam 0.5 MG TAB PO SCH ×2 (08:18→21:04)
[2016-11-16] MEDS: SODIUM CHLORIDE 0.9% FLUSH 10 ML FLUSH IV FLUSH SCH ×2 (08:19→21:06)
[2016-11-16] MEDS: REMOVE OLD PATCH T-DERMAL SCH (08:19)
[2016-11-16] MEDS: NICOTINE 21 MG/24 HR PATCH T-DERMAL SCH (08:19)
[2016-11-16] MEDS: DOCUSATE SODIUM 50 MG/SENNA 8.6 MG TAB PO SCH ×2 (08:20→21:07)
[2016-11-16 08:48] LABS: AUTOMATED NEUTROPHIL # 3.5 TH/MM3 (1.8-7.7); BASOPHIL # 0.1 TH/MM3 (0-0.2); BASOPHIL % 1.2 % (0.0-2.0); EOSINOPHIL # 0.1 TH/MM3 (0-0.4); EOSINOPHIL % 2.1 % (0.0-4.0); HEMATOCRIT 35.5 % (39.0-51.0); HEMO FLAGS DIFF FINAL; LYMPH % 22.7 % (9.0-44.0); LYMPHOCYTE # 1.3 TH/MM3 (1.0-4.8); MEAN CELL VOLUME 86.2 FL (80.0-100.0); MEAN CORPUSCULAR HGB CONC 32.5 % (32.0-36.0); MONO % 15.2 % (0.0-8.0); NEUT % 58.8 % (16.0-70.0); PLATELET COUNT 219 TH/MM3 (150-450); RED BLOOD COUNT 4.11 MIL/MM3 (4.50-5.90); RED CELL DISTRIBUTION WIDTH 15.3 % (11.6-17.2); WHITE BLOOD COUNT 5.9 TH/MM3 (4.0-11.0)
[2016-11-16 08:54] LABS: BICARBONATE 31.2 MEQ/L (21.0-32.0)
--- NOTE | 2016-11-16 09:43 | HHI.PR ---
Subjective Remarks f/u; lung mass resting comfortably with no distress. walking in the room and anxious to go home. no new complaints. d/w the RN and no acute issues over night. Objective Vitals Vital Signs Date Time Temp Pulse Resp B/P (MAP) Pulse Ox O2 Delivery O2 Flow Rate FiO2 11/16/16 08:00 99.1 75 16 98/54 (69) 96 11/16/16 04:00 97.6 75 18 90/54 (66) 96 11/16/16 03:06 94 11/16/16 00:00 98.2 99 18 112/56 (74) 94 11/15/16 22:12 21 11/15/16 20:00 99.0 88 18 103/55 (71) 96 11/15/16 17:42 20 11/15/16 17:03 20 11/15/16 16:44 97.4 88 20 114/59 (77) 97 11/15/16 13:30 76 24 111/62 (78) 93 Room Air 11/15/16 13:00 76 19 107/59 (75) 96 Room Air 11/15/16 12:56 98.8 80 19 145/75 (98) 93 Room Air 11/15/16 11:39 96.0 77 20 110/58 (75) 96 I/O 11/15/16 11/15/16 11/15/16 11/16/16 11/16/16 11/16/16 07:00 15:00 23:00 07:00 15:00 23:00 Intake Total 250 ml Output Total 300 ml Balance -50 ml Other 250 ml Output Urine Total 300 ml # Voids 1 # Bowel Movements 1 Result Diagram: 11/16/16 0759 11/16/16 0759 Imaging Last Impressions SPECT Scan-Bone Nuclear Medicine 11/07/16 0000 Signed Impressions: Service Date/Time: October 11:58 - CONCLUSION: 1. Large ulcerative skin mass again noted with no visualized destructive or lytic change in the adjacent bone. 2. Small subtle areas of mildly increased uptake which likely are reactive. Julio César Johnson MD Abdomen/Pelvis CT 11/07/16 0000 Signed Impressions: Service Date/Time: Tuesday, November 08, 2016 16:06 - CONCLUSION: 1. No evidence of metastatic disease. 2. Status post median sternotomy with epicardial pacer wires noted. Julio César Johnson MD Head CT 11/06/16 0000 Signed Impressions: Service Date/Time: Sunday, November 06, 2016 18:31 - CONCLUSION: 1. No intracranial abnormality is seen. 2. Large skin base lesion at the left side of the face and left frontal scalp region. Rolando Loera MD Chest X-Ray 11/02/16 Signed Impressions: Service Date/Time: Wednesday, November 02, 2016 11:15 - CONCLUSION: No significant change when compared to the recent chest CT. Dense opacification remains in the left upper lobe which was shown to represent dense infiltrate with air bronchograms. There is no pneumothorax. Julio César Johnson MD Chest CT 10/31/16 0000 Signed Impressions: Service Date/Time: October 16:34 - CONCLUSION: 1. There is collapse involving the left upper lung with air bronchograms. The findings suggests a central obstructing lesion near the left hilar area. Neoplastic disease is not excluded. Recommend bronchoscopy if that has not already been performed. 2. Nonspecific interstitial infiltrates in the posterior lung bases bilaterally. 3. 6 mm nonspecific pulmonary nodule in the right midlung. This can be followed up in [address] thorax. 4. Central lobar emphysema. 5. There are some nonspecific mildly prominent lymph nodes in the mediastinum. Jaxon Chavez MD Neck CT 10/30/16 0000 Signed Impressions: Service Date/Time: Sunday, October 30, 2016 18:07 - CONCLUSION: 1. Large ulcerating cutaneous mass in left temporal region with abnormal soft tissue extending to the surface of the left temporal bone without evidence for bone invasion. 2. Abnormal consolidation and microcavity formation at left lung apex with adenopathy. Further evaluation with chest CT recommended with contrast. Joey Payan MD Objective Remarks GENERAL: This is a well-nourished, well-developed patient, in no apparent distress. HEENT; left face covered with clean dressing. CARDIOVASCULAR: Regular rate and regular rhythm without murmurs, gallops, or rubs. RESPIRATORY: Clear to auscultation. Breath sounds equal bilaterally. No wheezes , rales, or rhonchi. GASTROINTESTINAL: Abdomen soft, non-tender, nondistended. Normal, active bowel sounds MUSCULOSKELETAL: Extremities without clubbing, cyanosis, or edema. NEURO: Alert & Oriented x4 to person, place, time, situation. Moves all ext x4 Procedures skin biopsy bronchoscopy Medications and IVs Current Medications Iohexol (Omnipaque 350 Inj) 75 ml STK-MED ONCE IV Last administered on 18:18; Start 10/30/16 at 18:18; Stop 10/30/16 at 18:19; Status DC Acetaminophen/ Hydrocodone Bitart ([place] 5-325 Mg) 1 tab ONCE ONCE PO Last administered on 10/30/16 19:48; Start 10/30/16 at 18:45; Stop 10/30/16 at 18:46; Status DC Vancomycin HCl 1000 mg/Sodium Chloride 250 ml @ 250 mls/hr ONCE ONCE IV Last administered on 10/30/16 19:47; Start 10/30/16 at 18:45; Stop 10/30/16 at 19:44; Status DC Clindamycin Phosphate 900 mg/ Sodium Chloride 106 ml @ 212 mls/hr ONCE ONCE IV Last administered on 10/30/16 22:10; Start 10/30/16 at 18:45; Stop 10/30/16 at 19:14; Status DC Sodium Chloride (NS Flush) 2 ml UNSCH PRN IV FLUSH FLUSH AFTER USING IV ACCESS Last administered on 11/02/16 05:51; Start 10/30/16 at 20:00 Sodium Chloride (NS Flush) 2 ml BID IV FLUSH Last administered on 11/16/16 08: 19; Start 10/30/16 at 21:00 Naloxone HCl (Narcan Inj) 0.4 mg UNSCH PRN IV SEE LABEL COMMENTS; Start at 20:00 Clindamycin Phosphate 900 mg/ Sodium Chloride 106 ml @ 212 mls/hr Q6H IV Last administered on 11/01/16 04:11; Start 10/31/16 at 04:00; Stop 11/01/16 at 09:50 ; Status DC Morphine Sulfate (Morphine Inj) 2 mg Q3H PRN IV PUSH PAIN SCALE 5 TO 10 Last administered on 10/31/16 09:30; Start 10/30/16 at 22:15; Stop 10/31/16 at 10:22 ; Status DC Oxycodone/ Acetaminophen (Percocet 5-325 Mg) 1 tab Q6H PRN PO PAIN SCALE 3 TO 5; Start 10/31/16 at 10:30 Oxycodone/ Acetaminophen (Percocet 10-325 Mg) 1 tab Q6H PRN PO PAIN SCALE 6 TO 10 Last administered on 11/02/16 14:32; Start 10/31/16 at 10:30; Stop 11/02/16 at 15:15; Status DC Morphine Sulfate (Morphine Inj) 4 mg Q3H PRN IV BREAKTHROUGH PAIN Last administered on 11/16/16 05:32; Start 10/31/16 at 10:30 Nicotine (Habitrol 21 Mg Patch.24 Hr) 1 patch DAILY T-DERMAL Last administered on 11/16/16 08:19; Start 10/31/16 at 10:30 Miscellaneous Information 1 DAILY T-DERMAL Last administered on 11/16/16 08:19 ; Start 11/01/16 at 09:00 Iohexol (Omnipaque 350 Inj) 80 ml STK-MED ONCE IV Last administered on 16:45; Start 10/31/16 at 16:45; Stop 10/31/16 at 16:46; Status DC Senna/Docusate Sodium (Dior-Colace) 1 tab BID PO Last administered on 20:20; Start 11/01/16 at 09:00 Levofloxacin/ Dextrose 150 ml @ 100 mls/hr Q24H IV Last administered on 09:30; Start 11/01/16 at 10:00; Stop 11/11/16 at 10:55; Status DC Sodium Chloride 1,000 ml @ 100 mls/hr Q10H IV Last administered on 11/01/16 10:02; Start 11/01/16 at 10:00; Stop 11/01/16 at 19:59; Status DC Dextrose (D50w (Vial) Inj) 50 ml UNSCH PRN IV HYPOGLYCEMIA-SEE COMMENTS; Start 11/01/16 at 10:15 Glucagon (Glucagon Inj) 1 mg UNSCH PRN OTHER HYPOGLYCEMIA-SEE COMMENTS; Start 11/01/16 at 10:15 Insulin Aspart (NovoLOG SUPPLEMENTAL SCALE) 1 ACHS SLIDING SCALE SQ Last administered on 11/15/16 21:00; Start 11/01/16 at 11:00 Clindamycin HCl (Cleocin) 450 mg Q6HR PO Last administered on 11/11/16 06:24; Start 11/01/16 at 19:15; Stop 11/11/16 at 10:55; Status DC Sodium Chloride (Sodium Chloride 0.9% Inj) 20 ml STK-MED ONCE .ROUTE ; Start 03/09 at 10:08; Stop 11/02/16 at 10:09; Status DC Lidocaine HCl (Xylocaine 2% Inj) 50 ml STK-MED ONCE .ROUTE Last administered on 11/02/16 10:31; Start 11/02/16 at 10:08; Stop 11/02/16 at 10:09; Status DC Epinephrine HCl (Adrenalin (1:1000) Inj) 1 mg STK-MED ONCE .ROUTE Last administered on 11/02/16 10:31; Start 11/02/16 at 10:08; Stop 11/02/16 at 10:09 ; Status DC Midazolam HCl (Versed Inj) 2 mg STK-MED ONCE .ROUTE ; Start 11/02/16 at 11:11; Stop 11/02/16 at 11:12; Status DC Fentanyl Citrate (fentaNYL INJ) 100 mcg STK-MED ONCE .ROUTE ; Start 11/02/16 at 11:11; Stop 11/02/16 at 11:12; Status DC Miscellaneous Information ALL NURSING DEPARTME... UNSCH PRN .XX SEE LABEL COMMENTS; Start 11/02/16 at 11:07; Stop 11/03/16 at 11:06; Status DC Metformin HCl (Glucophage) 500 mg BIDPC PO Last administered on 11/14/16 17:14 ; Start 11/02/16 at 18:00; Status Future hold Oxycodone/ Acetaminophen (Percocet 10-325 Mg) 1 tab Q4H PRN PO PAIN SCALE 6 TO 10 Last administered on 11/16/16 08:18; Start 11/02/16 at 15:14 Enoxaparin Sodium (Lovenox Inj) 40 mg Q24H SQ Last administered on 11/06/16 09 :21; Start 11/03/16 at 08:30; Status Future Hold Insulin Detemir (Levemir Inj) 10 units DAILY SQ Last administered on 11/16/16 08:14; Start 11/03/16 at 10:00 Lactulose (Lactulose Liq) 30 ml ONCE ONCE PO Last administered on 11/03/16 11 :40; Start 11/03/16 at 09:30; Stop 11/03/16 at 09:31; Status DC Albuterol/ Ipratropium (Duoneb Neb) 1 ampule Q4HR NEB NEB Last administered on 11/07/16 11:09; Start 11/03/16 at 12:00; Stop 11/07/16 at 12:00; Status DC Guaifenesin (Mucinex Er) 600 mg BID PO Last administered on 11/16/16 08:18; Start 11/03/16 at 10:00 Cholecalciferol (Vitamin D3) 800 units DAILY PO Last administered on 11/16/16 08:18; Start 11/05/16 at 10:30 Iohexol (Omnipaque 350 Inj) 67 ml STK-MED ONCE IV Last administered on 18:53; Start 11/06/16 at 18:53; Stop 11/06/16 at 18:54; Status DC Lidocaine/ Epinephrine (Xylocaine-Epi 1%-1:100,000 Inj) 20 ml ONCE ONCE INFIL ; Start 11/07/16 at 09:45; Stop 11/07/16 at 09:46; Status Cancel Lidocaine/ Epinephrine (Xylocaine-Epi Mpf 1%-1:200,000 Inj) 20 ml ONCE ONCE INFIL ; Start 11/07/16 at 09:45; Stop 11/07/16 at 09:46; Status DC Lorazepam (Ativan) 0.5 mg Q12HR PO Last administered on 11/16/16 08:18; Start 11/07/16 at 21:00 Diatrizoate Meglum/ Diatrizoate Sod ( Gastroview Liq) 18 ml ONCE ONCE PO Last administered on 11/08/16 09:51; Start 11/08/16 at 07:30; Stop 11/08/16 at 07:31; Status DC Iohexol (Omnipaque 350 Inj) 100 ml STK-MED ONCE IV ; Start 11/08/16 at 16:09; Stop 11/08/16 at 16:10; Status DC Sucralfate (Carafate) 1 gm ACHS PO Last administered on 11/16/16 05:31; Start 11/09/16 at 16:00 Famotidine (Pepcid) 20 mg BID PO Last administered on 11/16/16 08:18; Start at 13:15 Cefazolin Sodium 500 mg/Sodium Chloride 505 ml @ 0 mls/hr P[facility] AIDE IRRIGATION ; Start 11/13/16 at 14:15; Stop 11/20/16 at 14:14 Cefazolin Sodium/ Dextrose 50 ml @ 150 mls/hr P[facility] A[facility] IV ; Start 11/13/16 at 14:15; Stop 11/20/16 at 14:14 Chlorhexidine Gluconate (Hibiclens 4% Top Soln) 1 applic P[facility] AIDE TOPICAL ; Start 11/13/16 at 14:15; Stop 11/20/16 at 14:14 Lactated Ringer's 1,000 ml @ 30 mls/hr Q24H PRN IV SEE LABEL COMMENTS; Start at 10:15; Stop 11/18/16 at 10:14 Sodium Chloride 500 ml @ 30 mls/hr [id number] PRN IV SEE LABEL COMMENTS; Start at 10:15; Stop 11/18/16 at 10:14 Metoprolol Tartrate (Lopressor) 25 mg P[facility] AIDE PRN PO SEE LABEL COMMENTS; Start 11/15/16 at 10:15; Stop 11/18/16 at 10:14 Povidone Iodine (Betadine 5% Antisepsis Kit) 1 applic P[facility] AIDE PRN EACH NARE SEE LABEL COMMENTS; Start 11/15/16 at 10:15; Stop 11/18/16 at 10:14 Chlorhexidine Gluconate (Chlorhexidine 2% Cloth) 3 pack PARK AIDE PRN TOPICAL SEE LABEL COMMENTS; Start 11/15/16 at 10:15; Stop 11/18/16 at 10:14 Insulin Human Regular (NovoLIN R INJ) See Protocol Table ... PARK AIDE PRN SQ SEE PROTOCOL TABLE; Start 11/15/16 at 10:15; Stop 11/18/16 at 10:14 Bupivacaine HCl (Marcaine Pf 0.5% Inj) 270 ml STK-MED ONCE .ROUTE Last administered on 11/15/16 11:33; Start 11/15/16 at 11:33; Stop 11/15/16 at 11:34 ; Status DC Cefazolin Sodium/ Dextrose 50 ml @ As Directed STK-MED ONCE .ROUTE Last administered on 11/15/16t 12:19; Start 11/15/16 at 12:02; Stop 11/15/16 at 12:03 ; Status DC Midazolam HCl (Versed Inj) 2 mg STK-MED ONCE .ROUTE ; Start 11/15/16 at 13:05; Stop 11/15/16 at 13:06; Status DC Fentanyl Citrate (fentaNYL INJ) 250 mcg STK-MED ONCE .ROUTE ; Start 11/15/16 at 13:05; Stop 11/15/16 at 13:06; Status DC Miscellaneous Information ALL NURSING DEPARTME... UNSCH PRN .XX SEE LABEL COMMENTS; Start 11/15/16 at 12:54; Stop 11/16/16 at 12:53 A/P Assessment and Plan A/P Skin Cancer suspected status post Punch biopsy . Diagnosis of Invasive Well differentiated Squamous Cell Carcinoma. Head and Neck CT, showed large ulcerating cutaneous mass in left temporal region with abnormal soft tissue extending to the surface of the left temporal bone without bone invasion Lung cancer- s/p bronchoscopy- pathology with squamous cell carcinoma- CT surgery reconsulted for lung mass resection. however the resection was not performed since it wouldn't affect the survival- per CT surgery f/u with oncology for chemo and radiation. d/w today; patient was cleared for discharge from pulmonary stand- point. d/w today; plan for port placement on Friday and discharge planning after port placement. Sepsis: Possibly secondary to infected wound as above or postobstructive pneumonia - resolved- stopped antibiotics. Diabetes mellitus, new onset: Hemoglobin A1c 8.4. - Monitor Accu-Cheks. Cover with SSI if needed. will likely discharge on metformin. - Consulted ict educator and dietitian Tobacco Abuse - counselled on smoking cessation - nicotine patch DVT prophylaxis - SCDs/TEDs Discharge Planning dc home likely early this week when ok with oncology. case management consulted to assist with outpatient f/u's and needs. Cristian Benedict MD Nov 16, 2016 09:43
[2016-11-16] MEDS ORDERED: OXYC1TAB63 PO (09:45)
[2016-11-16] MEDS ORDERED: METF500 PO (09:45)
[2016-11-16] MEDS ORDERED: VITD400 PO (09:45)
--- NOTE | 2016-11-16 09:46 | HHI.DCPOC ---
Discharge Care Plan Diagnosis: (1) Lung mass (2) Skin cancer of face Your Health Problems Are: Skin Breakdown Additional Problems lung cancer. Goals to Promote Your Health * To prevent worsening of your condition and complications * To maintain your health at the optimal level Directions to Meet Your Goals Take your medications as prescribed Follow your dietary instruction Follow activity as directed Keep your appointments as scheduled Take your immunizations and boosters as scheduled If your symptoms worsen call your PCP, if no PCP go to Urgent Care Center or Emergency Room Smoking is Dangerous to Your Health. Avoid second hand smoke Call the 24-hour hour crisis hotline for domestic abuse at Cristian Benedict MD Nov 16, 2016 09:46
--- NOTE | 2016-11-16 14:48 | PD.ONC.PN ---
Subjective Subjective Remarks no complaints Objective Data Date Time Temp Pulse Resp B/P (MAP) Pulse Ox O2 Delivery O2 Flow Rate FiO2 11/16/16 13:18 115 11/16/16 12:00 98.5 73 16 96/55 (69) 97 11/16/16 08:00 99.1 75 16 98/54 (69) 96 11/16/16 04:00 97.6 75 18 90/54 (66) 96 11/16/16 03:06 94 11/16/16 00:00 98.2 99 18 112/56 (74) 94 11/15/16 22:12 21 11/15/16 20:00 99.0 88 18 103/55 (71) 96 11/15/16 17:42 20 11/15/16 17:03 20 11/15/16 16:44 97.4 88 20 114/59 (77) 97 Result Diagram: 11/16/16 0759 11/16/16 0759 Laboratory Results Laboratory Tests Test 11/16/16 07:59 White Blood Count 5.9 TH/MM3 Red Blood Count 4.11 MIL/MM3 Hemoglobin 11.5 GM/DL Hematocrit 35.5 % Mean Corpuscular Volume 86.2 FL Mean Corpuscular Hemoglobin 28.0 PG Mean Corpuscular Hemoglobin Concent 32.5 % Red Cell Distribution Width 15.3 % Platelet Count 219 TH/MM3 Mean Platelet Volume 7.4 FL Neutrophils (%) (Auto) 58.8 % Lymphocytes (%) (Auto) 22.7 % Monocytes (%) (Auto) 15.2 % Eosinophils (%) (Auto) 2.1 % Basophils (%) (Auto) 1.2 % Neutrophils # (Auto) 3.5 TH/MM3 Lymphocytes # (Auto) 1.3 TH/MM3 Monocytes # (Auto) 0.9 TH/MM3 Eosinophils # (Auto) 0.1 TH/MM3 Basophils # (Auto) 0.1 TH/MM3 CBC Comment DIFF FINAL Differential Comment Blood Urea Nitrogen 13 MG/DL Creatinine 0.79 MG/DL Random Glucose 130 MG/DL Calcium Level 9.5 MG/DL Sodium Level 135 MEQ/L Potassium Level 4.0 MEQ/L Chloride Level 96 MEQ/L Carbon Dioxide Level 31.2 MEQ/L Anion Gap 8 MEQ/L Estimat Glomerular Filtration Rate 100 ML/MIN Administered Medications Medications (Trade) Dose Ordered Sig/Luis Route PRN Reason Start Time Stop Time Status Last Admin Dose Admin Sodium Chloride (NS Flush) 2 ml UNSCH PRN IV FLUSH FLUSH AFTER USING IV ACCESS 10/30/16 20:00 11/02/16 05:51 Sodium Chloride (NS Flush) 2 ml BID IV FLUSH 10/30/16 21:00 11/16/16 08:19 Morphine Sulfate (Morphine Inj) 4 mg Q3H PRN IV BREAKTHROUGH PAIN 10/31/16 10:30 11/16/16 10:01 Nicotine (Habitrol 21 Mg Patch.24 Hr) 1 patch DAILY T-DERMAL 10/31/16 10:30 11/16/16 08:19 Miscellaneous Information 1 DAILY T-DERMAL 11/01/16 09:00 11/16/16 08:19 Senna/Docusate Sodium (Dior-Colace) 1 tab BID PO 11/01/16 09:00 11/15/16 20:20 Insulin Aspart (NovoLOG SUPPLEMENTAL SCALE) 1 ACHS SLIDING SCALE SQ 11/01/16 11:00 11/16/16 13:33 Metformin HCl (Glucophage) 500 mg BIDPC PO 11/02/16 18:00 Future hold 11/14/16 17:14 Oxycodone/ Acetaminophen (Percocet 10-325 Mg) 1 tab Q4H PRN PO PAIN SCALE 6 TO 10 11/02/16 15:14 11/16/16 12:51 Enoxaparin Sodium (Lovenox Inj) 40 mg Q24H SQ 11/03/16 08:30 Future Hold 11/06/16 09:21 Insulin Detemir (Levemir Inj) 10 units DAILY SQ 11/03/16 10:00 11/16/16 08:14 Guaifenesin (Mucinex Er) 600 mg BID PO 11/03/16 10:00 11/16/16 08:18 Cholecalciferol (Vitamin D3) 800 units DAILY PO 11/05/16 10:30 11/16/16 08:18 Lorazepam (Ativan) 0.5 mg Q12HR PO 11/07/16 21:00 11/16/16 08:18 Sucralfate (Carafate) 1 gm ACHS PO 11/09/16 16:00 11/16/16 10:02 Famotidine (Pepcid) 20 mg BID PO 11/09/16 13:15 11/16/16 08:18 Objective Remarks GENERAL: gaunt SKIN: Warm and dry. HEAD: Normocephalic. EYES: No scleral icterus. No injection or drainage. NECK: Supple, trachea midline. No JVD or lymphadenopathy. LYMPHATIC: No adenopathy. CARDIOVASCULAR: Regular rate and rhythm without murmurs. RESPIRATORY: decreased sounds left lung. GASTROINTESTINAL: Abdomen soft, non-tender, nondistended. EXTREMITIES: No cyanosis, or edema. MUSCULOSKELETAL: muscle wasting. NEUROLOGICAL: No obvious focal deficit. Awake, alert, and oriented x3. PSYCHIATRIC: Appropriate mood and affect; insight and judgment normal. Assessment/Plan Assessment 1: scalp lesion left temporal areas- patient to receive radiation therapy 2: locally advanced squamous cell cancer of the left upper lung. Patient understands he will not undergo surgery. He wants to pursue radiation therapy with concurrent chemotherapy which will probably be carbo and taxol. I have discussed case with Dr. Benedict and will place port on Friday and he can then go home and receive outpatient therapy. CT scan and path reviewed and his options are limited. Plan 1 Bulmaro Kaur MD Nov 16, 2016 14:48
--- NOTE | 2016-11-16 18:25 | HHI.PR ---
Subjective Remarks 61 YOWm with GRACIELA collapse, left latter-day mass, COPD Had Bronch done GRACIELA obstucting lesion Breathing good has pain in [facility] Lung bx Sq cell ca Surgery could't be done as tumour at the entrance of Left bronchus Objective Vital Signs Vital Signs Date Time Temp Pulse Resp B/P (MAP) Pulse Ox O2 Delivery O2 Flow Rate FiO2 11/16/16 16:00 98.1 86 16 99/57 (71) 98 11/16/16 13:18 115 11/16/16 12:00 98.5 73 16 96/55 (69) 97 11/16/16 08:00 99.1 75 16 98/54 (69) 96 11/16/16 04:00 97.6 75 18 90/54 (66) 96 11/16/16 03:06 94 11/16/16 00:00 98.2 99 18 112/56 (74) 94 11/15/16 22:12 21 11/15/16 20:00 99.0 88 18 103/55 (71) 96 I/O 11/15/16 11/15/16 11/15/16 11/16/16 11/16/16 11/16/16 07:00 15:00 23:00 07:00 15:00 23:00 Intake Total 250 ml 480 ml Output Total 300 ml Balance -50 ml 480 ml Intake Oral 480 ml Other 250 ml Output Urine Total 300 ml # Voids 1 3 # Bowel Movements 1 1 Result Diagram: 11/16/16 0759 11/16/16 0759 Objective Remarks GENERAL: MBMN WM, NAD SKIN: Warm and dry. HEAD: Normocephalic. Large mass left latter-day. EYES: No scleral icterus. No injection or drainage. NECK: Supple, trachea midline. No JVD or lymphadenopathy. CARDIOVASCULAR: Regular rate and rhythm without murmurs, gallops, or rubs. RESPIRATORY: Breath sounds equal bilaterally. No accessory muscle use. GASTROINTESTINAL: Abdomen soft, non-tender, nondistended. MUSCULOSKELETAL: No cyanosis, or edema. BACK: Nontender without obvious deformity. No CVA tenderness. A/P Assessment and Plan GRACIELA Collapse GRACIELA endobronchial lesion COPD Nicotine use Left latter-day mass Sq cell ca lung PLAN: Aerosol nebs Wean 02 Chemo/ XRT as he is not a surgical candidate. Port placement Friday. Roger Pina MD Nov 16, 2016 18:25
--- NOTE | 2016-11-16 18:51 | EKG ---
Date Performed: 11/15/2016 Time Performed: 10:12:12 PTAGE: 61 years EKG: Sinus rhythm NONSPECIFIC T-WAVE ABNORMALITY BORDERLINE ECG NO PREVIOUS TRACING DOCTOR: Susy Bee Interpretating Date/Time 11/16/2016 18:49:33
[2016-11-17] VITALS (8 sets, daily range): BP systolic 104–116; BP diastolic 55–82; PULSE 60–72; RESP 16–20; TEMP 96.6–99; O2SAT 96–98
[2016-11-17] MEDS: MORPHINE SULFATE 4 MG/ML INJ IV PRN ×6 (01:40→22:00)
[2016-11-17] MEDS: oxyCODONE/ACETAMINOPHEN 10 MG/325 MG TAB PO PRN ×6 (02:58→23:48)
[2016-11-17] MEDS: SUCRALFATE 1 GM TAB PO SCH ×4 (05:48→21:59)
[2016-11-17] MEDS: INSULIN ASPART SUPPLEMENTAL SCALE SQ SCH ×4 (05:49→22:01)
[2016-11-17] MEDS: INSULIN DETEMIR 100 UNITS/ML VIAL SQ SCH (08:03)
[2016-11-17] MEDS: FAMOTIDINE 20 MG TAB PO SCH ×2 (09:28→21:59)
[2016-11-17] MEDS: CHOLECALCIFEROL (VIT D3) 400 UNIT TAB PO SCH (09:28)
[2016-11-17] MEDS: LORazepam 0.5 MG TAB PO SCH ×2 (09:28→21:59)
[2016-11-17] MEDS: guaiFENesin E.R. 600 MG TAB PO SCH ×2 (09:28→21:59)
[2016-11-17] MEDS: NICOTINE 21 MG/24 HR PATCH T-DERMAL SCH (09:28)
[2016-11-17] MEDS: DOCUSATE SODIUM 50 MG/SENNA 8.6 MG TAB PO SCH ×2 (09:29→21:59)
[2016-11-17] MEDS: SODIUM CHLORIDE 0.9% FLUSH 10 ML FLUSH IV FLUSH SCH ×2 (09:29→22:00)
[2016-11-17] MEDS: REMOVE OLD PATCH T-DERMAL SCH (09:29)
--- NOTE | 2016-11-17 13:41 | HHI.PR ---
Subjective Remarks Follow-up lung cancer Patient reports he is feeling ok. No shortness of breath or chest pain. DW port placement for tomorrow. Objective Vitals Vital Signs Date Time Temp Pulse Resp B/P (MAP) Pulse Ox O2 Delivery O2 Flow Rate FiO2 11/17/16 12:00 98.5 61 16 110/61 (77) 97 11/17/16 10:07 72 11/17/16 08:00 99.0 67 16 113/58 (76) 96 11/17/16 04:00 98.4 72 18 116/55 (75) 97 11/17/16 00:00 98.0 63 18 104/58 (73) 97 11/16/16 20:25 78 11/16/16 20:00 98.3 68 18 101/57 (72) 97 11/16/16 16:00 98.1 86 16 99/57 (71) 98 I/O 11/16/16 11/16/16 11/16/16 11/17/16 11/17/16 11/17/16 07:00 15:00 23:00 07:00 15:00 23:00 Intake Total 480 ml Balance 480 ml Intake Oral 480 ml # Voids 3 4 # Bowel Movements 1 Result Diagram: 11/16/16 0759 11/16/16 0759 Imaging Last Impressions SPECT Scan-Bone Nuclear Medicine 11/07/16 0000 Signed Impressions: Service Date/Time: October 11:58 - CONCLUSION: 1. Large ulcerative skin mass again noted with no visualized destructive or lytic change in the adjacent bone. 2. Small subtle areas of mildly increased uptake which likely are reactive. Julio César Johnson MD Abdomen/Pelvis CT 11/07/16 0000 Signed Impressions: Service Date/Time: Tuesday, November 08, 2016 16:06 - CONCLUSION: 1. No evidence of metastatic disease. 2. Status post median sternotomy with epicardial pacer wires noted. Julio César Johnson MD Head CT 11/06/16 0000 Signed Impressions: Service Date/Time: Sunday, November 06, 2016 18:31 - CONCLUSION: 1. No intracranial abnormality is seen. 2. Large skin base lesion at the left side of the face and left frontal scalp region. Rolando Loera MD Chest X-Ray 11/02/16 0000 Signed Impressions: Service Date/Time: Wednesday, November 02, 2016 11:15 - CONCLUSION: No significant change when compared to the recent chest CT. Dense opacification remains in the left upper lobe which was shown to represent dense infiltrate with air bronchograms. There is no pneumothorax. Julio César Johnson MD Chest CT 10/31/16 0000 Signed Impressions: Service Date/Time: October 16:34 - CONCLUSION: 1. There is collapse involving the left upper lung with air bronchograms. The findings suggests a central obstructing lesion near the left hilar area. Neoplastic disease is not excluded. Recommend bronchoscopy if that has not already been performed. 2. Nonspecific interstitial infiltrates in the posterior lung bases bilaterally. 3. 6 mm nonspecific pulmonary nodule in the right midlung. This can be followed up in [address] thorax. 4. Central lobar emphysema. 5. There are some nonspecific mildly prominent lymph nodes in the mediastinum. Jaxon Chavez MD Neck CT 10/30/16 0000 Signed Impressions: Service Date/Time: Sunday, October 30, 2016 18:07 - CONCLUSION: 1. Large ulcerating cutaneous mass in left temporal region with abnormal soft tissue extending to the surface of the left temporal bone without evidence for bone invasion. 2. Abnormal consolidation and microcavity formation at left lung apex with adenopathy. Further evaluation with chest CT recommended with contrast. Joey Payan MD Objective Remarks GENERAL: This is a well-nourished, well-developed patient, in no apparent distress. SKIN: Left temporal lesion with a fungating mass. CARDIOVASCULAR: Normal rate and regular rhythm without murmurs, gallops, or rubs. RESPIRATORY: Good respiratory efforts. Breath sounds equal and clear to auscultation bilaterally. GASTROINTESTINAL: Abdomen soft, non-tender, non-distended. Normal active bowel sounds MUSCULOSKELETAL: Extremities without cyanosis, or edema. NEURO: Alert & Oriented x4 to person, place, time, situation. Moves all ext x4 PSYCH: Appropriate mood and affect. Procedures skin biopsy bronchoscopy A/P Problem List: (1) Skin cancer of face ICD Code: C44.300 - Unspecified malignant neoplasm of skin of unspecified part of face Status: Acute (2) Leukocytosis ICD Code: D72.829 - Elevated white blood cell count, unspecified Status: Resolved (3) Lung mass ICD Code: R91.8 - Other nonspecific abnormal finding of lung field Status: Acute (4) Tobacco abuse ICD Code: Z72.0 - Tobacco use Status: Chronic Assessment and Plan 61-year-old male with: Skin Cancer suspected status post Punch biopsy . Diagnosis of Invasive Well differentiated Squamous Cell Carcinoma. Head and Neck CT, showed large ulcerating cutaneous mass in left temporal region with abnormal soft tissue extending to the surface of the left temporal bone without bone invasion Lung cancer- s/p bronchoscopy- pathology with squamous cell carcinoma- CT surgery reconsulted for lung mass resection. however the resection was not performed since it wouldn't affect the survival- per CT surgery Dr. Kaur following. Plan for port placement tomorrow and the patient can start chemotherapy outpatient. Sepsis: Possibly secondary to infected wound as above or postobstructive pneumonia - resolved-antibiotics discontinued. Diabetes mellitus, new onset: Hemoglobin A1c 8.4. - Monitor Accu-Cheks. Cover with SSI if needed. will likely discharge on metformin. - Consulted hospice educator and dietitian Tobacco Abuse - counselled on smoking cessation - nicotine patch DVT prophylaxis - SCDs/TEDs Discharge Planning Possible discharge tomorrow after port placement. Willa Wyatt MD Nov 17, 2016 1:41 pm
--- NOTE | 2016-11-17 15:50 | HHI.PR ---
Subjective Remarks 61 YOWm with GRACIELA collapse, left gnosticist mass, COPD Had Bronch done GRACIELA obstucting lesion Breathing good has pain in Baptism Lung bx Sq cell ca No new complaint Objective Vital Signs Vital Signs Date Time Temp Pulse Resp B/P (MAP) Pulse Ox O2 Delivery O2 Flow Rate FiO2 11/17/16 12:00 98.5 61 16 110/61 (77) 97 11/17/16 10:07 72 11/17/16 08:00 99.0 67 16 113/58 (76) 96 11/17/16 04:00 98.4 72 18 116/55 (75) 97 11/17/16 00:00 98.0 63 18 104/58 (73) 97 11/16/16 20:25 78 11/16/16 20:00 98.3 68 18 101/57 (72) 97 11/16/16 16:00 98.1 86 16 99/57 (71) 98 I/O 11/16/16 11/16/16 11/16/16 11/17/16 11/17/16 11/17/16 06:59 14:59 22:59 06:59 14:59 22:59 Intake Total 480 ml 480 ml Balance 480 ml 480 ml Intake Oral 480 ml 480 ml # Voids 3 4 3 # Bowel Movements 1 1 Result Diagram: 11/16/16 0759 11/16/16 0759 Objective Remarks GENERAL: MBMN WM, NAD SKIN: Warm and dry. HEAD: Normocephalic. Large mass left gnosticist. EYES: No scleral icterus. No injection or drainage. NECK: Supple, trachea midline. No JVD or lymphadenopathy. CARDIOVASCULAR: Regular rate and rhythm without murmurs, gallops, or rubs. RESPIRATORY: Breath sounds equal bilaterally. No accessory muscle use. GASTROINTESTINAL: Abdomen soft, non-tender, nondistended. MUSCULOSKELETAL: No cyanosis, or edema. BACK: Nontender without obvious deformity. No CVA tenderness. A/P Assessment and Plan GRACIELA Collapse GRACIELA endobronchial lesion COPD Nicotine use Left gnosticist mass Sq cell ca lung PLAN: Aerosol nebs Wean 02 Chemo/ XRT as he is not a surgical candidate. Port placement Friday. Roger Pina MD Nov 17, 2016 15:50
[2016-11-18] VITALS (11 sets, daily range): BP systolic 107–148; BP diastolic 59–68; PULSE 52–71; RESP 16–20; TEMP 96.7–98.1; O2SAT 79–99
[2016-11-18] MEDS: MORPHINE SULFATE 4 MG/ML INJ IV PRN ×4 (01:19→16:04)
[2016-11-18] MEDS: oxyCODONE/ACETAMINOPHEN 10 MG/325 MG TAB PO PRN ×3 (03:56→17:45)
[2016-11-18] MEDS: INSULIN ASPART SUPPLEMENTAL SCALE SQ SCH ×3 (06:07→15:17)
[2016-11-18] MEDS: SUCRALFATE 1 GM TAB PO SCH ×3 (06:40→15:18)
[2016-11-18] MEDS: FAMOTIDINE 20 MG TAB PO SCH (08:11)
[2016-11-18] MEDS: guaiFENesin E.R. 600 MG TAB PO SCH (08:11)
[2016-11-18] MEDS: LORazepam 0.5 MG TAB PO SCH (08:11)
[2016-11-18] MEDS: DOCUSATE SODIUM 50 MG/SENNA 8.6 MG TAB PO SCH (08:11)
[2016-11-18] MEDS: SODIUM CHLORIDE 0.9% FLUSH 10 ML FLUSH IV FLUSH SCH (08:11)
[2016-11-18] MEDS: CHOLECALCIFEROL (VIT D3) 400 UNIT TAB PO SCH (08:11)
[2016-11-18] MEDS: REMOVE OLD PATCH T-DERMAL SCH (08:12)
[2016-11-18] MEDS: NICOTINE 21 MG/24 HR PATCH T-DERMAL SCH (08:12)
[2016-11-18] MEDS: INSULIN DETEMIR 100 UNITS/ML VIAL SQ SCH (08:12)
[2016-11-18] MEDS: metFORMIN HCL 500 MG TAB PO SCH ×2 (09:00→17:45)
[2016-11-18] MEDS: ceFAZolin 2 GM PREMIX 50 ML IV SCH ×2 (12:00→13:39)
[2016-11-18] MEDS ORDERED: LIDOCAINE 1%/EPINEPHrine 1:200,000 PF SOLN 30 ML VIAL ONE (12:18)
[2016-11-18] MEDS ORDERED: OXYC1TAB36 PO ×2 (12:21→12:32)
--- NOTE | 2016-11-18 12:23 | HHI.DS ---
Discharge Summary Admission Date Nov 01, 2016 at 10:03 Discharge Date: Nov 18, 2016 Admitting Diagnosis facial mass, cellulitis, lung nodule (1) Skin cancer of face ICD Code: C44.300 - Unspecified malignant neoplasm of skin of unspecified part of face Status: Acute (2) Leukocytosis ICD Code: D72.829 - Elevated white blood cell count, unspecified Status: Resolved (3) Lung mass ICD Code: R91.8 - Other nonspecific abnormal finding of lung field Status: Acute (4) Tobacco abuse ICD Code: Z72.0 - Tobacco use Status: Chronic Procedures skin biopsy bronchoscopy Brief History - From Admission History of present illness from the admitting physician The patient states he was seen at [facility] with cancerous lesion on face He was discharged with dermatology follow up - was unable to be seen due to lack of insurance; lesion has never been biopsied The lesion has been present for 3 months, progressively enlarging, changing contours, painful, not bleeding, no visual changes, no headaches Denies paresthesias, falling down, problems with balance, weakness Denies fevers, reports drainage - yellowish, n/v/d, black or red stool, Over the past month the lesion has gotten "big" Denies excessive sun exposure, "definitely not a sun worshiper" Denies injury to area Reports chronic "smokers cough" - nonproductive Reports weight loss of 20 lbs over the past 2 months Weight loss was related to loss of appetite - skips lunch Denies dysphagia Sometimes has night sweat - symptoms present past 5-6 years . CBC/BMP: 11/16/16 0759 11/16/16 0759 Significant Findings Laboratory Tests Test 11/16/16 07:59 Red Blood Count 4.11 MIL/MM3 (4.50-5.90) Hemoglobin 11.5 GM/DL (13.0-17.0) Hematocrit 35.5 % (39.0-51.0) Monocytes (%) (Auto) 15.2 % (0.0-8.0) Random Glucose 130 MG/DL (74-106) Sodium Level 135 MEQ/L (136-145) Chloride Level 96 MEQ/L (98-107) Imaging Last Impressions SPECT Scan-Bone Nuclear Medicine 11/07/16 0000 Signed Impressions: Service Date/Time: October 11:58 - CONCLUSION: 1. Large ulcerative skin mass again noted with no visualized destructive or lytic change in the adjacent bone. 2. Small subtle areas of mildly increased uptake which likely are reactive. Julio César Johnson MD Abdomen/Pelvis CT 11/07/16 0000 Signed Impressions: Service Date/Time: Tuesday, November 08, 2016 16:06 - CONCLUSION: 1. No evidence of metastatic disease. 2. Status post median sternotomy with epicardial pacer wires noted. Julio César Johnson MD Head CT 11/06/16 0000 Signed Impressions: Service Date/Time: Sunday, November 06, 2016 18:31 - CONCLUSION: 1. No intracranial abnormality is seen. 2. Large skin base lesion at the left side of the face and left frontal scalp region. Rolando Loera MD Chest X-Ray 11/02/16 0000 Signed Impressions: Service Date/Time: Wednesday, November 02, 2016 11:15 - CONCLUSION: No significant change when compared to the recent chest CT. Dense opacification remains in the left upper lobe which was shown to represent dense infiltrate with air bronchograms. There is no pneumothorax. Julio César Johnson MD Chest CT 10/31/16 0000 Signed Impressions: Service Date/Time: October 16:34 - CONCLUSION: 1. There is collapse involving the left upper lung with air bronchograms. The findings suggests a central obstructing lesion near the left hilar area. Neoplastic disease is not excluded. Recommend bronchoscopy if that has not already been performed. 2. Nonspecific interstitial infiltrates in the posterior lung bases bilaterally. 3. 6 mm nonspecific pulmonary nodule in the right midlung. This can be followed up in [address] thorax. 4. Central lobar emphysema. 5. There are some nonspecific mildly prominent lymph nodes in the mediastinum. Jaxon Chavez MD Neck CT 10/30/16 0000 Signed Impressions: Service Date/Time: Sunday, October 30, 2016 18:07 - CONCLUSION: 1. Large ulcerating cutaneous mass in left temporal region with abnormal soft tissue extending to the surface of the left temporal bone without evidence for bone invasion. 2. Abnormal consolidation and microcavity formation at left lung apex with adenopathy. Further evaluation with chest CT recommended with contrast. Joey Payan MD PE at Discharge GENERAL: This is a well-nourished, well-developed patient, in no apparent distress. SKIN: Left temporal lesion with a fungating mass. CARDIOVASCULAR: Normal rate and regular rhythm without murmurs, gallops, or rubs. RESPIRATORY: Good respiratory efforts. Breath sounds equal and clear to auscultation bilaterally. GASTROINTESTINAL: Abdomen soft, non-tender, non-distended. Normal active bowel sounds MUSCULOSKELETAL: Extremities without cyanosis, or edema. NEURO: Alert & Oriented x4 to person, place, time, situation. Moves all ext x4 PSYCH: Appropriate mood and affect. Pt update on day of discharge Patient reports is feeling okay except for left temporal region where he has the wound. He denies chest pain or shortness of breath. Hospital Course 61-year-old male who presented with a fungating mass over the left druze region. Patient underwent biopsy which revealed invasive, well-differentiated squamous cell carcinoma. The patient was also found to have lung cancer- s/p bronchoscopy- pathology with squamous cell carcinoma- CT surgery reconsulted for lung mass resection. however the resection was not performed since it wouldn 't affect the survival. Patient followed by oncology. He would have a port placed and discharged to have chemotherapy and radiation started outpatient. Other conditions treated include: Sepsis: Possibly secondary to infected wound as above or postobstructive pneumonia - resolved-antibiotics discontinued. Diabetes mellitus, new onset: Hemoglobin A1c 8.4. -Patient seen by medical educator. He is discharged on metformin. Tobacco Abuse - counselled on smoking cessation - nicotine patch Patient will have port placement today. He does not have insurance. He can be discharged after the ports is placed and case management arranged for outpatient follow-up with oncology through patient assistance. Pt Condition on Discharge: Stable Discharge Disposition: Discharge Home Discharge Time: > 30 minutes Discharge Instructions DIET: Follow Instructions for: Heart Healthy Diet Activities you can perform: Regular-No Restrictions Follow up Referrals: Oncology PCP Follow-up Pulmonology New Medications: Cholecalciferol (Vitamin D3) 400 Unit Tab 800 UNITS PO DAILY for vitamin for 30 Days, TAB 0 Refills Metformin (Glucophage) 500 Mg Tab 500 MG PO BIDPC for diabetes for 30 Days, TAB 0 Refills Oxycodone-Acetaminophen (Oxycodone-Acetaminophen) 10-325 mg Tab 1 TAB PO Q4H PRN for PAIN GREATER THAN 5, #30 TAB Continued Medications: Aspirin (Aspirin) 81 Mg Chew 81 MG CHEW DAILY, TAB 0 Refills Willa Wyatt MD Nov 18, 2016 12:23
[2016-11-18] MEDS ORDERED: SODIUM CHLOR 0.9% 250 ML INJ 250 ML ONE (12:33)
[2016-11-18] MEDS ORDERED: VANCOMYCIN HCL 1000 MG VIAL ONE (12:33)
[2016-11-18] MEDS ORDERED: MIDAZOLAM HCL 2 MG/2 ML VIAL ONE (12:33)
[2016-11-18] MEDS ORDERED: SODIUM CHLORIDE 0.9% FLUSH 10 ML FLUSH IVF PRN (13:45)
--- NOTE | 2016-11-18 13:47 | PD.RAD ---
Post Procedure Progress Note Pre Procedure Diagnosis: (1) Lung mass (2) Skin cancer of face Post Procedure Diagnosis: (1) Lung mass (2) Skin cancer of face Procedure Date: Nov 18, 2016 Supervising Radiologist: Rolando Lee Proceduralist/Assist: Shirin Cosme RT(R) Anesthesia: Local, Conscious Sedation Plan of Activity Patient to Unit: ROPU Patient Condition: Good See PACS Report for procedural detail/treatment Central Venous Access Device Procedure 1 Right Internal Jugular Infusaport Placement single lumen [place]araguan: 8 Rolando Lee MD Nov 18, 2016 13:47
--- NOTE | 2016-11-18 15:31 | RADRPT ---
EXAM DATE/TIME: 11/18/2016 12:19 [place] COMPARISON: No previous studies available for comparison. INDICATIONS : Patient presents with cancerous amish lesion in need of port placement for chemotherapy treatment. MEDICAL HISTORY : HTN CAD CHF COPD Asthma Liver and kidney problems DVT PE CVA Prostate issues SURGICAL HISTORY : CABG Left leg sx at age 34 ENCOUNTER: Initial ACUITY: 3 months PAIN SCORE: 7/10 LOCATION: Left amish. FLUORO TIME: 0.5 minutes IMAGE SERIES: 1 SEDATION TIME: 30 minutes ACCESS: Right internal jugular vein SEDATION: 1.) 3 mg midazolam (Versed) IV 2.) 150 mcg fentanyl (Sublimaze) IV Prophylactic antibiotics were administered with appropriate pre-procedure timing. Vancomycin within 2 hours of procedure, Ancef (or alternative) within 1 hour of procedure. DEVICE: 1. 8 [place]alan single lumen Smart port CT w/vortex PROCEDURE : 1. Continuous pulse oximetry and EKG monitoring. 2. Intravenous conscious sedation. 3. Ultrasound guidance for venous access. 4. Fluoroscopic guided implantable central venous port placement. The patient was placed supine. The neck was prepped in sterile fashion. Full sterile technique was u sed, including cap, mask, sterile gloves and gown, and a large sterile sheet. Hand hygiene and 2% ch lorhexidine Betadine was utilized per protocol for cutaneous antisepsis with appropriate dry time for site. The skin and subcutaneous tissues were infiltrated with local anesthetic solution. Sterile g el and sterile probe cover were utilized for ultrasound guidance. Under direct ultrasound guidance, central venous access was accomplished in the targeted vessel. The ultrasound images depicting access guidance were stored and saved to PACS for permanent record. A s ubcutaneous pocket was created using blunt dissection. The port was introduced to the pocket. The c atheter tubing was fed through a subcutaneous tunnel to the venotomy site. The catheter tubing was c ut to a suitable length and then was introduced through a valved Peel-Away sheath and positioned with catheter tubing tip at the cavo-atrial junction level. The pocket incision was closed with subcutic ular Vicryl suture. Steri-Strips were applied. The port was flushed and locked with heparin solutio n per protocol. Sterile dressing was applied to the site. The patient tolerated the procedure well. Conscious sedation was performed with the prescribed dosages and duration as above in the presence of an independent trained radiology nurse to assist in the monitoring of the patient. EKG and oximetry remained stable throughout the procedure. The patient tolerated the procedure well and there were no complications. The patient was sent to post anesthesia recovery in stable condition. CONCLUSION: Uncomplicated ultrasound and fluoroscopic guided implanted central venous port catheter placement as described in detail above. An 8 Guatemalan Power port was placed. Rolando Lee MD on November 18, 2016 at 15:30 Board Certified Radiologist. This report was verified electronically.
[2017-01-10] MEDS ORDERED: HYDR-3535 PO (10:51)
[2017-01-10] MEDS ORDERED: LOVA10TA PO (11:11)
[2017-01-10] MEDS ORDERED: METF500 PO (11:11)
[2017-01-10] MEDS ORDERED: GLIP5TAB8 PO (11:11)
[2017-01-10] MEDS ORDERED: SILV1CRE20 TOPICAL (11:15)
== END 2016-11-18 19:19 | disposition home or self-care (01) | DRG 579 ==
LOC: NEPD 15:02 → NEDA 20:07 → NEPGCP 10-31 00:46 → OBSVTOIN 11-01 10:03 → HOCA 11-01 16:17 → N05A 11-04 16:29
PROVIDERS: ADMIT Internal Medicine; ATTEND Family Medicine
PROC: 0BB88ZX Excision of Left Upper Lobe Bronchus, Via Natural or Artificial Opening Endoscopic, Diagnostic (ICD-10-PCS; 2016-11-02)
PROC: 0B988ZX Drainage of Left Upper Lobe Bronchus, Via Natural or Artificial Opening Endoscopic, Diagnostic (ICD-10-PCS; 2016-11-02)
PROC: 0HB0XZX Excision of Scalp Skin, External Approach, Diagnostic (ICD-10-PCS; principal; 2016-11-07)
PROC: 0BJ08ZZ Inspection of Tracheobronchial Tree, Via Natural or Artificial Opening Endoscopic (ICD-10-PCS; 2016-11-15)
PROC: 0JH60XZ Insertion of Tunneled Vascular Access Device into Chest Subcutaneous Tissue and Fascia, Open Approach (ICD-10-PCS; 2016-11-18)
PROC: 02HV33Z Insertion of Infusion Device into Superior Vena Cava, Percutaneous Approach (ICD-10-PCS; 2016-11-18)
DX: C44.329 Squamous cell carcinoma of skin of other parts of face (principal); A41.9 Sepsis, unspecified organism; J18.9 Pneumonia, unspecified organism; C34.12 Malignant neoplasm of upper lobe, left bronchus or lung; J44.0 Chronic obstructive pulmonary disease with (acute) lower respiratory infection; I10 Essential (primary) hypertension; L03.211 Cellulitis of face; J44.1 Chronic obstructive pulmonary disease with (acute) exacerbation; J98.19 Other pulmonary collapse; Z68.1 Body mass index [BMI] 19.9 or less, adult; E11.65 Type 2 diabetes mellitus with hyperglycemia; I25.10 Atherosclerotic heart disease of native coronary artery without angina pectoris; F17.210 Nicotine dependence, cigarettes, uncomplicated; B96.1 Klebsiella pneumoniae [K. pneumoniae] as the cause of diseases classified elsewhere; B96.5 Pseudomonas (aeruginosa) (mallei) (pseudomallei) as the cause of diseases classified elsewhere; B95.61 Methicillin susceptible Staphylococcus aureus infection as the cause of diseases classified elsewhere; K59.00 Constipation, unspecified; R63.4 Abnormal weight loss; Z95.1 Presence of aortocoronary bypass graft
CPT/HCPCS: 36561; 70470; 70491; 71010; 71260; 74177; 76000; 76937; 77001; 77263; 77290; 77295; 77300; 77334; 78306; 78320; 78399; 80048; 80053; 80061; 81001; 82306; 82607; 82746; 82948; 83036; 83605; 83735; 84443; 85025; 85610; 85730; 86403; 86850; 86900; 86901; 87015; 87040; 87070; 87077; 87102; 87116; 87147; 87176; 87186; 87205; 87206; 88305; 93005; 94010; 94150; 94640; 94664; 96365; 96375; 96376; 99152; 99153; 99223; A9503; C1788; G0378; J0171; J0690; J1642; J1650; J1815; J1956; J2250; J2270; J3010; J3370; J7030; J7050; J7120; Q9963; Q9967

== ENCOUNTER 2016-11-29 13:07 | Emergency (ER) | payer OTHER ==
[~2016-11-29] VITALS: Ht 175.3 cm; Wt 70.0 kg
[~2016-11-29 13:07] MED LIST changes: +ASPI81CH CHEW; -ASPI81TA82 PO; -EC-N500T7 PO; -MEDR4PAK3 PO; +METF500 PO; +OXYC1TAB36 PO; +VITD400 PO
[2016-11-29 13:10] VITALS: BP 140/48; PULSE 103; RESP 16; TEMP 98.4; O2SAT 98
[2016-11-29] MEDS ORDERED: predniSONE 20 MG TAB PO ONE (13:45)
[2016-11-29] MEDS ORDERED: PRED20 PO (13:55)
--- NOTE | 2016-11-29 14:06 | PD ---
HPI Chief Complaint: Skin Problem Time Seen by Provider: 13:16 Travel History International Travel<30 days: No Contact w/Intl Traveler<30days: No Traveled to known affect area: No History of Present Illness HPI This patient has been receiving radiation treatments to a huge cancerous lesion in the left yazdanism. It extends close to the eye but not including. He received radiation therapy this morning. At that time as noted he had swelling of the left eyelid and they told him to come to the ER. He has no fever or drainage. His vision has not changed. Symptoms severity is mild to moderate. PFSH Past Medical History Heart Rhythm Problems: No Cancer: Yes (SKIN /LUNG CA ) Cardiac Catheterization: Yes Cardiovascular Problems: Yes High Cholesterol: Yes Congestive Heart Failure: No Coronary Artery Disease: Yes Diabetes: Yes Patient Takes Glucophage: Yes Diminished Hearing: No Endocrine: No Genitourinary: No Hypertension: Yes Musculoskeletal: Yes (left leg fx x 2) Neurologic: No Respiratory: Yes Radiation Therapy: Yes Tetanus Vaccination: Unknown Influenza Vaccination: No Past Surgical History Cardiac Surgery: Yes (by pass 2009 ) Coronary Artery Bypass Graft: Yes (X 4 2009 ) Social History Alcohol Use: Yes (RARELY ) Tobacco Use: No (QUIT 3 WEEKS AGO ) Substance Use: No Allergies-Medications (Allergen,Severity, Reaction): Coded Allergies: *MDRO Multi-Drug Resistant Organism (Verified Adverse Reaction, Unknown, ) 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 There is no erythema or warmth or tenderness. Right eyelid is normal NECK: Symmetrical appearance, midline trachea. No mass or crepitus. Thyroid without enlargement, tenderness, or mass. Sclerae clear and pupil function and extraocular muscle function intact On his scalp is a large circular cancerous lesion that gets radiated and is chronic Data Data Last Documented VS Vital Signs Date Time Temp Pulse Resp B/P (MAP) Pulse Ox O2 Delivery O2 Flow Rate FiO2 11/29/16 13:10 98.4 103 16 140/48 (78) 98 Orders Orders Prednisone (Deltasone) (11/29/16 13:45) MDM Medical Decision Making Medical Screen Exam Complete: Yes Emergency Medical Condition: Yes Medical Record Reviewed: Yes Differential Diagnosis Allergic reaction, orbital cellulitis, stye Narrative Course I have reviewed the patient's electronic medical record. This patient has an allergic response to something. Possibly due to the radiation given it is unilateral and right near the radiation site. Any event there is no clinical suspicion of infectious cause. I gave him a dose of prednisone and he will take 5 days of prednisone and Benadryl as needed. He is to discuss this with his physician Diagnosis Primary Impression: Allergic reaction Qualified Codes: T78.40XA - Allergy, unspecified, initial encounter Additional Instructions: The patient was advised to follow up with their physician and return if they worsen. Med/Other Pt SpecificInfo: Prescription(s) given Scripts Prednisone (Prednisone) 20 Mg Tab 40 MG PO DAILY, #10 TAB 0 Refills Take 40 mg (2 tablets) daily for 5 days Prov: Christopher Escobar MD 11/29/16 Disposition: 01 DISCHARGE HOME Condition: Stable Christopher Escobar MD Nov 29, 2016 14:06
[2017-01-10] MEDS ORDERED: HYDR-3535 PO (10:51)
[2017-01-10] MEDS ORDERED: GLIP5TAB8 PO (11:11)
[2017-01-10] MEDS ORDERED: METF500 PO (11:11)
[2017-01-10] MEDS ORDERED: LOVA10TA PO (11:11)
[2017-01-10] MEDS ORDERED: SILV1CRE20 TOPICAL (11:15)
== END 2016-11-29 14:31 | disposition home or self-care (01) ==
LOC: NEPD 13:07
DX: C44.309 Unspecified malignant neoplasm of skin of other parts of face (principal); T78.40XA Allergy, unspecified, initial encounter
CPT/HCPCS: 99283; J7512

== ENCOUNTER 2016-12-18 11:54 | Emergency (ER) | payer OTHER ==
[~2016-12-18] VITALS: Ht 175.3 cm; Wt 72.5 kg
[2016-12-18 11:54] VITALS: BP 133/66; PULSE 79; RESP 16; TEMP 98.9; O2SAT 96
[~2016-12-18 11:54] MED LIST changes: +PRED20 PO; -VITD400 PO
[2016-12-18] MEDS ORDERED: IOHEXOL 350 MG/ML 10 ML VIAL (for RAD DIAG) IVCONTRAST ONE (11:55)
--- NOTE | 2016-12-18 12:00 | PD ---
Physical Exam Time Seen by Provider: 12:00 Narrative 61 y/o male here with loss of balance, forgetfullness since yesterday, L periorbital swelling for weeks. He says that he was sent by Dr. Staton. He is a poor historian. Vital signs reviewed. Seen at triage desk. Awaiting bed placement. Data Data Last Documented VS Vital Signs Date Time Temp Pulse Resp B/P (MAP) Pulse Ox O2 Delivery O2 Flow Rate FiO2 12/18/16 11:54 98.9 79 16 133/66 (88) 96 Room Air [facility] Medical Record Reviewed: Yes Supervised Visit with JOSE: Rakesh Hanna Dec 18, 2016 12:00
[2016-12-18] MEDS ORDERED: SODIUM CHLORIDE 0.9% FLUSH 10 ML FLUSH IVF PRN (12:30)
--- NOTE | 2016-12-18 12:47 | PD ---
HPI Chief Complaint: Skin Problem Time Seen by Provider: 12:25 Travel History International Travel<30 days: No Contact w/Intl Traveler<30days: No Traveled to known affect area: No History of Present Illness HPI 61-year-old male with history of stage IV skin and lung cancer, has a large mass on the left forehead area for which she has been getting radiation therapy daily with Dr. Altman, presents to the ER today because he has been having several weeks' history of worsening dizziness intermittently, difficulties with balance according to . In addition, they have noticed that his left eye is getting more more swollen. He denies any headaches, vomiting, or any other issues. Modifying Factors: None Associated Signs & Symptoms: Dizziness, difficulties with balance, left eye swelling Risk Factors: Left forehead cancer mass PFSH Past Medical History Heart Rhythm Problems: No Cancer: Yes (SKIN /LUNG CA ) Cardiac Catheterization: Yes Cardiovascular Problems: Yes High Cholesterol: Yes Congestive Heart Failure: No Coronary Artery Disease: Yes Diabetes: Yes Patient Takes Glucophage: No Diminished Hearing: No Endocrine: No Genitourinary: No Hypertension: Yes Musculoskeletal: Yes (left leg fx x 2) Neurologic: No Respiratory: Yes Radiation Therapy: Yes Past Surgical History Cardiac Surgery: Yes (by pass 2009 ) Coronary Artery Bypass Graft: Yes (X 4 2010 ) Other Surgery: Yes (cabg) Social History Alcohol Use: Yes (RARELY ) Tobacco Use: No (QUIT 3 WEEKS AGO ) Substance Use: No Allergies-Medications (Allergen,Severity, Reaction): Coded Allergies: *MDRO Multi-Drug Resistant Organism (Verified Adverse Reaction, Unknown, ) 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 Awake and oriented 3, mildly lethargic. SKIN: Focused skin assessment warm/dry. HEAD: There is a large fungating left forehead mass with surrounding erythema. Normocephalic. EYES: Pupils equal and round. No scleral icterus. No injection or drainage. Left upper eyelid edema and erythema. Nontender to palpation. ENT: No nasal bleeding or discharge. Mucous membranes pink and moist. NECK: Trachea midline. No JVD. CARDIOVASCULAR: Regular rate and rhythm. No murmur appreciated. RESPIRATORY: No accessory muscle use. Clear to auscultation. Breath sounds equal bilaterally. GASTROINTESTINAL: Abdomen soft, non-tender, nondistended. Hepatic and splenic margins not palpable. MUSCULOSKELETAL: No obvious deformities. No clubbing. No cyanosis. No edema. NEUROLOGICAL: Awake and alert. No obvious cranial nerve deficits. Motor grossly within normal limits. Normal speech. PSYCHIATRIC: Appropriate mood and affect; insight and judgment normal. Data Data Last Documented VS Vital Signs Date Time Temp Pulse Resp B/P (MAP) Pulse Ox O2 Delivery O2 Flow Rate FiO2 12/18/16 12:29 (88) Room Air 12/18/16 12:11 18 12/18/16 11:54 98.9 79 96 Orders Orders Electrocardiogram (12/18/16 12:26) Complete Blood Count With Diff (12/18/16 12:26) Comprehensive Metabolic Panel (12/18/16 12:26) Magnesium (Mg) (12/18/16 12:26) Urinalysis - C+S If Indicated (12/18/16 12:26) Ct Brain W/O Iv Contrast(Rout) (12/18/16 12:26) Ecg Monitoring (12/18/16 12:26) Iv Access Insert/Monitor (12/18/16 12:26) Oximetry (12/18/16 12:26) Sodium Chloride 0.9% Flush (Ns Flush) (12/18/16 12:30) Ct Facial Bones W Iv Contrast (12/18/16 ) Iohexol 350 Inj (Omnipaque 350 Inj) (12/18/16 11:55) Labs Laboratory Tests Test 12/18/16 12:30 12/18/16 13:45 White Blood Count 11.9 TH/MM3 Red Blood Count 4.14 MIL/MM3 Hemoglobin 11.7 GM/DL Hematocrit 35.7 % Mean Corpuscular Volume 86.3 FL Mean Corpuscular Hemoglobin 28.4 PG Mean Corpuscular Hemoglobin Concent 32.9 % Red Cell Distribution Width 14.4 % Platelet Count 257 TH/MM3 Mean Platelet Volume 7.7 FL Neutrophils (%) (Auto) 75.2 % Lymphocytes (%) (Auto) 16.5 % Monocytes (%) (Auto) 6.1 % Eosinophils (%) (Auto) 1.6 % Basophils (%) (Auto) 0.6 % Neutrophils # (Auto) 8.9 TH/MM3 Lymphocytes # (Auto) 2.0 TH/MM3 Monocytes # (Auto) 0.7 TH/MM3 Eosinophils # (Auto) 0.2 TH/MM3 Basophils # (Auto) 0.1 TH/MM3 CBC Comment DIFF FINAL Differential Comment Blood Urea Nitrogen 12 MG/DL Creatinine 0.67 MG/DL Random Glucose 194 MG/DL Total Protein 7.5 GM/DL Albumin 3.3 GM/DL Calcium Level 10.4 MG/DL Magnesium Level 1.8 MG/DL Alkaline Phosphatase 79 U/L Aspartate Amino Transf (AST/SGOT) 14 U/L Alanine Aminotransferase (ALT/SGPT) 15 U/L Total Bilirubin 0.4 MG/DL Sodium Level 134 MEQ/L Potassium Level 3.6 MEQ/L Chloride Level 97 MEQ/L Carbon Dioxide Level 28.5 MEQ/L Anion Gap 9 MEQ/L Estimat Glomerular Filtration Rate 121 ML/MIN Urine Color YELLOW Urine Turbidity CLEAR Urine pH 5.5 Urine Specific [place] 1.020 Urine Protein TRACE mg/dL Urine Glucose (UA) NEG mg/dL Urine Ketones NEG mg/dL Urine Occult Blood NEG Urine Nitrite NEG Urine Bilirubin NEG Urine Urobilinogen LESS THAN 2.0 MG/DL Urine Leukocyte Esterase NEG Urine RBC 3 /hpf Urine WBC 1 /hpf Urine Squamous Epithelial Cells <1 /hpf Urine Hyaline Casts 1 /lpf Urine Mucus FEW /lpf Microscopic Urinalysis Comment CULT NOT INDICATED MDM Medical Decision Making Medical Screen Exam Complete: Yes Emergency Medical Condition: Yes Medical Record Reviewed: Yes Interpretation(s) Laboratory Tests Test 12/18/16 12:30 12/18/16 13:45 White Blood Count 11.9 TH/MM3 (4.0-11.0) Red Blood Count 4.14 MIL/MM3 (4.50-5.90) Hemoglobin 11.7 GM/DL (13.0-17.0) Hematocrit 35.7 % (39.0-51.0) Neutrophils (%) (Auto) 75.2 % (16.0-70.0) Neutrophils # (Auto) 8.9 TH/MM3 (1.8-7.7) Random Glucose 194 MG/DL (74-106) Albumin 3.3 GM/DL (3.4-5.0) Calcium Level 10.4 MG/DL (8.5-10.1) Aspartate Amino Transf (AST/SGOT) 14 U/L (15-37) Sodium Level 134 MEQ/L (136-145) Chloride Level 97 MEQ/L (98-107) Urine Mucus FEW /lpf (OCC) Differential Diagnosis Dizziness, balance issues, left eyelid swelling: Blepharitis versus sepsis versus mass effect versus intracranial mass versus endophthalmitis Narrative Course Lab work did not reveal any signs of acute processes. CAT scan of the head and face did not reveal any signs of ocular involvement or orbital involvement or intracranial involvement. At this point, patient is conversant, does not appear to be in any acute distress and has no obvious focal deficits. I have discussed the findings with the patient and he states that he wants to go home. Considering a do not see any signs of obvious acute processes and no focal deficits, My plan would be to release the patient with follow-up to oncology and ophthalmology as an outpatient. Return for any worsening in symptoms as necessary. The plan has been discussed with him and he states understanding. I suspect that the swelling of the eyelid is secondary to edema and mass effect on the left side. Diagnosis Primary Impression: Edema of left eyelid Additional Impression: Skin cancer of face Referrals: Jen Alonzo MD Disposition: 01 DISCHARGE HOME Condition: Stable Stephanie Hernandez MD Dec 18, 2016 12:47
[2016-12-18] MEDS ORDERED: LORA-392 SL (13:05)
[2016-12-18] MEDS ORDERED: SENN8.6T88 PO (13:05)
[2016-12-18] MEDS ORDERED: MS C15TA2 PO (13:05)
[2016-12-18] MEDS ORDERED: METF500 PO (13:05)
[2016-12-18] MEDS ORDERED: OXYC15TA PO (13:05)
[2016-12-18 13:37] LABS: AUTOMATED NEUTROPHIL # 8.9 TH/MM3 (1.8-7.7); BASOPHIL # 0.1 TH/MM3 (0-0.2); BASOPHIL % 0.6 % (0.0-2.0); EOSINOPHIL # 0.2 TH/MM3 (0-0.4); EOSINOPHIL % 1.6 % (0.0-4.0); HEMATOCRIT 35.7 % (39.0-51.0); HEMO FLAGS DIFF FINAL; LYMPH % 16.5 % (9.0-44.0); MEAN CELL VOLUME 86.3 FL (80.0-100.0); MEAN CORPUSCULAR HEMOGLOBIN 28.4 PG (27.0-34.0); MEAN CORPUSCULAR HGB CONC 32.9 % (32.0-36.0); MONO % 6.1 % (0.0-8.0); NEUT % 75.2 % (16.0-70.0); PLATELET COUNT 257 TH/MM3 (150-450); RED BLOOD COUNT 4.14 MIL/MM3 (4.50-5.90); RED CELL DISTRIBUTION WIDTH 14.4 % (11.6-17.2); WHITE BLOOD COUNT 11.9 TH/MM3 (4.0-11.0)
[2016-12-18 14:02] LABS: ANION GAP 9 MEQ/L (5-15); AST (GOT) 14 U/L (15-37); BICARBONATE 28.5 MEQ/L (21.0-32.0); BLOOD UREA NITROGEN 12 MG/DL (7-18); CHLORIDE 97 MEQ/L (98-107); GLOMERULAR FILTRATION RATE 121 ML/MIN (>89); MAGNESIUM 1.8 MG/DL (1.5-2.5); POTASSIUM 3.6 MEQ/L (3.5-5.1); SODIUM (NA) 134 MEQ/L (136-145)
[2016-12-18 14:03] LABS: ALT (GPT) 15 U/L (12-78)
[2016-12-18 14:05] LABS: ALKALINE PHOSPHATASE 79 U/L (45-117); TOTAL BILIRUBIN ADULT 0.4 MG/DL (0.2-1.0)
[2016-12-18 14:17] LABS: BLOOD, URINE NEG (NEG); COMMENT (UR) CULT NOT INDICATED; CULTURE IF INDICATED CULT NOT INDICATED; GLUCOSE,URINE NEG (NEG); HYALINE CAST, URINE 1 /lpf (RARE); KETONE, URINE NEG (NEG); MUCUS URINE FEW /lpf (OCC); NITRITE,URINE NEG (NEG); PH, URINE 5.5 (5.0-8.5); SQUAMOUS EPITHELIAL CELL URINE <1 /hpf (0-5); URINE COLOR YELLOW (YELLW/STRAW)
--- NOTE | 2016-12-18 14:53 | RADRPT ---
EXAM DATE/TIME: 12/18/2016 14:25 [facility] COMPARISON: CT BRAIN W & W/O CONTRAST, November 06, 2016, 18:31. INDICATIONS : Dizziness with right sided eye edema. RADIATION DOSE: 56.35 CTDIvol (mGy) MEDICAL HISTORY : Cardiovascular disease. Hypertension. Skin and Lung Cancer. SURGICAL HISTORY : CABG ENCOUNTER: Initial ACUITY: 1 day PAIN SCALE: 7/10 LOCATION: Right cranial TECHNIQUE: Multiple contiguous axial images were obtained of the head. Using automated exposure control and adjustment of the mA and/or kV according to patient size, radiation dose was kept as low as reasonably achievable to obtain optimal diagnostic quality images. DICOM format image data is av ailable electronically for review and comparison. FINDINGS: Intracranial contents are unremarkable. There is no parenchymal hemorrhage, acute infa rction or mass lesion. There are no extra-axial fluid collections appreciated. Large soft tissue mass is seen over the left side of the face described on multiple previous exams. CONCLUSION: Intracranial contents unremarkable. Henry Soto MD FACR on December 18, 2016 at 14:50 Board Certified Radiologist. This report was verified electronically.
--- NOTE | 2016-12-18 15:15 | RADRPT ---
EXAM DATE/TIME: 12/18/2016 14:31 [facility] COMPARISON: No previous studies available for comparison. INDICATIONS : Right sided eye edema for two weeks. IV CONTRAST: 86 cc Omnipaque 350 (iohexol) IV RADIATION DOSE: 36.46 CTDIvol (mGy) MEDICAL HISTORY : Cardiovascular disease. Hypertension. Skin and Lung Cancer. SURGICAL HISTORY : CABG ENCOUNTER: Initial ACUITY: 2 months PAIN SCALE: 7/10 LOCATION: Right facial eye region. TECHNIQUE: Volumetric scanning of the facial bones was performed. Using automated exposure contr ol and adjustment of the mA and/or kV according to patient size, radiation dose was kept as low as re asonably achievable to obtain optimal diagnostic quality images. DICOM format image data is availabl e electronically for review and comparison. FINDINGS: The large soft tissue mass on the left side of the face has now grown into the lateral orbit with edema involving the eyelid. Tumor is in intimate association with the superior and inferi or levator. Retroconal structures remain intact. The infraorbital nerve and supraorbital nerve and v ein would be at risk with orbital involvement. CONCLUSION: Soft tissue mass as described above. Henry Soto MD FACR on December 18, 2016 at 14:53 Board Certified Radiologist. This report was verified electronically.
--- NOTE | 2016-12-19 08:02 | EKG ---
Date Performed: 12/18/2016 Time Performed: 12:49:57 PTAGE: 61 years EKG: Sinus rhythm POSSIBLE LEFT ATRIAL ENLARGEMENT POSSIBLE RIGHT VENTRICULAR CONDUCTION DELAY POSSIBLE LEFT VENTRICUL AR HYPERTROPHY ABNORMAL ECG Since PREVIOUS TRACING , no significant change noted PREVIOUS TRACIN11/15/2016 10.12 DOCTOR: Fanny Balderrama Interpretating Date/Time 12/19/2016 08:01:09
[2017-01-10] MEDS ORDERED: HYDR-3535 PO (10:51)
[2017-01-10] MEDS ORDERED: METF500 PO (11:11)
[2017-01-10] MEDS ORDERED: GLIP5TAB8 PO (11:11)
[2017-01-10] MEDS ORDERED: LOVA10TA PO (11:11)
[2017-01-10] MEDS ORDERED: SILV1CRE20 TOPICAL (11:15)
== END 2016-12-18 15:52 | disposition home or self-care (01) ==
LOC: NEPE 11:54
DX: H02.846 Edema of left eye, unspecified eyelid (principal); Z85.828 Personal history of other malignant neoplasm of skin; Z85.118 Personal history of other malignant neoplasm of bronchus and lung; E11.9 Type 2 diabetes mellitus without complications; I10 Essential (primary) hypertension; I25.10 Atherosclerotic heart disease of native coronary artery without angina pectoris; Z92.3 Personal history of irradiation
CPT/HCPCS: 70450; 70487; 80053; 81001; 83735; 85025; 93005; 99285; Q9967